=== PATIENT | female | born 1950 | race Caucasian/White ===

== ENCOUNTER 2018-12-12 05:05 | Observation (INO) ==
--- NOTE | 2018-11-07 11:43 | Anesthesiology Consultation ---
Date of Service November 07, 2018 Assessment & Plan (1) Encounter for pre-operative examination: Note sent to PCP re: EKG, and PCP asked for patient to have a cardio clearance. Patient was seen by cardio on 12/04/18, who stated "Pending the results of the stress echo, she is at an acceptable risk to proceed with surgery from a cardiovascular standpoint." [place] [facility] [place]. At this point, will lory patient as acceptable risk for surgery and proceed. Chart Review Chart Review: Patient seen in Pre Admission Testing Teaching & Discussion Pre-Anesthesia Teaching/Discussion Notes: Instructed NPO after midnight before surgery. Medication instructions provided according to the PAT guidelines. History Surgery Operation Date: 12/12/18 07:00 Proposed Procedures p Laparoscopic, Possible Open, Resection Right Lower Quadrant Mass - Grant Arceo MD Height/Weight Height: 5 ft 4 in Weight: 66.8 kg Allergies Allergy/AdvReac Type Severity Reaction Status Date / Time Iodinated Contrast- Oral and Allergy PT STATES Verified 12/12/18 05:24 IV Dye SHE HAD A CARDIAC ARREST FOLLOWING IV FORM codeine AdvReac Unknown Headache Verified 12/12/18 05:24 morphine AdvReac Unknown PT SAID IT Verified 12/12/18 05:24 SHUTS HER SYSTEM DOWN naproxen AdvReac Diarrhea Verified 12/12/18 05:24 Medications Home Medications Medication Instructions Recorded Confirmed Last Taken No Known Home Medications 11/04/18 12/12/18 Unknown Active Medications Generic Name Dose Route Start Last Admin Trade Name Freq PRN Reason Stop Dose Admin Lactated Ringer's 1,000 mls @ 15 mls/hr 12/12/18 06:00 12/12/18 05:38 Lr IV 12/12/18 18:00 15 mls/hr .Q24H ALVARO Administration Past Medical History Medical History Intermittent claudication RLE (SURGEON AWARE) Benign carcinoid tumors of other sites Past Family History Family History Other Family history non-contributory Past Surgical History Surgical History History of bowel resection 2/2 "ABNORMAL CELLS" History of hand surgery RIGHT 2nd FINGER RE-ATTACHEMENT 2/2 TRAUMA History of cholecystectomy History of hysterectomy DUSTIN Past Anesthesia History No Hx of Anesthesia Complications and No Family Hx of Anesthesia Complications History of PONV No Motion Sickness Screening History of Motion Sickness: Yes (IF RIDING IN BACK SEAT) Social History Smoking Status: Current every day smoker tobacco type: cigarettes Smoking cigarettes per day: HX OF 1- 1.5 PPD X 40 YEARS Do You Dip or Chew Tobacco: No Hx Alcohol Use: Yes Alcohol type: hard liquor alcohol intake frequency: holidays/special occasions only Alcohol Intake Frequency Comment: VERY RARE Hx Substance Use: No substance use type: does not use Exercise / Class Metabolic Activity II 4-5 Yardwork/Stairs/Walk up hill (Bowls weekly in [employer], active at home, cares for her 2 year old great granddaughter. Able to climb FOS. Denies CP. Does get some SOB when she is smoking more. ) Review of Systems Patient denies chest pain, reflux, wheezing, palpitations. +SOB/VARGAS (Does get some SOB/VARGAS when she is smoking more) +Joint pain (right elbow when bowling, right knee) +cough (when smoking more and when she has increased congestion) Physical Exam Vital Signs Last Vital Signs Temp 36.6 C 12/12/18 05:25 Pulse 81 12/12/18 05:25 Resp 18 12/12/18 05:25 BP 130/75 12/12/18 05:25 Pulse Ox 95 12/12/18 05:25 BP: 130/70 P: 82 R: 14 T: 98.1 SPO2: 96% on RA ENMT Mouth: + dentures (Full upper set) and + edentulous Thyromental Distance: > or= 3.5 Finger Breadths (3.5) Mallampati Class: II Neck normal visual inspection and trachea midline; neck extension not limited Respiratory normal respiratory effort Auscultation: lungs clear to auscultation bilaterally Cardiovascular Rate/Rhythm: regular rate and regular rhythm Heart Sounds: no murmur Vessels: no carotid bruit Neurologic moves all extremities Psychiatric Orientation: alert and oriented x 3 Testing Electrocardiogram Date: 06/15/18 Findings: + SB @ (54) Low voltage QRS, cannot rule out anterior infarct, age undetermined. Chest X-Ray Date: 11/07/18 Findings: + NAD FINDINGS: Cardiac mediastinal and hilar silhouettes are within normal limits. No pneumothorax, pleural effusion, focal airspace consolidation or overt pulmonary edema. Cholecystectomy. Degenerative changes are seen about the shoulders and spine. IMPRESSION: No acute process. Stress Test Date: 12/06/18 Type: DSE Findings: + WNL Resting EF: 50% Resting LV Function: normal Resting RWMA: + none Valvular Disease: no significant valvular disease Negative dobutamine stress echocardiogram for myocardial ischemia at 93% MPHR. Negative dobutamine stress ECG for myocardial ischemia at 93% MPHR. No dobutamine induced chest pain. Baseline echocardiogram notes low-normal systolic function. There is mild concentric left ventricular hypertrophy. Laboratory Results 11/07/18 11:56 11/07/18 11:56 Blood Type O Negative 11/07/18 11:56 Antibody Screen NEGATIVE 11/07/18 11:56
--- NOTE | 2018-11-07 12:29 | XRay Report ---
XR chest Pre-admission PA/Lat HISTORY: 68 years-old Female pat preoperative exam. No acute chest complaints. COMPARISON: CT abdomen and pelvis 06/15/2018 TECHNIQUE: PA and lateral views of the chest FINDINGS: Cardiac mediastinal and hilar silhouettes are within normal limits. No pneumothorax, pleural effusion , focal airspace consolidation or overt pulmonary edema. Cholecystectomy. Degenerative changes are se en about the shoulders and spine. IMPRESSION: No acute process. The above report was generated using voice recognition software. It may contain grammatical, syntax o r spelling errors. Electronically signed by: Dakotah Romero M.D. 11/07/2018 12:28 PM
[2018-11-07 13:07] LABS: Basophils # (auto) 0.03 K/uL (0-0.2); Basophils % (auto) 0.4 %; Eosinophils # (auto) 0.03 K/uL (0-0.5); Eosinophils % (auto) 0.4 %; Hematocrit (blood only) 43.8 % (37-47); Hemoglobin 14.7 g/dL (12.0-16.0); Immature Granulocytes # (auto) 0.01 K/uL (0.00-0.02); Immature Granulocytes % (auto) 0.1 %; Lymphocytes # (auto) 2.92 K/uL (1.2-3.4); Lymphocytes % (auto) 40.9 %; Mean Corpuscular Hgb Conc 33.6 g/dL (32-36); Mean Corpuscular Volume 95.4 fL (80-100); Mean Platelet Volume 10.6 fL (7.4-10.4); Monocytes # (auto) 0.56 K/uL (0.11-0.59); Monocytes % (auto) 7.8 %; Neutrophils # (auto) 3.59 K/uL (1.4-6.5); Neutrophils % (auto) 50.4 %; Platelet Count 259 K/uL (130-400); RDW Coefficient of Variation 13.7 % (11.5-14.5); RDW Standard Deviation 47.6 fL (36.4-46.3); Red Blood Count 4.59 M/uL (4.2-5.4); White Blood Count 7.14 K/uL (4.8-10.8)
[2018-11-07 13:29] LABS: BUN Creatinine Ratio 13.2 (10-20); Calcium 9.8 mg/dl (8.5-10.1); Creatinine Clr Calc Pharmacy 54.4 ml/min; Est GFR (African American) 73.2; Est GFR (Non-African American) 63.1; Potassium 4.9 mmol/L (3.5-5.1)
[2018-12-12] MEDS ORDERED: LR 15ML/HR IV SCH (06:00)
--- NOTE | 2018-12-12 06:28 | History & Physical Report ---
Date of Service December 12, 2018 Assessment & Plan (1) Encounter for pre-operative examination: plan laparoscopy possible open r and c explained to pt and Present on Admission?: Yes History of Present Illness Chief Complaint: 68 female with lymph node near previous site of ileocecectomy for carcinoid suspicious of rec disease see complete h and p dictated a on 11/05 surgery held up do to anesthesia request cardiac clearance that she had 2 days ago no chnages since last seen here with at bedside Primary Care Provider: NO PCP Allergies Allergy/AdvReac Type Severity Reaction Status Date / Time Iodinated Contrast- Oral and Allergy PT STATES Verified 12/12/18 05:24 IV Dye SHE HAD A CARDIAC ARREST FOLLOWING IV FORM codeine AdvReac Unknown Headache Verified 12/12/18 05:24 morphine AdvReac Unknown PT SAID IT Verified 12/12/18 05:24 SHUTS HER SYSTEM DOWN naproxen AdvReac Diarrhea Verified 12/12/18 05:24 Home Medications Home Medications Medication Instructions Recorded Confirmed Type No Known Home Medications 11/04/18 12/12/18 History Past Med/Surg History Medical History Intermittent claudication RLE (SURGEON AWARE) Benign carcinoid tumors of other sites Family History Other Family history non-contributory Social History Preferred Language: Welsh Communication Ability: Effective Visual Impairment: No Limitations Hearing Ability: Normal Behavior Clinician Required: No Beliefs That Will Affect Care: None Current Living Situation: Spouse Other Information That Helps Us Care for You: No Feels Safe at Home: Yes Safety Concerns: Feels Safe At This Time Smoking Status: Current every day smoker Tobacco Type: cigarettes Cigarettes Per Day: HX OF 1- 1.5 PPD X 40 YEARS Do You Dip or Chew Tobacco: No Second Hand Exposure: No Tobacco Cessation Education Requested by Patient: No Hx Alcohol Use: Yes Alcohol type: hard liquor Hx Substance Use: No Review of Systems Review of Systems: All systems reviewed & are unremarkable except as noted in HPI & below Physical Exam Physical Exam: alert coherent in no distress lungs clear heart nss abd neg for masses multiple incisions from previous surgery Results & Data Vital Signs (Past 12 Hours) Vital Signs Temp Pulse Resp BP Pulse Ox 12/12/18 05:25 36.6 C 81 18 130/75 95
[2018-12-12] MEDS ORDERED: fentaNYL citrate 100 MCG/2 ML VIAL ONE ×4 (06:35→09:33)
[2018-12-12] MEDS ORDERED: MIDAZOLAM HCL 1 MG/ML 2ML VIAL ONE (06:35)
[2018-12-12] MEDS ORDERED: ROCURONIUM BROMIDE 10 MG/ML 5 ML VIAL ONE (06:37)
[2018-12-12] MEDS ORDERED: PROPOFOL IV EMULSION 10 MG/ML 20 ML VIAL IV ONE (06:37)
[2018-12-12] MEDS ORDERED: BUPIVACAINE 0.5 % 5 MG/1 ML MPF 30ML VIAL ONE (06:39)
[2018-12-12] MEDS ORDERED: HYDROmorphone INJ 2 MG/ML SYR/VIAL IV PRN (06:54)
[2018-12-12] MEDS ORDERED: ATROPINE SULFATE 0.1 MG/ML 10ML SYR IV PRN (06:54)
[2018-12-12] MEDS ORDERED: ePHEDrine sulfate 50 MG/ML AMP IV PRN (06:54)
[2018-12-12] MEDS ORDERED: DEXAMETHASONE SOD INJ 4 MG/ML VIAL IV PRN (06:54)
[2018-12-12] MEDS ORDERED: ONDANSETRON INJ 2 MG/ML 2 ML VIAL IV PRN ×2 (06:54→11:24)
[2018-12-12] MEDS ORDERED: fentaNYL citrate 100 MCG/2 ML VIAL IV PRN (06:54)
--- NOTE | 2018-12-12 09:59 | Post Operative Brief Note ---
Immediate Post Op Note v1 Date of Surgery December 12, 2018 Pre & Post Diagnosis Operation Date: 12/12/18 07:00 Pre-Op Diagnosis: Right Lower Quadrant Abdominal Mass Post-Op Diagnosis: Metastatic Carcinoid Abdominal wall Procedure Operation Date: 12/12/18 07:00 Actual Procedures p Laparoscopy; Lysis Dense Abdominal Adhesions; Biopsy Abdominal Wall Mass for Frozen Section(Right) - Grant Arceo MD Surgeon Grant Arceo MD Cyber Reverse Engineer b carolyn jc Estimated Blood Loss 50 Findings Consistent with Post-Op Diagnosis
[2018-12-12] MEDS ORDERED: NEOSTIGMINE METHYLSULFATE 5 MG/5 ML SYR ONE (10:02)
[2018-12-12] MEDS ORDERED: GLYCOPYRROLATE 0.2 MG/ML VIAL ONE (10:02)
--- NOTE | 2018-12-12 10:24 | Operative Report ---
Post Operative Report Pre & Post Diagnosis Operation Date: 12/12/18 07:00 Pre-Op Diagnosis: Right Lower Quadrant Abdominal Mass Post-Op Diagnosis: Metastatic Carcinoid Abdominal wall Procedure Operation Date: 12/12/18 07:00 Actual Procedures p Laparoscopy; Lysis Dense Abdominal Adhesions; Biopsy Abdominal Wall Mass for Frozen Section(Right) - Grant Arceo MD Patient was brought into the operating theater supine position stomach antibiotics given general endotracheal anesthesia a timeout was had and a small incision supraumbilically above the lower midline incision dissected down the abdominal wall fascia elevated the fascia with Rasta clamps were able to enter with a hemostat were met with adhesions and not a free area to insert a port eventually dissected out more away with the pain a 5 mm port without the soft edge without the sharp edge CO2 insufflated followed by the camera however significant around a massive amount of adhesions some of there was try to break through the area but I was unsuccessful patient has significant risk past medical history she had included ileus septectomy which at that time also underwent an open procedure she presented to us with a right lower quadrant mesenteric mass most likely consistent with metastatic carcinoid that was 3 cm 4 cm in size therefore with that in mind that I cannot be able to get into the abd omen without guarding.I made a small incision in the quadrant dissected through the peritoneum and was able to enter the peritoneal cavity with a hemostat which was free flowing and 5 mm trocar without the sharp edge at this point we were able to insufflate and what we identified as the patient has significant adhesions to the anterior abdominal wall along her low midline incision all the way up towards the falciform ligament I elected to take these down to visualize if there is have any evidence of metastatic disease before we approach or even try to get downs of her right lower quadrant mesenteric nod which pretty much was frozen and then by adhesions therefore we placed a 5mm left upper quadrant history of a 5 mm right upper quadrant port on the right visualization of created a window that we were able to place the 5 mm first a 3 mm right upper left upper quadrant port and utilized the abdominal adhesions most of omental adhesions anterior abdominal wall few bowel loops we were able to free up by sharp dissection making sure we did not enter any of it. We also once we freed up and took the adhesions which sharp dissection it took approximately 3 hours just to get through these areas then our attention was turned to the right lower quadrant for which she dilated small bowel proximal to the cecal area which I suspected gone into the right gutter was the anastomosis. Prior to that once we had freed up the intra-abdominal adhesion we had set speck of the lower midline incision a very hard area to be felt more so than just granulation tissue was sent for frozen section and the report was most likely due to metastatic carcinoid. With that in mind I try to dissect down further into the natural area that we were interest to get out but it was significantly withdrawn into the mesentery that it was quite dangerous he was dissected out more and my suspicions were vented if we devascularized that area we will trend up to one 8- hour resection of previous area of the ileum and the left right colon with that in mind I elected not to pursue any forward in fact we did gets a little bit of bleeding just try to dissect this area laparoscopically I did not put some Surgicel in the area about a time we are done I will appear to be slowing down. Individual trochars were checked prior to remove it but we did closed the lower abdominal right trocar with 0 Vicryl with bacitracin suture passer intra- abdominally and fascial stitch was placed then we closed the umbilical area or supraumbilical incisional site with 0 Vicryl x2 [id number] Steri-Strips applied after Monocryl was used for the other size procedure was tolerated well estimated blood loss approximately 50 cc addendumB Carolyn CHISHOLM was present pretty much throughout the whole case help to the camera work exposure and wound closure Surgeon Grant Arceo MD Dispatcher Radioactive Waste Disposal b carolyn chisholm Estimated Blood Loss 50 Findings Consistent with Post-Op Diagnosis Specimens abd wall implant f s met carcinoid Description of Procedure merda I attest to the content of the Intraoperative Record and any orders documented therein. Any exceptions are noted below.
--- NOTE | 2018-12-12 11:19 | Anesthesiology Progress Note ---
Date of Service December 12, 2018 Anesthesia Post Procedure Vital Signs Vital Signs: Temp Pulse Pulse Resp BP BP Pulse Ox 12/12/18 11:05 67 20 138/73 92 12/12/18 10:55 36.3 C L 65 22 140/74 93 12/12/18 10:50 64 17 125/70 95 12/12/18 10:40 70 20 127/69 94 12/12/18 10:30 69 20 157/80 H 93 12/12/18 10:20 74 18 157/87 H 94 12/12/18 10:12 36.0 C L 80 18 140/89 92 12/12/18 05:25 36.6 C 81 18 130/75 95 Notes Mental Status: alert / awake / arousable and participated in evaluation Patient Amnestic to Procedure: Yes Nausea / Vomiting: adequately controlled Pain: adequately controlled Airway Patency, RR, SpO2: stable & adequate BP & HR: stable & adequate Hydration State: stable & adequate Anesthetic Complications: no major complications apparent
[2018-12-12] MEDS ORDERED: OXYCODONE/ACETAMINOPHEN 5mg/325mg TAB PO PRN (11:24)
[2018-12-12] MEDS ORDERED: ACETAMINOPHEN 325 MG TAB PO PRN (11:24)
[2018-12-12] MEDS: LACTATED RINGER'S 1,000 ML IV SCH ×2 (14:01→23:26)
--- NOTE | 2018-12-13 05:29 | Surgery Progress Note ---
Date of Service December 13, 2018 Assessment & Plan (1) Encounter for pre-operative examination: first pod intraop findings discussed with pt and told of spread of disease to abd incision will need chemo (she adamantly refuses) bit concerned her abd more distended than I would expect although we took nearly 3 hours to lyse adhesions vitals noted will check lab and reevaluate later today plan laparoscopy possible open r and c explained to pt and Subjective complaining of abd pain when getting up otherwise no pain Physical Exam Physical Exam: alert in no distress coughing non productive abd distended tender rlq trocar site Results & Data Vital Signs (Past 12 Hours) Vital Signs Temp Pulse Resp BP Pulse Ox 12/13/18 04:00 37 C 83 22 124/70 94 12/12/18 23:21 94 12/12/18 23:20 37.4 C 84 20 114/82 83 L 12/12/18 19:55 37.1 C 71 18 102/59 L 92
[2018-12-13 06:11] LABS: Basophils # (auto) 0.01 K/uL (0-0.2); Basophils % (auto) 0.1 %; Eosinophils # (auto) 0.01 K/uL (0-0.5); Eosinophils % (auto) 0.1 %; Hematocrit (blood only) 35.3 % (37-47); Hemoglobin 11.8 g/dL (12.0-16.0); Immature Granulocytes # (auto) 0.03 K/uL (0.00-0.02); Immature Granulocytes % (auto) 0.3 %; Lymphocytes # (auto) 3.15 K/uL (1.2-3.4); Lymphocytes % (auto) 28.4 %; Mean Corpuscular Hgb Conc 33.4 g/dL (32-36); Mean Corpuscular Volume 93.4 fL (80-100); Mean Platelet Volume 10.1 fL (7.4-10.4); Monocytes # (auto) 0.94 K/uL (0.11-0.59); Monocytes % (auto) 8.5 %; Neutrophils # (auto) 6.94 K/uL (1.4-6.5); Neutrophils % (auto) 62.6 %; Platelet Count 223 K/uL (130-400); RDW Standard Deviation 48.2 fL (36.4-46.3); Red Blood Count 3.78 M/uL (4.2-5.4); White Blood Count 11.08 K/uL (4.8-10.8)
[2018-12-13 06:43] LABS: BUN Creatinine Ratio 12.2 (10-20); Calcium 8.5 mg/dl (8.5-10.1); Creatinine Clr Calc Pharmacy 61.7 ml/min; Est GFR (Non-African American) 72.5; Potassium 3.9 mmol/L (3.5-5.1)
--- NOTE | 2018-12-13 08:32 | Anesthesiology Progress Note ---
Date of Service December 13, 2018 Anesthesia Post Procedure Vital Signs Vital Signs: Temp Pulse Pulse Resp BP Pulse Ox 12/13/18 08:13 37.0 C 68 20 122/60 94 12/13/18 04:00 37 C 83 22 124/70 94 12/12/18 23:21 94 12/12/18 23:20 37.4 C 84 20 114/82 83 L 12/12/18 19:55 37.1 C 71 18 102/59 L 92 12/12/18 15:10 36.7 C 93 H 18 138/77 92 12/12/18 14:02 72 16 121/64 92 12/12/18 13:12 36.9 C 72 16 117/64 96 12/12/18 12:23 74 18 117/63 96 12/12/18 11:41 69 16 126/66 92 12/12/18 11:15 36.5 C 64 16 132/78 95 12/12/18 11:05 67 20 138/73 92 12/12/18 10:55 36.3 C L 65 22 140/74 93 12/12/18 10:50 64 17 125/70 95 12/12/18 10:40 70 20 127/69 94 12/12/18 10:30 69 20 157/80 H 93 12/12/18 10:20 74 18 157/87 H 94 12/12/18 10:12 36.0 C L 80 18 140/89 92 Pain Intensity Abdomen: Pain Intensity: 7 Notes Mental Status: alert / awake / arousable and participated in evaluation Patient Amnestic to Procedure: Yes Nausea / Vomiting: adequately controlled Pain: adequately controlled Airway Patency, RR, SpO2: stable & adequate BP & HR: stable & adequate Hydration State: stable & adequate Anesthetic Complications: no major complications apparent and Pt Satisfied with anesthetic care
[2018-12-13] MEDS: LACTATED RINGER'S 1,000 ML IV SCH (11:18)
--- NOTE | 2018-12-13 13:08 | Surgery Progress Note ---
Date of Service December 13, 2018 Assessment & Plan (1) Encounter for pre-operative examination: first pod second visit daughter at bedside discussed op findings and f/u with pt she wants to go home and feels better tolerated breakfast and wants lunch abd softer lab noted ok to d/c discussed with case management first pod intraop findings discussed with pt and told of spread of disease to abd incision will need chemo (she adamantly refuses) bit concerned her abd more distended than I would expect although we took nearly 3 hours to lyse adhesions vitals noted will check lab and reevaluate later today plan laparoscopy possible open r and c explained to pt and Subjective complaining of abd pain when getting up otherwise no pain Results & Data Vital Signs (Past 12 Hours) Vital Signs Temp Pulse Pulse Resp BP Pulse Ox 12/13/18 11:15 88 L 12/13/18 08:37 92 12/13/18 08:35 86 L 12/13/18 08:13 37.0 C 68 20 122/60 94 12/13/18 04:00 37 C 83 22 124/70 94
--- NOTE | 2018-12-16 17:56 | Discharge Summary ---
PRIMARY DISCHARGE DIAGNOSES: 1. Right lower quadrant abdominal mass. 2. Metastatic carcinoid of abdominal wall. PROCEDURE PERFORMED: Laparoscopy with lysis of dense abdominal adhesions and abdominal wall biopsy with frozen section. HOSPITAL COURSE: The patient is a 60-year-old female with a history of carcinoid now with mass in the right lower quadrant, taken to the operating room for further evaluation and biopsy. She had an abdominal wall implant that was biopsied and frozen returned as metastatic carcinoid. We were not easily able to biopsy the mass in the right lower quadrant. The procedure was well tolerated. She was transferred to the surgical floor for overnight observation. On postop day 1 she was able to tolerate advancing diet and oral analgesics. Her incisions were clean and dry. Her abdomen was somewhat distended in the morning but by the afternoon was improved. She was stable for discharge. DISCHARGE INSTRUCTIONS: Discharge home. Follow up with Dr. Arceo in 1 week. DISCHARGE MEDICATIONS: Percocet 1-2 tablets every 4 hours as needed. MTDD
--- OUTSIDE RECORDS SUMMARY | 2018-12-16 20:54 | External Medical Summary | Continuity of Care Document ---
:1950 Author Name Kenia Wild, Provider Address Unavailable Unavailable , Care Team Providers Name Role Phone Grant Arceo [email or web address] PCP, UNKNOWN Unavailable Unavailable Unavailable Unavailable Unavailable Problems Abdominal mass, RLQ (right lower quadrant) (789.33) (R19.03) Abnormal ECG (794.31) (R94.31) Exertional shortness of breath (786.05) (R06.02) Claudication (443.9) (I73.9) Tobacco abuse (305.1) (Z72.0) Allergies and Adverse Reactions Codeine Derivatives (Allergy) Reaction: Headache Iodine SOLN (Allergy) Reaction: Other Naproxen TABS (Allergy) Reaction: Diarrh ea Medications No Reported Medications Refills: 0 Procedures History of hand surgery Status: Complete d History of Hysterectomy Status: Complete d History of Cholecystectomy Status: Compl eted History of Colon Surgery Status: Complet ed History of Laparoscopy (Diagnostic) Stat us: Completed 12-Dec-2018 0:00 Immunizations Immunizations not documented Family History Mother Family history of diabetes mellitus (V18.0) (Z83.3) Status: Active Family history of malignant neoplasm of breast (V16.3) (Z80. 3) Status: Active natural daughter Family history of diabetes mellitus (V18.0) (Z83.3) Status: Active Family history of malignant neoplasm of breast (V16.3) (Z80. 3) Status: Active aunt Family history of malignant neoplasm of breast (V16.3) (Z80. 3) Status: Active Social History - Smoking Status Smoker. current status unknown Plan of Treatment Planned Encounters Appointment; Grant Arceo M.D. Start: 20-Dec-2018 9 :40 Request Planned Observations Planned Goals not documented Results BLOOD BANK HOLD TUBE Laboratory: [facility] [address] [facility] [address] tel: 12-Dec-2018 5:33 BLOOD BANK HOLD TUBE Run: 12/12/18 0716 [facility] Lien Pathology Report Name : MAXIMO BENOIT Daisy Age/Sex: 68/F Location: A SUAcct: [id number] Unit: [id number] Status: [facility] Room /Bed:Re12/12/18 Disch: Att Dr: Grant Arceo Spec: [id number] Collected: 12/12/18Received: [facility] Dr: Grant Arceo, [facility] To: PCP ,NOOrd Prods: (NO ORDERED PRODUCTS)Ord Tests: (NO REPORTAB LE TESTS) Test Result Flag Reference Site <No re portable results> Te sts: Date Time Order Change Action User12/11/18 1425 Blood Bank Hold 1 NEW 0311 4 END OF REPORT Vital Signs 04-Dec-2018 10:51 Systolic 128 mm[Hg] Comments: Location: RUE; Position: Sitting Diastolic 76 mm[Hg] Comments: Location: RUE; Position: Sitting Weight 148.125 lb BMI Calculated 26.24 kg/m2 BSA Calculated 1.7 m2 Heart Rate 100 /min Comments: Location: R Radial; Encounters Appointment; Grant Arceo M.D. 12-Dec-2018 7:00 Encounter Diagnosis: Problem not documented Appointment; Aster Price PA-C 06-Dec-2018 11:30 Encounter Diagnosis: Problem not documented Appointment; Stress, Echocardiogram 1 06-Dec-2018 10:30 Encounter Diagnosis: Problem not documented Appointment; Aster Price PA-C 04-Dec-2018 11:00 Encounter Diagnosis: Problem not documented Appointment; Grant Arceo M.D. 30-Oct-2018 13:30 Encounter Diagnosis: Problem not documented Appointment; Grant Arceo M.D. 20-Dec-2018 9:40 Encounter Diagnosis: Problem not documented
== END 2018-12-13 14:02 | disposition home or self-care (01) ==
LOC: ASU 05:05 → 3N 05:05

== ENCOUNTER 2020-05-25 11:41 | Observation (INO) ==
--- NOTE | 2020-05-25 12:49 | History & Physical Report ---
Date of Service May 25, 2020 Assessment & Plan (1) Fatigue: Suspect it is due to progressive neuroendocrine tumor with mets. However, will rule out other metabolic causes. Check CBC, CMP, TSH, B12/folate, EKG. No evidence of any infectious process at this time. Check serotonin and chromogranin A levels. (2) Neuroendocrine cancer: Patient with long history of neuroendocrine tumor dating back to 2005. 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 Rising serotonin levels in 2016 led to initiation of octreotide. Remained on such until early 2018. Has not had conventional therapy for her cancer since. Had 2nd opinion at [facility] in February [address] Forrester to formally consult this admission. He has requested jaffe-CT to assess disease burden. Unfortunately she had anaphylaxis to IV contrast in the past thus will defer on contrast. Suspect much of her chronic fatigue is due to advancing neuroendocrine tumor w/ mets. Await CTs. Check serotonin & chromogranin A levels. (3) Tobacco dependence: Template Fitter to quit. Nicoderm patch. (4) PAD (peripheral artery disease): Patient with claudication of legs with walking. It would be prudent to consider daily aspirin and statin. Tobacco contributing heavily to this issue. (5) Chronic rhinitis: Add nasal steroid. Add saline drops. osbaldo-D prn. (6) Breast mass, right: Per Dr Forrestre patient had mammogram in late April showing this. Past imaging, however, has also shown a right breast mass - possibly due to her neuroendocrine tumor. Defer work-up/Rx to Dr Forrester. (7) Wheezing: Suspect patient has underlying COPD. Has long-standing tobacco use, clubbing of fingernails, etc. Consider maintenance inhalers, 2-step O2 test, etc. (8) DVT prophylaxis: lovenox 30mg daily place on observation status total time about 70 minutes including reviewing copious amount of records, speaking with Dr Forrester heme/onc, etc. Admission and Anticipated Discharge Date Admission Date: May 25, 2020 History of Present Illness Chief Complaint: extreme fatigue Primary Care Provider: NO PCP 70yo female with history of neuroendocrine tumor s/p resection of a portion of the small bowel for same in 2005 - presents with extreme fatigue starting in early April 2020. The fatigue/weakness come on gradually. It was associated with feeling cold all the time, poor appetite, and some weight loss. Denies fevers/chills/sweats. Has had sinus congestion but minimal cough. No loss of taste. Some change in smell but attributed to sinus congestion. No nausea or emesis. Passing lots of flatus. Traveled to [place] about 10 days ago by car but no obvious sick contacts going to or from there. Patient had not seen Dr Forrester at the [facility] in over 12 months before today. She had gotten a referral to oncology at [facility] in [place] in February 2019. Records from that visit were available for my review today. Lutathera was recommended to the patient but she ultimately declined such. Instead of pursuing conventional treatment the patient elected to travel to [place] for homeopathic treatment. She was seen and treated at "[facility]" in [place], [place]. She reports that she had "stem cell treatment" at this center from May to July 2019. Had 9 total injections. 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 * serotonin/chromogranin A levels radha in 2016 prompting initiation of octreotide in 11/2016 * remained on octreotide until 05/2019; despite octreotide she had radiographic progression of cancer with MRI in 07/2018 showing RLQ mass * 11/2018 - biopsy of RLQ mass by Dr Arceo c/w metastatic well- differentiated neuroendocrine tumor * prior PET/CT dated 02/2019 showed multiple foci in right pleura, liver, left ischium, peritoneum; this also showed right breast nodule suggestive of additional focus of neuroendocrine tumor * Dr Forrester states that a mammogram done in 04/2020 showed a right breast mass Allergies Allergy/AdvReac Type Severity Reaction Status Date / Time Iodinated Contrast Media Allergy PT STATES Verified 12/12/18 05:24 [Iodinated Contrast- Oral SHE HAD A and IV Dye] CARDIAC ARREST FOLLOWING IV FORM codeine AdvReac Unknown Headache Verified 12/12/18 05:24 morphine AdvReac Unknown PT SAID IT Verified 12/12/18 05:24 SHUTS HER SYSTEM DOWN naproxen AdvReac Diarrhea Verified 12/12/18 05:24 Home Medications Home Medications Medication Instructions Recorded Confirmed Type No Known Home Medications 11/04/18 12/12/18 History oxycodone-acetaminophen [Percocet] 1 - 2 tab PO Q4H PRN #15 tab 12/13/18 Rx Past Med/Surg History Medical History (Updated 05/25/20 @ 21:17 by Hardik Atwood) Neuroendocrine cancer original diagnosis 2005 (small bowel grade 1 carcinoid tumor) PAD (peripheral artery disease) Tobacco dependence Surgical History (Updated 05/25/20 @ 21:08 by Hardik Atwood) History of bowel resection 2005 - carcinoid tumor - small bowel History of cholecystectomy History of hand surgery RIGHT 2nd FINGER RE-ATTACHEMENT 2/2 TRAUMA History of hysterectomy DUSTIN/BSO Family History (Updated 05/25/20 @ 12:44 by Hardik Atwood) Mother , age 84 Heart disease Diabetes Father , age 84 Dementia Other Family history non-contributory Social History (Updated 05/25/20 @ 12:47 by Hardik Atwood) Smoking Status: Current every day smoker Years Smoked: 50; Cigarettes Per Day: 1 - 1.5 PPD; Second Hand Exposure: No; Do You Dip or Chew Tobacco: No; Tobacco Cessation Education Requested by Patient: No Hx Alcohol Use: Yes Alcohol type: hard liquor Alcohol Intake Frequency: Monthly or Less Hx Substance Use: No Preferred Language: Yi Communication Ability: Effective Visual Impairment: No Limitations Hearing Ability: Normal Fire Control Technician B Required: No Beliefs That Will Affect Care: None marital status: Current Living Situation: Spouse Current Living Situation Comment: lives with in [place] 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 status: retired 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 How many Children do You have: 3 How many Children do You have Comment: daughters Other Information That Helps Us Care for You: No Feels Safe at Home: Yes Safety Concerns: Feels Safe At This Time Assistive Devices: None Review of Systems Constitutional: + fatigue, + weakness, + anorexia and + weight loss; no fever, no chills and no body aches Eyes: no worsening vision Ear, Nose, Mouth, Throat: + nasal congestion and + sinus pain/pressure; no sore throat and no dysphagia Respiratory: + cough, + dyspnea on exertion and + sputum production Cardiovascular: no chest pain, no palpitations and no edema Gastrointestinal: + excessive flatulence and + diarrhea/loose stools; no nausea and no vomiting Genitourinary: no dysuria Musculoskeletal: no joint pain Integumentary: no rash Neurologic: no loss of sensation feet occasionally "burn" Psychiatric: + anxiety; no depression Endocrine: + cold intolerance no diabetes Hematologic / Lymphatic: no easy bleeding and no easy bruising Allergy / Immunological: + seasonal rhinorrhea Physical Exam Constitutional: no acute distress and no altered mental status Eyes: PERRL ENMT: external ear and nose normal, oropharynx normal Neck: trachea midline, no thyromegaly Respiratory: no respiratory distress Auscultation: + wheezes (scattered end-exp ); no crackles Cardiovascular: Rate/Rhythm: regular rate and regular rhythm Heart Sounds: normal S1 and normal S2; no murmur Vessels: posterior tibial pulses present (but 1+ at best) and dorsalis pedis pulses present (but 1+ at best); no JVD Extremities: no edema Gastrointestinal (Abdomen): Inspection/Auscultation: normal bowel sounds; abdomen not distended Percussion/Palpation: abdomen soft and + hepatomegaly (2 fingerbreaths below costal margin ); abdomen nontender and no splenomegaly Musculoskeletal: Extremities: + clubbing Skin: no rashes, warm and dry Neurologic: deep tendon reflexes 2+ bilaterally and moves all extremities; no focal motor deficits Psychiatric: A+Ox3, euthymic affect Lymphatic: + axillary lymphadenopathy (?<1cm node right axillary ); no cervical lymphadenopathy Results & Data Results & Data ([facility]) Vital Signs (Past 12 Hours) Laboratory Results - last 24 hr 05/25/20 05/25/20 05/25/20 13:49 13:49 13:49 WBC 7.10 RBC 4.67 Hgb 13.7 Hct 41.4 MCV 88.7 MCH 29.3 MCHC 33.1 RDW Std Deviation 48.0 H RDW Coeff of Noris 14.8 H Plt Count 319 MPV 9.9 Immature Gran % (Auto) 0.1 Neut % (Auto) 55.7 Lymph % (Auto) 35.1 [place] % (Auto) 8.2 Eos % (Auto) 0.6 Baso % (Auto) 0.3 Neut # (Auto) 3.96 Lymph # (Auto) 2.49 [place] # (Auto) 0.58 Eos # (Auto) 0.04 Baso # (Auto) 0.02 Immature Gran # (Auto) 0.01 Sodium 140 Potassium 3.9 Chloride 108 H Carbon Dioxide 26 Anion Gap 6.0 BUN 7 Creatinine 0.79 Est Cr Clr Drug Dosing 57.2 Est GFR ( Amer) 87.9 Est GFR (Non-Af Amer) 75.8 BUN/Creatinine Ratio 8.9 L Glucose 88 Calcium 9.4 Magnesium 2.2 Total Bilirubin 0.6 AST 15 ALT 19 Alkaline Phosphatase 96 Total Protein 8.4 H Albumin 3.4 Globulin 5.0 H Albumin/Globulin Ratio 0.7 L Serotonin Vitamin B12 511 Folate 10.06 TSH 0.878 Chromogranin A 05/25/20 13:49 WBC RBC Hgb Hct MCV MCH MCHC RDW Std Deviation RDW Coeff of Noris Plt Count MPV Immature Gran % (Auto) Neut % (Auto) Lymph % (Auto) [place] % (Auto) Eos % (Auto) Baso % (Auto) Neut # (Auto) Lymph # (Auto) [place] # (Auto) Eos # (Auto) Baso # (Auto) Immature Gran # (Auto) Sodium Potassium Chloride Carbon Dioxide Anion Gap BUN Creatinine Est Cr Clr Drug Dosing Est GFR ( Amer) Est GFR (Non-Af Amer) BUN/Creatinine Ratio Glucose Calcium Magnesium Total Bilirubin AST ALT Alkaline Phosphatase Total Protein Albumin Globulin Albumin/Globulin Ratio Serotonin Pending Vitamin B12 Folate TSH Chromogranin A Pending Laboratory Results CT abd/pelvis/chest pending Code Status & VTE Plan Code Status DNR/DNI VTE Prophylaxis Plan VTE Prophylaxis will be ordered: Yes PG Care Time/CCT Total # of Minutes Spent Total Time Spent with Patient: Total time spent is greater than 50% in coordination of care (as documented) at patient's floor/unit and/or counseling patient: Coding Level of Care Code 45751 OBS Care - Level 3 Diagnoses Fatigue R53.83 Fatigue type: unspecified Neuroendocrine cancer C7A.8 Tobacco dependence F17.200 PAD (peripheral artery disease) I73.9 Chronic rhinitis J31.0 Breast mass, right N63.10 Wheezing R06.2 DVT prophylaxis Z29.9 (1) Fatigue Fatigue type: unspecified Qualified Code(s): R53.83 - Other fatigue
[2020-05-25] MEDS ORDERED: ONDANSETRON INJ 2 MG/ML 2 ML VIAL IV PRN (13:07)
[2020-05-25] MEDS ORDERED: FEXOFENADINE 60MG/PSEUDOEPHEDRINE 120MG TAB PO PRN (13:12)
[2020-05-25] MEDS ORDERED: SODIUM CHLORIDE 0.65% NA SOLN 45 ML (OCEAN) PRN (13:12)
[2020-05-25] MEDS: SODIUM CHLORIDE 0.9% 1000ML 1,000 ML IV SCH (13:50)
[2020-05-25 14:22] LABS: Basophils # (auto) 0.02 K/uL (0-0.2); Basophils % (auto) 0.3 %; Eosinophils # (auto) 0.04 K/uL (0-0.5); Eosinophils % (auto) 0.6 %; Hematocrit (blood only) 41.4 % (37-47); Hemoglobin 13.7 g/dL (12.0-16.0); Immature Granulocytes # (auto) 0.01 K/uL (0.00-0.02); Immature Granulocytes % (auto) 0.1 %; Lymphocytes # (auto) 2.49 K/uL (1.2-3.4); Lymphocytes % (auto) 35.1 %; Mean Corpuscular Hemoglobin 29.3 pg (25-34); Mean Corpuscular Hgb Conc 33.1 g/dL (32-36); Mean Corpuscular Volume 88.7 fL (80-100); Mean Platelet Volume 9.9 fL (7.4-10.4); Monocytes # (auto) 0.58 K/uL (0.11-0.59); Monocytes % (auto) 8.2 %; Neutrophils # (auto) 3.96 K/uL (1.4-6.5); Neutrophils % (auto) 55.7 %; Platelet Count 319 K/uL (130-400); RDW Coefficient of Variation 14.8 % (11.5-14.5); Red Blood Count 4.67 M/uL (4.2-5.4)
[2020-05-25] MEDS: FLUTICASONE PROPIONATE NA SPR 16 GM BTL NAE SCH (14:23)
[2020-05-25] MEDS: NICOTINE 21 MG/24 HR TDSY TD SCH (14:24)
[2020-05-25] MEDS: CEROVITE ADV FORMULA TAB PO SCH (14:24)
--- NOTE | 2020-05-25 14:32 | CT Scan Report ---
CT SCAN OF THE ABDOMEN AND PELVIS WITHOUT CONTRAST CLINICAL HISTORY: neuroendocrine tumor; assess for disease burden COMPARISON STUDY: MRI dated 12/26/2019, CT scan dated 06/15/2018 TECHNIQUE: CT scan of the abdomen and pelvis was performed from the lung bases to the proximal femurs . Images are reviewed in the axial, sagittal, and coronal planes. IV contrast was not administered fo r this examination. A dose lowering technique was utilized adhering to the principles of ALARA. CT DOSE: 537.94 mGy.cm FINDINGS: Lower chest: There is respiratory motion artifact. There is emphysema. There is mild mosaic groundgla ss attenuation suggesting air trapping. Liver: There is focal fat adjacent to the falciform ligament. There is slight enlargement in an 8 mm peritoneal nodule abutting the right lobe the liver inferiorly Gallbladder: Surgically absent Spleen: Normal in size and attenuation. Pancreas: Unremarkable. Adrenal glands: Unremarkable. Kidneys: No renal, ureteral, or bladder calculi are visualized. Bowel: There are postsurgical changes of a right hemicolectomy with ileocolonic anastomosis. There ar e no transition zones indicate bowel obstruction. There is colonic diverticulosis. There is no eviden ce of acute diverticulitis. Peritoneum: There is a partially calcified irregularly marginated right mid abdominal mesenteric mass measuring 34 mm in craniocaudad dimension. This is minimally larger than on the preceding June 08 CT scan, when this lesion measured 29 mm.. There are postsurgical changes of a ventral hernia repa ir. There are multiple lower left anterior peritoneal nodules measuring up to 9 mm. These remain valentin lar. Vasculature: There is a 36 mm infrarenal abdominal aortic aneurysm. Adenopathy: A left pelvic sidewall soft tissue nodule remains similar to the prior study. This likely represents the patient's left ovary. Pelvic viscera: The uterus is surgically absent. Skeletal structures: No destructive osseous lesions are seen. IMPRESSION: 1. Minor interval increase in the size of a partially calcified irregularly marginated right mid abdo rody mesenteric mass measuring 34 mm 2. Multiple peritoneal nodules. An 8 mm nodule abutting the right lower lobe inferiorly appears large r than on the prior 2017 study 3. 36 mm infrarenal abdominal aortic aneurysm 4. Focal hepatic fat surrounding the falciform ligament ACT 112: Negative or not required by law. Electronically signed by: Cole Redd M.D. 05/25/2020 2:30 PM
--- NOTE | 2020-05-25 14:35 | CT Scan Report ---
CT SCAN OF THE CHEST WITHOUT IV CONTRAST CLINICAL HISTORY: Neuroendocrine tumor. COMPARISON STUDY: PET/CT dated 12/03/2019. TECHNIQUE: CT scan of the thorax was performed from the thoracic inlet to the upper abdomen. Images are reviewed in the axial, sagittal, and coronal planes. IV contrast was not administered for this ex amination as per the referring clinician. A dose lowering technique was utilized adhering to the bree Avalos. FINDINGS: Thyroid: Imaged portions of the thyroid gland are normal in size and attenuation. Thoracic aorta: There is mild atherosclerotic calcification of the thoracic aorta, which is normal in caliber and demonstrates standard 3-vessel arch anatomy. Heart: The heart is normal in size and without pericardial effusion. There are scattered coronary art carmen calcifications. Lungs and pleural spaces: Emphysematous change is noted and there is biapical pleural parenchymal sca rring. There is no airspace consolidation typical for pneumonia or pleural effusion. Foci of parenchy mal scarring are noted at the lung bases. The trachea and central airways are clear. Pleural thickeni ng in the right upper lobe lung minor fissure is unchanged. This measures up to 8 mm as seen on image #191. No new pulmonary nodule is identified. There is a 2.1 x 0.9 cm focus of pleural-based versus e xtrapleural nodularity in the right lower lobe on image #190 measuring 2.1 x 0.9 cm. Mediastinum: Mildly enlarged mediastinal lymph nodes are identified. A precarinal node on image #134 measures 1.7 x 1.2 cm. Prevascular nodes measure up to 0.6 cm in short axis.An 8 mm nodule seen anter ior to the heart on image #250. Kathy: Not well assessed without IV contrast. Axillae: There is no axillary lymphadenopathy. Upper abdomen: Geographic steatosis is suggested adjacent to falciform ligament. Soft tissue implants in the upper abdomen are seen anterior to the liver on images #295 and #301. These measure up to 11 mm. Additional implants are seen between the diaphragm and the liver on image #255 and measure up to 1.3 cm. Skeletal structures: The skeletal structures are osteopenic. No lytic or blastic bony lesions are see n. Soft tissues: There is a 9 mm a cutaneous soft tissue nodule in the right anterior chest wall seen on image #160. IMPRESSION: 1. Emphysema. 2. There is a soft tissue implant in the right anterior chest wall, as well as small implants in the upper abdomen along the anterior and superior margins of the liver. These are similar to the 0 PET examination and were FDG avid on the prior study. Metastatic disease is the diagnosis of exclus ion. 3. An additional focus of pleural-based or extrapleural nodularity in the right lower lobe is similar to previous. This was also FDG avid and likely represents metastatic disease. 4. There is a new implant seen anterior to the inferior border of the heart deep to the xiphoid. This is also concerning for a metastatic deposit. 5. Mildly enlarged mediastinal lymph nodes are nonspecific and similar to previous. These were mildly FDG avid on 12/03/2019 examination. 6. There is no airspace consolidation typical for pneumonia or pleural effusion. 7. Additional findings as above. ACT 112: Negative or not required by law. Electronically signed by: Pedro White M.D. 05/25/2020 2:33 PM
[2020-05-25 14:47] LABS: Albumin Level 3.4 gm/dl (3.4-5.0); BUN Creatinine Ratio 8.9 (10-20); Calcium 9.4 mg/dl (8.5-10.1); Creatinine Clr Calc Pharmacy 57.2 ml/min; Est GFR (African American) 87.9; Est GFR (Non-African American) 75.8; Magnesium 2.2 mg/dl (1.8-2.4); Potassium 3.9 mmol/L (3.5-5.1)
[2020-05-25 14:56] LABS: Folate (Folic Acid) 10.06 ng/ml (>5.38)
[2020-05-25 14:57] LABS: Albumin Globulin Ratio 0.7 (0.9-2); Bilirubin,Total 0.6 mg/dl (0.2-1); Thyroid Stimulating Hormone 0.878 uIu/ml (0.300-4.500); Total Protein 8.4 gm/dl (6.4-8.2)
--- NOTE | 2020-05-25 17:35 | Electrocardiogram Report ---
Test Reason : Blood Pressure : / mmHG Vent. Rate : 075 BPM Atrial Rate : 075 BPM P-R Int : 200 ms QRS Dur : 076 ms QT Int : 406 ms P-R-T Axes : 080 000 067 degrees QTc Int : 453 ms Normal sinus rhythm Normal ECG When compared with ECG of 15-JUN-2018 21:07, Nonspecific T wave abnormality no longer evident in Anterior leads Confirmed by Kane Wilson ([id number]) on 05/25/2020 5:34:53 PM Referred By: Hardik Atwood Confirmed By:Liborio Wilson
[2020-05-25] MEDS ORDERED: ENOXAPARIN INJ 30 MG/0.3 ML SYR SQ SCH (21:00)
[2020-05-26] MEDS: SODIUM CHLORIDE 0.9% 1000ML 1,000 ML IV SCH (00:02)
[2020-05-26] MEDS: NICOTINE 21 MG/24 HR TDSY TD SCH (08:22)
[2020-05-26] MEDS: CEROVITE ADV FORMULA TAB PO SCH (08:22)
[2020-05-26] MEDS: FLUTICASONE PROPIONATE NA SPR 16 GM BTL NAE SCH (08:23)
--- NOTE | 2020-05-26 09:11 | Consultation Report ---
DATE OF CONSULTATION: 05/26/2020 REASON FOR CONSULTATION: A 70-year-old female patient well known to [facility] with metastatic low-grade neuroendocrine tumor, admitted to [facility] with fatigue and general decline. HISTORY OF PRESENT ILLNESS: The patient is a pleasant 70-year-old female patient well known to [facility], currently under my care for metastatic low-grade neuroendocrine tumor. The patient was originally diagnosed with a low-grade neuroendocrine tumor of the distal ileum in 2005. She developed metastatic disease in 2019 and had been on octreotide up until a couple of years ago. At that time, the patient was having difficulties with octreotide and decided to seek a second opinion and went to [facility] who had recommended a lutathera, which is a radiopharmaceutical and she decided to decline. Instead of pursuing conventional treatment, she elected to travel to [place] and sought homeopathic treatment which she subscribed and received for about 8-9 months. Again, she has not had octreotide now for several months. When she presented yesterday to the office, she was feeling poorly with a declining appetite. She is a long-term smoker, continues to smoke at the present time and thus was concerned that she may be developing a new process. She had had no surveillance scans and thus recommended CT scan of the chest, abdomen and pelvis. The patient has had a fluctuant serotonin and chromogranin A levels as well as urinary 5-HIAA suggestive of disease progression. Patient herself has been reluctant to return for regular treatment. I last had a telephone conversation with her on 04/07/2020 at which time she was feeling well. Her had a false positive COVID test and thus we canceled patient's followup appointment and contacted her by phone. This morning after receiving IV hydration, she feels much better. Dr. Atwood also started her on Flonase, which has cleared her nasal congestion. She suffers from allergic rhinitis chronically. PAST MEDICAL HISTORY: Significant for metastatic neuroendocrine tumor, peripheral vascular disease, tobacco dependence. PAST SURGICAL HISTORY: Includes bowel resection for carcinoid tumor in 2006, cholecystectomy, second finger right reattachment attributable to trauma, hysterectomy, bilateral salpingo-oophorectomy. MEDICATIONS: She utilizes Percocet 1-2 tablets p.o. q. 4 hours p.r.n. No other prescription medications. ALLERGIES: SHE IS ALLERGIC TO NAPROXEN, MORPHINE, CODEINE AND IV DYE. SOCIAL HISTORY: She resides with her . She has a 50+ pack year smoking history. She also drinks alcohol on social occasions. 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 FAMILY HISTORY: Mother at age 84 from heart disease and diabetes. Father at age 84 from dementia. No first-degree family members with cancer or hematologic malignancies. REVIEW OF SYSTEMS: CONSTITUTIONAL: As per HPI, most notably for general decline, anorexia, fatigue and asthenia. No fevers, chills or sweats. SKIN: No rashes or lesions. No history of dermatoses. HEENT: Negative for headaches, lightheadedness or dizziness. She denies any acute visual deficits. She suffers from chronic allergic rhinitis and is congested. No sore throat or dysphagia. LYMPH: No history of lymphoproliferative disease. CARDIAC: No history of coronary artery disease, no angina or palpitations. PULMONARY: No history of COPD. She is not acutely short of breath, dyspneic or orthopneic. No cough or hemoptysis. GASTROINTESTINAL: Negative for abdominal pain. No nausea, vomiting, diarrhea or constipation. MUSCULOSKELETAL: No focal muscle weakness. No arthralgias or myalgias. GENITOURINARY: No hematuria, dysuria, urinary incontinence. PSYCHIATRIC: Negative for anxiety, depression or psychoses. ENDOCRINE: Negative for diabetes or thyroid disease. NEUROLOGIC: Negative for seizure, stroke, or migraine headache. HEMATOLOGIC: Negative for anemia, thrombophilia or bleeding diathesis. PHYSICAL EXAMINATION: GENERAL: Very pleasant 70-year-old female, awake, alert and appropriate, in no acute distress. VITAL SIGNS: Temperature 36.8, pulse 74, respiratory rate 18, blood pressure 136/78. SKIN: Warm, dry, noncyanotic without petechia, rash or ecchymosis. HEENT: Head is atraumatic, normocephalic. Eyes: PERRLA, EOMI. Sclerae nonicteric. No conjunctival injection. Nares are patent without rhinorrhea or discharge. Throat is clear. Tongue is midline. Mucous membranes are moist. NECK: Supple without JVD or thyromegaly. LYMPHATICS: No cervical, supraclavicular, axillary or inguinal palpable nodes. HEART: Regular rate and rhythm. No clicks, rubs, murmurs or gallops. LUNGS: Clear to auscultation bilaterally. ABDOMEN: Soft, nontender, nondistended, without palpable hepatosplenomegaly. EXTREMITIES: No calf tenderness or swelling. No clubbing, cyanosis or edema. NEUROLOGICAL: She is awake, alert and oriented x3. Cranial nerves are grossly intact. RADIOGRAPHIC DATA: CT scan of the chest reveals emphysema, soft tissue implant in the right anterior chest wall as well as small implants in the upper abdomen along the anterior and superior margins of the liver, similar to PET findings from 11/2019. Additional focus pleural based x pleural based nodularity of right lower lobe is similar to previous, this is also FDG avid on previous PET. There is a new implant seen anterior and inferior border to the hard deep to the xiphoid concerning for metastatic deposit, mildly enlarged mediastinal lymph nodes are nonspecific and similar to previous upon PET from 11/2019. CT scan of the abdomen and pelvis again minor interval increase in size, partially calcified irregular marginated right mid abdominal mesenteric mass measuring 34 mm. Multiple peritoneal nodules and 8 mm nodule abutting the right lower lobe inferior appears larger than on prior 2018 study. She also has a 36 mm infrarenal abdominal aortic aneurysm. IMPRESSION: 1. Asthenia/general decline. 2. Metastatic neuroendocrine tumor with a documented radiographic progression. 3. Allergic rhinitis. PLAN: I visited with patient at bedside and had a joy and direct discussion with her. Patient has been resistant on resuming octreotide and despite sending her for second opinion at [facility] does not want to pursue what they have offered. Advised her that radiographically, it would appear her disease is indeed progressing and may be the reason why she feels the way she feels. She feels much better after receiving IV hydration. She states she tolerated her diet yesterday. The long and short of it is patient is willing to resume octreotide and have asked Dr. Hawkins to order a 30 mg intramuscular dose today and will resume monthly administration moving forward. I await serotonin and chromogranin A levels, which I am sure are elevated. I see no reason to keep her in the hospital further after she receives octreotide. I will plan to see her next month before her next dose administration. I have nothing further to add and have agreed with current medical management. Thank you very much for assisting me in the care of this very pleasant patient.
[2020-05-26] MEDS ORDERED: OCTREOTIDE ACETATE 100 MCG/ML VIAL SQ STA (09:28)
--- NOTE | 2020-05-26 13:21 | Discharge Summary ---
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 The fatigue/weakness come on gradually. It was associated with feeling cold all the time, poor appetite, and some weight loss. Denies fevers/chills/sweats. Has had sinus congestion but minimal cough. No loss of taste. Some change in smell but attributed to sinus congestion. No nausea or emesis. Passing lots of flatus. Traveled to [place] about 10 days ago by car but no obvious sick contacts going to or from there. Patient had not seen Dr Forrester at the [facility] in over 12 months before today. She had gotten a referral to oncology at [facility] in [place] in February 2019. Records from that visit were available for my review today. Lutathera was recommended to the patient but she ultimately declined such. Instead of pursuing conventional treatment the patient elected to travel to [place] for homeopathic treatment. She was seen and treated at "[facility]" in [place], [place]. She reports that she had "stem cell treatment" at this center from May to July 2019. Had 9 total injections. 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 * serotonin/chromogranin A levels radha in 2016 prompting initiation of octreotide in 11/2016 * remained on octreotide until 05/2019; despite octreotide she had radiographic progression of cancer with MRI in 07/2018 showing RLQ mass * 11/2018 - biopsy of RLQ mass by Dr Arceo c/w metastatic well- differentiated neuroendocrine tumor * prior PET/CT dated 02/2019 showed multiple foci in right pleura, liver, left ischium, peritoneum; this also showed right breast nodule suggestive of additional focus of neuroendocrine tumor * Dr Forrester states that a mammogram done in 04/2020 showed a right breast mass Principal Diagnosis Dehydration, fatigue, progression of Neuroendocrine tumor Discharge Exam Constitutional WD/WN, vitals as above Eyes PERRL, conjunctivae normal, anicteric sclerae ENMT external ear and nose normal, oropharynx normal Neck trachea midline, no thyromegaly Respiratory normal respiratory effort, lungs clear to auscultation Cardiovascular RRR, no murmur, no edema Chest (Breasts) Chest: normal inspection of chest Gastrointestinal (Abdomen) normal bowel sounds, soft, nontender, no hepatosplenomegaly Musculoskeletal Extremities: extremities normal to inspection; no cyanosis and no clubbing Skin no rashes, warm and dry Neurologic moves all extremities and awake; no focal motor deficits Psychiatric A+Ox3, euthymic affect Lymphatic no lymphedema Discharge Data Allergies Allergy/AdvReac Type Severity Reaction Status Date / Time Iodinated Contrast Media Allergy PT STATES Verified 12/12/18 05:24 [Iodinated Contrast- Oral SHE HAD A and IV Dye] CARDIAC ARREST FOLLOWING IV FORM codeine AdvReac Unknown Headache Verified 12/12/18 05:24 morphine AdvReac Unknown PT SAID IT Verified 12/12/18 05:24 SHUTS HER SYSTEM DOWN naproxen AdvReac Diarrhea Verified 12/12/18 05:24 Consultations 05/25/20 13:07 Consult Hematology Routine Ordered Studies 05/25/20 13:07 CT abd pelvis wo con Routine CT chest wo con Routine Hospital Course (1) Fatigue: Suspect it is due to progressive neuroendocrine tumor with mets. Much improved after IVF hydration. Is ambulating halls and much improved plans on staying hydrated at home and restarting octreotide as below Labs to include CBC, CMP, TSH, B12/folate all normal and EKG nl No evidence of any infectious process at this time. Check serotonin and chromogranin A levels-pending CT C/A/P all with progression of disease (2) Neuroendocrine cancer: Patient with long history of neuroendocrine tumor dating back to 2005. 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 Rising serotonin levels in 2016 led to initiation of octreotide. Remained on such until early 2019. Has not had conventional therapy for her cancer since. Had 2nd opinion at [facility] in February [address] Forrester to formally consult this admission. Unfortunately, disease burden increased on imaging. Suspect much of her chronic fatigue is due to advancing neuroendocrine tumor w/ mets. 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 has allergic reaction to patch and gum makes her feel weird Declines Chantix and Wellbutrin due to possible ASE Considering quitting cold turkey again (4) PAD (peripheral artery disease): Patient with claudication of legs with walking. It would be prudent to consider daily aspirin and statin. Tobacco contributing heavily to this issue. f/u with PCP Actually states this feels better after receiving IVF hydration (5) Chronic rhinitis: Added nasal steroid and reports significant improvement in being able to breathe through nose-continue after discharge. Add saline drops. (6) Breast mass, right: Per Dr Forrester patient had mammogram in late April showing this. Past imaging, however, has also shown a right breast mass - possibly due to her neuroendocrine tumor. Defer work-up/Rx to Dr Forrester. She has diagnostic breast imaging planned for tomorrow (7) Wheezing: Suspect patient has underlying COPD. Has long-standing tobacco use, clubbing of fingernails, etc. Consider maintenance inhalers, PFTs etc. as outpt (8) DVT prophylaxis: lovenox 30mg daily Stable for dc Total Time Total Time Spent Total Time Spent (In Minutes): 35 min Total Time Includes: Examination of the Patient, Discharge Planning, Medication Reconciliation and Communication With Other Providers (Oncology) Discharge Plan Discharge Items Patient Disposition: Home - Self-Care Reason For Visit: NEUROENDOCRINE TUMOR Discharge Diagnosis: Dehydration, progression of neuroendocrine cancer Condition on Discharge: Good Activity: Resume your previous activity Non-emergency contact: Primary Care Provider and Oncologist Call non-emergency contact if: you have any medication questions, your symptoms worsen and you have a fever Follow-up/Referrals: Alexi Forrester DO [Physician] - (Please follow up as soon as possible to restart your cancer treatment) PCP,NO [Primary Care Provider] - Diet: Regular Addtl Attending Provider Instructions: Please follow up with Dr. Forrester as soon as possible to restart your octreotide treatment. Continue to work on staying hydrated at home. You can continue the Flonase for your nasal congestion. Pending Studies at Discharge: Yes (Chromogranin A, serotonin) Stand-Alone Forms: [employer], Smoking Cessation Medications and DC Order Prescriptions: New fluticasone propionate 50 mcg/actuation Busby,Suspension 2 spray DAVID DAILY Qty: 15.8 RF: 0 sodium chloride [Saline Mist] 0.65 % Aerosol,Busby 2 spray NA Q1H PRN (Reason: nasal congestion) Qty: 30 RF: 0 Certavite-Antioxidant 18-400 mg-mcg Tablet 1 tab PO QAM Qty: 30 RF: 0 Continued oxycodone-acetaminophen [Percocet] 5-325 mg tablet 1 - 2 tab PO Q4H PRN (Reason: pain) Qty: 15 RF: 0 Discharge Orders: Discharge Order (Routine); Ordered 05/26/20 Ordered By: Malissa Hawkins Admission Data Admit Date/Time: 05/25/20 11:47 Attending Provider: Malissa Hawkins Admit Provider: Hardik Atwood Primary Care Provider: PCP,NO Other Providers: Alexi Forrester V. Coding Level of Care Code 40746 OBS Care - Discharge Diagnoses Fatigue R53.83 Fatigue type: unspecified Neuroendocrine cancer C7A.8 Tobacco dependence F17.200 PAD (peripheral artery disease) I73.9 Chronic rhinitis J31.0 Breast mass, right N63.10 Wheezing R06.2 DVT prophylaxis Z29.9
[2020-05-31 16:56] LABS: Chromogranin A 245 ng/mL (25-140); Serotonin 1382 ng/mL (56-244)
== END 2020-05-26 14:35 | disposition home or self-care (01) ==
LOC: 2W → SUATTDRO 11:47

== ENCOUNTER 2024-06-07 14:10 | Inpatient (IN) ==
--- NOTE | 2024-06-07 14:51 | XRay Report ---
XR chest 1V portable CLINICAL HISTORY: abd pain TECHNIQUE: Single frontal radiograph of the chest was obtained. Comparison: Comparison is made to chest radiograph 05/05/2023 FINDINGS: No lines and tubes are seen. The cardiomediastinal silhouette is normal. The lungs are clear. No evid ence of pleural effusion or pneumothorax. IMPRESSION: No acute chest disease. ACT 112: Negative or not required by law. Electronically signed by: Uriel Escudero M.D. 06/07/2024 2:49 PM
[2024-06-07 14:59] LABS: Basophils # (auto) 0.02 K/uL (0.00-0.20); Basophils % (auto) 0.3 %; Eosinophils # (auto) 0.01 K/uL (0.00-0.50); Eosinophils % (auto) 0.1 %; Hematocrit (blood only) 40.9 % (37.0-47.0); Hemoglobin 13.7 g/dl (12.0-16.0); Immature Granulocytes # (auto) 0.01 K/uL (0.01-0.20); Immature Granulocytes % (auto) 0.1 %; Lymphocytes # (auto) 1.56 K/uL (1.20-3.40); Lymphocytes % (auto) 22.1 %; Mean Corpuscular Hgb Conc 33.5 g/dL (32.0-36.0); Mean Corpuscular Volume 89.5 fL (80.0-100.0); Mean Platelet Volume 10.5 fL (9.4-12.4); Monocytes # (auto) 0.56 K/uL (0.11-0.59); Monocytes % (auto) 7.9 %; Neutrophils # (auto) 4.91 K/uL (1.40-6.50); Neutrophils % (auto) 69.5 %; Platelet Count 226 K/uL (130-400); RDW Coefficient of Variation 14.6 % (11.5-14.5); RDW Standard Deviation 47.5 fL (36.4-46.3); Red Blood Count 4.57 M/uL (4.20-5.40); White Blood Count 7.07 K/ul (4.8-10.8)
[2024-06-07 15:12] LABS: Alanine Aminotransferase 17 U/L (7-52); Albumin Level 4.1 gm/dl (3.4-5.0); Alkaline Phosphatase 70 U/L (34-104); Anion Gap 11 (3-11); Aspartate Aminotransferase 22 U/L (13-39); BUN Creatinine Ratio 13.3 (10-20); Bilirubin,Total 0.9 mg/dl (0.2-1.0); Blood Urea Nitrogen 24 mg/dl (6-23); Calcium 9.1 mg/dl (8.6-10.3); Carbon Dioxide 24 mmol/L (21-32); Chloride 102 mmol/L (98-107); Glucose 121 mg/dl (70-99(Fasting)); Lipase 33 U/L (11-82); Sodium 137 mmol/L (136-145); Total Protein 8.2 gm/dl (6.0-8.3)
[2024-06-07 15:19] LABS: Troponin I High Sensitivity 6.5 pg/ml (0-14)
--- NOTE | 2024-06-07 15:23 | CT Scan Report ---
CT abd pelvis wo con CLINICAL HISTORY: adb pain diarrhea TECHNIQUE: Helical axial images of the abdomen and pelvis were obtained. Automated dose lowering tech niques and/or adjustment according to patient size were utilized for this exam. This exam was perfor med without intravenous contrast. CT DOSE: 786.84 mGy.cm COMPARISON: Comparison is made to CT abdomen pelvis 08/23/2020 FINDINGS: Lower chest: No acute abnormality. Liver: Unremarkable. No focal lesions are seen. Gallbladder and biliary tree: Patient is status post cholecystectomy. No intra- or extrahepatic bilia ry ductal dilation. Pancreas: Unremarkable, no focal lesions. Spleen: Unremarkable. Adrenals: Unremarkable. Kidneys and ureters: Right hydronephrosis is new from prior exam. Bladder: Unremarkable. Reproductive organs: Patient is status post hysterectomy. Bowel: Multiple loops of small bowel measure up to 39 mm in diameter. Lymph nodes Retroperitoneal: Right-sided soft tissue mass measures 28 mm, increased from prior exam where it nando ured 18 mm. Pelvic: Unremarkable. Mesenteric: A mesenteric soft tissue mass measures 18 mm, previously 13 mm. Multiple bowel loops appe ar to be tethered to this mass. Peritoneum: Normal. Vessels: Atherosclerotic calcifications are seen. Aortic aneurysm is again seen measuring up to 38 mm . Abdominal wall: Unremarkable. Bones: Unremarkable. IMPRESSION: Interval enlargement of retroperitoneal and mesenteric masses although evaluation is limited by nonco ntrast technique. There is resulting right hydronephrosis. There are also dilated loops of small fay l which may represent partial small bowel obstruction due to tethering from these masses. ACT 112: Negative or not required by law. Electronically signed by: Uriel Escudero M.D. 06/07/2024 3:21 PM
[2024-06-07 15:24] LABS: INR 0.9 (0.9-1.1); Partial Thromboplastin Ratio 0.9; Partial Thromboplastin Time 25 Seconds (21-31)
[2024-06-07 15:38] LABS: Adenovirus PCR Not Detected (NotDetected); Bordetella parapertussis PCR Not Detected (NotDetected); Bordetella pertussis PCR Not Detected (NotDetected); Chlamydia pneumoniae PCR Not Detected (NotDetected); Coronavirus 229E PCR Not Detected (NotDetected); Coronavirus CoV-2 (COVID19)PCR Not Detected (NotDetected); Coronavirus HKU1 PCR Not Detected (NotDetected); Coronavirus NL63 PCR Not Detected (NotDetected); Coronavirus OC43PCR Not Detected (NotDetected); Human Metapneumovirus PCR Not Detected (NotDetected); Influenza A PCR Not Detected (NotDetected); Influenza B PCR Not Detected (NotDetected); Mycoplasma pneumoniae PCR Not Detected (NotDetected); Parainfluenza Virus 1 PCR Not Detected (NotDetected); Parainfluenza Virus 2 PCR Not Detected (NotDetected); Parainfluenza Virus 3 PCR Not Detected (NotDetected); Parainfluenza Virus 4 PCR Not Detected (NotDetected); Respiratory Syncytial VirusPCR Not Detected (NotDetected); Rhinovirus/Enterovirus PCR Not Detected (NotDetected)
[2024-06-07] MEDS: SODIUM CHLORIDE 0.9% 1,000 ML IV ONE (16:05)
[2024-06-07] MEDS ORDERED: ALUMINUM/MAGNESIUM SUSP 30 ML UDC PO PRN (16:20)
[2024-06-07] MEDS ORDERED: ONDANSETRON INJ 2 MG/ML 2 ML VIAL IV PRN (16:20)
[2024-06-07] MEDS ORDERED: ACETAMINOPHEN 325 MG TAB PO PRN (16:20)
[2024-06-07 16:32] LABS: Adenovirus F 40/41 PCR Not Detected (NotDetected); Astrovirus PCR Not Detected (NotDetected); Campylobacter PCR Not Detected (NotDetected); Cryptosporidium PCR Not Detected (NotDetected); Cyclospora cayetanensis PCR Not Detected (NotDetected); Entamoeba histolytica PCR Not Detected (NotDetected); Enteroaggregative E.coli(EAEC) Not Detected (NotDetected); Enteropathogenic E.coli (EPEC) Not Detected (NotDetected); Enterotoxigenic E.coli (ETEC) Not Detected (NotDetected); Giardia lamblia PCR Not Detected (NotDetected); Norovirus GI/GII PCR Not Detected (NotDetected); Plesiomonas shigelloides PCR Not Detected (NotDetected); Rotavirus A PCR Not Detected (NotDetected); Salmonella PCR Not Detected (NotDetected); Sapovirus PCR Not Detected (NotDetected); Shiga-like Toxin E.coli (STEC) Not Detected (NotDetected); Shigella/Enteroinvasive E.coli Not Detected (NotDetected); Vibrio cholerae PCR Not Detected (NotDetected); Vibrio species PCR Not Detected (NotDetected); Yersinia enterocolitica PCR Not Detected (NotDetected)
--- NOTE | 2024-06-07 16:36 | History & Physical Report ---
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 Admitting CTAP:Interval enlargement of retroperitoneal and mesenteric masses although evaluation is limited by noncontrast technique. There is resulting right hydronephrosis. There are also dilated loops of small bowel which may represent partial small bowel obstruction due to tethering from these masses. Admitting labs fairly WNL, except creatinine elevated at 1.81, baseline creatinine around 1 Admitting respiratory pathogen panel and C. difficile negative, stool PCR neg Status post IV fluids in the ED, continue with maintenance IV fluid at 80 mL an hour. N.p.o., general surgery consult. Monitor replete electrolytes. Acute kidney injury: Admitting creatinine of 1.81, baseline around 1.0, CTAP with right hydronephrosis in the setting of metastatic disease, patient with recent diarrheal episodes and poor p.o. intake. Likely prerenal versus postrenal. Continue with IV fluids at 80 mL an hour, BMP in a.m., avoid nephrotoxic's. Other chronic medical conditions: Noted chronic medical considerations are HLD, COPD, rectocele, urge incontinence, stress incontinence, chronic low back pain. Patient reports she does not use any home medications. Per outpatient chart review, patient does have history of medical noncompliance. 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 Patient reports eating Dolphin fish on Sunday night and reports diarrhea and abdominal cramps since Sunday morning. Patient was recently in [place] and reports no other members in the trip got the disease. Patient denies fever, reports nausea and dry heaves, denies vomiting, reports poor appetite, denies sore throat, reports cough at baseline, denies chest pain/pain and burning with passing urine. Patient reports smoking 1 packs a day for more than 50 years, drinks seldom [1 time in every 6 months], denies recreational drug use. Patient states that she does not take any medications at home. Plan of care discussed with the patient and her at bedside, they voiced understanding. Full code as per my discussion with the patient. Allergies Allergy/AdvReac Type Severity Reaction Status Date / Time Iodinated Contrast Media Allergy PT STATES Verified 06/07/24 16:17 [Iodinated Contrast- Oral SHE HAD A and IV Dye] CARDIAC ARREST FOLLOWING IV FORM sulfamethoxazole Allergy Neuro Verified 06/07/24 16:17 [From Bactrim] complications trimethoprim [From Bactrim] Allergy Neuro Verified 06/07/24 16:17 complications codeine AdvReac Unknown Headache Verified 06/07/24 16:17 morphine AdvReac Unknown PT SAID IT Verified 06/07/24 16:17 SHUTS HER SYSTEM DOWN naproxen AdvReac Diarrhea Verified 06/07/24 16:17 Home Medications Medication Instructions Recorded Confirmed Type albuterol sulfate 90 mcg/actuation 2 puff inhalation Q6H PRN SOB 11/15/23 06/07/24 History aerosol inhaler (ProAir HFA) escitalopram oxalate 10 mg tablet 10 mg PO DAILY 11/15/23 06/07/24 History loperamide 1 mg/5 mL oral liquid 2 mg PO Q4H PRN Diarrhea 06/07/24 06/07/24 History magnesium 100 mg capsule 100 mg PO HS PRN MUSCLE SPASMS 06/07/24 06/07/24 History vitamin B12 500 mcg-folic acid 400 1 tab PO DAILY 06/07/24 06/07/24 History mcg tablet Past Med/Surg History Problem List (Updated 06/07/24 @ 16:36 by Manuela Agrawal MD) Watery diarrhea Dyspnea Breast mass, right Chronic rhinitis 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) Tobacco dependence PAD (peripheral artery disease) Medical History PAD (peripheral artery disease) Tobacco dependence Neuroendocrine cancer Surgical History Status post tubal ligation (~1973) H/O colonoscopy (~2017) History of hand surgery History of bowel resection (~2005) History of hysterectomy History of cholecystectomy (~1979) Family History Mother Heart disease Diabetes Father Dementia Aunt Breast cancer Daughter Diabetes Grandmother Heart disease Other Family history non-contributory Social History Smoking Status: Current every day smoker Tobacco Type: Cigarettes Cigarettes Per Day: 1 - 1.5 PPD; Second Hand Exposure: Yes; Do You Dip or Chew Tobacco: No; Hx Alcohol Use: Yes Alcohol type: hard liquor Alcohol Intake Frequency: Monthly or Less Hx Substance Use: No Preferred Language: Belgian Communication Ability: Effective Visual Impairment: No Limitations Hearing Ability: Normal Establishment Guide Required: No Beliefs That Will Affect Care: None marital status: Current Living Situation: Spouse Current Living Situation Comment: lives with in [place] 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 status: retired 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 Physical Exam 2 Physical Exam: GENERAL: Alert and oriented x3. NAD, on RA. HEENT: No pallor, no icterus. Pupils equal, round and reactive to light. Oral mucosa dry. NECK: No JVD, no neck masses. HEART: S1 and S2 heard. Regular rate and rhythm. No murmur, no gallop. RESPIRATORY SYSTEM: Normal AP diameter. No accessory muscle use. No wheezing, no crackles. ABDOMEN: Soft, bowel sounds present, mild central abd tenderness, no distention. CENTRAL NERVOUS SYSTEM: No facial droop. Speech is clear. Obeys simple commands. Moves extremities. EXTREMITIES: No edema, no erythema seen. Results & Data Results & Data Vital Signs (Past 12 Hours) Vital Signs Temp Pulse Pulse Resp BP BP Pulse Ox 06/07/24 16:00 67 26 H 144/77 H 92 06/07/24 15:07 77 26 H 93 06/07/24 15:07 36.5 C 78 15 139/84 95 06/07/24 14:13 36.5 C 108 H 20 130/78 92 O2 Del Method 06/07/24 16:00 Room Air 06/07/24 15:07 Room Air 06/07/24 15:07 Room Air 06/07/24 14:13 Room Air Code Status & VTE Plan VTE Prophylaxis Plan VTE Prophylaxis will be ordered: Yes
[2024-06-07] MEDS ORDERED: Patient's HEIGHT &/or WEIGHT Needed SCH (16:45)
[2024-06-07] MEDS: SODIUM CHLORIDE 0.9% 1,000 ML IV SCH (17:29)
--- NOTE | 2024-06-07 17:48 | Emergency Department Note ---
History of Present Illness General Chief complaint: Abdominal Pain Stated complaint: ABD PAIN Time Seen by Provider: 06/07/24 14:19 History of Present Illness Provider Complaint: + nausea, + vomiting, + diarrhea and + abdominal pain Onset (ago): day(s) 4 Description of Vomiting: no bilious, no blood-streaked, no bloody or no coffee grounds Description of Diarrhea: + watery; no tarry, no blood-streaked or no bloody (bright red) Associated Abdominal Pain: Yes Location of pain: + diffuse Severity: severe Maximum Pain Intensity: 10 Current Pain Intensity: 9 Quality: + cramping Pain Consistency: + constant Relieved By: + none Exacerbated By: + bowel movement Context: + possible food poisoning (Patient's symptoms started after she ate fish tacos in [place]), + alcohol abuse and + smoking; no foreign travel (No foreign travel but did recently travel back from [place]), no recent antibiotic use, no recent surgery/procedure, no trauma or no marijuana use Associated symptoms: + bloating; no myalgias, no chest pain, no cough, no diaphoresis, no headaches or no rash Home Medications Medication Instructions Recorded Confirmed Type albuterol sulfate 90 mcg/actuation 2 puff inhalation Q6H PRN SOB 11/15/23 06/07/24 History aerosol inhaler (ProAir HFA) escitalopram oxalate 10 mg tablet 10 mg PO DAILY 11/15/23 06/07/24 History loperamide 1 mg/5 mL oral liquid 2 mg PO Q4H PRN Diarrhea 06/07/24 06/07/24 History magnesium 100 mg capsule 100 mg PO HS PRN MUSCLE SPASMS 06/07/24 06/07/24 History vitamin B12 500 mcg-folic acid 400 1 tab PO DAILY 06/07/24 06/07/24 History mcg tablet Allergies Allergy/AdvReac Type Severity Reaction Status Date / Time Iodinated Contrast Media Allergy PT STATES Verified 06/07/24 16:17 [Iodinated Contrast- Oral SHE HAD A and IV Dye] CARDIAC ARREST FOLLOWING IV FORM sulfamethoxazole Allergy Neuro Verified 06/07/24 16:17 [From Bactrim] complications trimethoprim [From Bactrim] Allergy Neuro Verified 06/07/24 16:17 complications codeine AdvReac Unknown Headache Verified 06/07/24 16:17 morphine AdvReac Unknown PT SAID IT Verified 06/07/24 16:17 SHUTS HER SYSTEM DOWN naproxen AdvReac Diarrhea Verified 06/07/24 16:17 Past Med/Surg History Problem List (Updated 06/07/24 @ 18:01 by Adriel Farrar MD) HERLINDA (acute kidney injury) (Acute) Watery diarrhea Dyspnea Breast mass, right Chronic rhinitis 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) Tobacco dependence PAD (peripheral artery disease) Medical History PAD (peripheral artery disease) Tobacco dependence Neuroendocrine cancer Surgical History Status post tubal ligation (~1973) H/O colonoscopy (~2017) History of hand surgery History of bowel resection (~2005) History of hysterectomy History of cholecystectomy (~1979) Family History Mother Heart disease Diabetes Father Dementia Aunt Breast cancer Daughter Diabetes Grandmother Heart disease Other Family history non-contributory Social History Smoking Status: Current every day smoker Tobacco Type: Cigarettes Cigarettes Per Day: 1 - 1.5 PPD; Second Hand Exposure: Yes; Do You Dip or Chew Tobacco: No; Hx Alcohol Use: Yes Alcohol type: hard liquor Alcohol Intake Frequency: Monthly or Less Hx Substance Use: No Preferred Language: Swedish Communication Ability: Effective Visual Impairment: No Limitations Hearing Ability: Normal [place] Required: No Beliefs That Will Affect Care: None marital status: Current Living Situation: Spouse Current Living Situation Comment: lives with in [place] 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 status: retired 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 How many Children do You have: 3 How many Children do You have Comment: daughters Feels Safe at Home: Yes Diet: regular during the past year weight has: remained stable Assistive Devices: Glasses Physical Exam 2 Vital Signs: Vital Signs - 24 hr 06/07/24 14:13 06/07/24 15:07 06/07/24 15:07 Temperature 36.5 C 36.5 C Temperature Source Temporal Artery Sc an Oral Pulse Rate 108 H 77 Pulse Rate [Apical ] 78 Respiratory Rate 20 15 26 H Respiratory Effort / Characteristics Non-Labored Sponta neous Non-Labored Sponta neous Respiratory Depth Normal Normal Respiratory Patter n Regular Regular Blood Pressure 130/78 Blood Pressure [Le ft Arm] 139/84 Blood Pressure Mercedes n 95 Blood Pressure Mercedes n [Left Arm] 102 Blood Pressure Pos ition [Left Arm] Pulse Oximetry 92 95 93 Oxygen Delivery Me thod Room Air Room Air Room Air Sepsis Recent Feve r Within 48 Hours No Sepsis New/Unexpla ined Change in Men ricki Status N/A Sepsis Action Take n by Nursing No Action Required 06/07/24 16:00 06/07/24 17:30 Temperature Temperature Source Pulse Rate Pulse Rate [Apical ] 67 75 Respiratory Rate 26 H 25 H Respiratory Effort / Characteristics Spontaneous Respiratory Depth Shallow Respiratory Patter n Tachypnea Blood Pressure Blood Pressure [Le ft Arm] 144/77 H 136/85 Blood Pressure Mercedes n Blood Pressure Mercedes n [Left Arm] 99 102 Blood Pressure Pos ition [Left Arm] Semi-fowlers Pulse Oximetry 92 90 Oxygen Delivery Me thod Room Air Room Air Sepsis Recent Feve r Within 48 Hours Sepsis New/Unexpla ined Change in Men ricki Status Sepsis Action Take n by Nursing Physical Exam: Physical Exam GENERAL: oriented to person, place, and time. appears well-developed and well- nourished. She does not appear distressed. HENT: Exam performed. -Head: Normocephalic and atraumatic. -Right Ear: External ear normal. No mastoid erythema -Left Ear: External ear normal. No mastoid erythema -Mouth/Throat: The oropharynx is clear and moist. No trismus in the jaw. No dental abscesses or uvula swelling. No oropharyngeal exudate or tonsillar abscesses. EYES: Conjunctivae and EOM are normal.Right eye exhibits no discharge. Left eye exhibits no discharge. No scleral icterus. NECK: Normal range of motion. Neck supple. No JVD present. No tracheal deviation and normal range of motion present. CV: Normal rate, regular rhythm, normal heart sounds and intact distal pulses. There is no peripheral edema. Palpable radial pulses bue. PULM/CHEST: Effort normal and breath sounds normal. No respiratory distress. No stridor. no wheezes.no rales. -Chest Wall: no tenderness to palpation ABD: The abdomen is soft. Bowel sounds are normal. no distension. No mass is present. There is diffuse tenderness to palpation. There is no rebound. MUSC/SKEL: Normal range of motion. There is no peripheral edema, tenderness or deformity. NEURO: Motor and sensation grossly intact. SKIN: Skin is warm and dry. not diaphoretic. PSYCH: normal mood and affect. Behavior is normal. Judgment and thought content normal. Course Course 1419: The patient was evaluated in room B11. A complete history and physical exam was performed Cardiac monitoring: An order was placed for continuous cardiac monitoring. The monitor shows a rate of 70 with sinus rhythm interpreted by nh 1545: Vital signs stable. Labs show an elevated creatinine level. Patient started on IV fluids for HERLINDA. Patient CT of the abdomen pelvis redemonstrates her mesenteric soft tissue mass and retroperitoneal mass. According to the radiology read there is a resulting hydronephrosis and dialysis loops of small bowel which may represent a partial small bowel obstruction due to the tethering from these masses. Clinically the patient does not have any evidence of bowel obstruction if she keeps having copious amounts of diarrhea. Discussed the case with Dr. Coley on-call general surgery and he agrees to be on consult. Patient be admitted to the medicine service for HERLINDA and to receive IV fluids. Administered Medications Sodium Chloride (Nss) 1,000 mls @ 80 mls/hr IV .[id number] ALVARO Stop: 06/08/24 16:07 Last Admin: 06/07/24 17:29 Dose: 80 mls/hr Documented By: JOHNNA Discontinued Medications Sodium Chloride (Nss) 1,000 mls @ 999 mls/hr IV .[id number] ONE Stop: 06/07/24 16:28 Last Infusion: 06/07/24 17:29 Dose: Infused Documented By: Admin: 06/07/24 16:05 Dose: 999 mls/hr Documented By: JOHNNA Medical Decision Making Laboratory Data Attestation: I reviewed the patient's lab results. 06/07/24 14:40 06/07/24 14:40 Lab Results 06/07/24 06/07/24 06/07/24 Range/Units 14:33 14:40 14:43 WBC 7.07 (4.8-10.8) K/ul RBC 4.57 (4.20-5.40) M/uL Hgb 13.7 (12.0-16.0) g/dl Hct 40.9 (37.0-47.0) % MCV 89.5 (80.0-100.0) fL MCH 30.0 (25.0-34.0) pg MCHC 33.5 (32.0-36.0) g/dL RDW Std Deviation 47.5 H (36.4-46.3) fL RDW Coeff of Noris 14.6 H (11.5-14.5) % Plt Count 226 (130-400) K/uL MPV 10.5 (9.4-12.4) fL Immature Gran % (Auto) 0.1 % Neut % (Auto) 69.5 % Lymph % (Auto) 22.1 % Beckham % (Auto) 7.9 % Eos % (Auto) 0.1 % Baso % (Auto) 0.3 % Neut # (Auto) 4.91 (1.40-6.50) K/uL Lymph # (Auto) 1.56 (1.20-3.40) K/uL Beckham # (Auto) 0.56 (0.11-0.59) K/uL Eos # (Auto) 0.01 (0.00-0.50) K/uL Baso # (Auto) 0.02 (0.00-0.20) K/uL Immature Gran # (Auto) 0.01 (0.01-0.20) K/uL PT 10.0 (9.0-12.0) Seconds INR 0.9 (0.9-1.1) APTT 25 (21-31) Seconds PTT Ratio 0.9 Sodium 137 (136-145) mmol/L Potassium 4.0 (3.5-5.1) mmol/L Chloride 102 (98-107) mmol/L Carbon Dioxide 24 (21-32) mmol/L Anion Gap 11 (3-11) BUN 24 H (6-23) mg/dl Creatinine 1.81 H (0.6-1.2) mg/dl Est Cr Clr Drug Dosing Not Reportable eGFR 29.01 BUN/Creatinine Ratio 13.3 (10-20) Glucose 121 H (70-99(Fasting)) mg/dl Calcium 9.1 (8.6-10.3) mg/dl Total Bilirubin 0.9 (0.2-1.0) mg/dl Direct Bilirubin TNP AST 22 (13-39) U/L ALT 17 (7-52) U/L Alkaline Phosphatase 70 (34-104) U/L Troponin I High Sens 6.5 (0-14) pg/ml Total Protein 8.2 (6.0-8.3) gm/dl Albumin 4.1 (3.4-5.0) gm/dl Lipase 33 (11-82) U/L Stl C. cayetanensis PCR Not Detected (NotDetected) Stool Rotavirus A PCR Not Detected (NotDetected) Stl Adenov F 40/41 PCR Not Detected (NotDetected) Stool Astrovirus (PCR) Not Detected (NotDetected) Stool Campylobacter PCR Not Detected (NotDetected) Stl C. diff Tox B Gene Negative Cdiff Gene (Neg) Stool Cryptosporidium PCR Not Detected (NotDetected) Stl E.coli Shiga Tox PCR Not Detected (NotDetected) Stl Enterotoxigenic E PCR Not Detected (NotDetected) Stool EPEC (PCR) Not Detected (NotDetected) Stool EAEC (PCR) Not Detected (NotDetected) Stl E. histolytica PCR Not Detected (NotDetected) Stool Giardia Lamblia PCR Not Detected (NotDetected) Stool Salmonella PCR Not Detected (NotDetected) Stool Sapovirus (PCR) Not Detected (NotDetected) Stl P. shigelloides PCR Not Detected (NotDetected) Stl Shigella/EIEC PCR Not Detected (NotDetected) St Y.enterocolitica PCR Not Detected (NotDetected) Stool Vibrio (PCR) Not Detected (NotDetected) Stl Vibrio cholerae PCR Not Detected (NotDetected) Stl Norovirus GI/GII PCR Not Detected (NotDetected) Adenovirus (PCR) Not Detected (NotDetected) B. pertussis DNA (PCR) Not Detected (NotDetected) B.parapertussis DNA PCR Not Detected (NotDetected) C. pneumoniae DNA (PCR) Not Detected (NotDetected) Coronavirus OC43 (PCR) Not Detected (NotDetected) Coronavirus HKU1 (PCR) Not Detected (NotDetected) Coronavirus 229E (PCR) Not Detected (NotDetected) SARS-CoV-2 (PCR) Not Detected (NotDetected) Coronavirus NL63 (PCR) Not Detected (NotDetected) Human Metapneumovir PCR Not Detected (NotDetected) Influenza Type A (PCR) Not Detected (NotDetected) Influenza Type B (PCR) Not Detected (NotDetected) M. pneumoniae (PCR) Not Detected (NotDetected) Parainfluenza 1 (PCR) Not Detected (NotDetected) Parainfluenza 2 (PCR) Not Detected (NotDetected) Parainfluenza 3 (PCR) Not Detected (NotDetected) Parainfluenza 4 (PCR) Not Detected (NotDetected) RSV (PCR) Not Detected (NotDetected) Entero/Rhino (PCR) Not Detected (NotDetected) Imaging Data Radiologist's Impression: Abdomen/Pelvis CT 06/07/24 14:37 CT abd pelvis wo con CLINICAL HISTORY: adb pain diarrhea TECHNIQUE: Helical axial images of the abdomen and pelvis were obtained. Automated dose lowering techniques and/or adjustment according to patient size were utilized for this exam. This exam was performed without intravenous contrast. CT DOSE: 786.84 mGy.cm COMPARISON: Comparison is made to CT abdomen pelvis 08/23/2020 FINDINGS: Lower chest: No acute abnormality. Liver: Unremarkable. No focal lesions are seen. Gallbladder and biliary tree: Patient is status post cholecystectomy. No intra- or extrahepatic biliary ductal dilation. Pancreas: Unremarkable, no focal lesions. Spleen: Unremarkable. Adrenals: Unremarkable. Kidneys and ureters: Right hydronephrosis is new from prior exam. Bladder: Unremarkable. Reproductive organs: Patient is status post hysterectomy. Bowel: Multiple loops of small bowel measure up to 39 mm in diameter. Lymph nodes Retroperitoneal: Right-sided soft tissue mass measures 28 mm, increased from prior exam where it measured 18 mm. Pelvic: Unremarkable. Mesenteric: A mesenteric soft tissue mass measures 18 mm, previously 13 mm. Multiple bowel loops appear to be tethered to this mass. Peritoneum: Normal. Vessels: Atherosclerotic calcifications are seen. Aortic aneurysm is again seen measuring up to 38 mm. Abdominal wall: Unremarkable. Bones: Unremarkable. IMPRESSION: Interval enlargement of retroperitoneal and mesenteric masses although evaluation is limited by noncontrast technique. There is resulting right hydronephrosis. There are also dilated loops of small bowel which may represent partial small bowel obstruction due to tethering from these masses. ACT 112: Negative or not required by law. Electronically signed by: Uriel Escudero M.D. 06/07/2024 3:21 PM Chest X-Ray 06/07/24 14:37 XR chest 1V portable CLINICAL HISTORY: abd pain TECHNIQUE: Single frontal radiograph of the chest was obtained. Comparison: Comparison is made to chest radiograph 05/05/2023 FINDINGS: No lines and tubes are seen. The cardiomediastinal silhouette is normal. The lungs are clear. No evidence of pleural effusion or pneumothorax. IMPRESSION: No acute chest disease. ACT 112: Negative or not required by law. Electronically signed by: Uriel Escudero M.D. 06/07/2024 2:49 PM [facility] Narrative 1419: The patient was evaluated in room B11. A complete history and physical exam was performed Cardiac monitoring: An order was placed for continuous cardiac monitoring. The monitor shows a rate of 70 with sinus rhythm interpreted by nh 1545: Vital signs stable. Labs show an elevated creatinine level. Patient started on IV fluids for HERLINDA. Patient CT of the abdomen pelvis redemonstrates her mesenteric soft tissue mass and retroperitoneal mass. According to the radiology read there is a resulting hydronephrosis and dialysis loops of small bowel which may represent a partial small bowel obstruction due to the tethering from these masses. Clinically the patient does not have any evidence of bowel obstruction if she keeps having copious amounts of diarrhea. Discussed the case with Dr. Coley on-call general surgery and he agrees to be on consult. Patient be admitted to the medicine service for HERLINDA and to receive IV fluids. Impression & Plan HERLINDA (acute kidney injury) Discharge Plan Visit Data Chief Complaint: Abdominal Pain Stated Complaint: ABD PAIN ED Provider: Adriel Farrar Discharge Problem: HERLINDA (acute kidney injury) Patient Disposition: Admitted As Inpatient Forms [facility] Pres[facility] Prescriptions: No Action escitalopram oxalate 10 mg tablet 10 mg PO DAILY albuterol sulfate [ProAir HFA] 90 mcg/actuation HFA aerosol inhaler 2 puff inhalation Q6H PRN (Reason: SOB) Pepto Diarrhea Control 1 mg/5 mL Liquid 2 mg PO Q4H PRN (Reason: Diarrhea) Rx Instructions: administer after each loose stool until symptoms controlled; do not exceed 8 mg per 24 hrs magnesium 100 mg Capsule 100 mg PO HS PRN (Reason: MUSCLE SPASMS) vitamin [id number] acid 500-400 mcg Tablet 1 tab PO DAILY Rx Instructions: administer with a meal Referrals Referrals: Arias Neumann PA-C [Primary Care Provider] -
--- NOTE | 2024-06-07 21:37 | Surgery Consultation ---
Date of Consultation June 07, 2024 Assessment & Plan (1) Partial small bowel obstruction: -Patient presented to the ED this afternoon for ongoing abdominal pain/cramps and watery diarrhea since Sunday. Patient recently had traveled to [place] on a family vacation where she admits to eating fish on Sunday and ultimately her symptoms started Sunday morning. Patient states the symptoms have persisted and she has also had poor PO intake since the onset. -Patient was worked up and was found to have pSBO on CT imaging. She continues with intermittent nausea however has not had any episodes of emesis. Her last BM was this evening in the hospital. Patient on exam does appear to be distended and is tender mostly in her lower abdominal region. However, she has no signs of acute abdomen that would warrant emergent surgical intervention at this time. -Will plan to treat conservatively for now, we can hold off on placing an NGT given no current nausea or emesis, however I did discuss that overnight if she becomes symptomatic one will be placed for decompression. -Continue NPO status (ok for ice chips/sips), continue IV hydration with fluids, and pain control. -Continue medical management per primary team, surgery will continue to follow Supervising Physician Co-Signing Physician Notes I personally saw and evaluated the patient with Adrien Wagoner PA-C and agree with the assessment and plan. 74-year-old female with history of abdominal wall carcinoid who is here with likely partial small bowel obstruction as well as increase in size of her retroperitoneal masses She is being admitted to the medical team No plans for any surgical intervention as she is having bowel movements Would have GI see the patient to weigh in on her abdominal masses/carcinoid Can try clear liquids History of Present Illness Reason for Consultation: Partial SBO History of Present Illness Patient is a 74-year-old female who presented to the ED this afternoon after experiencing abdominal pain and watery diarrhea for the last few days. Patient states since Sunday she has been having these symptoms that have not subsided. To note, the patient reverently has traveled to [place] for a family vacation, she states on Sunday she had dolphin fish and on Sunday morning is when her symptoms originally started. She has had associated nausea and dry heaves however denies any episodes of emesis. Patient has had poor oral intake due to her symptoms. She also tells me her abdomen feels more distended than usual. She is experiencing abdominal cramping mostly located in her lower abdominal region. She denies any associated fevers, chills, CP or SOB with the onset of her symptoms. 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 She also has had a cholecystectomy and total hysterectomy in the past. The patient was worked up in the ED this afternoon and CT imaging revealed a partial SBO. Patient was seen and evaluated this evening, she is resting in bed, stable vitals, and NAD. Patient tells me that she continues with abdominal cramping and that her last BM was here in the hospital this evening and continues with watery diarrhea at this time. At times she does have intermittent nausea however denies any episodes of vomiting. Currently not requiring an NGT. Allergies Allergy/AdvReac Type Severity Reaction Status Date / Time Iodinated Contrast Media Allergy PT STATES Verified 06/07/24 16:17 [Iodinated Contrast- Oral SHE HAD A and IV Dye] CARDIAC ARREST FOLLOWING IV FORM sulfamethoxazole Allergy Neuro Verified 06/07/24 16:17 [From Bactrim] complications trimethoprim [From Bactrim] Allergy Neuro Verified 06/07/24 16:17 complications codeine AdvReac Unknown Headache Verified 06/07/24 16:17 morphine AdvReac Unknown PT SAID IT Verified 06/07/24 16:17 SHUTS HER SYSTEM DOWN naproxen AdvReac Diarrhea Verified 06/07/24 16:17 Home Medications Medication Instructions Recorded Confirmed Type albuterol sulfate 90 mcg/actuation 2 puff inhalation Q6H PRN SOB 11/15/23 06/07/24 History aerosol inhaler (ProAir HFA) escitalopram oxalate 10 mg tablet 10 mg PO DAILY 11/15/23 06/07/24 History loperamide 1 mg/5 mL oral liquid 2 mg PO Q4H PRN Diarrhea 06/07/24 06/07/24 History magnesium 100 mg capsule 100 mg PO HS PRN MUSCLE SPASMS 06/07/24 06/07/24 History vitamin B12 500 mcg-folic acid 400 1 tab PO DAILY 06/07/24 06/07/24 History mcg tablet Patient History Medical History PAD (peripheral artery disease) Tobacco dependence Neuroendocrine cancer Surgical History Status post tubal ligation (~1973) H/O colonoscopy (~2017) History of hand surgery History of bowel resection (~2005) History of hysterectomy History of cholecystectomy (~1979) Family History Mother Heart disease Diabetes Father Dementia Aunt Breast cancer Daughter Diabetes Grandmother Heart disease Other Family history non-contributory Social History Smoking Status: Current every day smoker Tobacco Type: Cigarettes Cigarettes Per Day: 1 PPD; Second Hand Exposure: No; Do You Dip or Chew Tobacco: No; Tobacco Cessation Education Requested by Patient: No Hx Alcohol Use: Yes Alcohol type: hard liquor Alcohol Intake Frequency: Monthly or Less Hx Substance Use: No Preferred Language: Malay Communication Ability: Effective Visual Impairment: No Limitations Hearing Ability: Normal Fence Post Cutter Required: No Beliefs That Will Affect Care: None marital status: Current Living Situation: Spouse Current Living Situation Comment: lives with in [place] 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 status: retired 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 How many Children do You have: 3 How many Children do You have Comment: daughters Other Information That Helps Us Care for You: No Feels Safe at Home: Yes Safety Concerns: Feels Safe At This Time Diet: regular during the past year weight has: remained stable Assistive Devices: Denture - Upper and Glasses Review of Systems Review of Systems: All systems reviewed & are unremarkable except as noted in HPI & below Physical Exam Constitutional: WD/WN, vitals as above Respiratory: normal respiratory effort, lungs clear to auscultation Cardiovascular: RRR, no murmur, no edema Gastrointestinal (Abdomen): Inspection/Auscultation: abdomen normal to inspection, + abdomen distended and + abdominal surgical scar (previous midline incision noted ) Percussion/Palpation: + abdomen tender and + abdomen firm; no guarding and no hernia Psychiatric: A+Ox3, euthymic affect Results & Data Vital Signs (Past 12 Hours) Vital Signs Temp Pulse Pulse Pulse Resp BP BP 06/07/24 20:12 37.4 C 69 20 132/75 06/07/24 19:54 36.7 C 69 18 136/75 06/07/24 18:15 67 16 146/78 H 06/07/24 17:30 75 25 H 136/85 06/07/24 16:00 67 26 H 144/77 H 06/07/24 15:07 77 26 H 06/07/24 15:07 36.5 C 78 15 139/84 06/07/24 14:13 36.5 C 108 H 20 130/78 Pulse Ox O2 Del Method O2 Flow Rate 06/07/24 20:12 92 Room Air 06/07/24 19:54 91 Room Air 06/07/24 18:15 96 Nasal Cannula 1 06/07/24 17:30 90 Room Air 06/07/24 16:00 92 Room Air 06/07/24 15:07 93 Room Air 06/07/24 15:07 95 Room Air 06/07/24 14:13 92 Room Air Diagnostic Findings CT DOSE: 786.84 mGy.cm COMPARISON: Comparison is made to CT abdomen pelvis 08/23/2020 FINDINGS: Lower chest: No acute abnormality. Liver: Unremarkable. No focal lesions are seen. Gallbladder and biliary tree: Patient is status post cholecystectomy. No intra- or extrahepatic biliary ductal dilation. Pancreas: Unremarkable, no focal lesions. Spleen: Unremarkable. Adrenals: Unremarkable. Kidneys and ureters: Right hydronephrosis is new from prior exam. Bladder: Unremarkable. Reproductive organs: Patient is status post hysterectomy. Bowel: Multiple loops of small bowel measure up to 39 mm in diameter. Lymph nodes Retroperitoneal: Right-sided soft tissue mass measures 28 mm, increased from prior exam where it measured 18 mm. Pelvic: Unremarkable. Mesenteric: A mesenteric soft tissue mass measures 18 mm, previously 13 mm. Multiple bowel loops appear to be tethered to this mass. Peritoneum: Normal. Vessels: Atherosclerotic calcifications are seen. Aortic aneurysm is again seen measuring up to 38 mm. Abdominal wall: Unremarkable. Bones: Unremarkable. IMPRESSION: Interval enlargement of retroperitoneal and mesenteric masses although evaluation is limited by noncontrast technique. There is resulting right hydronephrosis. There are also dilated loops of small bowel which may represent partial small bowel obstruction due to tethering from these masses. PG Care Time/CCT Total # of Minutes Spent Total Time Spent with Patient: Total time spent is greater than 50% in coordination of care (as documented) at patient's floor/unit and/or counseling patient: Coding Level of Care Code 19336 INT INP/OBS CARE MIN Diagnoses Partial small bowel obstruction K56.600
[2024-06-07] MEDS: HEPARIN SOD 5,000 UNIT/0.5 ML VIAL SQ SCH (22:00)
[2024-06-08 05:26] LABS: Hematocrit (blood only) 36.9 % (37.0-47.0); Hemoglobin 11.9 g/dl (12.0-16.0); Mean Corpuscular Hemoglobin 29.5 pg (25.0-34.0); Mean Corpuscular Hgb Conc 32.2 g/dL (32.0-36.0); Mean Corpuscular Volume 91.6 fL (80.0-100.0); Mean Platelet Volume 10.7 fL (9.4-12.4); Platelet Count 191 K/uL (130-400); RDW Coefficient of Variation 14.6 % (11.5-14.5); RDW Standard Deviation 49.1 fL (36.4-46.3); Red Blood Count 4.03 M/uL (4.20-5.40); White Blood Count 5.97 K/ul (4.8-10.8)
[2024-06-08 05:38] LABS: BUN Creatinine Ratio 12.8 (10-20); Calcium 8.2 mg/dl (8.6-10.3); Creatinine Clr Calc Pharmacy 23.3 ml/min; Magnesium 2.3 mg/dl (1.7-2.4); Phosphorus 3.8 mg/dl (2.5-4.9); Potassium 3.8 mmol/L (3.5-5.1)
[2024-06-08] MEDS: ACETAMINOPHEN 1,000 MG/100 ML VIAL IV PRN (06:08)
[2024-06-08] MEDS: DICYCLOMINE HCL 10 MG CAP PO PRN (07:42)
--- NOTE | 2024-06-08 10:13 | XRay Report ---
XR KUB/Abdomen 1 view CLINICAL HISTORY: Partial SBO TECHNIQUE: 1 view of the abdomen was obtained. Comparison: Comparison is made to CT abdomen pelvis 06/07/2024 FINDINGS: Lung bases are unremarkable. Degenerative changes are seen in the visualized skeleton. Multiple loops of gas dilated loops of small bowel are noted. A moderate amount of stool is noted within the large bowel. IMPRESSION: Multiple gas dilated loops of small bowel are seen compatible with small bowel obstruction. ACT 112: Negative or not required by law. Electronically signed by: Uriel Escudero M.D. 06/08/2024 10:11 AM
--- NOTE | 2024-06-08 10:24 | Hospitalist Progress Note ---
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 Admitting CTAP:Interval enlargement of retroperitoneal and mesenteric masses although evaluation is limited by noncontrast technique. There is resulting right hydronephrosis. There are also dilated loops of small bowel which may rep resent partial small bowel obstruction due to tethering from these masses. Repeat KUB this a.m. shows SBO Admitting respiratory pathogen panel and C. difficile negative, stool PCR neg pt reports she was following with Dr. Santana until he moved to [place] and then he no longer took her insurance. She does not want to see [facility] due to them wanting her to do radiation. It was strongly encouraged for her to get an opinion from our inpt heme/onc team but she declined at this time. She is interested in seeing Dr. Santana when he comes back to the area at [facility] Her only tx for the metastatic carcinoid is Stem Cell at [facility] Continue maintenance fluid while NPO Daily KUB General Surgery consult Continue NPO Acute kidney injury: Admitting creatinine of 1.81, Cr 1.72 today baseline around 1.0 --CTAP with right hydronephrosis in the setting of metastatic disease, patient with recent diarrheal episodes and poor p.o. intake. Likely prerenal versus postrenal. 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 Patient reports she does not use any home medications. Per outpatient chart review, patient does have history of medical noncompliance. DVT prophylaxis: Heparin subcu Full code Dispo: admitted to medical, not yet medically stable to be discharged, encourage self ambulation about unit I spent a total of 46 minutes reviewing notes, outpatient records, labs, medication, coordinating, documenting and providing care for this patient excluding time spent in the performance of separately billed services. Pt was seen and examined in collaboration with Dr. Modi, please see addendum Admission and Anticipated Discharge Date Admission Date: June 07, 2024 Supervising Physician Co-Signing Physician Notes I have seen and examined the patient at bedside. Discussed the case with the collaborating advanced practitioner. I agree with the documentation as above. I have reviewed and confirmed the patients medical history, the findings on physical examination, and the patients diagnosis and treatment plan with Kathryn Avila PA-C and agree with the information documented. Patient reports nausea but no vomiting today. Abdominal pain better. Abdomen tender predominantly RUQ, epigastric, decreased bowel sounds, mildly distended. Small bowel obstruction Acute kidney injury Obstructive uropathy Reviewed imaging studies Continue bowel rest, IV fluids, pain control Appreciate surgery, urology input Monitor renal function, avoid nephrotoxic agents as able Needs follow-up with oncology to address metastatic carcinoid tumor Subjective Pt reports persistent abd pain and distension. She reports liquid stool. Last was early this morning. She feels pain and nausea has improved since admission and pain currently a 4/10. She denies f/c/s, chest pain, sob, vomiting, hematuria or melena. Review of Systems Review of Systems: All systems reviewed & are unremarkable except as noted in HPI & below Physical Exam Physical Exam: Gen: WD/WN, F, appears age, NAD, A&O x3 HEENT: Normocephalic, atraumatic, conjunctivae moist, sclerae anicteric, mucous membranes dry. Lung: Clear to Auscultation bilaterally, no wheezes/rales/rhonchi Heart: Regular rate, regular rhythm, no murmurs, rubs, or gallops Abdomen: distended abd, firm, NT to palpation, diminished/hypoactive bowel sounds Extremities: No edema Skin: Warm, no rash, negative turgor. Results & Data Results & Data Vital Signs (Past 12 Hours) Vital Signs Temp Pulse Pulse Resp BP Pulse Ox O2 Del Method 06/08/24 09:32 Room Air 06/08/24 07:57 36.4 C L 49 L 18 118/65 92 Room Air 06/08/24 07:26 63 06/08/24 03:54 36.8 C 65 18 137/76 91 Room Air 06/08/24 01:43 Room Air 06/08/24 00:26 71 06/07/24 23:26 36.6 C 60 20 114/66 91 Room Air Diagnostic Findings KUB X-Ray 06/08/24 09:06 XR KUB/Abdomen 1 view CLINICAL HISTORY: Partial SBO TECHNIQUE: 1 view of the abdomen was obtained. Comparison: Comparison is made to CT abdomen pelvis 06/07/2024 FINDINGS: Lung bases are unremarkable. Degenerative changes are seen in the visualized skeleton. Multiple loops of gas dilated loops of small bowel are noted. A moderate amount of stool is noted within the large bowel. IMPRESSION: Multiple gas dilated loops of small bowel are seen compatible with small bowel obstruction. ACT 112: Negative or not required by law. Electronically signed by: Uriel Escudero M.D. 06/08/2024 10:11 AM Medications Administered Current Inpatient Medications Al Hydrox/Mg Hydrox/Simethicone (Aluminum/Magnesium Susp 30 Ml Udc) 15 ml PO Q4H PRN PRN Reason: Dyspepsia Stop: 07/07/24 16:19 Dicyclomine HCl (Dicyclomine Hcl 10 Mg Cap) 10 mg PO TID PRN PRN Reason: abd cramps Stop: 07/07/24 20:59 Last Admin: 06/08/24 07:42 Dose: 10 mg Heparin Sodium (Porcine) (Heparin Sod 5,000 Unit/0.5 Ml Vial) 5,000 units SQ Q12 ALVARO Stop: 07/07/24 20:59 Last Admin: 06/08/24 07:48 Dose: Not Given Sodium Chloride (Nss) 1,000 mls @ 80 mls/hr IV .[id number] ALVARO Stop: 06/08/24 16:07 Last Admin: 06/08/24 06:05 Dose: 80 mls/hr Acetaminophen (Ofirmev) 1,000 mg in 100 mls @ 400 mls/hr IV Q8H PRN PRN Reason: Pain or Fever Stop: 06/10/24 16:32 Last Infusion: 06/08/24 06:24 Dose: Infused Ondansetron HCl (Ondansetron Inj 2 Mg/Ml 2 Ml Vial) 4 mg IV Q6H PRN PRN Reason: Nausea Stop: 07/07/24 16:19
--- NOTE | 2024-06-08 10:46 | Surgery Progress Note ---
Date of Service June 08, 2024 Assessment & Plan (1) Partial small bowel obstruction: Plan: Her CT images and results were personally viewed and interpreted by myself Is difficult to tell if her retroperitoneal masses are truly causing a partial obstruction I think the plan would be to give her today to see if she improves She can have clear liquids, would not advance further than that today If she worsens, I think repeat CT of the abdomen pelvis with p.o. contrast would be indicated to see if there is a discrete transition point and also in the hopes it could possibly be therapeutic Will follow (2) Neuroendocrine cancer: Admission and Anticipated Discharge Date Admission Date: June 07, 2024 Subjective Patient seen and examined. Still with some abdominal pain and distention. Afebrile, vital signs stable. Review of Systems Constitutional: no fever and no chills Respiratory: no cough and no dyspnea Cardiovascular: no chest pain and no dyspnea on exertion Gastrointestinal: + abdominal pain and + nausea; no vomiti ng Genitourinary: no dysuria and no nocturia Musculoskeletal: no back pain and no neck pain Integumentary: no acne and no skin ulcer Neurologic: no gait abnormality and no unsteadiness Hematologic / Lymphatic: no easy bleeding and no easy bruising Physical Exam Constitutional: WD/WN, vitals as above Eyes: PERRL, conjunctivae normal, anicteric sclerae Respiratory: normal respiratory effort, lungs clear to auscultation Cardiovascular: RRR, no murmur, no edema Gastrointestinal (Abdomen): Soft, mild distention, mild generalized tenderness to palpation, no rebound or guarding, no pain to percussion Skin: no rashes, warm and dry Neurologic: PERRL, EOMI, accommodation nl, no face palsy, no dysarthria Psychiatric: A+Ox3, euthymic affect Results & Data Vital Signs (Past 12 Hours) Vital Signs Temp Pulse Pulse Resp BP Pulse Ox O2 Del Method 06/08/24 09:32 Room Air 06/08/24 07:57 36.4 C L 49 L 18 118/65 92 Room Air 06/08/24 07:26 63 06/08/24 03:54 36.8 C 65 18 137/76 91 Room Air 06/08/24 01:43 Room Air 06/08/24 00:26 71 06/07/24 23:26 36.6 C 60 20 114/66 91 Room Air PG Care Time/CCT Total # of Minutes Spent Total Time Spent with Patient: Total time spent is greater than 50% in coordination of care (as documented) at patient's floor/unit and/or counseling patient: Coding Level of Care Code 83273 SUB INP/OBS CARE /25MIN Diagnoses Partial small bowel obstruction K56.600 Neuroendocrine cancer C7A.8
--- NOTE | 2024-06-08 12:56 | Urology Consultation ---
Date of Consultation June 08, 2024 Assessment & Plan (1) HERLINDA (acute kidney injury): (2) Hydronephrosis, right: (3) Neuroendocrine cancer: Plan 74-year-old female with HERLINDA in the setting of recent watery diarrhea as well as right hydronephrosis from retroperitoneal mass. Difficult to tell how much of her HERLINDA is related to the hydronephrosis versus prerenal/dehydration. Left kidney appears to be draining well. We discussed the possible role for cystoscopy and right ureteral stent placement as well as risks and benefits of the surgery. For now, since creatinine has been improving slightly, would continue to rehydrate and monitor lab work. We will hold off surgery for today, however would recommend keeping her n.p.o. at midnight in case creatinine does not continue to improve. It sounds as though she has not seen anyone from oncology regarding her neuroendocrine cancer. I recommended that she reestablish care. If there is a treatment that could address her retroperitoneal masses, she may not require long-term stent placement, although if there is ongoing obstruction, this could lead to chronic deterioration of renal function. Urology will follow along History of Present Illness Reason for Consultation: Right hydronephrosis, HERLINDA Attending Physician: Celestino Modi MD History of Present Illness This is a 70-year-old female who presented to the emergency department on 06/07/2024 with abdominal pain and watery diarrhea which she developed after recent travel. She was also having some nausea and dry heaves with associated poor p.o. intake. Past medical history is notable for neuroendocrine cancer. She has undergone bowel resection and she tells me she had a stem cell transplant for this. Radiation was recommended in the past, but she has declined this so far. She tells me she has not been following with anyone from oncology recently. Workup in the ED was suggestive of small bowel obstruction. Lab work was notable for normal WBC (7.07). Creatinine was somewhat elevated at 1.81 and has started to decrease, most recently was 1.72. A CT scan of the abdomen and pelvis was performed on 06/07/2024. I independently reviewed these images. Both kidneys are in normal position. There is hydronephrosis of the right side which seems to extend down to a retr operitoneal mass which may be causing some extrinsic compression of her right ureter. There is mild dilation of the left renal pelvis. She has prominent air-fluid levels within her bowels. Her bladder is decompressed but otherwise appears grossly normal. Urology was consulted regarding her HERLINDA and right hydronephrosis. She denies any acute right-sided flank pain. She has never seen a urologist in the past. She has not been having any fevers or chills. No dysuria. Allergies Allergy/AdvReac Type Severity Reaction Status Date / Time Iodinated Contrast Media Allergy PT STATES Verified 06/07/24 16:17 [Iodinated Contrast- Oral SHE HAD A and IV Dye] CARDIAC ARREST FOLLOWING IV FORM sulfamethoxazole Allergy Neuro Verified 06/07/24 16:17 [From Bactrim] complications trimethoprim [From Bactrim] Allergy Neuro Verified 06/07/24 16:17 complications codeine AdvReac Unknown Headache Verified 06/07/24 16:17 morphine AdvReac Unknown PT SAID IT Verified 06/07/24 16:17 SHUTS HER SYSTEM DOWN naproxen AdvReac Diarrhea Verified 06/07/24 16:17 Home Medications Medication Instructions Recorded Confirmed Type albuterol sulfate 90 mcg/actuation 2 puff inhalation Q6H PRN SOB 11/15/23 06/07/24 History aerosol inhaler (ProAir HFA) escitalopram oxalate 10 mg tablet 10 mg PO DAILY 11/15/23 06/07/24 History loperamide 1 mg/5 mL oral liquid 2 mg PO Q4H PRN Diarrhea 06/07/24 06/07/24 History magnesium 100 mg capsule 100 mg PO HS PRN MUSCLE SPASMS 06/07/24 06/07/24 History vitamin B12 500 mcg-folic acid 400 1 tab PO DAILY 06/07/24 06/07/24 History mcg tablet Patient History Medical History PAD (peripheral artery disease) Tobacco dependence Neuroendocrine cancer Surgical History Status post tubal ligation (~1973) H/O colonoscopy (~2017) History of hand surgery History of bowel resection (~2005) History of hysterectomy History of cholecystectomy (~1979) Family History Mother Heart disease Diabetes Father Dementia Aunt Breast cancer Daughter Diabetes Grandmother Heart disease Other Family history non-contributory Social History Smoking Status: Current every day smoker Tobacco Type: Cigarettes Cigarettes Per Day: 1 PPD; Second Hand Exposure: No; Do You Dip or Chew Tobacco: No; Tobacco Cessation Education Requested by Patient: No Hx Alcohol Use: Yes Alcohol type: hard liquor Alcohol Intake Frequency: Monthly or Less Hx Substance Use: No Preferred Language: Occitan Communication Ability: Effective Visual Impairment: No Limitations Hearing Ability: Normal Teaching Aide Required: No Beliefs That Will Affect Care: None marital status: Current Living Situation: Spouse Current Living Situation Comment: lives with in [place] 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 status: retired 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 Physical Exam Constitutional: well developed and well nourished; no acute distress Eyes: + anicteric sclerae; pupils not irregula r Respiratory: normal respiratory effort; no respiratory distress, does not use accessory muscles and no cough Cardiovascular: well perfused Gastrointestinal (Abdomen): Inspection/Auscultation: abdomen normal to inspection Musculoskeletal: Extremities: extremities normal to inspection Skin: normal turgor; no rashes and no lesions Neurologic: moves all extremities and awake Psychiatric: Orientation: alert and oriented x 3 Results & Data Vital Signs (Past 12 Hours) Vital Signs Temp Pulse Pulse Resp BP Pulse Ox O2 Del Method 06/08/24 11:16 36.6 C 52 L 18 108/59 L 93 Room Air 06/08/24 09:32 Room Air 06/08/24 07:57 36.4 C L 49 L 18 118/65 92 Room Air 06/08/24 07:26 63 06/08/24 03:54 36.8 C 65 18 137/76 91 Room Air 06/08/24 01:43 Room Air PG Care Time/CCT Total # of Minutes Spent Total Time Spent with Patient: Total time spent is greater than 50% in coordination of care (as documented) at patient's floor/unit and/or counseling patient: Coding Level of Care Code 63648 INT INP/OBS CARE MIN Diagnoses HERLINDA (acute kidney injury) N17.9 Hydronephrosis, right N13.30 Neuroendocrine cancer C7A.8
[2024-06-09] MEDS: NICOTINE 21 MG/24 HR TDSY TD SCH (06:29)
[2024-06-09 07:51] LABS: Hematocrit (blood only) 36.9 % (37.0-47.0); Hemoglobin 11.7 g/dl (12.0-16.0); Mean Corpuscular Hemoglobin 29.3 pg (25.0-34.0); Mean Corpuscular Hgb Conc 31.7 g/dL (32.0-36.0); Mean Corpuscular Volume 92.3 fL (80.0-100.0); Mean Platelet Volume 10.7 fL (9.4-12.4); Platelet Count 182 K/uL (130-400); RDW Coefficient of Variation 14.6 % (11.5-14.5); RDW Standard Deviation 49.5 fL (36.4-46.3); White Blood Count 7.26 K/ul (4.8-10.8)
[2024-06-09 08:02] LABS: BUN Creatinine Ratio 14.8 (10-20); Calcium 8.1 mg/dl (8.6-10.3); Creatinine Clr Calc Pharmacy 24.1 ml/min; Potassium 3.8 mmol/L (3.5-5.1)
--- NOTE | 2024-06-09 08:03 | XRay Report ---
KUB CLINICAL HISTORY: Small bowel obstruction. COMPARISON STUDY: CT of the abdomen and pelvis June 07, 2024. KUB June 08, 2024. FINDINGS: Multiple loops of mildly dilated small bowel measure up to 4.3 cm in caliber. Small bowel d ilatation has minimally improved since prior exam. Abdominal and pelvic surgical clips are incidental ly noted. Sensitivity for detection of free air is diminished on the none is identified. IMPRESSION: Findings consistent with a persistent small bowel obstruction. Slight improvement in sma ll bowel dilatation. ACT 112: Negative or not required by law. Electronically signed by: Robert Boateng M.D. 06/09/2024 8:00 AM
[2024-06-09] MEDS: D5W AND 1/2NSS 1,000 ML IV SCH (09:49)
--- NOTE | 2024-06-09 09:59 | Urology Progress Note ---
Date of Service June 09, 2024 Assessment & Plan (1) Hydronephrosis, right: (2) HERLINDA (acute kidney injury): (3) Neuroendocrine cancer: Plan: 74-year-old female with HERLINDA in the setting of recent watery diarrhea as well as right hydronephrosis from retroperitoneal mass. Patient afebrile, hemodynamically stable Labs reviewedcreatinine improved slightly to 1.69, no leukocytosis, hemoglobin 11.7 For now, since creatinine continues to improve, would continue conservative management and monitor lab work No acute intervention today Can consider cystoscopy and right ureteral stent placement if her creatinine worsens or does not continue to improve toward baseline Recommend reestablishing care with oncology regarding her neuroendocrine cancer If there is a treatment that could address her retroperitoneal masses, she may not require long-term stent placement However, if there is ongoing obstruction, this could lead to chronic deterioration of renal function Urology will continue to follow Admission and Anticipated Discharge Date Admission Date: June 07, 2024 Subjective Patient seen and examined at bedside this morning. She is resting in bed, arouses easily to her name. Denies flank pain. Reports some intermittent abdominal pain and ongoing watery stools. Voiding without difficulty, no dysuria or hematuria. No fever or chills. Review of Systems Constitutional: as per Subjective / HPI Gastrointestinal: as per Subjective / HPI Genitourinary: as per Subjective / HPI Physical Exam Constitutional: no acute distress Respiratory: normal respiratory effort; no respiratory distress and no labored breathing Gastrointestinal (Abdomen): Inspection/Auscultation: abdomen normal to inspection Musculoskeletal: Head/Neck/Chest: normocephalic Neurologic: moves all extremities and awake Psychiatric: Orientation: alert and oriented x 3 Results & Data Vital Signs (Past 12 Hours) Vital Signs Temp Pulse Pulse Resp BP BP Pulse Ox 06/09/24 07:53 36.3 C L 45 L 20 112/55 L 92 06/09/24 07:28 49 L 06/09/24 02:42 36.5 C 54 L 18 138/76 94 06/08/24 23:27 47 L 06/08/24 22:53 36.8 C 47 L 16 127/66 92 06/08/24 22:44 O2 Del Method 06/09/24 07:53 Room Air 06/09/24 07:28 06/09/24 02:42 Room Air 06/08/24 23:27 06/08/24 22:53 Room Air 06/08/24 22:44 Room Air PG Care Time/CCT Total # of Minutes Spent Total Time Spent with Patient: Total time spent is greater than 50% in coordination of care (as documented) at patient's floor/unit and/or counseling patient: Coding Level of Care Code 74073 SUB INP/OBS CARE 09/13MIN Diagnoses Hydronephrosis, right N13.30 HERLINDA (acute kidney injury) N17.9 Neuroendocrine cancer C7A.8
--- NOTE | 2024-06-09 10:14 | Surgery Progress Note ---
Date of Service June 09, 2024 Assessment & Plan (1) Neuroendocrine cancer: (2) Tobacco dependence: (3) PAD (peripheral artery disease): (4) Partial small bowel obstruction: Plan: still dilated bowel on kub however clinically improving. +multiple bm's. will let her try clears today Admission and Anticipated Discharge Date Admission Date: June 07, 2024 Subjective pt seen. feeling better. "starving".... +multiple loose bms. no nausea. Physical Exam Constitutional: WD/WN, vitals as above no acute distress and not ill appearing Eyes: PERRL, conjunctivae normal, anicteric sclerae EOM intact bilaterally ENMT: external ear and nose normal, oropharynx normal Ears: no hearing impairment Neck: trachea midline, no thyromegaly Respiratory: normal respiratory effort; no respiratory distress and does not use accessory muscles Cardiovascular: Rate/Rhythm: regular rate and regular rhythm Gastrointestinal (Abdomen): soft. generlized firmness likely secondary to her known carcinoid masses. minimal distension Skin: no rashes, warm and dry Psychiatric: Orientation: alert, oriented x 3 and cooperative Results & Data Vital Signs (Past 12 Hours) Vital Signs Temp Pulse Pulse Resp BP BP Pulse Ox 06/09/24 07:53 36.3 C L 45 L 20 112/55 L 92 06/09/24 07:28 49 L 06/09/24 02:42 36.5 C 54 L 18 138/76 94 06/08/24 23:27 47 L 06/08/24 22:53 36.8 C 47 L 16 127/66 92 06/08/24 22:44 O2 Del Method 06/09/24 07:53 Room Air 06/09/24 07:28 06/09/24 02:42 Room Air 06/08/24 23:27 06/08/24 22:53 Room Air 06/08/24 22:44 Room Air PG Care Time/CCT Total # of Minutes Spent Total Time Spent with Patient: Total time spent is greater than 50% in coordination of care (as documented) at patient's floor/unit and/or counseling patient: Coding Level of Care Code 38049 SUB INP/OBS CARE 2/35MIN Diagnoses Neuroendocrine cancer C7A.8 Tobacco dependence F17.200 PAD (peripheral artery disease) I73.9 Partial small bowel obstruction K56.600
--- NOTE | 2024-06-09 16:10 | Hospitalist Progress Note ---
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 Patient presenting with watery stool since last Sunday associated with abdominal cramps/poor appetite. Admitting CTAP --> "Interval enlargement of retroperitoneal and mesenteric masses although evaluation is limited by noncontrast technique. There is resulting right hydronephrosis. There are also dilated loops of small bowel which may represent partial small bowel obstruction due to tethering from these masses." Admitting respiratory pathogen panel and C. difficile testing negative, stool PCR negative. Repeat KUB on 06/08 --> "Multiple gas dilated loops of small bowel are seen compatible with small bowel obstruction." Repeat KUB on 06/09 --> "Findings consistent with a persistent small bowel obstruction. Slight improvement in small bowel dilatation." Patient reports she was following with Dr. Forrester until he moved to [facility] and then he no longer took her insurance. She does not want to see [facility] due to them wanting her to do radiation. It was strongly encouraged for her to get an opinion from our inpatient hematology/oncology team, however she continues to deny this option. She is interested in seeing Dr. Forrester when he comes back to the area at [facility]. Her only previous treatment for the metastatic carcinoid was stem cell therapy at [facility]. Patient does not want to pursue any further treatment at this time. General surgery already onboard --> Patient transitioned to a clear liquid diet today. Continue daily KUB. Acute Kidney Injury, Right Hydronephrosis: Admitting creatinine of 1.81. Cr 1.72 yesterday --> somewhat improving to 1.69 today. Baseline Cr ~1.0 per chart review. Admitting CTAP as per above --> "Interval enlargement of retroperitoneal and mesenteric masses although evaluation is limited by noncontrast technique. There is resulting right hydronephrosis." Likely prerenal vs postrenal. Patient with recent diarrheal episodes and poor oral intake. Urology onboard --> "For now, since creatinine continues to improve, would continue conservative management and monitor lab work. No acute intervention today." Can consider cystoscopy and right ureteral stent placement if her creatinine worsens or does not continue to improve toward baseline. However, if there is ongoing obstruction, this could lead to chronic deterioration of renal function. Patient voiding without difficulty this morning. Continue IVF (changed to D5w and 1/2 NSS given elevated chloride/hypoglycemia). Avoid nephrotoxic medications when able. Monitor renal function closely with daily AM labs and renally dose medications when able. 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 Patient reports she does not use any home medications. Per outpatient chart review, patient does have history of medical noncompliance. DVT Prophylaxis: SQ Heparin Code Status: FULL CODE PCP: Gin Guerra, Disposition: Admitted in Med/Surg + Telemetry - Encouraged ambulation around the unit once again. Patient seen in collaboration with Dr. Modi. Please see addendum. I spent a total of 55 minutes coordinating, documenting, and providing care for this patient excluding time spent in the performance of separately billed services. This included personally reviewing all current laboratories and imaging studies, medical reconciliation, outpatient chart review and discussion with specialists. This chart was completed in part utilizing Speech Voice Recognition Software. Grammatical errors, random word insertions, pronoun errors, and incomplete sentences are an occasional consequence of this system due to software limitations, ambient noise, and hardware issues. Any formal questions or concerns about the content, text, or information contained within the body of this dictation should be directly addressed to the provider for clarification. Admission and Anticipated Discharge Date Admission Date: June 07, 2024 Supervising Physician Co-Signing Physician Notes I have seen and examined the patient at bedside. Discussed the case with the collaborating advanced practitioner. I agree with the documentation as above. I have reviewed and confirmed the patients medical history, the findings on physical examination, and the patients diagnosis and treatment plan with Marry Benitez PA-C and agree with the information documented. Patient reports having multiple loose bowel movements today. Denies any nausea, vomiting. Abdominal pain better today Small bowel obstruction Acute kidney injury Obstructive uropathy Reviewed imaging studies Started on clear liquid diet today Continue IV fluids, pain control Appreciate surgery, urology input Monitor renal function, avoid nephrotoxic agents as able Needs follow-up with oncology Dr. Santana to address metastatic carcinoid tumor. Currently not interested to discuss with oncologist states that she already had stem cell therapy and does not believe any other treatment would help. Creatinine slightly better Subjective Patient reports multiple watery, loose BMs overnight. Denies any blood in her stool. She slept okay last night. No N/V but does endorse some epigastric abdominal pain. Reports she is craving Cream of Wheat. Review of Systems Review of Systems: At least ten systems reviewed and negative, except as noted in the subjective section. Physical Exam Physical Exam: General: WD/WN, vitals as above, NAD, laying down in bed, pleasant, conversing appropriately. A+Ox3, euthymic affect. HEENT: Normocephalic, atraumatic. PERRL, conjunctivae normal, anicteric sclerae. External ear and nose normal, oropharynx dry. Respiratory: Normal respiratory effort, lungs clear to auscultation, no wheeze, rales, rhonchi. No accessory muscle use. Cardiovascular: Regular rate, rhythm, no murmur, normal peripheral pulses, no BLE edema. Vessels: No JVD. Abdomen/GI: Hypoactive/somewhat diminished bowel sounds, minimal distention, TTP in epigastric region, no hepatosplenomegaly. Extremities/Musculoskeletal: No cyanosis or clubbing, extremities motor strength intact, moves all extremities. Neurologic: EOMI, no focal deficits, CN's II-XI not formally tested but appear grossly intact bilaterally. Skin: No rashes, normal color, warm/dry. Results & Data Results & Data Vital Signs (Past 12 Hours) Vital Signs Temp Pulse Pulse Resp BP Pulse Ox O2 Del Method 06/09/24 15:54 36.6 C 75 20 107/58 L 91 Room Air 06/09/24 15:28 42 L 06/09/24 11:30 37.0 C 76 20 130/67 93 Room Air 10/21/24 10:15 Room Air 06/09/24 07:53 36.3 C L 45 L 20 112/55 L 92 Room Air 06/09/24 07:28 49 L Laboratory Results Short CBC 06/09/24 Range/Units 07:10 WBC 7.26 (4.8-10.8) K/ul Hgb 11.7 L (12.0-16.0) g/dl Hct 36.9 L (37.0-47.0) % Plt Count 182 (130-400) K/uL BMP 06/09/24 07:10 Sodium 144 Potassium 3.8 Chloride 116 H Carbon Dioxide 20 L BUN 25 H Creatinine 1.69 H Glucose 69 L Calcium 8.1 L Diagnostic Findings KUB X-Ray 06/09/24 08:00 KUB CLINICAL HISTORY: Small bowel obstruction. COMPARISON STUDY: CT of the abdomen and pelvis June 07, 2024. KUB June 08, 2024. FINDINGS: Multiple loops of mildly dilated small bowel measure up to 4.3 cm in caliber. Small bowel dilatation has minimally improved since prior exam. Abdominal and pelvic surgical clips are incidentally noted. Sensitivity for detection of free air is diminished on the none is identified. IMPRESSION: Findings consistent with a persistent small bowel obstruction. Slight improvement in small bowel dilatation. ACT 112: Negative or not required by law. Electronically signed by: Robert Boateng M.D. 06/09/2024 8:00 AM
[2024-06-10] MEDS: MELATONIN 3 MG TAB PO PRN (03:05)
[2024-06-10 06:40] LABS: Calcium 7.8 mg/dl (8.6-10.3); Creatinine Clr Calc Pharmacy 27.2 ml/min; Magnesium 1.8 mg/dl (1.7-2.4); Phosphorus 2.9 mg/dl (2.5-4.9); Potassium 3.6 mmol/L (3.5-5.1)
--- NOTE | 2024-06-10 10:58 | Hospitalist Progress Note ---
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 Patient presenting with watery stool since last Sunday associated with abdominal cramps/poor appetite. Admitting CTAP --> "Interval enlargement of retroperitoneal and mesenteric masses although evaluation is limited by noncontrast technique. There is resulting right hydronephrosis. There are also dilated loops of small bowel which may represent partial small bowel obstruction due to tethering from these masses." Admitting respiratory pathogen panel and C. difficile testing negative, stool PCR negative. Repeat KUB on 06/08 --> "Multiple gas dilated loops of small bowel are seen compatible with small bowel obstruction." Repeat KUB on 06/09 --> "Findings consistent with a persistent small bowel obstruction. Slight improvement in small bowel dilatation." Repeat KUB on 06/10 --> "Persistent small bowel obstruction. This is overall similar in appearance to yesterday." Patient reports she was following with Dr. Forrester until he moved to [facility] and then he no longer took her insurance. She does not want to see [facility] due to them wanting her to do radiation. It was strongly encouraged for her to get an opinion from our inpatient hematology/oncology team, however she continues to deny this option. She is interested in seeing Dr. Forrester when he comes back to the area at [facility]. Her only previous treatment for the metastatic carcinoid was stem cell therapy at [facility]. Patient does not want to pursue any further treatment at this time. General surgery onboard --> Patient transitioned to a clear liquid diet yesterday and has been tolerating it very well. Will keep on liquid diet for now and slowly advance per general surgery's recommendation/discretion. Acute Kidney Injury, Right Hydronephrosis: Baseline Cr ~1.0 per chart review. Admitting creatinine of 1.81. Cr 1.72 on 06/08 --> 1.69 on 06/09 --> 1.50 today. Continues to slowly improve. Admitting CTAP as per above --> "Interval enlargement of retroperitoneal and mesenteric masses although evaluation is limited by noncontrast technique. There is resulting right hydronephrosis." Likely prerenal vs postrenal. Patient with recent diarrheal episodes and poor oral intake. Urology onboard --> Continue with conservative management for now as her creatinine continues to improve, no intervention warranted at this time. Can consider cystoscopy and right ureteral stent placement if her creatinine worsens or does not continue to improve toward baseline. However, if there is ongoing obstruction, this could lead to chronic deterioration of renal function. Patient continues to void without difficulty. Continue IVF (changed to D5w and 1/2 NSS yesterday given elevated chloride/hypoglycemia). Avoid nephrotoxic medications when able. Monitor renal function closely with daily AM labs and renally dose medications when able. Bradycardia: Patient with bradycardia this morning, HR in the 40s-50s. Sinus bradycardia on telemetry, BP stable. EKG showed a junctional rhythm but otherwise was unremarkable. Continue to monitor on telemetry. 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 Patient reports she does not use any home medications. Per outpatient chart review, patient does have history of medical noncompliance. DVT Prophylaxis: SQ Heparin Code Status: FULL CODE PCP: Gin Guerra DO Disposition: Admitted in Med/Surg + Telemetry - Encouraged ambulation around the unit. Patient seen in collaboration with Dr. Modi. Please see addendum. I spent a total of 40 minutes coordinating, documenting, and providing care for this patient excluding time spent in the performance of separately billed services. This included personally reviewing all current laboratories and imaging studies, medical reconciliation, outpatient chart review and discussion with specialists. This chart was completed in part utilizing Speech Voice Recognition Software. Grammatical errors, random word insertions, pronoun errors, and incomplete sentences are an occasional consequence of this system due to software limitations, ambient noise, and hardware issues. Any formal questions or concerns about the content, text, or information contained within the body of this dictation should be directly addressed to the provider for clarification. Admission and Anticipated Discharge Date Admission Date: June 07, 2024 Supervising Physician Co-Signing Physician Notes I have seen and examined the patient at bedside. Discussed the case with the collaborating advanced practitioner. I agree with the documentation as above. I have reviewed and confirmed the patients medical history, the findings on physical examination, and the patients diagnosis and treatment plan with Marry Benitez PA-C and agree with the information documented. Patient reports having BMs today. Denies any nausea, vomiting. Abdominal pain continues to improve. KUB still showing signs of SBO Small bowel obstruction Acute kidney injury--renal function slowly improving Obstructive uropathy Tolerating liquid diet Continue IV fluids, pain control Appreciate surgery, urology input Monitor renal function, avoid nephrotoxic agents as able Needs follow-up with oncology Dr. Santana to address metastatic carcinoid tumor. Currently not interested to discuss with oncologist states that she already had stem cell therapy and does not believe any other treatment would help. Needs follow-up with urology on discharge. Currently no plan for intervention per urology Noted bradycardia. Asymptomatic currently. Avoid AV ham blocking agents Consider cardiology evaluation if continues to be bradycardic Subjective Patient reports only one episode of watery stools since Sunday evening/early Sunday morning. Denies any blood in her stool. She slept good last night. No N/V overnight and her epigastric pain is improving . She has been tolerating a clear liquid diet without issue. Review of Systems Review of Systems: At least ten systems reviewed and negative, except as noted in the subjective section. Physical Exam Physical Exam: General: WD/WN, vitals as above, NAD, laying down in bed, very pleasant, conversing appropriately. A+Ox3, euthymic affect. HEENT: Normocephalic, atraumatic. PERRL, conjunctivae normal, anicteric sclerae. External ear and nose normal, oropharynx dry. Respiratory: Normal respiratory effort, lungs clear to auscultation, no wheeze, rales, rhonchi. No accessory muscle use. Cardiovascular: Regular rate, rhythm, no murmur, normal peripheral pulses, no BLE edema. Vessels: No JVD. Abdomen/GI: Hypoactive bowel sounds but improving, minimal distention, tenderness in epigastric region improved, no hepatosplenomegaly. Extremities/Musculoskeletal: No cyanosis or clubbing, extremities motor strength intact, moves all extremities. Neurologic: EOMI, no focal deficits, CN's II-XI not formally tested but appear grossly intact bilaterally. Skin: No rashes, normal color, warm/dry. Results & Data Results & Data Vital Signs (Past 12 Hours) Vital Signs Temp Pulse Pulse Resp BP Pulse Ox O2 Del Method 06/10/24 08:13 36.6 C 50 L 20 129/69 95 Room Air 06/10/24 08:08 48 L 06/10/24 07:14 Room Air 06/10/24 04:19 36.6 C 43 L 20 107/61 95 Room Air 06/10/24 00:50 55 L 06/10/24 00:08 37.1 C 49 L 20 139/76 93 Room Air Laboratory Results [facility] 06/10/24 06:06 Sodium 138 Potassium 3.6 Chloride 113 H Carbon Dioxide 18 L BUN 18 Creatinine 1.50 H Glucose 128 H Calcium 7.8 L
--- NOTE | 2024-06-10 11:07 | Urology Progress Note ---
Date of Service June 10, 2024 Assessment & Plan (1) HERLINDA (acute kidney injury): (2) Hydronephrosis, right: (3) Neuroendocrine cancer: Plan: 74-year-old female with HERLINDA in the setting of recent watery diarrhea as well as right hydronephrosis from retroperitoneal mass. Patient afebrile, hemodynamically stable Creatinine continues to downtrend, now 1.5 For now, since creatinine continues to improve, continue with conservative management and monitor lab work No acute intervention today Can consider cystoscopy and right ureteral stent placement if her creatinine worsens or does not continue to improve toward baseline Recommend reestablishing care with oncology regarding her neuroendocrine cancer If there is a treatment that could address her retroperitoneal masses, she may not require long-term stent placement However, if there is ongoing obstruction from tumor, this could lead to chronic deterioration of renal function Will arrange outpatient follow-up with our service Urology will follow peripherally, please contact our service with any questions or changes in patient's status Admission and Anticipated Discharge Date Admission Date: June 07, 2024 Subjective Patient seen and examined at bedside this morning. She reports some right flank discomfort yesterday evening, relieved with Tylenol. She has some abdominal discomfort and bloating. Continues to have loose stools. No nausea or vomiting. No fever or chills. Voiding spontaneously. Review of Systems Constitutional: as per Subjective / HPI Genitourinary: as per Subjective / HPI Physical Exam Constitutional: no acute distress Respiratory: normal respiratory effort; no respiratory distress and no labored breathing Gastrointestinal (Abdomen): Inspection/Auscultation: abdomen normal to inspection Musculoskeletal: Head/Neck/Chest: normocephalic Neurologic: moves all extremities and awake Psychiatric: Orientation: alert and oriented x 3 Results & Data Vital Signs (Past 12 Hours) Vital Signs Temp Pulse Pulse Resp BP Pulse Ox O2 Del Method 06/10/24 08:13 36.6 C 50 L 20 129/69 95 Room Air 06/10/24 08:08 48 L 06/10/24 07:14 Room Air 06/10/24 04:19 36.6 C 43 L 20 107/61 95 Room Air 06/10/24 00:50 55 L 06/10/24 00:08 37.1 C 49 L 20 139/76 93 Room Air PG Care Time/CCT Total # of Minutes Spent Total Time Spent with Patient: Total time spent is greater than 50% in coordination of care (as documented) at patient's floor/unit and/or counseling patient: Coding Level of Care Code 73524 SUB INP/OBS CARE Diagnoses HERLINDA (acute kidney injury) N17.9 Hydronephrosis, right N13.30 Neuroendocrine cancer C7A.8
--- NOTE | 2024-06-10 11:17 | Surgery Progress Note ---
Date of Service June 10, 2024 Assessment & Plan (1) Small bowel obstruction: Plan: KUB taken this AM , not read yet Abd pain less than yesterday abd distended, TTP RLQ , LLQ started on clears yesterday, no n/v , +bloating, no BM today still passing flatus vss as above. kub still cw sbo however clinically doing great. no pain. no nausea. celio liquids. +multiple bm's suspect chronically partially obstructed secondary to carcinoid tumors will increase to full liquids and see how she does. Admission and Anticipated Discharge Date Admission Date: June 07, 2024 Subjective feeling better than yesterday less abd pain +bloating, +flatus Denies n/v Review of Systems 2 Gastrointestinal: + abdominal pain and + bloating; no naus ea and no vomiting Physical Exam Constitutional: cooperative and comfortable; no acute distress Respiratory: normal respiratory effort and able to speak in complete sentences; no respiratory distress Gastrointestinal (Abdomen): Inspection/Auscultation: + abdomen distended Percussion/Palpation: + abdomen tender and abdomen soft Results & Data Vital Signs (Past 12 Hours) Vital Signs Temp Pulse Pulse Resp BP Pulse Ox O2 Del Method 06/10/24 08:13 97.9 F 50 L 20 129/69 95 Room Air 06/10/24 08:08 48 L 06/10/24 07:14 Room Air 06/10/24 04:19 97.9 F 43 L 20 107/61 95 Room Air 06/10/24 00:50 55 L 06/10/24 00:08 98.8 F 49 L 20 139/76 93 Room Air PG Care Time/CCT Total # of Minutes Spent Total Time Spent with Patient: Total time spent is greater than 50% in coordination of care (as documented) at patient's floor/unit and/or counseling patient: Coding Level of Care Code 76714 SUB INP/OBS CARE 09/13MIN Diagnoses Small bowel obstruction K56.609
--- NOTE | 2024-06-10 12:43 | XRay Report ---
KUB CLINICAL HISTORY: Small bowel obstruction. FINDINGS: An AP, portable, supine abdominal radiograph is compared to study dated 06/09/2024 and elizabeth elated with abdominal CT dated 06/07/2024. Cholecystectomy clips are noted in the right upper quadran t. Additional surgical clips are seen in the pelvis. There is gaseous distention of the small bowel l oops indicating persistent obstruction. These measure up to 5 cm in diameter. No evidence of intraper itoneal free air is seen on this supine image. There are no abnormal abdominal calcifications. The sk eletal structures are osteopenic and appear intact. Lumbosacral spondylosis is observed. IMPRESSION: Persistent small bowel obstruction. This is overall similar in appearance to yesterday. Electronically signed by: Pedro White M.D. 06/10/2024 12:42 PM
[2024-06-10] MEDS: CALCIUM 600MG + VIT D 400 IU TAB PO SCH (19:56)
[2024-06-11 07:34] LABS: Hematocrit (blood only) 35.3 % (37.0-47.0); Hemoglobin 11.5 g/dl (12.0-16.0); Mean Corpuscular Hemoglobin 29.4 pg (25.0-34.0); Mean Corpuscular Hgb Conc 32.6 g/dL (32.0-36.0); Mean Corpuscular Volume 90.3 fL (80.0-100.0); Mean Platelet Volume 10.7 fL (9.4-12.4); Platelet Count 167 K/uL (130-400); RDW Coefficient of Variation 14.4 % (11.5-14.5); RDW Standard Deviation 47.8 fL (36.4-46.3); Red Blood Count 3.91 M/uL (4.20-5.40); White Blood Count 7.86 K/ul (4.8-10.8)
[2024-06-11 08:07] LABS: BUN Creatinine Ratio 9.2 (10-20); Calcium 8.3 mg/dl (8.6-10.3); Creatinine Clr Calc Pharmacy 29.1 ml/min; Magnesium 1.5 mg/dl (1.7-2.4); Phosphorus 3.2 mg/dl (2.5-4.9); Potassium 3.8 mmol/L (3.5-5.1)
--- NOTE | 2024-06-11 08:56 | Surgery Progress Note ---
Date of Service June 11, 2024 Assessment & Plan (1) Small bowel obstruction: Plan: Patient here w/ concern for SBO Some nausea yesterday, but feels fine currently Denies pain, but does have some ongoing distention and discomfort on exam She does report + flatus and BM's to me Has a clears tray for bfast, although is ordered for fulls Will continue fulls for now, repeat KUB for further evaluation Encourage ambulation pt seen. continues to have loose bm's for some reason she still has not been given full liquids. spoke with nursing. will try full liquids for lunch. no pain. no n/v Admission and Anticipated Discharge Date Admission Date: June 07, 2024 Subjective Patient resting. Reports feeling fairly well, but does endorse to me some nausea yesterday. Says her abdomen is always bloated. No discomfort unless palpated on. Diet was advanced to fulls but she tells me she hasnt had anything but clears yet. She tells me she is passing gas/BMs Physical Exam Physical Exam: was resting, but easily arousable and communicative Gastrointestinal (Abdomen): Inspection/Auscultation: + abdomen distended Percussion/Palpation: + abdomen tender (lower abdominal discomfort bilaterally to palpation, worse on the R ) and abdomen soft Results & Data Vital Signs (Past 12 Hours) Vital Signs Temp Pulse Pulse Resp BP Pulse Ox O2 Del Method 06/11/24 08:10 70 06/11/24 07:30 98.4 F 56 L 16 125/69 94 Room Air 06/11/24 07:12 Room Air 06/11/24 04:11 98.6 F 66 20 119/61 92 Room Air 06/11/24 00:45 99.1 F 67 20 130/74 92 Room Air 06/10/24 22:14 56 L PG Care Time/CCT Total # of Minutes Spent Total Time Spent with Patient: Total time spent is greater than 50% in coordination of care (as documented) at patient's floor/unit and/or counseling patient: Coding Level of Care Code 45839 SUB INP/OBS CARE 09/13MIN Diagnoses Small bowel obstruction K56.609
--- NOTE | 2024-06-11 10:05 | XRay Report ---
KUB CLINICAL HISTORY: Small bowel obstruction. FINDINGS: 2 AP, portable, supine abdominal radiographs are compared to study dated 06/10/2024 and cor related with abdominal CT dated 06/07/2024. Cholecystectomy clips are noted in the right upper quadra nt. Additional surgical clips are seen in the pelvis. There is gaseous distention of the small bowel loops indicating persistent obstruction. These measure up to 5 cm in diameter. No evidence of intrape ritoneal free air is seen on this supine image. There are no abnormal abdominal calcifications. The s keletal structures are osteopenic and appear intact. Lumbosacral spondylosis is observed. IMPRESSION: Persistent small bowel obstruction. This is overall similar in appearance to yesterday. Electronically signed by: Pedro White M.D. 06/11/2024 10:04 AM
--- NOTE | 2024-06-11 11:33 | Palliative Care Consultation ---
Date of Consultation June 11, 2024 Assessment & Plan (1) Abdominal pain, generalized: Secondary to small bowel obstruction and responding to conservative management with bowel rest, IV fluids Patient is having some occasional diarrhea but no formed stool She denies any increase in abdominal pain and feels overall the pain is improved since admission (2) Weakness generalized: (3) Advanced care planning/counseling discussion: I had a 30-minute [id number] advance care planning discussion with patient at the bedside. There is no family present. She tells me that she has not had any cancer directed follow-up in the last 6 years. Initially she was seeing a provider locally and was sent for a breast MRI out of concern that there may be metastatic lesions in the breast however she was not able to tolerate positioning during the breast MRI and aborted the imaging study. She never rescheduled her return for oncology visits after that. She has not seen anyone locally other than her PCP and reports that overall she does not feel that there were any major cancer related issues that required more follow-up. She then states however that she is probably "overdue for a PET/CT at this point" We discussed the option of meeting with an oncologist to discuss the progress of her cancer and determine what additional testing/imaging may be most appropriate at this junction. I provided some education that PET/CT studies are done on an outpatient basis and would not be done routinely during an inpatient admission, and she was accepting of that fact. She feels at this point she has a really good quality of life prior to the small bowel obstruction and is open to continuing therapeutic interventions to try and return to the baseline quality of life. She is less sure about surgery but states that if it became necessary, she would not rule it out. We also discussed CODE STATUS. She tells me that for now she wishes to remain a full code and have some oncology follow-up. We discussed some potential outcomes of CPR in the context of advanced age and complex/advanced illness. She accepted those risks at this time and feels that there is still reasonable hope for recovery to an acceptable baseline with quality of life. (4) Palliative care by specialist: Introduced Palliative Medicine and explained our role in patient's care. Patient and/or family were receptive to palliative services for goals of care discussions. Reviewed we are different from hospice, a home health nurse visiting service. (5) Neuroendocrine cancer: (6) PAD (peripheral artery disease): Plan As above Oncology consult recommended Continue conservative management SBO, denies any acute pain needs at this time Will continue to follow peripherally, please page me if any urgent needs arise in the interim. Primary team updated Thank you for allowing us to participate in the ongoing care of this patient. Please page with any additional concerns. Trev Hugo DNP Director, Palliative Medicine History of Present Illness Reason for Consultation: On 06/11/24 @ 11:31 Guerline Campos Wrote To Lindsay Hugo recurrent sbo, carcinoid process Attending Physician: Ayush Wright MD History of Present Illness Bonnie is a 74yo female admitted 06/07 for watery stool since Sunday, associated with abdominal cramps/ poor appetite. The CTAP revealed: +interval enlargement of retroperitoneal and mesenteric masses although evaluation is limited by noncontrast technique. There is resulting right hydronephrosis. There are also dilated loops of small bowel which may represent partial small bowel obstruction due to tethering from these masses. Labs revealed creatinine 1.81 (baseline ~) and respiratory pathogen panel and C. difficile negative, stool PCR neg She is s/p IVF in the ED, continue with maintenance IV fluid at 80 mL an hour. 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 She also has had a cholecystectomy and total hysterectomy in the past. Bonnie states she is feeling better since admission and is tolerating a full liquid diet. She remains on IV fluids. She states that she has had no cancer follow-up in the last 6 years or so. She does not have an oncologist locally and has not returned to 1 in the area either. She states that overall she does not understand the status of her cancer but in general feels that since not much has changed that likely there are no new updates. She denies any nausea. Tells me her abdominal pain is milder. She has no breathlessness or chest pain. Allergies Allergy/AdvReac Type Severity Reaction Status Date / Time Iodinated Contrast Media Allergy PT STATES Verified 06/07/24 16:17 [Iodinated Contrast- Oral SHE HAD A and IV Dye] CARDIAC ARREST FOLLOWING IV FORM sulfamethoxazole Allergy Neuro Verified 06/07/24 16:17 [From Bactrim] complications trimethoprim [From Bactrim] Allergy Neuro Verified 06/07/24 16:17 complications codeine AdvReac Unknown Headache Verified 06/07/24 16:17 morphine AdvReac Unknown PT SAID IT Verified 06/07/24 16:17 SHUTS HER SYSTEM DOWN naproxen AdvReac Diarrhea Verified 06/07/24 16:17 Home Medications Medication Instructions Recorded Confirmed Type albuterol sulfate 90 mcg/actuation 2 puff inhalation Q6H PRN SOB 11/15/23 06/07/24 History aerosol inhaler (ProAir HFA) escitalopram oxalate 10 mg tablet 10 mg PO DAILY 11/15/23 06/07/24 History loperamide 1 mg/5 mL oral liquid 2 mg PO Q4H PRN Diarrhea 06/07/24 06/07/24 History magnesium 100 mg capsule 100 mg PO HS PRN MUSCLE SPASMS 06/07/24 06/07/24 History vitamin B12 500 mcg-folic acid 400 1 tab PO DAILY 06/07/24 06/07/24 History mcg tablet Patient History Medical History PAD (peripheral artery disease) Tobacco dependence Neuroendocrine cancer Surgical History Status post tubal ligation (~1973) H/O colonoscopy (~2017) History of hand surgery History of bowel resection (~2005) History of hysterectomy History of cholecystectomy (~1979) Family History Mother Heart disease Diabetes Father Dementia Aunt Breast cancer Daughter Diabetes Grandmother Heart disease Other Family history non-contributory Social History Smoking Status: Current every day smoker Tobacco Type: Cigarettes Cigarettes Per Day: 1 PPD; Second Hand Exposure: No; Do You Dip or Chew Tobacco: No; Tobacco Cessation Education Requested by Patient: No Hx Alcohol Use: Yes Alcohol type: hard liquor Alcohol Intake Frequency: Monthly or Less Hx Substance Use: No Preferred Language: Setswana Communication Ability: Effective Visual Impairment: No Limitations Hearing Ability: Normal Nurse Orthopedic Required: No Beliefs That Will Affect Care: None marital status: Current Living Situation: Spouse Current Living Situation Comment: lives with in [place] 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 status: 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 How many Children do You have: 3 How many Children do You have Comment: daughters Other Information That Helps Us Care for You: No Feels Safe at Home: Yes Safety Concerns: Feels Safe At This Time Diet: regular during the past year weight has: remained stable Assistive Devices: Denture - Upper, Glasses and Scooter/Electric Scooter Review of Systems Review of Systems: All systems reviewed & are unremarkable except as noted in Subjective Physical Exam Physical Exam: Resting in bed, semireclined Mild bitemporal wasting PERRLA/EOMI's Neck is supple, no JVD, no stridor Chest is clear bilaterally, mildly diminished overall S1-S2, no gross JVD Abdomen distended, mildly tender to palpation, bowel sounds diminished, no fluid wave appreciated Moving all extremities, mild generalized weakness Skin pale but warm, no clubbing or cyanosis noted Awake alert oriented x 3 Pleasant and cooperative through this exam, mood is stable. Results & Data Vital Signs (Past 12 Hours) Vital Signs Temp Pulse Pulse Resp BP Pulse Ox O2 Del Method 06/11/24 08:10 70 06/11/24 07:30 36.9 C 56 L 16 125/69 94 Room Air 06/11/24 07:12 Room Air 06/11/24 04:11 37.0 C 66 20 119/61 92 Room Air 06/11/24 00:45 37.3 C 67 20 130/74 92 Room Air Laboratory Results 06/11/24 06/10/24 06/09/24 Range/Units 07:13 06:06 07:10 WBC 7.86 7.26 (4.8-10.8) K/ul RBC 3.91 L 4.00 L (4.20-5.40) M/uL Hgb 11.5 L 11.7 L (12.0-16.0) g/dl Hct 35.3 L 36.9 L (37.0-47.0) % MCV 90.3 92.3 (80.0-100.0) fL MCH 29.4 29.3 (25.0-34.0) pg MCHC 32.6 31.7 L (32.0-36.0) g/dL RDW Std Deviation 47.8 H 49.5 H (36.4-46.3) fL RDW Coeff of Noris 14.4 14.6 H (11.5-14.5) % Plt Count 167 182 (130-400) K/uL MPV 10.7 10.7 (9.4-12.4) fL Immature Gran % (Auto) % Neut % (Auto) % Lymph % (Auto) % [place] % (Auto) % Eos % (Auto) % Baso % (Auto) % Neut # (Auto) (1.40-6.50) K/uL Lymph # (Auto) (1.20-3.40) K/uL [place] # (Auto) (0.11-0.59) K/uL Eos # (Auto) (0.00-0.50) K/uL Baso # (Auto) (0.00-0.20) K/uL Immature Gran # (Auto) (0.01-0.20) K/uL PT (9.0-12.0) Seconds INR (0.9-1.1) APTT (21-31) Seconds PTT Ratio Sodium 139 138 144 (136-145) mmol/L Potassium 3.8 3.6 3.8 (3.5-5.1) mmol/L Chloride 112 H 113 H 116 H (98-107) mmol/L Carbon Dioxide 21 18 L 20 L (21-32) mmol/L Anion Gap 6 7 8 (3-11) BUN 13 18 25 H (6-23) mg/dl Creatinine 1.42 H 1.50 H 1.69 H (0.6-1.2) mg/dl Est Cr Clr Drug Dosing 29.1 27.2 24.1 eGFR 38.81 36.34 31.50 BUN/Creatinine Ratio 9.2 L 12.0 14.8 (10-20) Glucose 106 H 128 H 69 L (70-99(Fasting)) mg/dl Calcium 8.3 L 7.8 L 8.1 L (8.6-10.3) mg/dl Phosphorus 3.2 2.9 (2.5-4.9) mg/dl Magnesium 1.5 L 1.8 (1.7-2.4) mg/dl Total Bilirubin (0.2-1.0) mg/dl Direct Bilirubin AST (13-39) U/L ALT (7-52) U/L Alkaline Phosphatase (34-104) U/L Troponin I High Sens (0-14) pg/ml Total Protein (6.0-8.3) gm/dl Albumin (3.4-5.0) gm/dl Lipase (11-82) U/L Stl C. cayetanensis PCR (NotDetected) Stool Rotavirus A PCR (NotDetected) Stl Adenov F 40/41 PCR (NotDetected) Stool Astrovirus (PCR) (NotDetected) Stool Campylobacter PCR (NotDetected) Stl C. diff Tox B Gene (Neg) Stool Cryptosporidium PCR (NotDetected) Stl E.coli Shiga Tox PCR (NotDetected) Stl Enterotoxigenic E PCR (NotDetected) Stool EPEC (PCR) (NotDetected) Stool EAEC (PCR) (NotDetected) Stl E. histolytica PCR (NotDetected) Stool Giardia Lamblia PCR (NotDetected) Stool Salmonella PCR (NotDetected) Stool Sapovirus (PCR) (NotDetected) Stl P. shigelloides PCR (NotDetected) Stl Shigella/EIEC PCR (NotDetected) St Y.enterocolitica PCR (NotDetected) Stool Vibrio (PCR) (NotDetected) Stl Vibrio cholerae PCR (NotDetected) Stl Norovirus GI/GII PCR (NotDetected) Adenovirus (PCR) (NotDetected) B. pertussis DNA (PCR) (NotDetected) B.parapertussis DNA PCR (NotDetected) C. pneumoniae DNA (PCR) (NotDetected) Coronavirus OC43 (PCR) (NotDetected) Coronavirus HKU1 (PCR) (NotDetected) Coronavirus 229E (PCR) (NotDetected) SARS-CoV-2 (PCR) (NotDetected) Coronavirus NL63 (PCR) (NotDetected) Human Metapneumovir PCR (NotDetected) Influenza Type A (PCR) (NotDetected) Influenza Type B (PCR) (NotDetected) M. pneumoniae (PCR) (NotDetected) Parainfluenza 1 (PCR) (NotDetected) Parainfluenza 2 (PCR) (NotDetected) Parainfluenza 3 (PCR) (NotDetected) Parainfluenza 4 (PCR) (NotDetected) RSV (PCR) (NotDetected) Entero/Rhino (PCR) (NotDetected) 06/08/24 06/07/24 06/07/24 Range/Units 04:36 14:43 14:40 WBC 5.97 7.07 (4.8-10.8) K/ul RBC 4.03 L 4.57 (4.20-5.40) M/uL Hgb 11.9 L 13.7 (12.0-16.0) g/dl Hct 36.9 L 40.9 (37.0-47.0) % MCV 91.6 89.5 (80.0-100.0) fL MCH 29.5 30.0 (25.0-34.0) pg MCHC 32.2 33.5 (32.0-36.0) g/dL RDW Std Deviation 49.1 H 47.5 H (36.4-46.3) fL RDW Coeff of Noris 14.6 H 14.6 H (11.5-14.5) % Plt Count 191 226 (130-400) K/uL MPV 10.7 10.5 (9.4-12.4) fL Immature Gran % (Auto) 0.1 % Neut % (Auto) 69.5 % Lymph % (Auto) 22.1 % [place] % (Auto) 7.9 % Eos % (Auto) 0.1 % Baso % (Auto) 0.3 % Neut # (Auto) 4.91 (1.40-6.50) K/uL Lymph # (Auto) 1.56 (1.20-3.40) K/uL [place] # (Auto) 0.56 (0.11-0.59) K/uL Eos # (Auto) 0.01 (0.00-0.50) K/uL Baso # (Auto) 0.02 (0.00-0.20) K/uL Immature Gran # (Auto) 0.01 (0.01-0.20) K/uL PT 10.0 (9.0-12.0) Seconds INR 0.9 (0.9-1.1) APTT 25 (21-31) Seconds PTT Ratio 0.9 Sodium 141 137 (136-145) mmol/L Potassium 3.8 4.0 (3.5-5.1) mmol/L Chloride 111 H 102 (98-107) mmol/L Carbon Dioxide 22 24 (21-32) mmol/L Anion Gap 8 11 (3-11) BUN 22 24 H (6-23) mg/dl Creatinine 1.72 H 1.81 H (0.6-1.2) mg/dl Est Cr Clr Drug Dosing 23.3 Not Reportable eGFR 30.84 29.01 BUN/Creatinine Ratio 12.8 13.3 (10-20) Glucose 77 121 H (70-99(Fasting)) mg/dl Calcium 8.2 L 9.1 (8.6-10.3) mg/dl Phosphorus 3.8 (2.5-4.9) mg/dl Magnesium 2.3 (1.7-2.4) mg/dl Total Bilirubin 0.9 (0.2-1.0) mg/dl Direct Bilirubin TNP AST 22 (13-39) U/L ALT 17 (7-52) U/L Alkaline Phosphatase 70 (34-104) U/L Troponin I High Sens 6.5 (0-14) pg/ml Total Protein 8.2 (6.0-8.3) gm/dl Albumin 4.1 (3.4-5.0) gm/dl Lipase 33 (11-82) U/L Stl C. cayetanensis PCR (NotDetected) Stool Rotavirus A PCR (NotDetected) Stl Adenov F 40/41 PCR (NotDetected) Stool Astrovirus (PCR) (NotDetected) Stool Campylobacter PCR (NotDetected) Stl C. diff Tox B Gene (Neg) Stool Cryptosporidium PCR (NotDetected) Stl E.coli Shiga Tox PCR (NotDetected) Stl Enterotoxigenic E PCR (NotDetected) Stool EPEC (PCR) (NotDetected) Stool EAEC (PCR) (NotDetected) Stl E. histolytica PCR (NotDetected) Stool Giardia Lamblia PCR (NotDetected) Stool Salmonella PCR (NotDetected) Stool Sapovirus (PCR) (NotDetected) Stl P. shigelloides PCR (NotDetected) Stl Shigella/EIEC PCR (NotDetected) St Y.enterocolitica PCR (NotDetected) Stool Vibrio (PCR) (NotDetected) Stl Vibrio cholerae PCR (NotDetected) Stl Norovirus GI/GII PCR (NotDetected) Adenovirus (PCR) Not Detected (NotDetected) B. pertussis DNA (PCR) Not Detected (NotDetected) B.parapertussis DNA PCR Not Detected (NotDetected) C. pneumoniae DNA (PCR) Not Detected (NotDetected) Coronavirus OC43 (PCR) Not Detected (NotDetected) Coronavirus HKU1 (PCR) Not Detected (NotDetected) Coronavirus 229E (PCR) Not Detected (NotDetected) SARS-CoV-2 (PCR) Not Detected (NotDetected) Coronavirus NL63 (PCR) Not Detected (NotDetected) Human Metapneumovir PCR Not Detected (NotDetected) Influenza Type A (PCR) Not Detected (NotDetected) Influenza Type B (PCR) Not Detected (NotDetected) M. pneumoniae (PCR) Not Detected (NotDetected) Parainfluenza 1 (PCR) Not Detected (NotDetected) Parainfluenza 2 (PCR) Not Detected (NotDetected) Parainfluenza 3 (PCR) Not Detected (NotDetected) Parainfluenza 4 (PCR) Not Detected (NotDetected) RSV (PCR) Not Detected (NotDetected) Entero/Rhino (PCR) Not Detected (NotDetected) 06/07/24 Range/Units 14:33 WBC (4.8-10.8) K/ul RBC (4.20-5.40) M/uL Hgb (12.0-16.0) g/dl Hct (37.0-47.0) % MCV (80.0-100.0) fL MCH (25.0-34.0) pg MCHC (32.0-36.0) g/dL RDW Std Deviation (36.4-46.3) fL RDW Coeff of Noris (11.5-14.5) % Plt Count (130-400) K/uL MPV (9.4-12.4) fL Immature Gran % (Auto) % Neut % (Auto) % Lymph % (Auto) % [place] % (Auto) % Eos % (Auto) % Baso % (Auto) % Neut # (Auto) (1.40-6.50) K/uL Lymph # (Auto) (1.20-3.40) K/uL [place] # (Auto) (0.11-0.59) K/uL Eos # (Auto) (0.00-0.50) K/uL Baso # (Auto) (0.00-0.20) K/uL Immature Gran # (Auto) (0.01-0.20) K/uL PT (9.0-12.0) Seconds INR (0.9-1.1) APTT (21-31) Seconds PTT Ratio Sodium (136-145) mmol/L Potassium (3.5-5.1) mmol/L Chloride (98-107) mmol/L Carbon Dioxide (21-32) mmol/L Anion Gap (3-11) BUN (6-23) mg/dl Creatinine (0.6-1.2) mg/dl Est Cr Clr Drug Dosing eGFR BUN/Creatinine Ratio (10-20) Glucose (70-99(Fasting)) mg/dl Calcium (8.6-10.3) mg/dl Phosphorus (2.5-4.9) mg/dl Magnesium (1.7-2.4) mg/dl Total Bilirubin (0.2-1.0) mg/dl Direct Bilirubin AST (13-39) U/L ALT (7-52) U/L Alkaline Phosphatase (34-104) U/L Troponin I High Sens (0-14) pg/ml Total Protein (6.0-8.3) gm/dl Albumin (3.4-5.0) gm/dl Lipase (11-82) U/L Stl C. cayetanensis PCR Not Detected (NotDetected) Stool Rotavirus A PCR Not Detected (NotDetected) Stl Adenov F 40/41 PCR Not Detected (NotDetected) Stool Astrovirus (PCR) Not Detected (NotDetected) Stool Campylobacter PCR Not Detected (NotDetected) Stl C. diff Tox B Gene Negative Cdiff Gene (Neg) Stool Cryptosporidium PCR Not Detected (NotDetected) Stl E.coli Shiga Tox PCR Not Detected (NotDetected) Stl Enterotoxigenic E PCR Not Detected (NotDetected) Stool EPEC (PCR) Not Detected (NotDetected) Stool EAEC (PCR) Not Detected (NotDetected) Stl E. histolytica PCR Not Detected (NotDetected) Stool Giardia Lamblia PCR Not Detected (NotDetected) Stool Salmonella PCR Not Detected (NotDetected) Stool Sapovirus (PCR) Not Detected (NotDetected) Stl P. shigelloides PCR Not Detected (NotDetected) Stl Shigella/EIEC PCR Not Detected (NotDetected) St Y.enterocolitica PCR Not Detected (NotDetected) Stool Vibrio (PCR) Not Detected (NotDetected) Stl Vibrio cholerae PCR Not Detected (NotDetected) Stl Norovirus GI/GII PCR Not Detected (NotDetected) Adenovirus (PCR) (NotDetected) B. pertussis DNA (PCR) (NotDetected) B.parapertussis DNA PCR (NotDetected) C. pneumoniae DNA (PCR) (NotDetected) Coronavirus OC43 (PCR) (NotDetected) Coronavirus HKU1 (PCR) (NotDetected) Coronavirus 229E (PCR) (NotDetected) SARS-CoV-2 (PCR) (NotDetected) Coronavirus NL63 (PCR) (NotDetected) Human Metapneumovir PCR (NotDetected) Influenza Type A (PCR) (NotDetected) Influenza Type B (PCR) (NotDetected) M. pneumoniae (PCR) (NotDetected) Parainfluenza 1 (PCR) (NotDetected) Parainfluenza 2 (PCR) (NotDetected) Parainfluenza 3 (PCR) (NotDetected) Parainfluenza 4 (PCR) (NotDetected) RSV (PCR) (NotDetected) Entero/Rhino (PCR) (NotDetected) Diagnostic Findings Abdomen/Pelvis CT 06/07/24 14:37 CT abd pelvis wo con CLINICAL HISTORY: adb pain diarrhea TECHNIQUE: Helical axial images of the abdomen and pelvis were obtained. Automated dose lowering techniques and/or adjustment according to patient size were utilized for this exam. This exam was performed without intravenous contrast. CT DOSE: 786.84 mGy.cm COMPARISON: Comparison is made to CT abdomen pelvis 08/23/2020 FINDINGS: Lower chest: No acute abnormality. Liver: Unremarkable. No focal lesions are seen. Gallbladder and biliary tree: Patient is status post cholecystectomy. No intra- or extrahepatic biliary ductal dilation. Pancreas: Unremarkable, no focal lesions. Spleen: Unremarkable. Adrenals: Unremarkable. Kidneys and ureters: Right hydronephrosis is new from prior exam. Bladder: Unremarkable. Reproductive organs: Patient is status post hysterectomy. Bowel: Multiple loops of small bowel measure up to 39 mm in diameter. Lymph nodes Retroperitoneal: Right-sided soft tissue mass measures 28 mm, increased from prior exam where it measured 18 mm. Pelvic: Unremarkable. Mesenteric: A mesenteric soft tissue mass measures 18 mm, previously 13 mm. Multiple bowel loops appear to be tethered to this mass. Peritoneum: Normal. Vessels: Atherosclerotic calcifications are seen. Aortic aneurysm is again seen measuring up to 38 mm. Abdominal wall: Unremarkable. Bones: Unremarkable. IMPRESSION: Interval enlargement of retroperitoneal and mesenteric masses although evaluation is limited by noncontrast technique. There is resulting right hydronephrosis. There are also dilated loops of small bowel which may represent partial small bowel obstruction due to tethering from these masses. ACT 112: Negative or not required by law. Electronically signed by: Uriel Escudero M.D. 06/07/2024 3:21 PM Chest X-Ray 06/07/24 14:37 XR chest 1V portable CLINICAL HISTORY: abd pain TECHNIQUE: Single frontal radiograph of the chest was obtained. Comparison: Comparison is made to chest radiograph 05/05/2023 FINDINGS: No lines and tubes are seen. The cardiomediastinal silhouette is normal. The lungs are clear. No evidence of pleural effusion or pneumothorax. IMPRESSION: No acute chest disease. ACT 112: Negative or not required by law. Electronically signed by: Uriel Escudero M.D. 06/07/2024 2:49 PM KUB X-Ray 06/08/24 09:06 XR KUB/Abdomen 1 view CLINICAL HISTORY: Partial SBO TECHNIQUE: 1 view of the abdomen was obtained. Comparison: Comparison is made to CT abdomen pelvis 06/07/2024 FINDINGS: Lung bases are unremarkable. Degenerative changes are seen in the visualized skeleton. Multiple loops of gas dilated loops of small bowel are noted. A moderate amount of stool is noted within the large bowel. IMPRESSION: Multiple gas dilated loops of small bowel are seen compatible with small bowel obstruction. ACT 112: Negative or not required by law. Electronically signed by: Uriel Escudero M.D. 06/08/2024 10:11 AM KUB X-Ray 06/09/24 08:00 KUB CLINICAL HISTORY: Small bowel obstruction. COMPARISON STUDY: CT of the abdomen and pelvis June 07, 2024. KUB June 08, 2024. FINDINGS: Multiple loops of mildly dilated small bowel measure up to 4.3 cm in caliber. Small bowel dilatation has minimally improved since prior exam. Abdominal and pelvic surgical clips are incidentally noted. Sensitivity for detection of free air is diminished on the none is identified. IMPRESSION: Findings consistent with a persistent small bowel obstruction. Slight improvement in small bowel dilatation. ACT 112: Negative or not required by law. Electronically signed by: Robert Boateng M.D. 06/09/2024 8:00 AM KUB X-Ray 06/10/24 07:20 KUB CLINICAL HISTORY: Small bowel obstruction. FINDINGS: An AP, portable, supine abdominal radiograph is compared to study dated 06/09/2024 and correlated with abdominal CT dated 06/07/2024. Cholecystectomy clips are noted in the right upper quadrant. Additional surgical clips are seen in the pelvis. There is gaseous distention of the small bowel loops indicating persistent obstruction. These measure up to 5 cm in diameter. No evidence of intraperitoneal free air is seen on this supine image. There are no abnormal abdominal calcifications. The skeletal structures are osteopenic and appear intact. Lumbosacral spondylosis is observed. IMPRESSION: Persistent small bowel obstruction. This is overall similar in appearance to yesterday. Electronically signed by: Pedro White M.D. 06/10/2024 12:42 PM KUB X-Ray 06/11/24 08:52 KUB CLINICAL HISTORY: Small bowel obstruction. FINDINGS: 2 AP, portable, supine abdominal radiographs are compared to study dated 06/10/2024 and correlated with abdominal CT dated 06/07/2024. Cholecystectomy clips are noted in the right upper quadrant. Additional surgical clips are seen in the pelvis. There is gaseous distention of the small bowel loops indicating persistent obstruction. These measure up to 5 cm in diameter. No evidence of intraperitoneal free air is seen on this supine image. There are no abnormal abdominal calcifications. The skeletal structures are osteopenic and appear intact. Lumbosacral spondylosis is observed. IMPRESSION: Persistent small bowel obstruction. This is overall similar in appearance to yesterday. Electronically signed by: Pedro White M.D. 06/11/2024 10:04 AM PG Care Time/CCT Total # of Minutes Spent Total Time Spent with Patient: Total time spent is greater than 50% in coordination of care (as documented) at patient's floor/unit and/or counseling patient: I spent 90 minutes overall addressing this case: 15 min in medical data review/discussion with referring provider(s) and/or preparation for the visit 15 min in direct interaction with the patient/exam 30 min in Advance Care Planning/Goals of Care discussions as detailed above in note (must be >16min) 15 min in subsequent review and synthesis of assessment and plan 15 min communicating with other providers regarding the patient's case: Primary team Advanced Care Planning 17631 Advanced Care Planning 30 [place] [address] IN/OBS CONSULT LVL 4,60M (25 - SIGNIFICANT, SEPARATELY IDENTIFIABLE ) Patient Type New Medical Decision Making High Complexity Diagnoses Abdominal pain, generalized R10.84 Weakness generalized R53.1 Advanced care planning/counseling discussion Z71.89 Palliative care by specialist Z51.5 Neuroendocrine cancer C7A.8 PAD (peripheral artery disease) I73.9 Additional Codes Advanced Care Planning - 28280 Advanced Care Planning 30 Min: 74967 Advanced Care Planning 30 Min ([id number])
--- NOTE | 2024-06-11 13:23 | Hospitalist Progress Note ---
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 Patient presenting with watery stool since last Sunday associated with abdominal cramps/poor appetite. Admitting CTAP --> "Interval enlargement of retroperitoneal and mesenteric masses although evaluation is limited by noncontrast technique. There is resulting right hydronephrosis. There are also dilated loops of small bowel which may represent partial small bowel obstruction due to tethering from these masses." Admitting respiratory pathogen panel and C. difficile testing negative, stool PCR negative. Daily KUBs, today's with "Persistent small bowel obstruction. This is overall similar in appearance to yesterday." Gen surg advanced diet to full liquids at lunch Repeat KUB in AM Neuroendocrine cancer: Follows with Dr. Forrester in the past but no longer accepts her insurance now that he is with [facility] No direct cancer care follow up in many years - not interested in further treatment at this time however requesting oncology consult while admitted to discuss progressive nature/staging of cancer Pertinent as retroperitoneal and mesenteric masses may be contributing to obstruction / may cause recurrent sbo Oncology consulted - appreciate input Acute Kidney Injury, Right Hydronephrosis: -> improving Baseline Cr ~1.0 per chart review. Admitting creatinine of 1.81->1.72 -> 1.69-> 1.5 -> 1.42 Admitting CTAP as per above --> "Interval enlargement of retroperitoneal and mesenteric masses although evaluation is limited by noncontrast technique. There is resulting right hydronephrosis." Urology onboard --> Continue with conservative management for now as her creatinine continues to improve, no intervention warranted at this time. Can consider cystoscopy and right ureteral stent placement if her creatinine worsens or does not continue to improve toward baseline. However, if there is ongoing obstruction, this could lead to chronic deterioration of renal function. Patient continues to void without difficulty. Continue IVF (changed to D5w and 1/2 NSS yesterday given elevated chloride/hypoglycemia). Avoid nephrotoxic medications when able. Monitor renal function closely with daily AM labs and renally dose medications when able. Bradycardia: Patient with bradycardia this morning, HR in the 40s-50s. Sinus bradycardia on telemetry, BP stable. EKG showed a junctional rhythm but otherwise was unremarkable. Continue to monitor on telemetry. 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 Patient reports she does not use any home medications. Per outpatient chart review, patient does have history of medical noncompliance. DVT Prophylaxis: SQ Heparin Code Status: FULL CODE PCP: Gin Guerra DO Disposition: Admitted to [facility], anticipate dc in 1-2 days Extensive discussion on goals of care given current resistance to oncologic treatment, abdominal masses. Will pursue onc consul for further clarification on cancer prognosis. Patient seen in collaboration with Dr. Wright. Please see addendum. I spent a total of 50 minutes coordinating, documenting, and providing care for this patient excluding time spent in the performance of separately billed services. This included personally reviewing all current laboratories and imaging studies, medical reconciliation, outpatient chart review and discussion with specialists. Admission and Anticipated Discharge Date Admission Date: June 07, 2024 Supervising Physician Co-Signing Physician Notes Patient seen and examined at bedside. Discussed with above provider. Discussed with patient regarding hospital course. I discussed that she has high risks of repeated to small bowel obstruction and progressive renal failure due to the abdominal masses. She verbalized understanding; is not sure if she would like to pursue further workup. I also discussed option of hospice at the time of the discharge which seem consistent with the patient wishes to be comfortable at home. Palliative care was consulted to further discuss goals of care. Patient reported wanting to discuss with oncology for further steps to evaluate her diagnosis/treatment. Oncology consulted. Advance diet as tolerated I have reviewed the advanced practitioner's documentation, and I agree with, and take responsibility for the plan of care I spent a total of 30 minutes coordinating, documenting, and providing care for this patient excluding time spent in the performance of separately billed services. All of the aforementioned completed while collaborating with the assigned advanced practitioner for a full treatment plan Subjective Seen and examined. Feeling okay today, denies any changes overnight. Tolerating clears without issue, feeling wiped out. No nausea since yesterday. No abdominal pain. Passing flatus. Extensive conversation regarding goals of care and interested in palliative care consultation. Review of Systems Review of Systems: At least ten systems reviewed and negative, except as noted in the subjective section. Physical Exam Physical Exam: Gen: WD/WN, NAD, resting comfortably in bed, A&Ox3 HEENT: Normocephalic, atraumatic, conjunctivae moist, sclerae anicteric, mucous membranes moist Lung: Clear to Auscultation bilaterally, no wheezes/rales/rhonchi Heart: Regular rate, regular rhythm, no murmurs, rubs, or gallops Abdomen: Soft, NT, ND +hypoactive bowel sounds Extremities: no edema Skin: Warm, no rash Results & Data Results & Data Vital Signs (Past 12 Hours) Vital Signs Temp Pulse Pulse Resp BP Pulse Ox O2 Del Method 06/11/24 11:34 36.6 C 62 18 135/80 91 Room Air 06/11/24 08:10 70 06/11/24 07:30 36.9 C 56 L 16 125/69 94 Room Air 06/11/24 07:12 Room Air 06/11/24 04:11 37.0 C 66 20 119/61 92 Room Air Laboratory Results Short CBC 06/11/24 Range/Units 07:13 WBC 7.86 (4.8-10.8) K/ul Hgb 11.5 L (12.0-16.0) g/dl Hct 35.3 L (37.0-47.0) % Plt Count 167 (130-400) K/uL BMP 06/11/24 07:13 Sodium 139 Potassium 3.8 Chloride 112 H Carbon Dioxide 21 BUN 13 Creatinine 1.42 H Glucose 106 H Calcium 8.3 L Diagnostic Findings Abdomen/Pelvis CT 06/07/24 14:37 CT abd pelvis wo con CLINICAL HISTORY: adb pain diarrhea TECHNIQUE: Helical axial images of the abdomen and pelvis were obtained. Automated dose lowering techniques and/or adjustment according to patient size were utilized for this exam. This exam was performed without intravenous contrast. CT DOSE: 786.84 mGy.cm COMPARISON: Comparison is made to CT abdomen pelvis 08/23/2020 FINDINGS: Lower chest: No acute abnormality. Liver: Unremarkable. No focal lesions are seen. Gallbladder and biliary tree: Patient is status post cholecystectomy. No intra- or extrahepatic biliary ductal dilation. Pancreas: Unremarkable, no focal lesions. Spleen: Unremarkable. Adrenals: Unremarkable. Kidneys and ureters: Right hydronephrosis is new from prior exam. Bladder: Unremarkable. Reproductive organs: Patient is status post hysterectomy. Bowel: Multiple loops of small bowel measure up to 39 mm in diameter. Lymph nodes Retroperitoneal: Right-sided soft tissue mass measures 28 mm, increased from prior exam where it measured 18 mm. Pelvic: Unremarkable. Mesenteric: A mesenteric soft tissue mass measures 18 mm, previously 13 mm. Multiple bowel loops appear to be tethered to this mass. Peritoneum: Normal. Vessels: Atherosclerotic calcifications are seen. Aortic aneurysm is again seen measuring up to 38 mm. Abdominal wall: Unremarkable. Bones: Unremarkable. IMPRESSION: Interval enlargement of retroperitoneal and mesenteric masses although evaluation is limited by noncontrast technique. There is resulting right hydronephrosis. There are also dilated loops of small bowel which may represent partial small bowel obstruction due to tethering from these masses. ACT 112: Negative or not required by law. Electronically signed by: Uriel Escudero M.D. 06/07/2024 3:21 PM Chest X-Ray 06/07/24 14:37 XR chest 1V portable CLINICAL HISTORY: abd pain TECHNIQUE: Single frontal radiograph of the chest was obtained. Comparison: Comparison is made to chest radiograph 05/05/2023 FINDINGS: No lines and tubes are seen. The cardiomediastinal silhouette is normal. The lungs are clear. No evidence of pleural effusion or pneumothorax. IMPRESSION: No acute chest disease. ACT 112: Negative or not required by law. Electronically signed by: Uriel Escudero M.D. 06/07/2024 2:49 PM KUB X-Ray 06/08/24 09:06 XR KUB/Abdomen 1 view CLINICAL HISTORY: Partial SBO TECHNIQUE: 1 view of the abdomen was obtained. Comparison: Comparison is made to CT abdomen pelvis 06/07/2024 FINDINGS: Lung bases are unremarkable. Degenerative changes are seen in the visualized skeleton. Multiple loops of gas dilated loops of small bowel are noted. A moderate amount of stool is noted within the large bowel. IMPRESSION: Multiple gas dilated loops of small bowel are seen compatible with small bowel obstruction. ACT 112: Negative or not required by law. Electronically signed by: Uriel Escudero M.D. 06/08/2024 10:11 AM KUB X-Ray 06/09/24 08:00 KUB CLINICAL HISTORY: Small bowel obstruction. COMPARISON STUDY: CT of the abdomen and pelvis June 07, 2024. KUB June 08, 2024. FINDINGS: Multiple loops of mildly dilated small bowel measure up to 4.3 cm in caliber. Small bowel dilatation has minimally improved since prior exam. Abdominal and pelvic surgical clips are incidentally noted. Sensitivity for detection of free air is diminished on the none is identified. IMPRESSION: Findings consistent with a persistent small bowel obstruction. Slight improvement in small bowel dilatation. ACT 112: Negative or not required by law. Electronically signed by: Robert Boateng M.D. 06/09/2024 8:00 AM KUB X-Ray 06/10/24 07:20 KUB CLINICAL HISTORY: Small bowel obstruction. FINDINGS: An AP, portable, supine abdominal radiograph is compared to study dated 06/09/2024 and correlated with abdominal CT dated 06/07/2024. Cholecystectomy clips are noted in the right upper quadrant. Additional surgical clips are seen in the pelvis. There is gaseous distention of the small bowel loops indicating persistent obstruction. These measure up to 5 cm in diameter. No evidence of intraperitoneal free air is seen on this supine image. There are no abnormal abdominal calcifications. The skeletal structures are osteopenic and appear intact. Lumbosacral spondylosis is observed. IMPRESSION: Persistent small bowel obstruction. This is overall similar in appearance to yesterday. Electronically signed by: Pedro White M.D. 06/10/2024 12:42 PM KUB X-Ray 06/11/24 08:52 KUB CLINICAL HISTORY: Small bowel obstruction. FINDINGS: 2 AP, portable, supine abdominal radiographs are compared to study dated 06/10/2024 and correlated with abdominal CT dated 06/07/2024. Cholecystectomy clips are noted in the right upper quadrant. Additional surgical clips are seen in the pelvis. There is gaseous distention of the small bowel loops indicating persistent obstruction. These measure up to 5 cm in diameter. No evidence of intraperitoneal free air is seen on this supine image. There are no abnormal abdominal calcifications. The skeletal structures are osteopenic and appear intact. Lumbosacral spondylosis is observed. IMPRESSION: Persistent small bowel obstruction. This is overall similar in appearance to yesterday. Electronically signed by: Pedro White M.D. 06/11/2024 10:04 AM
--- NOTE | 2024-06-11 16:50 | Oncology Consultation ---
Date of Consultation June 11, 2024 Assessment & Plan (1) Neuroendocrine cancer: (2) HERLINDA (acute kidney injury): Plan Patient with longstanding history of metastatic low-grade neuroendocrine tumor who had previously responded to single agent octreotide but subsequently decided to discontinue treatment in 2019 and since then has had evidence of disease progression on imaging as well as worsening carcinoid symptoms.She was followed at [facility] up until August, when she decided to pursue holistic/homeopathic treatments. -Had an excessive discussion with patient today regarding treatment options including restarting monthly octreotide treatment which had been effective in the past. She stated that she would not want to restart octreotide treatment at this time as she experienced several side effects when she was on it. She indicated that she was more interested in holistic/homeopathic treatments. She however would be willing to continue follow-up with oncology upon discharge from hospital and would like to follow-up with Dr. Forrester. I will reach out to him to get her set up for outpatient follow-up within the next couple of weeks. Thank you for this consult. Oncology will sign off at this time. Please feel free to call if you have any further questions. 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 She was on octreotide from April, till around June, when she decided to discontinue treatment. She was followed by Dr. Forrester locally for several years up until he left [facility] in 2021. I subsequently evaluated patient on 03/09/2022 and at that time was concern for disease progression for which I recommended obtaining dotatate PET/CT which she was completed on 06/21/2022 and confirmed disease progression. At that time, I recommended she restart octreotide or consider Lutathera which patient declined opting for holistic/homeopathic therapy. She subsequently stopped following up with oncology thereafter. Patient presented to [facility] with complaints of abdominal pain. CT abdomen and pelvis revealed interval enlargement of retroperitoneal, mesenteric masses resulting in right hydronephrosis as well as dilated loops of small bowel which may represent partial small bowel obstruction. Allergies Allergy/AdvReac Type Severity Reaction Status Date / Time Iodinated Contrast Media Allergy PT STATES Verified 06/07/24 16:17 [Iodinated Contrast- Oral SHE HAD A and IV Dye] CARDIAC ARREST FOLLOWING IV FORM sulfamethoxazole Allergy Neuro Verified 06/07/24 16:17 [From Bactrim] complications trimethoprim [From Bactrim] Allergy Neuro Verified 06/07/24 16:17 complications codeine AdvReac Unknown Headache Verified 06/07/24 16:17 morphine AdvReac Unknown PT SAID IT Verified 06/07/24 16:17 SHUTS HER SYSTEM DOWN naproxen AdvReac Diarrhea Verified 06/07/24 16:17 Home Medications Medication Instructions Recorded Confirmed Type albuterol sulfate 90 mcg/actuation 2 puff inhalation Q6H PRN SOB 11/15/23 06/07/24 History aerosol inhaler (ProAir HFA) escitalopram oxalate 10 mg tablet 10 mg PO DAILY 11/15/23 06/07/24 History loperamide 1 mg/5 mL oral liquid 2 mg PO Q4H PRN Diarrhea 06/07/24 06/07/24 History magnesium 100 mg capsule 100 mg PO HS PRN MUSCLE SPASMS 06/07/24 06/07/24 History vitamin B12 500 mcg-folic acid 400 1 tab PO DAILY 06/07/24 06/07/24 History mcg tablet Patient History Medical History PAD (peripheral artery disease) Tobacco dependence Neuroendocrine cancer Surgical History Status post tubal ligation (~1973) H/O colonoscopy (~2017) History of hand surgery History of bowel resection (~2005) History of hysterectomy History of cholecystectomy (~1979) Family History Mother Heart disease Diabetes Father Dementia Aunt Breast cancer Daughter Diabetes Grandmother Heart disease Other Family history non-contributory Social History Smoking Status: Current every day smoker Tobacco Type: Cigarettes Cigarettes Per Day: 1 PPD; Second Hand Exposure: No; Do You Dip or Chew Tobacco: No; Tobacco Cessation Education Requested by Patient: No Hx Alcohol Use: Yes Alcohol type: hard liquor Alcohol Intake Frequency: Monthly or Less Hx Substance Use: No Preferred Language: [place] Communication Ability: Effective Visual Impairment: No Limitations Hearing Ability: Normal Payroll Professional Required: No Beliefs That Will Affect Care: None marital status: Current Living Situation: Spouse Current Living Situation Comment: lives with in [place] 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 status: retired 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 How many Children do You have: 3 How many Children do You have Comment: daughters Other Information That Helps Us Care for You: No Feels Safe at Home: Yes Safety Concerns: Feels Safe At This Time Diet: regular during the past year weight has: remained stable Assistive Devices: Denture - Upper, Glasses and Scooter/Electric Scooter Results & Data Vital Signs (Past 12 Hours) Vital Signs Temp Pulse Pulse Resp BP Pulse Ox O2 Del Method 06/11/24 16:01 37.4 C 65 18 136/80 90 Room Air 06/11/24 11:34 36.6 C 62 18 135/80 91 Room Air 06/11/24 08:10 70 06/11/24 07:30 36.9 C 56 L 16 125/69 94 Room Air 06/11/24 07:12 Room Air
[2024-06-11 20:12] VITALS: RESP 20
--- NOTE | 2024-06-12 07:41 | Surgery Progress Note ---
Date of Service June 12, 2024 Assessment & Plan (1) Small bowel obstruction: Plan: +flatus and BMs tolerating full liquids no n.v advance to low fiber see how she fairs , instructed to go slow abd distended but soft continue OOB ambulation and chair vss Admission and Anticipated Discharge Date Admission Date: June 07, 2024 Subjective pt denies abd pain +flatus and BMs Review of Systems Gastrointestinal: + diarrhea/loose stools; no abdominal pa in, no nausea and no vomiting Physical Exam Constitutional: cooperative; no acute distress Respiratory: normal respiratory effort and able to speak in complete sentences; no respiratory distress Cardiovascular: Rate/Rhythm: regular rate Gastrointestinal (Abdomen): Inspection/Auscultation: + abdomen distended Percussion/Palpation: abdomen soft Results & Data Vital Signs (Past 12 Hours) Vital Signs Temp Pulse Pulse Resp BP BP Pulse Ox 06/12/24 07:23 74 06/12/24 04:39 97.9 F 66 20 137/76 93 06/11/24 23:38 99.3 F 66 20 147/70 H 93 06/11/24 21:52 70 06/11/24 21:45 06/11/24 20:11 98.8 F 61 20 119/63 92 O2 Del Method 06/12/24 07:23 06/12/24 04:39 Room Air 06/11/24 23:38 Room Air 06/11/24 21:52 06/11/24 21:45 Room Air 06/11/24 20:11 Room Air PG Care Time/CCT Total # of Minutes Spent Total Time Spent with Patient: Total time spent is greater than 50% in coordination of care (as documented) at patient's floor/unit and/or counseling patient: Coding Level of Care Code 68117 SUB INP/OBS CARE 09/13MIN Diagnoses Small bowel obstruction K56.609
[2024-06-12 11:27] VITALS: TEMP 98.4; O2SAT 91
--- NOTE | 2024-06-12 11:39 | Discharge Summary ---
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 Admitting CTAP showed interval enlargement of retroperitoneal and mesenteric masses although evaluation is limited by noncontrast technique. There is resulting right hydronephrosis. There are also dilated loops of small bowel which may represent partial small bowel obstruction due to tethering from these masses. Admitting respiratory pathogen panel and C. difficile testing negative, stool PCR negative. SBO has resolved with conservative measures and patient is tolerating a low fiber diet. There is concern retroperitoneal and mesenteric masses may be contributing to obstruction and may cause recurrent SBO. Patient has follows with Dr. Forrester but has not had directed cancer care in many years. Was evaluated by Dr. Camarillo today with discussion of resuming octreotide but patient not interested. Will be set up to re-establish with Dr. Forrester at time of discharge. Extensive discussion on goals of care in regards to resuming cancer treatment vs palliative approach. Noted to have HERLINDA during admission that resolved with fluids. CT abd/pelvis with interval enlargement of retroperitoneal and mesenteric masses although evaluation is limited by noncontrast technique. There is resulting right hydronephrosis. Per urology, intervention not warranted at this time but consider follow up for cystoscopy and R ureteral stent placement if her creatinine worsens or does not continue to improve toward baseline. Patient comfortable and hemodynamically stable at time of discharge home. 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 Patient reports eating [employer] fish on Sunday night and reports diarrhea and abdominal cramps since Sunday morning. Patient was recently in [place] and reports no other members in the trip got the disease. Patient denies fever, reports nausea and dry heaves, denies vomiting, reports poor appetite, denies sore throat, reports cough at baseline, denies chest pain/pain and burning with passing urine. Patient reports smoking 1 packs a day for more than 50 years, drinks seldom [1 time in every 6 months], denies recreational drug use. Patient states that she does not take any medications at home. Plan of care discussed with the patient and her at bedside, they voiced understanding. Full code as per my discussion with the patient. Admission Exam Per Admitting Provider Gen: WD/WN, NAD, resting comfortably in bed, A&Ox3 HEENT: Normocephalic, atraumatic, conjunctivae moist, sclerae anicteric, mucous membranes moist Lung: Clear to Auscultation bilaterally, no wheezes/rales/rhonchi Heart: Regular rate, regular rhythm, no murmurs, rubs, or gallops Abdomen: Soft, NT, ND +hypoactive bowel sounds Extremities: no edema Skin: Warm, no rash Discharge Exam Gen: WD/WN, NAD, resting comfortably in bed, A&Ox3 HEENT: Normocephalic, atraumatic, conjunctivae moist, sclerae anicteric, mucous membranes moist Lung: Clear to Auscultation bilaterally, no wheezes/rales/rhonchi Heart: Regular rate, regular rhythm, no murmurs, rubs, or gallops Abdomen: Soft, NT, ND +hypoactive bowel sounds Extremities: no edema Skin: Warm, no rash Updated Medication List Medication Instructions Recorded Confirmed Type albuterol sulfate 90 mcg/actuation 2 puff inhalation Q6H PRN SOB 11/15/23 06/07/24 History aerosol inhaler (ProAir HFA) escitalopram oxalate 10 mg tablet 10 mg PO DAILY 11/15/23 06/07/24 History loperamide 1 mg/5 mL oral liquid 2 mg PO Q4H PRN Diarrhea 06/07/24 06/07/24 History magnesium 100 mg capsule 100 mg PO HS PRN MUSCLE SPASMS 06/07/24 06/07/24 History vitamin B12 500 mcg-folic acid 400 1 tab PO DAILY 06/07/24 06/07/24 History mcg tablet Hospital Stay Data Consultations 06/07/24 15:44 Consult General Surgery Routine ED Decision to Admit Stat 06/08/24 10:13 Consult Urology Routine 06/11/24 11:10 Consult Palliative Care Routine 06/11/24 13:20 Consult Oncology Routine Diagnostic Imagining Performed 06/07/24 14:37 CT abd pelvis wo con Stat Pending Results Patient Have Any Pending Studies at Discharge: No Discharge Instructions Given to Patient (Per Discharging Provider) MEDICATION CHANGES: N/A SUMMARY OF TEST RESULTS: You were admitted for small bowel obstruction in the setting of 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 CT abd/pelvis on admission showed small bowel obstruction within the transition point within the left lower quadrant. Distention of the small bowel up to 4.5cm. No pneumatosis, portal venous gas, or free air. Resolution with conservative management. Concern that retroperitoneal and mesenteric masses may be contributing to obstruction / may cause recurrent sbo - please follow up with oncology. CT abd/pelvis also showing right hydronephrosis as a result of retroperitoneal and mesenteric masses - evaluated; does not believe there is need for intervention now. PENDING TEST RESULTS: None RECOMMENDATIONS FOR FOLLOW-UP: Follow up with PCP as scheduled. Someone will be reaching out to you for follow-up with Dr. Forrester (oncology). After discussion with oncology, please Continue medication regimen as scheduled aside from changes noted above. Follow up with PCP for continued monitoring of renal function - follow up with urology recommended if worsening function for cystoscopy vs R ureteral sten placement 2/2 mass effect OTHER INSTRUCTIONS: Seek medical attention if you have: * temperature above 101 * chest pain or trouble breathing * abdominal pain, nausea, vomiting * diarrhea, dark stools or bloody stools * any unanswered questions or concerns Call 911 if symptoms are severe. Please take good care of yourself. Call if you have any questions or problems. You can reach a [facility] hospitalist on duty at [facility] 24 hours a day by calling [phone]. Total Time Total Time Spent Total Time Spent (In Minutes): 50 Supervising Physician Co-Signing Physician Notes Patient seen and examined at bedside. She reports she is tolerating advancement of diet; having regular bowel movements. Denies abdominal pain or discomfort Plan to discharge home; recommended low fiber diet and discussed how to add her to eat. Patient to follow-up with outpatient oncology. I have reviewed the advanced practitioner's documentation, and I agree with, and take responsibility for the plan of care I spent a total of 20 minutes coordinating, documenting, and providing care for this patient excluding time spent in the performance of separately billed services. All of the aforementioned completed while collaborating with the assigned advanced practitioner for a full treatment plan
[2024-06-12 13:55] VITALS: BP 137/76
[2024-06-12 15:06] VITALS: PULSE 78
--- NOTE | 2024-06-13 22:48 | Electrocardiogram Report ---
Test Reason : Blood Pressure : */* mmHG Vent. Rate : 55 BPM Atrial Rate : 54 BPM P-R Int : * ms QRS Dur : 82 ms QT Int : 446 ms P-R-T Axes : * 35 47 degrees QTcB Int : 426 ms Sinus bradycardia Low voltage QRS Cannot rule out Anterior infarct (cited on or before 05-May-2023) Abnormal ECG When compared with ECG of 25-Dec-2023 15:15, Vent. rate has decreased by 46 bpm QRS axis Shifted right Questionable change in initial forces of Anterior leads Confirmed by Kilo Bui ([id number]) on 06/13/2024 10:48:26 PM Referred By: REFERRED SELF Confirmed By: Kilo Bui
== END 2024-06-12 16:53 | disposition home or self-care (01) | DRG 389 ==
LOC: ED 14:10 → 2W 16:20 → SUATTDRO 16:20 → 2W 18:50

== ENCOUNTER 2024-08-20 21:38 | Inpatient (IN) ==
[2024-08-20] MEDS: SODIUM CHLORIDE 0.9% 2,000 ML IV ONE (21:50)
[2024-08-20 22:16] LABS: Alanine Aminotransferase 25 U/L (7-52); Albumin Globulin Ratio 0.9 (0.9-2); Albumin Level 3.8 gm/dl (3.4-5.0); Alkaline Phosphatase 78 U/L (34-104); Anion Gap 12 (3-11); Aspartate Aminotransferase 21 U/L (13-39); BUN Creatinine Ratio 15.6 (10-20); Bilirubin,Total 1.5 mg/dl (0.2-1.0); Blood Urea Nitrogen 27 mg/dl (6-23); Calcium 9.5 mg/dl (8.6-10.3); Carbon Dioxide 20 mmol/L (21-32); Chloride 102 mmol/L (98-107); Globulin 4.1 gm/dl (2.5-4.0); Glucose 158 mg/dl (70-99(Fasting)); Magnesium 1.7 mg/dl (1.7-2.4); Potassium 3.7 mmol/L (3.5-5.1); Sodium 134 mmol/L (136-145); Total Protein 7.9 gm/dl (6.0-8.3)
[2024-08-20 22:23] LABS: ANC (manual) 20.49 K/uL (1.4-6.5); Hematocrit (blood only) 37.9 % (37.0-47.0); Hemoglobin 13.3 g/dl (12.0-16.0); Lymphocytes % (manual) 3 %; Mean Corpuscular Hemoglobin 30.2 pg (25.0-34.0); Mean Corpuscular Hgb Conc 35.1 g/dL (32.0-36.0); Mean Corpuscular Volume 85.9 fL (80.0-100.0); Mean Platelet Volume 10.4 fL (9.4-12.4); Monocytes % (manual) 9 %; Neutrophils # (manual) 20.49 K/uL (1.40-6.50); Neutrophils % (manual) 88 %; Platelet Count 202 K/uL (130-400); Polychromasia 1+; RDW Coefficient of Variation 15.3 % (11.5-14.5); RDW Standard Deviation 48.4 fL (36.4-46.3); Red Blood Count 4.41 M/uL (4.20-5.40); Toxic Vacuolation 1+; Troponin I High Sensitivity 16.9 pg/ml (0-14); White Blood Count 23.28 K/ul (4.8-10.8)
[2024-08-20 22:26] LABS: INR 1.1 (0.9-1.1); Partial Thromboplastin Ratio 1.1; Partial Thromboplastin Time 29 Seconds (21-31); Prothrombin Time 11.6 Seconds (9.0-12.0)
[2024-08-20] MEDS ORDERED: VANCOMYCIN CONSULT ACTIVE PRN (22:40)
[2024-08-20] MEDS: CEFEPIME 2000MG 2,000 MG/20 ML SYR IV STA (22:42)
--- NOTE | 2024-08-20 22:43 | Emergency Department Note ---
Impression & Plan Sepsis, Generalized weakness, Partial small bowel obstruction, Hydroureteronephrosis, Acute hypoxemic respiratory failure, HERLINDA (acute kidney injury), Leukocytosis, Non-ST elevation NC (NSTEMI), Elevated brain natriuretic peptide (BNP) level, Elevated procalcitonin, Acute UTI (urinary tract infection) ED Provider Note HISTORY OF PRESENT ILLNESS: Patient is a 74-year-old female presenting with generalized weakness and lethargy. Patient reports "this is been ongoing for months but worse in the last 3 days." She has a history of carcinoid tumor but is not currently undergoing any treatments for this. She denies any fevers at home. Reports she is been having nausea, vomiting and diarrhea. Denies any abdominal pain. Denies any dysuria or hematuria. She has had a nonproductive cough. Denies any recent sick contact exposures. Denies any dysuria or hematuria. Denies any chest pain or significant shortness of breath. She reports she just feels unwell. ROS: as above PHYSICAL EXAM: Constitutional: Patient appears in no acute distress. Ill-appearing and cachectic. HENT: Head: Normocephalic and atraumatic. Eyes: EOMI, PERRL Mouth/Throat: Mucous membranes moist. Neck: Trachea midline. Neck supple. Cardiovascular: Tachycardic with regular rhythm. No murmurs, rubs or gallops. Intact distal pulses. Pulmonary/Chest: No respiratory distress. Breath sounds clear and equal bilaterally. No wheezes or rales. Abdominal: Abdomen soft, no tenderness, rebound or guarding. Musculoskeletal: No edema, tenderness or deformity noted. Skin: Warm and dry. No rash, erythema, pallor or cyanosis Psychiatric: Appropriate mood and affect for situation. Neurological: Alert and keenly responsive. CN II-XII grossly intact, moving all extremities equally and fully. MDM: - Vitals signs showed hypotension and tachycardia. - History obtained via patient. History as above. 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 At this time, monitor showed rate of 102 bpm with normal sinus rhythm, per my interpretation. - External medical records reviewed. Discharge summary dated 06/12/2024 was reviewed. 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 Per small bowel obstruction resolved with conservative measures and patient was tolerating a low fiber diet. - EKG interpreted by myself showed normal sinus rhythm. Rate tachycardic 143 bpm. QT 420. No acute ischemic changes. Noted to have an occasional PVC. - Laboratory workup interpreted by myself showed leukocytosis (WBC 23.28) with neutrophil predominance; normal PT/INR; normal lactate; slight hyponatremia (Na 134); HERLINDA (Cr 1.73); elevated anion gap (12); elevated total bilirubin (1.5); elevated troponin (16.9); normal BNP (180); elevated procalcitonin (8.20) - VBG shows acidosis (pH 7.33) - Viral respiratory panel negative - CXR negative negative for pneumonia, per my interpretation. - Blood cultures obtained - Patient given 2L NS. Patient sepsis volume fluid calculation based on ideal body weight is 1568.10 mL. - IV vancomycin and cefepime ordered for antibiotic coverage. - Patient did desaturate to 86% on room air and was placed on 3 L nasal cannula. - CT abdomen/pelvis wo contrast showed increased interval in size of the right periaortic retroperitoneal soft tissue mass causing increased right hydronephrosis and proximal hydroureter. Also noted to have a partial small bowel obstruction. Also noted to have interval increase in her right lower lobe probable pleural-based nodule. - UA showed evidence of infection. - Discussion was had with director of casework services about patient's case and need for admission - Hospitalist, Dr. Ortiz, consulted for admission - Patient admitted to [facility] for further evaluation and management. ASSESSMENT AND PLAN: Diagnosis: sepsis; generalized weakness; hydroureteronephrosis; partial small bowel obstruction; acute hypoxic respiratory failure; leukocytosis; HERLINDA; NSTEMI; elevated BNP; elevated procalcitonin; acute UTI Plan: admit Past Med/Surg History Problem List (Updated 08/21/24 @ 00:55 by Ruba Sibley MD) Acute UTI (urinary tract infection) (Acute) Elevated procalcitonin (Acute) Elevated brain natriuretic peptide (BNP) level (Acute) Non-ST elevation NC (NSTEMI) (Acute) Leukocytosis (Acute) HERLINDA (acute kidney injury) (Acute) Acute hypoxemic respiratory failure (Acute) Hydroureteronephrosis (Acute) Partial small bowel obstruction (Acute) Generalized weakness (Acute) Sepsis (Acute) Palliative care by specialist Advanced care planning/counseling discussion Weakness generalized Abdominal pain, generalized Bradycardia Small bowel obstruction Hydronephrosis, right Partial small bowel obstruction HERLINDA (acute kidney injury) (Acute) Watery diarrhea Dyspnea Breast mass, right Chronic rhinitis 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) Tobacco dependence PAD (peripheral artery disease) Medical History PAD (peripheral artery disease) Tobacco dependence Neuroendocrine cancer Surgical History Status post tubal ligation (~1973) H/O colonoscopy (~2017) History of hand surgery History of bowel resection (~2005) History of hysterectomy History of cholecystectomy (~1979) Family History Mother Heart disease Diabetes Father Dementia Aunt Breast cancer Daughter Diabetes Grandmother Heart disease Other Family history non-contributory Social History Smoking Status: Current every day smoker Tobacco Type: Cigarettes Cigarettes Per Day: 1 PPD; Second Hand Exposure: No; Do You Dip or Chew Tobacco: No; Hx Alcohol Use: Yes Alcohol type: hard liquor Alcohol Intake Frequency: Monthly or Less Hx Substance Use: No Preferred Language: Montenegrin Communication Ability: Effective Visual Impairment: No Limitations Hearing Ability: Normal Stove Carriage Operator Required: No Beliefs That Will Affect Care: None marital status: Current Living Situation: Spouse Current Living Situation Comment: lives with in [place] 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 status: retired 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 How many Children do You have: 3 How many Children do You have Comment: daughters Feels Safe at Home: Yes Diet: regular during the past year weight has: remained stable Assistive Devices: Denture - Upper, Glasses and Scooter/Electric Scooter Allergies Allergies Allergy/AdvReac Type Severity Reaction Status Date / Time Iodinated Contrast Media Allergy PT STATES Verified 06/07/24 16:17 [Iodinated Contrast- Oral SHE HAD A and IV Dye] CARDIAC ARREST FOLLOWING IV FORM sulfamethoxazole Allergy Neuro Verified 06/07/24 16:17 [From Bactrim] complications trimethoprim [From Bactrim] Allergy Neuro Verified 06/07/24 16:17 complications codeine AdvReac Unknown Headache Verified 06/07/24 16:17 morphine AdvReac Unknown PT SAID IT Verified 06/07/24 16:17 SHUTS HER SYSTEM DOWN naproxen AdvReac Diarrhea Verified 06/07/24 16:17 Home Meds Home Medications Medication Instructions Recorded Confirmed fluticasone propionate 230 2 puff inhalation BID 08/21/24 08/21/24 mcg-salmeterol 21 mcg/actuation HFA inhaler (Advair HFA) Results & Data (ED) Vital Signs Vital Signs - 24 hr 08/20/24 21:42 08/20/24 22:05 08/20/24 22:10 Temperature 37.2 C Temperature Source Temporal Artery Scan Pulse Rate 103 H 122 H Pulse Rate [Apical] Pulse Rate from SpO2 Sensor Respiratory Rate 18 Respiratory Effort / Characteristics Respiratory Depth Blood Pressure 84/48 L Blood Pressure [Right Arm] Blood Pressure Mean 60 Blood Pressure Mean [Right Arm] Blood Pressure Position [Right Arm] Pulse Oximetry 90 95 Oxygen Delivery Method Room Air Sepsis Recent Fever Within 48 Hours No Sepsis New/Unexplained Change in Mental Status No Sepsis Action Taken by Nursing Physician Notified Oxygen Flow Rate - Titration Pulse Oximetry Post Tiitration 08/20/24 22:12 08/20/24 22:15 08/20/24 22:24 Temperature Temperature Source Pulse Rate 109 H 112 H Pulse Rate [Apical] 113 H Pulse Rate from SpO2 Sensor 108 H 110 H Respiratory Rate 44 H 33 H Respiratory Effort / Characteristics Respiratory Depth Blood Pressure Blood Pressure [Right Arm] 99/59 L Blood Pressure Mean Blood Pressure Mean [Right Arm] 72 Blood Pressure Position [Right Arm] Semi-fowlers Pulse Oximetry 94 93 93 Oxygen Delivery Method Room Air Sepsis Recent Fever Within 48 Hours Sepsis New/Unexplained Change in Mental Status Sepsis Action Taken by Nursing Oxygen Flow Rate - Titration Pulse Oximetry Post Tiitration 08/20/24 22:24 08/20/24 22:24 08/20/24 22:30 Temperature Temperature Source Pulse Rate 111 H Pulse Rate [Apical] Pulse Rate from SpO2 Sensor 108 H Respiratory Rate 34 H Respiratory Effort / Characteristics Respiratory Depth Blood Pressure 99/59 L 106/63 Blood Pressure [Right Arm] Blood Pressure Mean 67 87 Blood Pressure Mean [Right Arm] Blood Pressure Position [Right Arm] Pulse Oximetry 92 Oxygen Delivery Method Sepsis Recent Fever Within 48 Hours Sepsis New/Unexplained Change in Mental Status Sepsis Action Taken by Nursing Oxygen Flow Rate - Titration Pulse Oximetry Post Tiitration 08/20/24 22:30 08/20/24 22:33 08/20/24 22:42 Temperature Temperature Source Pulse Rate 107 H Pulse Rate [Apical] Pulse Rate from SpO2 Sensor 105 H Respiratory Rate 45 H Respiratory Effort / Characteristics Respiratory Depth Blood Pressure 106/63 Blood Pressure [Right Arm] Blood Pressure Mean 87 Blood Pressure Mean [Right Arm] Blood Pressure Position [Right Arm] Pulse Oximetry 90 86 L Oxygen Delivery Method Room Air Sepsis Recent Fever Within 48 Hours Sepsis New/Unexplained Change in Mental Status Sepsis Action Taken by Nursing Oxygen Flow Rate - Titration 3 Pulse Oximetry Post Tiitration 94 08/20/24 22:45 08/20/24 22:48 08/20/24 23:00 Temperature Temperature Source Pulse Rate 100 H 104 H Pulse Rate [Apical] Pulse Rate from SpO2 Sensor 98 H 101 H Respiratory Rate 36 H 41 H Respiratory Effort / Characteristics Respiratory Depth Blood Pressure 112/67 Blood Pressure [Right Arm] Blood Pressure Mean 77 Blood Pressure Mean [Right Arm] Blood Pressure Position [Right Arm] Pulse Oximetry 94 92 Oxygen Delivery Method Sepsis Recent Fever Within 48 Hours Sepsis New/Unexplained Change in Mental Status Sepsis Action Taken by Nursing Oxygen Flow Rate - Titration Pulse Oximetry Post Tiitration 08/20/24 23:00 08/20/24 23:00 08/20/24 23:06 Temperature Temperature Source Pulse Rate 104 H Pulse Rate [Apical] Pulse Rate from SpO2 Sensor 103 H Respiratory Rate 41 H Respiratory Effort / Characteristics Respiratory Depth Blood Pressure 112/67 112/67 Blood Pressure [Right Arm] Blood Pressure Mean 77 77 Blood Pressure Mean [Right Arm] Blood Pressure Position [Right Arm] Pulse Oximetry 96 Oxygen Delivery Method Sepsis Recent Fever Within 48 Hours Sepsis New/Unexplained Change in Mental Status Sepsis Action Taken by Nursing Oxygen Flow Rate - Titration Pulse Oximetry Post Tiitration 08/20/24 23:09 08/20/24 23:26 08/20/24 23:26 Temperature Temperature Source Pulse Rate 100 H Pulse Rate [Apical] Pulse Rate from SpO2 Sensor 100 H Respiratory Rate 26 H Respiratory Effort / Characteristics Respiratory Depth Blood Pressure 116/87 116/87 Blood Pressure [Right Arm] Blood Pressure Mean 87 87 Blood Pressure Mean [Right Arm] Blood Pressure Position [Right Arm] Pulse Oximetry 96 Oxygen Delivery Method Sepsis Recent Fever Within 48 Hours Sepsis New/Unexplained Change in Mental Status Sepsis Action Taken by Nursing Oxygen Flow Rate - Titration Pulse Oximetry Post Tiitration 08/20/24 23:27 08/20/24 23:27 08/20/24 23:30 Temperature Temperature Source Pulse Rate 101 H Pulse Rate [Apical] 101 H Pulse Rate from SpO2 Sensor 101 H Respiratory Rate 16 43 H Respiratory Effort / Characteristics Non-Labored Spontaneous Respiratory Depth Normal Blood Pressure 113/65 Blood Pressure [Right Arm] 116/87 Blood Pressure Mean 80 Blood Pressure Mean [Right Arm] 96 Blood Pressure Position [Right Arm] Pulse Oximetry 90 91 Oxygen Delivery Method Sepsis Recent Fever Within 48 Hours Sepsis New/Unexplained Change in Mental Status Sepsis Action Taken by Nursing Oxygen Flow Rate - Titration Pulse Oximetry Post Tiitration 08/20/24 23:30 08/21/24 00:17 Temperature 37.0 C Temperature Source Oral Pulse Rate Pulse Rate [Apical] Pulse Rate from SpO2 Sensor Respiratory Rate Respiratory Effort / Characteristics Respiratory Depth Blood Pressure 113/65 Blood Pressure [Right Arm] Blood Pressure Mean 80 Blood Pressure Mean [Right Arm] Blood Pressure Position [Right Arm] Pulse Oximetry Oxygen Delivery Method Sepsis Recent Fever Within 48 Hours Sepsis New/Unexplained Change in Mental Status Sepsis Action Taken by Nursing Oxygen Flow Rate - Titration Pulse Oximetry Post Tiitration Laboratory Data 08/20/24 21:47 08/20/24 21:47 Lab Results 08/20/24 08/20/24 08/20/24 Range/Units 21:47 21:50 23:16 WBC 23.28 H (4.8-10.8) K/ul RBC 4.41 (4.20-5.40) M/uL Hgb 13.3 (12.0-16.0) g/dl Hct 37.9 (37.0-47.0) % MCV 85.9 (80.0-100.0) fL MCH 30.2 (25.0-34.0) pg MCHC 35.1 (32.0-36.0) g/dL RDW Std Deviation 48.4 H (36.4-46.3) fL RDW Coeff of Noris 15.3 H (11.5-14.5) % Plt Count 202 (130-400) K/uL MPV 10.4 (9.4-12.4) fL Neutrophils % (Manual) 88 % Lymphocytes % (Manual) 3 % Monocytes % (Manual) 9 % Neutrophils # (Manual) 20.49 H (1.40-6.50) K/uL Total Absolute Neuts 20.49 H (1.4-6.5) K/uL Lymphocytes # (Manual) 0.70 L (1.2-3.4) K/uL Total Abs Lymphocytes 0.70 L (1.2-3.4) K/uL Monocytes # (Manual) 2.10 H (0.11-0.59) K/uL Toxic Vacuolation 1+ Polychromasia 1+ PT 11.6 (9.0-12.0) Seconds INR 1.1 (0.9-1.1) APTT 29 (21-31) Seconds PTT Ratio 1.1 VBG pH 7.33 L (7.36-7.41) VBG pCO2 35 L (38-50) mmHg VBG pO2 29 mmHg VBG HCO3 19 mmol/L VBG O2 Saturation < 60.0 % VBG Base Excess -6.6 mEq/L Sodium 134 L (136-145) mmol/L Potassium 3.7 (3.5-5.1) mmol/L Chloride 102 (98-107) mmol/L Carbon Dioxide 20 L (21-32) mmol/L Anion Gap 12 H (3-11) BUN 27 H (6-23) mg/dl Creatinine 1.73 H (0.6-1.2) mg/dl Est Cr Clr Drug Dosing Not Reportable eGFR 30.62 BUN/Creatinine Ratio 15.6 (10-20) Glucose 158 H (70-99(Fasting)) mg/dl Lactate 1.3 (0.4-2.0) mmol/L Calcium 9.5 (8.6-10.3) mg/dl Magnesium 1.7 (1.7-2.4) mg/dl Total Bilirubin 1.5 H (0.2-1.0) mg/dl AST 21 (13-39) U/L ALT 25 (7-52) U/L Alkaline Phosphatase 78 (34-104) U/L Troponin I High Sens 16.9 H (0-14) pg/ml B-Natriuretic Peptide 180 H (0-100) pg/ml Total Protein 7.9 (6.0-8.3) gm/dl Albumin 3.8 (3.4-5.0) gm/dl Globulin 4.1 H (2.5-4.0) gm/dl Albumin/Globulin Ratio 0.9 (0.9-2) Procalcitonin 8.20 H (0-0.5) ng/ml Urine Color Urine Appearance (Clear) Urine pH (4.5-7.5) Ur Specific [place] (1.000-1.030) Urine Protein (Negative) Urine Glucose (UA) (Negative) Urine Ketones (Negative) Urine Blood (Negative) Urine Nitrite (Negative) Urine Bilirubin (Negative) Urine Urobilinogen (Negative) Ur Leukocyte Esterase (Negative) Urine WBC (Auto) (0-5) /hpf Urine RBC (Auto) (0-2) /hpf U Hyaline Cast (Auto) (0-2) /lpf U Epithel Cells (Auto) (0-2) /hpf Urine Bacteria (Auto) (None Seen) Granular Casts (None Prsent) /lpf Adenovirus (PCR) (NotDetected) B. pertussis DNA (PCR) (NotDetected) B.parapertussis DNA PCR (NotDetected) C. pneumoniae DNA (PCR) (NotDetected) Coronavirus OC43 (PCR) (NotDetected) Coronavirus HKU1 (PCR) (NotDetected) Coronavirus 229E (PCR) (NotDetected) SARS-CoV-2 (PCR) (NotDetected) Coronavirus NL63 (PCR) (NotDetected) Human Metapneumovir PCR (NotDetected) Influenza Type A (PCR) (NotDetected) Influenza Type B (PCR) (NotDetected) M. pneumoniae (PCR) (NotDetected) Parainfluenza 1 (PCR) (NotDetected) Parainfluenza 2 (PCR) (NotDetected) Parainfluenza 3 (PCR) (NotDetected) Parainfluenza 4 (PCR) (NotDetected) RSV (PCR) (NotDetected) Entero/Rhino (PCR) (NotDetected) 08/20/24 08/21/24 Range/Units Unknown 00:10 WBC (4.8-10.8) K/ul RBC (4.20-5.40) M/uL Hgb (12.0-16.0) g/dl Hct (37.0-47.0) % MCV (80.0-100.0) fL MCH (25.0-34.0) pg MCHC (32.0-36.0) g/dL RDW Std Deviation (36.4-46.3) fL RDW Coeff of Noris (11.5-14.5) % Plt Count (130-400) K/uL MPV (9.4-12.4) fL Neutrophils % (Manual) % Lymphocytes % (Manual) % Monocytes % (Manual) % Neutrophils # (Manual) (1.40-6.50) K/uL Total Absolute Neuts (1.4-6.5) K/uL Lymphocytes # (Manual) (1.2-3.4) K/uL Total Abs Lymphocytes (1.2-3.4) K/uL Monocytes # (Manual) (0.11-0.59) K/uL Toxic Vacuolation Polychromasia PT (9.0-12.0) Seconds INR (0.9-1.1) APTT (21-31) Seconds PTT Ratio VBG pH (7.36-7.41) VBG pCO2 (38-50) mmHg VBG pO2 mmHg VBG HCO3 mmol/L VBG O2 Saturation % VBG Base Excess mEq/L Sodium (136-145) mmol/L Potassium (3.5-5.1) mmol/L Chloride (98-107) mmol/L Carbon Dioxide (21-32) mmol/L Anion Gap (3-11) BUN (6-23) mg/dl Creatinine (0.6-1.2) mg/dl Est Cr Clr Drug Dosing eGFR BUN/Creatinine Ratio (10-20) Glucose (70-99(Fasting)) mg/dl Lactate (0.4-2.0) mmol/L Calcium (8.6-10.3) mg/dl Magnesium (1.7-2.4) mg/dl Total Bilirubin (0.2-1.0) mg/dl AST (13-39) U/L ALT (7-52) U/L Alkaline Phosphatase (34-104) U/L Troponin I High Sens (0-14) pg/ml B-Natriuretic Peptide (0-100) pg/ml Total Protein (6.0-8.3) gm/dl Albumin (3.4-5.0) gm/dl Globulin (2.5-4.0) gm/dl Albumin/Globulin Ratio (0.9-2) Procalcitonin (0-0.5) ng/ml Urine Color Dark Yellow Urine Appearance Turbid A (Clear) Urine pH 5.5 (4.5-7.5) Ur Specific [place] 1.018 (1.000-1.030) Urine Protein 3+ H (Negative) Urine Glucose (UA) Negative (Negative) Urine Ketones Trace H (Negative) Urine Blood 3+ H (Negative) Urine Nitrite Positive A (Negative) Urine Bilirubin Negative (Negative) Urine Urobilinogen Negative (Negative) Ur Leukocyte Esterase 3+ H (Negative) Urine WBC (Auto) >50 H (0-5) /hpf Urine RBC (Auto) 3-5 H (0-2) /hpf U Hyaline Cast (Auto) >20 H (0-2) /lpf U Epithel Cells (Auto) 0-2 (0-2) /hpf Urine Bacteria (Auto) 4+ H (None Seen) Granular Casts Present A (None Prsent) /lpf Adenovirus (PCR) Not Detected (NotDetected) B. pertussis DNA (PCR) Not Detected (NotDetected) B.parapertussis DNA PCR Not Detected (NotDetected) C. pneumoniae DNA (PCR) Not Detected (NotDetected) Coronavirus OC43 (PCR) Not Detected (NotDetected) Coronavirus HKU1 (PCR) Not Detected (NotDetected) Coronavirus 229E (PCR) Not Detected (NotDetected) SARS-CoV-2 (PCR) Not Detected (NotDetected) Coronavirus NL63 (PCR) Not Detected (NotDetected) Human Metapneumovir PCR Not Detected (NotDetected) Influenza Type A (PCR) Not Detected (NotDetected) Influenza Type B (PCR) Not Detected (NotDetected) M. pneumoniae (PCR) Not Detected (NotDetected) Parainfluenza 1 (PCR) Not Detected (NotDetected) Parainfluenza 2 (PCR) Not Detected (NotDetected) Parainfluenza 3 (PCR) Not Detected (NotDetected) Parainfluenza 4 (PCR) Not Detected (NotDetected) RSV (PCR) Not Detected (NotDetected) Entero/Rhino (PCR) Not Detected (NotDetected) Administered Medications Vancomycin HCl 1,250 mg/ (Sodium Chloride) 525 mls @ 200 mls/hr IV NOW ONE Stop: 08/21/24 01:17 Last Admin: 08/20/24 23:07 Dose: 200 mls/hr Documented By: ES Discontinued Medications Sodium Chloride (Nss) 2,000 mls @ 999 mls/hr IV .Q2H1M ONE Stop: 08/20/24 23:48 Last Infusion: 08/20/24 23:38 Dose: Infused Documented By: Admin: 08/20/24 21:50 Dose: 999 mls/hr Documented By: [facility] Cefepime HCl (Maxipime 2000mg) 2,000 mg in 20 mls @ 5 mls/min IV NOW STA; Protocol Stop: 08/20/24 22:36 Last Admin: 08/20/24 22:42 Dose: 5 mls/min Documented By: GEE Imaging Data Radiologist's Impression: Chest X-Ray 08/20/24 21:48 Exam(s): XR CXR 1 VIEW EXAM: XR Chest, 1 View CLINICAL HISTORY: Sepsis. TECHNIQUE: Frontal view of the chest. COMPARISON: 06/07/2024. FINDINGS: Lungs: No infiltrate. No atelectasis. No CHF. Pleural space: No pleural effusion. No pneumothorax. Heart: Unremarkable. No cardiomegaly. Mediastinum: Unremarkable. Normal mediastinal contour. Bones/joints: Unremarkable. No acute fracture. IMPRESSION: No acute abnormality. Electronically signed by: Curtis Evans M.D. 08/21/24 00:27 AM Abdomen/Pelvis CT 08/20/24 23:04 Exam(s): CT ABDOMEN + PELVIS Without Contrast EXAM: CT Abdomen and Pelvis Without Intravenous Contrast CLINICAL HISTORY: N/V/D; sepsis. TECHNIQUE: Axial computed tomography images of the abdomen and pelvis without intravenous contrast. CTDI is 13.82 mGy and DLP is 632.96 mGy-cm. Automated exposure control was utilized for the study. A dose lowering technique was utilized adhering to the principles of ALARA. COMPARISON: 06/07/2024. FINDINGS: Limited by lack of oral and IV contrast material. Lung bases: Interval increase in size of a 1.3 cm soft tissue nodule in the right lung base overlying the inferior medial aspect of the right hemidiaphragm. Interval development of a pleural-based 1.4 x 2.9 cm partially visualized noncalcified mass at the inferior medial right lung base. Small amount of right pleural fluid. Mild bibasilar atelectasis. ABDOMEN: Liver: 16.8 cm length. No focal intrahepatic lesion identified. Gallbladder and bile ducts: Post cholecystectomy. No ductal dilation. Pancreas: Unremarkable. No ductal dilation. Spleen: Unremarkable. No splenomegaly. Adrenals: Unremarkable. No mass. Kidneys and ureters: Kidneys are poorly characterized without IV contrast material. Interval increase in right hydronephrosis and hydroureter to level of the retroperitoneal mass the right lateral aspect of the aorta likely effacing obstructing the proximal right ureter. Stomach and bowel: Mildly dilated distal small bowel with air-fluid levels with runny infiltration centered in the right lower quadrant and upper pelvis aside of possible mesenteric nodularity. Fluid-filled colon. The right colon is not well visualized with right lower quadrant surgical clips. No evidence for diverticulitis. PELVIS: Appendix: No findings to suggest acute appendicitis. Bladder: Partially contracted. No stones. Reproductive: Unremarkable as visualized. ABDOMEN and PELVIS: Intraperitoneal space: No free air. No free fluid. Bones/joints: No acute fracture. Soft tissues: Interval increase in size of a right periaortic retroperitoneal soft tissue mass at the level of right kidney 2.5 cm in diameter. Poorly characterized mesenteric masses including a right lower quadrant mass medial to the level of the cecum with calcification measuring up to 2 cm. Vasculature: Diffuse atherosclerotic vascular calcifications. Unchanged infrarenal aortic fusiform aneurysm of 2 3.2 cm diameter. Abdominal aortic aneurysm. Lymph nodes: Unremarkable. No enlarged lymph nodes. IMPRESSION: Interval increase in size of a right periaortic retroperitoneal soft tissue mass, likely because of the increased right hydronephrosis and proximal hydroureter. Mild dilatation of distal small bowel with air-fluid levels the level of. Postoperative changes in the right lower quadrant with mesenteric nodularity, suggesting partial small bowel obstruction due to scarring versus mesenteric masses/neoplasm. Interval increase in size of a right lower lobe noncalcified probable pleural-based nodule. Interval development of a new left basilar pleural- based nodule with small amount of pleural fluid and associated atelectasis. Recommend correlation to patient's prior clinical history. Otherwise no change. Electronically signed by: Curtis Evans M.D. 08/21/24 00:00 AM Discharge Plan Visit Data Chief Complaint: Illness Stated Complaint: weekness, no eating, dhiarrea, cancer ED Provider: Ruba Sibley Discharge Problem: Sepsis, Generalized weakness, Partial small bowel obstruction, Hydroureteronephrosis, Acute hypoxemic respiratory failure, HERLINDA (acute kidney injury), Leukocytosis, Non-ST elevation NC (NSTEMI), Elevated brain natriuretic peptide (BNP) level, Elevated procalcitonin, Acute UTI (urinary tract infection) Forms Stand Alone Forms: My [facility] [place] Prescriptions Prescriptions: No Action fluticasone propion-salmeterol [Advair HFA] 230-21 mcg/actuation Hfa Aerosol Inhaler 2 puff INHALATION BID Referrals Referrals: PCP,NO [Primary Care Provider] -
[2024-08-20] MEDS: VANCOMYCIN HCL 1,250 MG in SODIUM CHLORIDE 0.9% 500 ML IV ONE (23:07)
[2024-08-20 23:15] LABS: Adenovirus PCR Not Detected (NotDetected); Bordetella parapertussis PCR Not Detected (NotDetected); Bordetella pertussis PCR Not Detected (NotDetected); Chlamydia pneumoniae PCR Not Detected (NotDetected); Coronavirus 229E PCR Not Detected (NotDetected); Coronavirus CoV-2 (COVID19)PCR Not Detected (NotDetected); Coronavirus HKU1 PCR Not Detected (NotDetected); Coronavirus NL63 PCR Not Detected (NotDetected); Coronavirus OC43PCR Not Detected (NotDetected); Human Metapneumovirus PCR Not Detected (NotDetected); Influenza A PCR Not Detected (NotDetected); Influenza B PCR Not Detected (NotDetected); Mycoplasma pneumoniae PCR Not Detected (NotDetected); Parainfluenza Virus 1 PCR Not Detected (NotDetected); Parainfluenza Virus 2 PCR Not Detected (NotDetected); Parainfluenza Virus 3 PCR Not Detected (NotDetected); Parainfluenza Virus 4 PCR Not Detected (NotDetected); Respiratory Syncytial VirusPCR Not Detected (NotDetected); Rhinovirus/Enterovirus PCR Not Detected (NotDetected)
[2024-08-20 23:28] LABS: Base Excess VBG -6.6 mEq/L; HCO3 VBG 19 mmol/L; Oxygen Saturation VBG < 60.0 %; PCO2 VBG 35 mmHg (38-50); PO2 VBG 29 mmHg; pH VBG 7.33 (7.36-7.41)
--- NOTE | 2024-08-21 00:01 | CT Scan Report ---
Exam(s): CT ABDOMEN + PELVIS Without Contrast EXAM: CT Abdomen and Pelvis Without Intravenous Contrast CLINICAL HISTORY: N/V/D; sepsis. TECHNIQUE: Axial computed tomography images of the abdomen and pelvis without intravenous contrast. CTDI is 13.82 mGy and DLP is 632.96 mGy-cm. Automated exposure control was utilized for the study. A dose lowering technique was utilized adhering to the principles of ALARA. COMPARISON: 06/07/2024. FINDINGS: Limited by lack of oral and IV contrast material. Lung bases: Interval increase in size of a 1.3 cm soft tissue nodule in the right lung base overlying the inferior medial aspect of the right hemidiaphragm. Interval development of a pleural-based 1.4 x 2.9 cm partially visualized noncalcified mass at the inferior medial right lung base. Small amount of right pleural fluid. Mild bibasilar atelectasis. ABDOMEN: Liver: 16.8 cm length. No focal intrahepatic lesion identified. Gallbladder and bile ducts: Post cholecystectomy. No ductal dilation. Pancreas: Unremarkable. No ductal dilation. Spleen: Unremarkable. No splenomegaly. Adrenals: Unremarkable. No mass. Kidneys and ureters: Kidneys are poorly characterized without IV contrast material. Interval increase in right hydronephrosis and hydroureter to level of the retroperitoneal mass the right lateral aspect of the aorta likely effacing obstructing the proximal right ureter. Stomach and bowel: Mildly dilated distal small bowel with air-fluid levels with runny infiltration centered in the right lower quadrant and upper pelvis aside of possible mesenteric nodularity. Fluid-filled colon. The right colon is not well visualized with right lower quadrant surgical clips. No evidence for diverticulitis. PELVIS: Appendix: No findings to suggest acute appendicitis. Bladder: Partially contracted. No stones. Reproductive: Unremarkable as visualized. ABDOMEN and PELVIS: Intraperitoneal space: No free air. No free fluid. Bones/joints: No acute fracture. Soft tissues: Interval increase in size of a right periaortic retroperitoneal soft tissue mass at the level of right kidney 2.5 cm in diameter. Poorly characterized mesenteric masses including a right lower quadrant mass medial to the level of the cecum with calcification measuring up to 2 cm. Vasculature: Diffuse atherosclerotic vascular calcifications. Unchanged infrarenal aortic fusiform aneurysm of 2 3.2 cm diameter. Abdominal aortic aneurysm. Lymph nodes: Unremarkable. No enlarged lymph nodes. IMPRESSION: Interval increase in size of a right periaortic retroperitoneal soft tissue mass, likely because of the increased right hydronephrosis and proximal hydroureter. Mild dilatation of distal small bowel with air-fluid levels the level of. Postoperative changes in the right lower quadrant with mesenteric nodularity, suggesting partial small bowel obstruction due to scarring versus mesenteric masses/neoplasm. Interval increase in size of a right lower lobe noncalcified probable pleural-based nodule. Interval development of a new left basilar pleural- based nodule with small amount of pleural fluid and associated atelectasis. Recommend correlation to patient's prior clinical history. Otherwise no change. Electronically signed by: Curtis Evans M.D. 08/21/24 00:00 AM
--- NOTE | 2024-08-21 00:28 | XRay Report ---
Exam(s): XR CXR 1 VIEW EXAM: XR Chest, 1 View CLINICAL HISTORY: Sepsis. TECHNIQUE: Frontal view of the chest. COMPARISON: 06/07/2024. FINDINGS: Lungs: No infiltrate. No atelectasis. No CHF. Pleural space: No pleural effusion. No pneumothorax. Heart: Unremarkable. No cardiomegaly. Mediastinum: Unremarkable. Normal mediastinal contour. Bones/joints: Unremarkable. No acute fracture. IMPRESSION: No acute abnormality. Electronically signed by: Curtis Evans M.D. 08/21/24 00:27 AM
[2024-08-21 00:52] LABS: Appearance Urine Turbid (Clear); Bacteria Urine Automated 4+ (None Seen); Bilirubin Urine Negative (Negative); Blood Urine 3+ (Negative); Cast Urine Automated >20 /lpf (0-2); Color Urine Dark Yellow; Epithelial Cell Urine Auto 0-2 /hpf (0-2); Glucose Urine UA Negative (Negative); Granular Casts Urine Present /lpf (None Prsent); Ketones Urine Trace (Negative); Leukocyte Esterase Urine 3+ (Negative); Nitrite Urine Positive (Negative); Protein Urine 3+ (Negative); Specific Gravity Urine 1.018 (1.000-1.030); Urobilinogen Urine Negative (Negative); WBC Urine Automated >50 /hpf (0-5); pH Urine 5.5 (4.5-7.5)
[2024-08-21] MEDS: PLASMA-LYTE A 1,000 ML IV ONE (01:18)
[2024-08-21] MEDS: MAGNESIUM SULFATE / D5W 1 GM/100 ML BAG IV SCH (01:19)
[2024-08-21] MEDS: metroNIDAZOLE 500 MG/100 ML BAG IV STA (01:20)
[2024-08-21] MEDS: NSS + 20MEQ KCL 20 MEQ/1,000 ML BAG IV ONE (01:20)
--- NOTE | 2024-08-21 01:23 | History & Physical Report ---
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 Chirinos.) Will keep n.p.o. in anticipation of procedure Steroid course, [facility] RTC for COPD exacerbation Check hemoglobin A1c DVT prophylaxis with heparin subcu DNR Total critical care time was 45 minutes. Text document was generated using [employer] voice recognition software. It may contain grammatical or spelling errors. Kindly contact undersigned for clarification of any documentation item in question. History of Present Illness Chief Complaint: Weakness, diarrhea, shortness of breath, dry cough, sick Primary Care Provider: Arias Neumann PA-C History obtained from patient, family, and records. 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 Recent confinement May 2024 for SBO, ARF in the setting of metastatic carcinoid tumor. CT abd/pelvis with interval enlargement of retroperitoneal and mesenteric masses and resulting right hydronephrosis. intervention not warranted as per urology during confinement. Patient started feeling sick the last few days. Denies abdominal pain or flank pain. Watery diarrhea. Dry cough symptoms a little bit SOB than usual. Denies chest pain. Not sure about sick contacts. Lowest O2 sats of 80s documented at the ER. 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 Allergies Allergy/AdvReac Type Severity Reaction Status Date / Time Iodinated Contrast Media Allergy PT STATES Verified 06/07/24 16:17 [Iodinated Contrast- Oral SHE HAD A and IV Dye] CARDIAC ARREST FOLLOWING IV FORM sulfamethoxazole Allergy Neuro Verified 06/07/24 16:17 [From Bactrim] complications trimethoprim [From Bactrim] Allergy Neuro Verified 06/07/24 16:17 complications codeine AdvReac Unknown Headache Verified 06/07/24 16:17 morphine AdvReac Unknown PT SAID IT Verified 06/07/24 16:17 SHUTS HER SYSTEM DOWN naproxen AdvReac Diarrhea Verified 06/07/24 16:17 Home Medications Medication Instructions Recorded Confirmed Type albuterol sulfate 90 mcg/actuation 2 puff inhalation Q4 PRN asthma 08/21/24 08/21/24 History aerosol inhaler (Ventolin HFA) fluticasone propionate 230 2 puff inhalation BID 08/21/24 08/21/24 History mcg-salmeterol 21 mcg/actuation HFA inhaler (Advair HFA) Past Med/Surg History Problem List Severe sepsis Acute UTI (urinary tract infection) (Acute) Elevated procalcitonin (Acute) Elevated brain natriuretic peptide (BNP) level (Acute) Non-ST elevation ID (NSTEMI) (Acute) Leukocytosis (Acute) HERLINDA (acute kidney injury) (Acute) Acute hypoxemic respiratory failure (Acute) Hydroureteronephrosis (Acute) Partial small bowel obstruction (Acute) Generalized weakness (Acute) Sepsis (Acute) Palliative care by specialist Advanced care planning/counseling discussion Weakness generalized Abdominal pain, generalized Bradycardia Small bowel obstruction Hydronephrosis, right Partial small bowel obstruction HERLINDA (acute kidney injury) (Acute) Watery diarrhea Dyspnea Breast mass, right Chronic rhinitis 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) Tobacco dependence PAD (peripheral artery disease) Surgical History Status post tubal ligation (~1973) H/O colonoscopy (~2017) History of hand surgery RIGHT 2nd FINGER RE-ATTACHEMENT 2/2 TRAUMA 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 History of hysterectomy DUSTIN/BSO History of cholecystectomy (~1979) Family History Mother , age 84 Heart disease Diabetes Father , age 84 Dementia Aunt Breast cancer Daughter Diabetes Grandmother Heart disease Other Family history non-contributory Social History Smoking Status: Current every day smoker Tobacco Type: Cigarettes Cigarettes Per Day: 1 PPD; Second Hand Exposure: No; Do You Dip or Chew Tobacco: No; Tobacco Cessation Education Requested by Patient: No Hx Alcohol Use: Yes Alcohol type: hard liquor Alcohol Intake Frequency: Monthly or Less Hx Substance Use: No Preferred Language: Slovak Communication Ability: Effective Visual Impairment: No Limitations Hearing Ability: Normal Telephone Lineworker Required: No Beliefs That Will Affect Care: None marital status: Current Living Situation: Spouse Current Living Situation Comment: lives with in [place] 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 status: retired 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 How many Children do You have: 3 How many Children do You have Comment: daughters Other Information That Helps Us Care for You: No Feels Safe at Home: Yes Safety Concerns: Feels Safe At This Time Diet: regular during the past year weight has: remained stable Assistive Devices: Denture - Upper and Glasses Review of Systems Review of Systems: As per HPI, all other systems reviewed and negative Physical Exam Physical Exam: GENERAL: uncomfortable, ill-appearing, chronically ill, respiratory distress SKIN: Normal color, warm HEENT: [place] palpebral conjunctivae, no ptosis, dry buccal mucosa, nasal cannula in place NECK : Supple, no tenderness CHEST : Decreased breath sounds, diffuse expiratory wheezes HEART : Tachycardic, no obvious murmurs ABDOMEN: Some distention, nontender EXTREMITIES : No LE swelling/tenderness, no other conspicuous deformities noted NEUROLOGIC : Coherent, no facial asymmetry, gait and stance not assessed Results & Data Results & Data Vital Signs (Past 12 Hours) Vital Signs Temp Pulse Pulse Resp BP BP Pulse Ox 08/21/24 00:17 37.0 C 08/20/24 23:30 113/65 08/20/24 23:30 113/65 08/20/24 23:27 101 H 43 H 91 08/20/24 23:27 101 H 16 116/87 90 08/20/24 23:26 116/87 08/20/24 23:26 116/87 08/20/24 23:09 100 H 26 H 96 08/20/24 23:06 104 H 41 H 96 08/20/24 23:00 112/67 08/20/24 23:00 112/67 08/20/24 23:00 112/67 08/20/24 22:48 104 H 41 H 92 08/20/24 22:45 100 H 36 H 94 08/20/24 22:42 86 L 08/20/24 22:33 107 H 45 H 90 08/20/24 22:30 106/63 08/20/24 22:30 106/63 08/20/24 22:24 111 H 34 H 92 08/20/24 22:24 99/59 L 08/20/24 22:24 113 H 99/59 L 93 08/20/24 22:15 112 H 33 H 93 08/20/24 22:12 109 H 44 H 94 08/20/24 22:10 95 08/20/24 22:05 122 H 08/20/24 21:42 37.2 C 103 H 18 84/48 L 90 O2 Del Method 08/21/24 00:17 08/20/24 23:30 08/20/24 23:30 08/20/24 23:27 08/20/24 23:27 08/20/24 23:26 08/20/24 23:26 08/20/24 23:09 08/20/24 23:06 08/20/24 23:00 08/20/24 23:00 08/20/24 23:00 08/20/24 22:48 08/20/24 22:45 08/20/24 22:42 Room Air 08/20/24 22:33 08/20/24 22:30 08/20/24 22:30 08/20/24 22:24 08/20/24 22:24 08/20/24 22:24 Room Air 08/20/24 22:15 08/20/24 22:12 08/20/24 22:10 Room Air 08/20/24 22:05 08/20/24 21:42 Laboratory Results Laboratory Results WBC 23.28 K/ul (4.8-10.8) H 08/20/24 21:47 RBC 4.41 M/uL (4.20-5.40) 08/20/24 21:47 Hgb 13.3 g/dl (12.0-16.0) 08/20/24 21:47 Hct 37.9 % (37.0-47.0) 08/20/24 21:47 MCV 85.9 fL (80.0-100.0) 08/20/24 21:47 MCH 30.2 pg (25.0-34.0) 08/20/24 21:47 MCHC 35.1 g/dL (32.0-36.0) 08/20/24 21:47 RDW Std Deviation 48.4 fL (36.4-46.3) H 08/20/24 21:47 RDW Coeff of Noris 15.3 % (11.5-14.5) H 08/20/24 21:47 Plt Count 202 K/uL (130-400) 08/20/24 21:47 MPV 10.4 fL (9.4-12.4) 08/20/24 21:47 Neutrophils % (Manual) 88 % 08/20/24 21:47 Lymphocytes % (Manual) 3 % 08/20/24 21:47 Monocytes % (Manual) 9 % 08/20/24 21:47 Neutrophils # (Manual) 20.49 K/uL (1.40-6.50) H 08/20/24 21:47 Total Absolute Neuts 20.49 K/uL (1.4-6.5) H 08/20/24 21:47 Lymphocytes # (Manual) 0.70 K/uL (1.2-3.4) L 08/20/24 21:47 Total Abs Lymphocytes 0.70 K/uL (1.2-3.4) L 08/20/24 21:47 Monocytes # (Manual) 2.10 K/uL (0.11-0.59) H 08/20/24 21:47 Toxic Vacuolation 1+ 08/20/24 21:47 Polychromasia 1+ 08/20/24 21:47 PT 11.6 Seconds (9.0-12.0) 08/20/24 21:47 INR 1.1 (0.9-1.1) 08/20/24 21:47 APTT 29 Seconds (21-31) 08/20/24 21:47 PTT Ratio 1.1 08/20/24 21:47 VBG pH 7.33 (7.36-7.41) L 08/20/24 23:16 VBG pCO2 35 mmHg (38-50) L 08/20/24 23:16 VBG pO2 29 mmHg 08/20/24 23:16 VBG HCO3 19 mmol/L 08/20/24 23:16 VBG O2 Saturation < 60.0 % 08/20/24 23:16 VBG Base Excess -6.6 mEq/L 08/20/24 23:16 Sodium 134 mmol/L (136-145) L 08/20/24 21:47 Potassium 3.7 mmol/L (3.5-5.1) 08/20/24 21:47 Chloride 102 mmol/L (98-107) 08/20/24 21:47 Carbon Dioxide 20 mmol/L (21-32) L 08/20/24 21:47 Anion Gap 12 (3-11) H 08/20/24 21:47 BUN 27 mg/dl (6-23) H 08/20/24 21:47 Creatinine 1.73 mg/dl (0.6-1.2) H 08/20/24 21:47 Est Cr Clr Drug Dosing Not Reportable 08/20/24 21:47 eGFR 30.62 08/20/24 21:47 BUN/Creatinine Ratio 15.6 (10-20) 08/20/24 21:47 Glucose 158 mg/dl (70-99(Fasting)) H 08/20/24 21:47 Lactate 1.3 mmol/L (0.4-2.0) 08/20/24 21:50 Calcium 9.5 mg/dl (8.6-10.3) 08/20/24 21:47 Magnesium 1.7 mg/dl (1.7-2.4) 08/20/24 21:47 Total Bilirubin 1.5 mg/dl (0.2-1.0) H 08/20/24 21:47 AST 21 U/L (13-39) 08/20/24 21:47 ALT 25 U/L (7-52) 08/20/24 21:47 Alkaline Phosphatase 78 U/L (34-104) 08/20/24 21:47 Troponin I High Sens 16.9 pg/ml (0-14) H 08/20/24 21:47 B-Natriuretic Peptide 180 pg/ml (0-100) H 08/20/24 21:47 Total Protein 7.9 gm/dl (6.0-8.3) 08/20/24 21:47 Albumin 3.8 gm/dl (3.4-5.0) 08/20/24 21:47 Globulin 4.1 gm/dl (2.5-4.0) H 08/20/24 21:47 Albumin/Globulin Ratio 0.9 (0.9-2) 08/20/24 21:47 Procalcitonin 8.20 ng/ml (0-0.5) H 08/20/24 21:47 Urine Color Dark Yellow 08/21/24 00:10 Urine Appearance Turbid (Clear) A 08/21/24 00:10 Urine pH 5.5 (4.5-7.5) 08/21/24 00:10 Ur Specific [place] 1.018 (1.000-1.030) 08/21/24 00:10 Urine Protein 3+ (Negative) H 08/21/24 00:10 Urine Glucose (UA) Negative (Negative) 08/21/24 00:10 Urine Ketones Trace (Negative) H 08/21/24 00:10 Urine Blood 3+ (Negative) H 08/21/24 00:10 Urine Nitrite Positive (Negative) A 08/21/24 00:10 Urine Bilirubin Negative (Negative) 08/21/24 00:10 Urine Urobilinogen Negative (Negative) 08/21/24 00:10 Ur Leukocyte Esterase 3+ (Negative) H 08/21/24 00:10 Urine WBC (Auto) >50 /hpf (0-5) H 08/21/24 00:10 Urine RBC (Auto) 3-5 /hpf (0-2) H 08/21/24 00:10 U Hyaline Cast (Auto) >20 /lpf (0-2) H 08/21/24 00:10 U Epithel Cells (Auto) 0-2 /hpf (0-2) 08/21/24 00:10 Urine Bacteria (Auto) 4+ (None Seen) H 08/21/24 00:10 Granular Casts Present /lpf (None Prsent) A 08/21/24 00:10 Stl C. diff Tox B Gene Negative Cdiff Gene (Neg) 08/21/24 00:10 Adenovirus (PCR) Not Detected (NotDetected) 08/20/24 Unknown B. pertussis DNA (PCR) Not Detected (NotDetected) 08/20/24 Unknown B.parapertussis DNA PCR Not Detected (NotDetected) 08/20/24 Unknown C. pneumoniae DNA (PCR) Not Detected (NotDetected) 08/20/24 Unknown Coronavirus OC43 (PCR) Not Detected (NotDetected) 08/20/24 Unknown Coronavirus HKU1 (PCR) Not Detected (NotDetected) 08/20/24 Unknown Coronavirus 229E (PCR) Not Detected (NotDetected) 08/20/24 Unknown SARS-CoV-2 (PCR) Not Detected (NotDetected) 08/20/24 Unknown Coronavirus NL63 (PCR) Not Detected (NotDetected) 08/20/24 Unknown Human Metapneumovir PCR Not Detected (NotDetected) 08/20/24 Unknown Influenza Type A (PCR) Not Detected (NotDetected) 08/20/24 Unknown Influenza Type B (PCR) Not Detected (NotDetected) 08/20/24 Unknown M. pneumoniae (PCR) Not Detected (NotDetected) 08/20/24 Unknown Parainfluenza 1 (PCR) Not Detected (NotDetected) 08/20/24 Unknown Parainfluenza 2 (PCR) Not Detected (NotDetected) 08/20/24 Unknown Parainfluenza 3 (PCR) Not Detected (NotDetected) 08/20/24 Unknown Parainfluenza 4 (PCR) Not Detected (NotDetected) 08/20/24 Unknown RSV (PCR) Not Detected (NotDetected) 08/20/24 Unknown Entero/Rhino (PCR) Not Detected (NotDetected) 08/20/24 Unknown Impressions Chest X-Ray 08/20/24 21:48 Exam(s): XR CXR 1 VIEW EXAM: XR Chest, 1 View CLINICAL HISTORY: Sepsis. TECHNIQUE: Frontal view of the chest. COMPARISON: 06/07/2024. FINDINGS: Lungs: No infiltrate. No atelectasis. No CHF. Pleural space: No pleural effusion. No pneumothorax. Heart: Unremarkable. No cardiomegaly. Mediastinum: Unremarkable. Normal mediastinal contour. Bones/joints: Unremarkable. No acute fracture. IMPRESSION: No acute abnormality. Electronically signed by: Curtis Evans M.D. 08/21/24 00:27 AM Abdomen/Pelvis CT 08/20/24 23:04 Exam(s): CT ABDOMEN + PELVIS Without Contrast EXAM: CT Abdomen and Pelvis Without Intravenous Contrast CLINICAL HISTORY: N/V/D; sepsis. TECHNIQUE: Axial computed tomography images of the abdomen and pelvis without intravenous contrast. CTDI is 13.82 mGy and DLP is 632.96 mGy-cm. Automated exposure control was utilized for the study. A dose lowering technique was utilized adhering to the principles of ALARA. COMPARISON: 06/07/2024. FINDINGS: Limited by lack of oral and IV contrast material. Lung bases: Interval increase in size of a 1.3 cm soft tissue nodule in the right lung base overlying the inferior medial aspect of the right hemidiaphragm. Interval development of a pleural-based 1.4 x 2.9 cm partially visualized noncalcified mass at the inferior medial right lung base. Small amount of right pleural fluid. Mild bibasilar atelectasis. ABDOMEN: Liver: 16.8 cm length. No focal intrahepatic lesion identified. Gallbladder and bile ducts: Post cholecystectomy. No ductal dilation. Pancreas: Unremarkable. No ductal dilation. Spleen: Unremarkable. No splenomegaly. Adrenals: Unremarkable. No mass. Kidneys and ureters: Kidneys are poorly characterized without IV contrast material. Interval increase in right hydronephrosis and hydroureter to level of the retroperitoneal mass the right lateral aspect of the aorta likely effacing obstructing the proximal right ureter. Stomach and bowel: Mildly dilated distal small bowel with air-fluid levels with runny infiltration centered in the right lower quadrant and upper pelvis aside of possible mesenteric nodularity. Fluid-filled colon. The right colon is not well visualized with right lower quadrant surgical clips. No evidence for diverticulitis. PELVIS: Appendix: No findings to suggest acute appendicitis. Bladder: Partially contracted. No stones. Reproductive: Unremarkable as visualized. ABDOMEN and PELVIS: Intraperitoneal space: No free air. No free fluid. Bones/joints: No acute fracture. Soft tissues: Interval increase in size of a right periaortic retroperitoneal soft tissue mass at the level of right kidney 2.5 cm in diameter. Poorly characterized mesenteric masses including a right lower quadrant mass medial to the level of the cecum with calcification measuring up to 2 cm. Vasculature: Diffuse atherosclerotic vascular calcifications. Unchanged infrarenal aortic fusiform aneurysm of 2 3.2 cm diameter. Abdominal aortic aneurysm. Lymph nodes: Unremarkable. No enlarged lymph nodes. IMPRESSION: Interval increase in size of a right periaortic retroperitoneal soft tissue mass, likely because of the increased right hydronephrosis and proximal hydroureter. Mild dilatation of distal small bowel with air-fluid levels the level of. Postoperative changes in the right lower quadrant with mesenteric nodularity, suggesting partial small bowel obstruction due to scarring versus mesenteric masses/neoplasm. Interval increase in size of a right lower lobe noncalcified probable pleural-based nodule. Interval development of a new left basilar pleural- based nodule with small amount of pleural fluid and associated atelectasis. Recommend correlation to patient's prior clinical history. Otherwise no change. Electronically signed by: Curtis Evans M.D. 08/21/24 00:00 AM Diagnostic Findings EKG as per my interpretation :Rate 140, sinus tachycardia, LAD, LAFB, T wave flattening lateral leads, PVCs
[2024-08-21 01:38] LABS: Thyroid Stimulating Hormone 1.772 uIu/ml (0.300-4.500)
[2024-08-21] MEDS ORDERED: methylPREDNISolone 20 MG in SYRINGE 0 ML IV ONE (01:41)
[2024-08-21] MEDS ORDERED: PROMETHAZINE 6.25 MG/50.25 ML BAG IV PRN (01:47)
[2024-08-21 01:52] LABS: Adenovirus F 40/41 PCR Not Detected (NotDetected); Astrovirus PCR Not Detected (NotDetected); Campylobacter PCR Not Detected (NotDetected); Cryptosporidium PCR Not Detected (NotDetected); Cyclospora cayetanensis PCR Not Detected (NotDetected); Entamoeba histolytica PCR Not Detected (NotDetected); Enteroaggregative E.coli(EAEC) Not Detected (NotDetected); Enteropathogenic E.coli (EPEC) Not Detected (NotDetected); Enterotoxigenic E.coli (ETEC) Not Detected (NotDetected); Giardia lamblia PCR Not Detected (NotDetected); Norovirus GI/GII PCR Not Detected (NotDetected); Plesiomonas shigelloides PCR Not Detected (NotDetected); Rotavirus A PCR Not Detected (NotDetected); Salmonella PCR Not Detected (NotDetected); Sapovirus PCR Not Detected (NotDetected); Shiga-like Toxin E.coli (STEC) Not Detected (NotDetected); Shigella/Enteroinvasive E.coli Not Detected (NotDetected); Vibrio cholerae PCR Not Detected (NotDetected); Vibrio species PCR Not Detected (NotDetected); Yersinia enterocolitica PCR Not Detected (NotDetected)
[2024-08-21] MEDS: IPRATROPIUM BROMIDE NEB SOLN 0.02% 0.5MG/2.5ML VIAL NEB STA (02:12)
[2024-08-21] MEDS: LEVALBUTEROL 1.25 MG/3 ML NEB NEB STA (02:12)
[2024-08-21] MEDS: methylPREDNISolone 125 MG/2 ML VIAL IV STA (02:12)
[2024-08-21 02:16] LABS: Base Excess VBG -5.8 mEq/L; HCO3 VBG 19 mmol/L; Oxygen Saturation VBG < 60.0 %; PCO2 VBG 32 mmHg (38-50); PO2 VBG 31 mmHg; pH VBG 7.37 (7.36-7.41)
[2024-08-21] MEDS: NICOTINE 21 MG/24 HR TDSY TD SCH (02:30)
[2024-08-21 03:17] LABS: Adenovirus PCR Not Detected (NotDetected); Bordetella parapertussis PCR Not Detected (NotDetected); Bordetella pertussis PCR Not Detected (NotDetected); Chlamydia pneumoniae PCR Not Detected (NotDetected); Coronavirus 229E PCR Not Detected (NotDetected); Coronavirus CoV-2 (COVID19)PCR Not Detected (NotDetected); Coronavirus HKU1 PCR Not Detected (NotDetected); Coronavirus NL63 PCR Not Detected (NotDetected); Coronavirus OC43PCR Not Detected (NotDetected); Human Metapneumovirus PCR Not Detected (NotDetected); Influenza A PCR Not Detected (NotDetected); Influenza B PCR Not Detected (NotDetected); Mycoplasma pneumoniae PCR Not Detected (NotDetected); Parainfluenza Virus 1 PCR Not Detected (NotDetected); Parainfluenza Virus 2 PCR Not Detected (NotDetected); Parainfluenza Virus 3 PCR Not Detected (NotDetected); Parainfluenza Virus 4 PCR Not Detected (NotDetected); Respiratory Syncytial VirusPCR Not Detected (NotDetected); Rhinovirus/Enterovirus PCR Not Detected (NotDetected)
[2024-08-21] MEDS: HEPARIN SOD 5,000 UNIT/0.5 ML VIAL SQ SCH (05:20)
[2024-08-21] MEDS: LEVALBUTEROL 1.25 MG/3 ML NEB NEB SCH (07:09)
[2024-08-21] MEDS: IPRATROPIUM BROMIDE NEB SOLN 0.02% 0.5MG/2.5ML VIAL INH SCH (07:09)
[2024-08-21] MEDS: ALBUMIN 25% 25 GM/100 ML VIAL IV ONE (08:09)
[2024-08-21] MEDS: SODIUM CHLORIDE 0.9% 1,000 ML IV ONE (08:12)
[2024-08-21 10:01] LABS: A calco-baum cmplx NotReported Not Detected (NotDetected); Bact fragilis Not Reported Not Detected (NotDetected); Blood Culture Id Panel See PCR Comment (NotDetected); C auris Not Reported Not Detected (NotDetected); CTX-M Resistant Gene Not Detected (NotDetected); Calbicans Not Reported Not Detected (NotDetected); Candida glabrata Not Reported Not Detected (NotDetected); Candida krusei Not Reported Not Detected (NotDetected); Cneoformans/gatti Not Reported Not Detected (NotDetected); Cparapsilosis Not Reported Not Detected (NotDetected); E cloacae compx Not Reported Not Detected (NotDetected); Efaecalis Not Reported Not Detected (NotDetected); Efaecium Not Reported Not Detected (NotDetected); Enterobacterales DETECTED (NotDetected); Enterobacterales Not Reported DETECTED (NotDetected); Escherichia coli Not Reported Not Detected (NotDetected); H influenzae Not Reported Not Detected (NotDetected); IMP Resistant Gene Not Detected (NotDetected); K aerogenes Not Reported Not Detected (NotDetected); KPC Resistant Gene Not Detected (NotDetected); Koxytoca Not Reported Not Detected (NotDetected); Kpneumoniae grp Not Reported DETECTED (NotDetected); Lmonocyt Not Reported Not Detected (NotDetected); N meningitidis Not Reported Not Detected (NotDetected); NDM Resistant Gene Not Detected (NotDetected); OXA 48 Like Resistant Gene Not Detected (NotDetected); P aeruginosa Not Reported Not Detected (NotDetected); Proteus spp Not Reported Not Detected (NotDetected); Salmonella spp Not Reported Not Detected (NotDetected); Staph lugdunensis Not Reported Not Detected (NotDetected); Staph spp. Not Reported Not Detected (NotDetected); Staphaureus Not Reported Not Detected (NotDetected); Staphepi Not Reported Not Detected (NotDetected); Stenmaltophilia Not Reported Not Detected (NotDetected); Strep agal(GrpB) Not Reported Not Detected (NotDetected); Strep pneum Not Reported Not Detected (NotDetected); Strep pyog (GrpA) Not Reported Not Detected (NotDetected); Strep spp Not Reported Not Detected (NotDetected); VIM Resistant Gene Not Detected (NotDetected); mcr-1 Colistin Resistant Gene Not Detected (NotDetected)
[2024-08-21 10:02] LABS: BUN Creatinine Ratio 17.6 (10-20); Calcium 7.6 mg/dl (8.6-10.3); Creatinine Clr Calc Pharmacy 26.7 ml/min; Magnesium 2.2 mg/dl (1.7-2.4); Potassium 3.2 mmol/L (3.5-5.1)
[2024-08-21] MEDS: CEFEPIME 1000MG 1,000 MG/10 ML SYR IV SCH (10:03)
[2024-08-21 10:05] LABS: Hematocrit (blood only) 30.7 % (37.0-47.0); Hemoglobin 10.4 g/dl (12.0-16.0); Mean Corpuscular Hemoglobin 30.2 pg (25.0-34.0); Mean Corpuscular Hgb Conc 33.9 g/dL (32.0-36.0); Mean Corpuscular Volume 89.2 fL (80.0-100.0); Mean Platelet Volume 10.8 fL (9.4-12.4); Platelet Count 155 K/uL (130-400); RDW Coefficient of Variation 15.9 % (11.5-14.5); RDW Standard Deviation 52.2 fL (36.4-46.3); Red Blood Count 3.44 M/uL (4.20-5.40); White Blood Count 18.67 K/ul (4.8-10.8)
[2024-08-21 10:06] LABS: Basophils # (auto) 0.01 K/uL (0.00-0.20); Basophils % (auto) 0.1 %; Echinocytes 1+; Immature Granulocytes % (auto) 1.6 %; Lymphocytes # (auto) 0.43 K/uL (1.20-3.40); Lymphocytes % (auto) 2.3 %; Monocytes % (auto) 1.6 %; Neutrophils # (auto) 17.63 K/uL (1.40-6.50); Neutrophils % (auto) 94.4 %
[2024-08-21] MEDS: POTASSIUM CHLORIDE CRTAB 20 MEQ TABCR PO STA (10:24)
[2024-08-21 11:05] LABS: Estimated Average Glucose 134 mg/dl; Hemoglobin A1C 6.3 % (4.5-5.6)
--- NOTE | 2024-08-21 11:11 | Urology Consultation ---
Date of Consultation August 21, 2024 Assessment & Plan (1) Severe sepsis: (2) Acute UTI (urinary tract infection): (3) HERLINDA (acute kidney injury): (4) Hydronephrosis, right: 74-year-old female with history of neuroendocrine tumor and right hydronephrosis from retroperitoneal mass admitted for severe sepsis, acute UTI, HERLINDA, and small bowel obstruction. Currently afebrile, SBPs 90s Labs reviewedcreatinine (1.53) and WBC (18.67) downtrending today CT reviewed and discussedright hydronephrosis from retroperitoneal mass Urinalysis suspicious for infection Urine and blood cultures are pending Continue broad-spectrum antibiotics and narrow per sensitivity data when available She is currently on IV cefepime Discussed consideration of right ureteral stent placement in the setting of hydronephrosis, possible UTI/sepsis CT also showed concern for partial SBO Case discussed with Dr. Santos Given her other acute issues, will continue to monitor conservatively for now Continue with broad-spectrum antibiotics and supportive care If she develops fever, worsening renal function or acute changes to clinical status, then emergent right ureteral stent may be warranted will follow, please contact our service with any acute changes History of Present Illness Reason for Consultation: UTI; sepsis; hydroureteronephrosis Requesting Physician: Dr. Sibley Attending Physician: Ben De La Paz MD History of Present Illness This is a 70-year-old female with past medical history of neuroendocrine tumor who presented to the emergency department on 08/20/2024 for evaluation of generalized weakness, lethargy and diarrhea. On arrival to ED, she was afebrile, tachycardic and hypotensive. Lab work showed a white count of 23.28, hemoglobin 13.3, sodium 134, creatinine 1.73. Lactate within normal limits. Urinalysis showed 3+ blood, positive nitrates, 3+ leukocyte esterase, >50 WBC, 3-5 RBC, and 4+ bacteria. Respiratory PCR panel negative. Workup included CT abdomen pelvis without contrast showed interval increase in right hydronephrosis and hydroureter ureter; interval increase in size of the right periaortic retroperitoneal soft tissue mass. ED course: IV fluids, cefepime and vancomycin. She was admitted to the hospital medicine service for severe sepsis, complicated UTI and HERLINDA. Urology is consulted for UTI, sepsis; hydroureteronephrosis. Patient was hospitalized 06/07 - 06/12 for small bowel obstruction, HERLINDA and right hydronephrosis. Urology was consulted during previous hospitalization regarding to right hydronephrosis from retroperitoneal mass. Discussed surgical intervention with right ureteral stent placement. Her creatinine continued to downtrend, so conservative management was continued. She is scheduled for outpatient follow-up on 08/22 with our service. Patient seen and examined at bedside this morning. She is resting in bed, mario uses to her name. She is somnolent but answers some yes or no questions. Denies flank pain at present. She reports abdominal distention, gas and diarrhea prior to arrival. No abdominal discomfort at present. Hahn intact. She denies dysuria or hematuria. No fever or chills. Allergies Allergy/AdvReac Type Severity Reaction Status Date / Time Iodinated Contrast Media Allergy PT STATES Verified 06/07/24 16:17 [Iodinated Contrast- Oral SHE HAD A and IV Dye] CARDIAC ARREST FOLLOWING IV FORM sulfamethoxazole Allergy Neuro Verified 06/07/24 16:17 [From Bactrim] complications trimethoprim [From Bactrim] Allergy Neuro Verified 06/07/24 16:17 complications codeine AdvReac Unknown Headache Verified 06/07/24 16:17 morphine AdvReac Unknown PT SAID IT Verified 06/07/24 16:17 SHUTS HER SYSTEM DOWN naproxen AdvReac Diarrhea Verified 06/07/24 16:17 Home Medications Medication Instructions Recorded Confirmed Type albuterol sulfate 90 mcg/actuation 2 puff inhalation Q4 PRN asthma 08/21/24 08/21/24 History aerosol inhaler (Ventolin HFA) fluticasone propionate 230 2 puff inhalation BID 08/21/24 08/21/24 History mcg-salmeterol 21 mcg/actuation HFA inhaler (Advair HFA) Patient History Surgical History Status post tubal ligation (~1973) H/O colonoscopy (~2017) History of hand surgery RIGHT 2nd FINGER RE-ATTACHEMENT 2/2 TRAUMA 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 History of hysterectomy DUSTIN/BSO History of cholecystectomy (~1979) Family History Mother , age 84 Heart disease Diabetes Father , age 84 Dementia Aunt Breast cancer Daughter Diabetes Grandmother Heart disease Other Family history non-contributory Social History Smoking Status: Current every day smoker Tobacco Type: Cigarettes Cigarettes Per Day: 1 PPD; Second Hand Exposure: No; Do You Dip or Chew Tobacco: No; Tobacco Cessation Education Requested by Patient: No Hx Alcohol Use: Yes Alcohol type: hard liquor Alcohol Intake Frequency: Monthly or Less Hx Substance Use: No Preferred Language: Nepali Communication Ability: Effective Visual Impairment: No Limitations Hearing Ability: Normal Desktop Specialist Required: No Beliefs That Will Affect Care: None marital status: Current Living Situation: Spouse Current Living Situation Comment: lives with in [place] 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 status: retired 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 How many Children do You have: 3 How many Children do You have Comment: daughters Other Information That Helps Us Care for You: No Feels Safe at Home: Yes Safety Concerns: Feels Safe At This Time Diet: regular during the past year weight has: remained stable Assistive Devices: Denture - Upper and Glasses Review of Systems Review of Systems: All systems reviewed & are unremarkable except as noted in HPI & below Physical Exam Constitutional: + thin; no acute distress Respiratory: normal respiratory effort; no respiratory distress and no labored breathing Gastrointestinal (Abdomen): Inspection/Auscultation: abdomen normal to inspection Musculoskeletal: Head/Neck/Chest: normocephalic Neurologic: moves all extremities and awake Psychiatric: Orientation: alert and oriented x 3 Genitourinary: Hahn patent and draining clear yellow urine Results & Data Vital Signs (Past 12 Hours) Vital Signs Temp Pulse Pulse Pulse Resp BP BP 08/21/24 11:07 36.4 C L 73 18 91/57 L 08/21/24 09:01 08/21/24 08:00 94/57 L 08/21/24 07:27 36.7 C 93 H 18 84/52 L 08/21/24 07:21 87 20 08/21/24 07:00 96 H 08/21/24 04:43 08/21/24 04:22 37.2 C 105 H 28 H 97/61 L 08/21/24 04:01 102 H 08/21/24 02:46 08/21/24 02:15 113 H 08/21/24 02:13 113 H 28 H 138/59 L 08/21/24 00:17 37.0 C 08/20/24 23:30 113/65 08/20/24 23:30 113/65 08/20/24 23:27 101 H 43 H 08/20/24 23:27 101 H 16 116/87 08/20/24 23:26 116/87 08/20/24 23:26 116/87 Pulse Ox O2 Del Method O2 Flow Rate FiO2 08/21/24 11:07 95 Nasal Cannula 2 08/21/24 09:01 Nasal Cannula 4 08/21/24 08:00 08/21/24 07:27 94 Room Air 08/21/24 07:21 90 Nasal Cannula 3 08/21/24 07:00 08/21/24 04:43 Nasal Cannula 4 08/21/24 04:22 92 Nasal Cannula 4 08/21/24 04:01 08/21/24 02:46 Nasal Cannula 4 08/21/24 02:15 08/21/24 02:13 92 Nasal Cannula 4 08/21/24 00:17 08/20/24 23:30 08/20/24 23:30 08/20/24 23:27 91 08/20/24 23:27 90 08/20/24 23:26 08/20/24 23:26 PG Care Time/CCT Total # of Minutes Spent Total Time Spent with Patient: Total time spent is greater than 50% in coordination of care (as documented) at patient's floor/unit and/or counseling patient: Coding Level of Care Code 25912 INT INP/OBS CARE 2/55MIN Diagnoses Severe sepsis A41.9; R65.20 Acute UTI (urinary tract infection) N39.0 HERLINDA (acute kidney injury) N17.9 Hydronephrosis, right N13.30
[2024-08-21 11:38] LABS: Klebsiella pneumoniae group DETECTED (NotDetected)
--- NOTE | 2024-08-21 12:50 | Electrocardiogram Report ---
Test Reason : Blood Pressure : */* mmHG Vent. Rate : 143 BPM Atrial Rate : 143 BPM P-R Int : 142 ms QRS Dur : 76 ms QT Int : 320 ms P-R-T Axes : 72 -40 81 degrees QTcB Int : 493 ms Sinus tachycardia with occasional Premature ventricular complexes Left axis deviation Anterior infarct (cited on or before 05-May-2023) Abnormal ECG When compared with ECG of 10-Jun-2024 10:31, Vent. rate has increased by 88 bpm QRS axis Shifted left Nonspecific T wave abnormality now evident in Lateral leads Confirmed by Terrance Aguilera ([id number]) on 08/21/2024 12:50:27 PM Referred By: Confirmed By: Terrance Aguilera
--- NOTE | 2024-08-21 13:33 | Palliative Care Consultation ---
Date of Consultation August 21, 2024 Assessment & Plan (1) Counseling regarding goals of care: (2) Counseling regarding advanced directives and goals of care: Plan Met with pt at bedside, no visitors present. Pt exhibits current decisional capacity based on the ability to convey unde rstanding of personal PMHx, current medical condition, treatment options and the risks / benefits of those options, and lack of ability to make decisions based on such knowledge. Pt shared that she has been for 34yrs. She has 3 adult daughters from previous relationship and 13 grand children. Patient does not have written documentation of patient wishes concerning her chosen proxy for medical decisions. Per PA [id number], in absence of written documentation of patient wishes, pt's proxy for medical decisions would be her spouse and three adult daughters with equal decisional power. Pt shared that she would not want her spouse involved in any medical decisions and requests paperwork for AD. She expressed concern that her spouse would not follow her wishes because she watched him go against his mother's wish for DNR at the end of her life. She asked that, in event she lacks decisional capacity, her chosen proxy for medical decisions would be: 1. Malou Gongora (dtr) [phone] 2. Francis Velázquez ([facility]) [phone] Discussed pt's PMHx, current admission, daily life at home, values and goals of care. Pt shared that she has been "not doing well" at home. She shared that she lives with her , Francis (who she reports she raised and considers her son) and Francis's 8yo son. She shared that Francis does all the cooking and otherwise she had been independent with her ADLs until recently. She shared that for past several weeks she has been bedbound with minimal appetite 2/2 abd pain. She shared that her and Francis do not help her much at all with any household duties and she needs help with cleaning house. She c/o her being "mean and []". Pt stated that she does feel safe at home, but does not feel supported. She shared that she does feel the need for more help at home. Discussed her quality of life in context of her health. Pt shared that she has been mostly bedbound due to pain and that she sleeps all the time. She shared that she wonders if "it may be time to throw in the towel". She shared that she does not want any further aggressive or invasive treatments, but she is not ready to consider comfort directed care. Pt clarified wishes for DNR/DNI. Reinforced importance of AD/LW and provided document for pt to review. Will revisit [facility] discussion and complete AD tomorrow. History of Present Illness Reason for Consultation: goals of care Requesting Physician: Ben De La Paz MD Attending Physician: Ben De La Paz MD History of Present Illness Bonnie Villafana is a 70-year-old female with past medical history of neuroendocrine tumor who presented to the emergency department on 08/20/2024 for evaluation of generalized weakness, lethargy and diarrhea. CT abdomen pelvis without contrast showed interval increase in right hydronephrosis and hydroureter; interval increase in size of the right periaortic retroperitoneal soft tissue mass. ED course: IV fluids, cefepime and vancomycin. She was admitted to the hospital medicine service for severe sepsis, complicated UTI and HERLINDA. Patient was hospitalized 06/07 - 06/12 for small bowel obstruction, HERLINDA and right hydronephrosis. Urology was consulted during previous hospitalization regarding hydronephrosis from retroperitoneal mass. Discussed surgical intervention with right ureteral stent placement. Her creatinine continued to downtrend, so conservative management was continued and she was discharged to home. Allergies Allergy/AdvReac Type Severity Reaction Status Date / Time Iodinated Contrast Media Allergy PT STATES Verified 06/07/24 16:17 [Iodinated Contrast- Oral SHE HAD A and IV Dye] CARDIAC ARREST FOLLOWING IV FORM sulfamethoxazole Allergy Neuro Verified 06/07/24 16:17 [From Bactrim] complications trimethoprim [From Bactrim] Allergy Neuro Verified 06/07/24 16:17 complications codeine AdvReac Unknown Headache Verified 06/07/24 16:17 morphine AdvReac Unknown PT SAID IT Verified 06/07/24 16:17 SHUTS HER SYSTEM DOWN naproxen AdvReac Diarrhea Verified 06/07/24 16:17 Home Medications Medication Instructions Recorded Confirmed Type albuterol sulfate 90 mcg/actuation 2 puff inhalation Q4 PRN asthma 08/21/24 08/21/24 History aerosol inhaler (Ventolin HFA) fluticasone propionate 230 2 puff inhalation BID 08/21/24 08/21/24 History mcg-salmeterol 21 mcg/actuation HFA inhaler (Advair HFA) Patient History Surgical History Status post tubal ligation (~1973) H/O colonoscopy (~2017) History of hand surgery RIGHT 2nd FINGER RE-ATTACHEMENT 2/2 TRAUMA 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 History of hysterectomy DUSTIN/BSO History of cholecystectomy (~1979) Family History Mother , age 84 Heart disease Diabetes Father , age 84 Dementia Aunt Breast cancer Daughter Diabetes Grandmother Heart disease Other Family history non-contributory Social History Smoking Status: Current every day smoker Tobacco Type: Cigarettes Cigarettes Per Day: 1 PPD; Second Hand Exposure: No; Do You Dip or Chew Tobacco: No; Tobacco Cessation Education Requested by Patient: No Hx Alcohol Use: Yes Alcohol type: hard liquor Alcohol Intake Frequency: Monthly or Less Hx Substance Use: No Preferred Language: Kiswahili Communication Ability: Effective Visual Impairment: No Limitations Hearing Ability: Normal Assistant Floor Covering Printer Required: No Beliefs That Will Affect Care: None marital status: Current Living Situation: Spouse Current Living Situation Comment: lives with in [place] 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 status: 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 How many Children do You have: 3 How many Children do You have Comment: daughters Other Information That Helps Us Care for You: No Feels Safe at Home: Yes Safety Concerns: Feels Safe At This Time Diet: regular during the past year weight has: remained stable Assistive Devices: Denture - Upper and Glasses Review of Systems Constitutional: + fatigue, + weakness and + weight loss Gastrointestinal: + belching, + bloating, + early satiety, + nausea, + ex cessive flatulence and + diarrhea/loose stools Genitourinary: + urinary frequency Musculoskeletal: + muscle weakness and + body aches Neurologic: + generalized weakness Physical Exam Constitutional: + ill appearing, + thin and cooperative Neck: trachea midline, no thyromegaly Respiratory: + labored breathing, + uses accessory mu scles, + tachypneic and symmetric chest movement Auscultation: + diminished lung sounds and + rales Cardiovascular: RRR, no murmur, no edema Gastrointestinal (Abdomen): Inspection/Auscultation: + abdomen distended and normal bowel sounds Percussion/Palpation: + abdomen tender and abdomen soft Skin: + turgor decreased and + pallor Neurologic: moves all extremities and awake Results & Data Vital Signs (Past 12 Hours) Vital Signs Temp Pulse Pulse Pulse Resp BP Pulse Ox 08/21/24 12:06 71 18 96 08/21/24 11:07 36.4 C L 73 18 91/57 L 95 08/21/24 09:01 08/21/24 08:00 94/57 L 08/21/24 07:27 36.7 C 93 H 18 84/52 L 94 08/21/24 07:21 87 20 90 08/21/24 07:00 96 H 08/21/24 04:43 08/21/24 04:22 37.2 C 105 H 28 H 97/61 L 92 08/21/24 04:01 102 H 08/21/24 02:46 08/21/24 02:15 113 H 08/21/24 02:13 113 H 28 H 138/59 L 92 O2 Del Method O2 Flow Rate FiO2 08/21/24 12:06 Nasal Cannula 3 08/21/24 11:07 Nasal Cannula 2 08/21/24 09:01 Nasal Cannula 4 08/21/24 08:00 08/21/24 07:27 Room Air 08/21/24 07:21 Nasal Cannula 3 08/21/24 07:00 08/21/24 04:43 Nasal Cannula 4 08/21/24 04:22 Nasal Cannula 4 08/21/24 04:01 08/21/24 02:46 Nasal Cannula 4 08/21/24 02:15 08/21/24 02:13 Nasal Cannula 4 Laboratory Results Abnormal lab results 08/20/24 08/20/24 08/20/24 Range/Units 21:47 21:50 23:16 WBC 23.28 H (4.8-10.8) K/ul RBC (4.20-5.40) M/uL Hgb (12.0-16.0) g/dl Hct (37.0-47.0) % RDW Std Deviation 48.4 H (36.4-46.3) fL RDW Coeff of Noris 15.3 H (11.5-14.5) % Neut # (Auto) (1.40-6.50) K/uL Lymph # (Auto) (1.20-3.40) K/uL Immature Gran # (Auto) (0.01-0.20) K/uL Neutrophils # (Manual) 20.49 H (1.40-6.50) K/uL Total Absolute Neuts 20.49 H (1.4-6.5) K/uL Lymphocytes # (Manual) 0.70 L (1.2-3.4) K/uL Total Abs Lymphocytes 0.70 L (1.2-3.4) K/uL Monocytes # (Manual) 2.10 H (0.11-0.59) K/uL VBG pH 7.33 L (7.36-7.41) VBG pCO2 35 L (38-50) mmHg Sodium 134 L (136-145) mmol/L Potassium (3.5-5.1) mmol/L Chloride (98-107) mmol/L Carbon Dioxide 20 L (21-32) mmol/L Anion Gap 12 H (3-11) BUN 27 H (6-23) mg/dl Creatinine 1.73 H (0.6-1.2) mg/dl Glucose 158 H (70-99(Fasting)) mg/dl Hemoglobin A1c (4.5-5.6) % Calcium (8.6-10.3) mg/dl Total Bilirubin 1.5 H (0.2-1.0) mg/dl Troponin I High Sens 16.9 H (0-14) pg/ml B-Natriuretic Peptide 180 H (0-100) pg/ml Globulin 4.1 H (2.5-4.0) gm/dl Procalcitonin 8.20 H (0-0.5) ng/ml Urine Appearance (Clear) Urine Protein (Negative) Urine Ketones (Negative) Urine Blood (Negative) Urine Nitrite (Negative) Ur Leukocyte Esterase (Negative) Urine WBC (Auto) (0-5) /hpf Urine RBC (Auto) (0-2) /hpf U Hyaline Cast (Auto) (0-2) /lpf Urine Bacteria (Auto) (None Seen) Granular Casts (None Prsent) /lpf Enterobacterales (PCR) DETECTED A (NotDetected) K. pneumoniae group (PCR) DETECTED A (NotDetected) 08/21/24 08/21/24 08/21/24 Range/Units 00:10 02:07 08:56 WBC 18.67 H (4.8-10.8) K/ul RBC 3.44 L (4.20-5.40) M/uL Hgb 10.4 L D (12.0-16.0) g/dl Hct 30.7 L (37.0-47.0) % RDW Std Deviation 52.2 H (36.4-46.3) fL RDW Coeff of Noris 15.9 H (11.5-14.5) % Neut # (Auto) 17.63 H (1.40-6.50) K/uL Lymph # (Auto) 0.43 L (1.20-3.40) K/uL Immature Gran # (Auto) 0.30 H (0.01-0.20) K/uL Neutrophils # (Manual) (1.40-6.50) K/uL Total Absolute Neuts (1.4-6.5) K/uL Lymphocytes # (Manual) (1.2-3.4) K/uL Total Abs Lymphocytes (1.2-3.4) K/uL Monocytes # (Manual) (0.11-0.59) K/uL VBG pH (7.36-7.41) VBG pCO2 32 L (38-50) mmHg Sodium (136-145) mmol/L Potassium 3.2 L (3.5-5.1) mmol/L Chloride 111 H (98-107) mmol/L Carbon Dioxide 17 L (21-32) mmol/L Anion Gap (3-11) BUN 27 H (6-23) mg/dl Creatinine 1.53 H (0.6-1.2) mg/dl Glucose 203 H (70-99(Fasting)) mg/dl Hemoglobin A1c 6.3 H (4.5-5.6) % Calcium 7.6 L (8.6-10.3) mg/dl Total Bilirubin (0.2-1.0) mg/dl Troponin I High Sens 21.3 H (0-14) pg/ml B-Natriuretic Peptide (0-100) pg/ml Globulin (2.5-4.0) gm/dl Procalcitonin (0-0.5) ng/ml Urine Appearance Turbid A (Clear) Urine Protein 3+ H (Negative) Urine Ketones Trace H (Negative) Urine Blood 3+ H (Negative) Urine Nitrite Positive A (Negative) Ur Leukocyte Esterase 3+ H (Negative) Urine WBC (Auto) >50 H (0-5) /hpf Urine RBC (Auto) 3-5 H (0-2) /hpf U Hyaline Cast (Auto) >20 H (0-2) /lpf Urine Bacteria (Auto) 4+ H (None Seen) Granular Casts Present A (None Prsent) /lpf Enterobacterales (PCR) (NotDetected) K. pneumoniae group (PCR) (NotDetected) Diagnostic Findings Chest X-Ray 08/20/24 21:48 Exam(s): XR CXR 1 VIEW EXAM: XR Chest, 1 View CLINICAL HISTORY: Sepsis. TECHNIQUE: Frontal view of the chest. COMPARISON: 06/07/2024. FINDINGS: Lungs: No infiltrate. No atelectasis. No CHF. Pleural space: No pleural effusion. No pneumothorax. Heart: Unremarkable. No cardiomegaly. Mediastinum: Unremarkable. Normal mediastinal contour. Bones/joints: Unremarkable. No acute fracture. IMPRESSION: No acute abnormality. Electronically signed by: Curtis Evans M.D. 08/21/24 00:27 AM Abdomen/Pelvis CT 08/20/24 23:04 Exam(s): CT ABDOMEN + PELVIS Without Contrast EXAM: CT Abdomen and Pelvis Without Intravenous Contrast CLINICAL HISTORY: N/V/D; sepsis. TECHNIQUE: Axial computed tomography images of the abdomen and pelvis without intravenous contrast. CTDI is 13.82 mGy and DLP is 632.96 mGy-cm. Automated exposure control was utilized for the study. A dose lowering technique was utilized adhering to the principles of ALARA. COMPARISON: 06/07/2024. FINDINGS: Limited by lack of oral and IV contrast material. Lung bases: Interval increase in size of a 1.3 cm soft tissue nodule in the right lung base overlying the inferior medial aspect of the right hemidiaphragm. Interval development of a pleural-based 1.4 x 2.9 cm partially visualized noncalcified mass at the inferior medial right lung base. Small amount of right pleural fluid. Mild bibasilar atelectasis. ABDOMEN: Liver: 16.8 cm length. No focal intrahepatic lesion identified. Gallbladder and bile ducts: Post cholecystectomy. No ductal dilation. Pancreas: Unremarkable. No ductal dilation. Spleen: Unremarkable. No splenomegaly. Adrenals: Unremarkable. No mass. Kidneys and ureters: Kidneys are poorly characterized without IV contrast material. Interval increase in right hydronephrosis and hydroureter to level of the retroperitoneal mass the right lateral aspect of the aorta likely effacing obstructing the proximal right ureter. Stomach and bowel: Mildly dilated distal small bowel with air-fluid levels with runny infiltration centered in the right lower quadrant and upper pelvis aside of possible mesenteric nodularity. Fluid-filled colon. The right colon is not well visualized with right lower quadrant surgical clips. No evidence for diverticulitis. PELVIS: Appendix: No findings to suggest acute appendicitis. Bladder: Partially contracted. No stones. Reproductive: Unremarkable as visualized. ABDOMEN and PELVIS: Intraperitoneal space: No free air. No free fluid. Bones/joints: No acute fracture. Soft tissues: Interval increase in size of a right periaortic retroperitoneal soft tissue mass at the level of right kidney 2.5 cm in diameter. Poorly characterized mesenteric masses including a right lower quadrant mass medial to the level of the cecum with calcification measuring up to 2 cm. Vasculature: Diffuse atherosclerotic vascular calcifications. Unchanged infrarenal aortic fusiform aneurysm of 2 3.2 cm diameter. Abdominal aortic aneurysm. Lymph nodes: Unremarkable. No enlarged lymph nodes. IMPRESSION: Interval increase in size of a right periaortic retroperitoneal soft tissue mass, likely because of the increased right hydronephrosis and proximal hydroureter. Mild dilatation of distal small bowel with air-fluid levels the level of. Postoperative changes in the right lower quadrant with mesenteric nodularity, suggesting partial small bowel obstruction due to scarring versus mesenteric masses/neoplasm. Interval increase in size of a right lower lobe noncalcified probable pleural-based nodule. Interval development of a new left basilar pleural- based nodule with small amount of pleural fluid and associated atelectasis. Recommend correlation to patient's prior clinical history. Otherwise no change. Electronically signed by: Curtis Evans M.D. 08/21/24 00:00 AM Medications Administered Current Inpatient Medications Acetaminophen (Acetaminophen 325 Mg Tab) 650 mg PO QID PRN PRN Reason: pain/fever Stop: 09/20/24 01:46 Heparin Sodium (Porcine) (Heparin Sod 5,000 Unit/0.5 Ml Vial) 5,000 units SQ Q8 ALVARO Stop: 09/20/24 05:59 Last Admin: 08/21/24 13:09 Dose: 5,000 units Potassium Chloride/Sodium Chloride (Normal Saline W/20 Meq Kcl) 20 meq in 1,000 mls @ 75 mls/hr IV .[id number] ONE Stop: 08/21/24 14:17 Last Infusion: 08/21/24 10:20 Dose: Infused Promethazine HCl (Phenergan) 6.25 mg in 50.25 mls @ 201 mls/hr IV Q6H PRN PRN Reason: Nausea And Vomiting Stop: 09/20/24 01:46 Cefepime HCl (Maxipime 2000mg) 1,000 mg in 10 mls @ 5 mls/min IV Q12H [facility]; Protocol Stop: 08/31/24 09:59 Last Admin: 08/21/24 10:03 Dose: 5 mls/min Ipratropium [place] (Ipratropium [place] Neb Soln 0.02% 0.5mg/2.5ml Vial) 0.5 mg INH QIDR [facility] Stop: 09/20/24 06:59 Last Admin: 08/21/24 12:05 Dose: 0.5 mg Levalbuterol HCl (Levalbuterol 1.25 Mg/3 Ml Neb) 1.25 mg NEB QIDR [facility] Stop: 09/20/24 06:59 Last Admin: 08/21/24 12:05 Dose: 1.25 mg Miscellaneous (Remove Nicoderm Patch) 1 each N/A DAILY@0859 [facility] Stop: 09/21/24 08:58 Nicotine (Nicotine 21 Mg/24 Hr Tdsy) 1 patch TD QAM [facility] Stop: 09/20/24 01:49 Last Admin: 08/21/24 02:30 Dose: 1 patch Tramadol HCl (Tramadol Hcl 50 Mg Tablet) 25 - 50 mg PO Q4H PRN PRN Reason: Pain Stop: 09/20/24 01:46 PG Care Time/CCT Total # of Minutes Spent Total Time Spent with Patient: Total time spent is greater than 50% in coordination of care (as documented) at patient's floor/unit and/or counseling patient: Advanced Care Planning 76546 Advanced Care Planning 30 [place] [address] IN/OBS CONSULT LVL 3,45M Patient Type New History Expanded Problem Focused Exam Expanded Problem Focused Medical Decision Making Moderate Complexity Diagnoses Counseling regarding goals of care Z71.89 Counseling regarding advanced directives and goals of care Z71.89 Additional Codes Advanced Care Planning - 73375 Advanced Care Planning 30 Min: 62075 Advanced Care Planning 30 Min ([id number])
[2024-08-21] MEDS: ACETAMINOPHEN 1,000 MG/100 ML VIAL IV STA (16:20)
[2024-08-21] MEDS: ACETAMINOPHEN 325 MG TAB PO PRN (23:53)
[2024-08-22 07:02] LABS: Hematocrit (blood only) 30.1 % (37.0-47.0); Hemoglobin 9.9 g/dl (12.0-16.0); Mean Corpuscular Hemoglobin 29.5 pg (25.0-34.0); Mean Corpuscular Hgb Conc 32.9 g/dL (32.0-36.0); Mean Corpuscular Volume 89.6 fL (80.0-100.0); Mean Platelet Volume 11.2 fL (9.4-12.4); Platelet Count 162 K/uL (130-400); RDW Coefficient of Variation 14.9 % (11.5-14.5); RDW Standard Deviation 49.1 fL (36.4-46.3); Red Blood Count 3.36 M/uL (4.20-5.40); White Blood Count 20.22 K/ul (4.8-10.8)
[2024-08-22 07:18] LABS: BUN Creatinine Ratio 20.1 (10-20); Calcium 7.8 mg/dl (8.6-10.3); Creatinine Clr Calc Pharmacy 27.4 ml/min; Magnesium 2.3 mg/dl (1.7-2.4); Potassium 3.6 mmol/L (3.5-5.1)
--- NOTE | 2024-08-22 07:53 | Hospitalist Progress Note ---
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 for Klebsiella urine cultx pending repeat blood cultx ordered Continue Cefepime Hahn catheter Urology consult re: obstructive uropathy/hydronephrosis resulting in sepsis/kidney dysfunction (ED provider already in touch with Dr. Chirinos.) Per urology - likely ureteral stent placement today Hypoxemic respiratory failure secondary to COPD exacerbation Steroid course, nebs RTC for COPD exacerbation Troponin elevation secondary to illness, demand ischemia hx PAD Hyperglycemia, current hemoglobin A1c 6.3% ongoing tobacco abuse, nicotine patch applied DVT prophylaxis with heparin subcu DNR Admission and Anticipated Discharge Date Admission Date: August 21, 2024 Subjective Pt seen in follow up of sepsis, bacteremia, UTI urology consulted Palliative also consulted Yesterday and overnight BP low, pt appeared very tired yesterday as well Today, laying in bed in NAD, more awake. Pt aware of bacteremia Discussed w/ her family and tells ,e she would like to proceed with the ureteral stent -pt'S RN and urology IMAGING CLERK notified repeat blood cultx ordered Review of Systems Review of Systems: All systems reviewed & are unremarkable except as noted in Subjective Physical Exam Physical Exam: GENERAL: slim elderly F in NAD, chronically ill appearing SKIN: Normal color, warm HEENT: NC/AT. [place] palpebral conjunctivae, nasal cannula in place NECK : Supple, no tenderness CHEST : Decreased breath sounds, no wheezes HEART : rrr, no obvious murmurs ABDOMEN: Some distention, nontender EXTREMITIES : No LE swelling, moves extremities NEUROLOGIC : Coherent, no facial asymmetry, gait and stance not assessed SKIN: Normal color, warm Results & Data Results & Data Vital Signs (Past 12 Hours) Vital Signs Temp Pulse Pulse Resp BP Pulse Ox O2 Del Method 08/22/24 03:36 37.1 C 78 18 94/60 L 96 Nasal Cannula 08/21/24 23:41 90 08/21/24 23:04 36.6 C 74 18 95/57 L 95 Nasal Cannula 08/21/24 23:00 Nasal Cannula 08/21/24 20:17 36.5 C 78 20 105/55 L 94 Nasal Cannula O2 Flow Rate 08/22/24 03:36 2 08/21/24 23:41 08/21/24 23:04 2 08/21/24 23:00 4 08/21/24 20:17 2 Laboratory Results 08/22/24 08/21/24 08/21/24 Range/Units 06:34 08:56 02:07 WBC 20.22 H 18.67 H (4.8-10.8) K/ul RBC 3.36 L 3.44 L (4.20-5.40) M/uL Hgb 9.9 L 10.4 L D (12.0-16.0) g/dl Hct 30.1 L 30.7 L (37.0-47.0) % MCV 89.6 89.2 (80.0-100.0) fL MCH 29.5 30.2 (25.0-34.0) pg MCHC 32.9 33.9 (32.0-36.0) g/dL RDW Std Deviation 49.1 H 52.2 H (36.4-46.3) fL RDW Coeff of Noris 14.9 H 15.9 H (11.5-14.5) % Plt Count 162 155 (130-400) K/uL MPV 11.2 10.8 (9.4-12.4) fL Immature Gran % (Auto) 1.6 % Neut % (Auto) 94.4 % Lymph % (Auto) 2.3 % [place] % (Auto) 1.6 % Eos % (Auto) 0.0 % Baso % (Auto) 0.1 % Neut # (Auto) 17.63 H (1.40-6.50) K/uL Lymph # (Auto) 0.43 L (1.20-3.40) K/uL [place] # (Auto) 0.30 (0.11-0.59) K/uL Eos # (Auto) 0.00 (0.00-0.50) K/uL Baso # (Auto) 0.01 (0.00-0.20) K/uL Immature Gran # (Auto) 0.30 H (0.01-0.20) K/uL Echinocytes 1+ Sodium 137 137 (136-145) mmol/L Potassium 3.6 3.2 L (3.5-5.1) mmol/L Chloride 114 H 111 H (98-107) mmol/L Carbon Dioxide 16 L 17 L (21-32) mmol/L Anion Gap 7 9 (3-11) BUN 30 H 27 H (6-23) mg/dl Creatinine 1.49 H 1.53 H (0.6-1.2) mg/dl Est Cr Clr Drug Dosing 27.4 26.7 ml/min eGFR 36.63 35.49 BUN/Creatinine Ratio 20.1 H 17.6 (10-20) Glucose 121 H 203 H (70-99(Fasting)) mg/dl Estimat Average Glucose 134 mg/dl Hemoglobin A1c 6.3 H (4.5-5.6) % Calcium 7.8 L 7.6 L (8.6-10.3) mg/dl Phosphorus 3.0 (2.5-4.9) mg/dl Magnesium 2.3 2.2 (1.7-2.4) mg/dl Enterobacterales (PCR) (NotDetected) K. pneumoniae group (PCR) (NotDetected) mcr-1 Colistin Res Gene PCR (NotDetected) blaIMP Car res Gene PCR (NotDetected) KPC-Carbap Res Gene PCR (NotDetected) blaNDM Car Res Gene PCR (NotDetected) OXA-48 Carbapenem Resis Gene (PCR) (NotDetected) blaVIM Car Res Gene PCR (NotDetected) CTX-M Gene Resistance (PCR) (NotDetected) Bld Cult ID Panel PCR (NotDetected) 08/20/24 Range/Units 21:50 WBC (4.8-10.8) K/ul RBC (4.20-5.40) M/uL Hgb (12.0-16.0) g/dl Hct (37.0-47.0) % MCV (80.0-100.0) fL MCH (25.0-34.0) pg MCHC (32.0-36.0) g/dL RDW Std Deviation (36.4-46.3) fL RDW Coeff of Noris (11.5-14.5) % Plt Count (130-400) K/uL MPV (9.4-12.4) fL Immature Gran % (Auto) % Neut % (Auto) % Lymph % (Auto) % [place] % (Auto) % Eos % (Auto) % Baso % (Auto) % Neut # (Auto) (1.40-6.50) K/uL Lymph # (Auto) (1.20-3.40) K/uL [place] # (Auto) (0.11-0.59) K/uL Eos # (Auto) (0.00-0.50) K/uL Baso # (Auto) (0.00-0.20) K/uL Immature Gran # (Auto) (0.01-0.20) K/uL Echinocytes Sodium (136-145) mmol/L Potassium (3.5-5.1) mmol/L Chloride (98-107) mmol/L Carbon Dioxide (21-32) mmol/L Anion Gap (3-11) BUN (6-23) mg/dl Creatinine (0.6-1.2) mg/dl Est Cr Clr Drug Dosing ml/min eGFR BUN/Creatinine Ratio (10-20) Glucose (70-99(Fasting)) mg/dl Estimat Average Glucose mg/dl Hemoglobin A1c (4.5-5.6) % Calcium (8.6-10.3) mg/dl Phosphorus (2.5-4.9) mg/dl Magnesium (1.7-2.4) mg/dl Enterobacterales (PCR) DETECTED A (NotDetected) K. pneumoniae group (PCR) DETECTED A (NotDetected) mcr-1 Colistin Res Gene PCR Not Detected (NotDetected) blaIMP Car res Gene PCR Not Detected (NotDetected) KPC-Carbap Res Gene PCR Not Detected (NotDetected) blaNDM Car Res Gene PCR Not Detected (NotDetected) OXA-48 Carbapenem Resis Gene (PCR) Not Detected (NotDetected) blaVIM Car Res Gene PCR Not Detected (NotDetected) CTX-M Gene Resistance (PCR) Not Detected (NotDetected) Bld Cult ID Panel PCR See PCR Comment (NotDetected) Medications Administered Current Inpatient Medications Acetaminophen (Acetaminophen 325 Mg Tab) 650 mg PO QID PRN PRN Reason: pain/fever Stop: 09/20/24 01:46 Last Admin: 08/21/24 23:53 Dose: 650 mg Heparin Sodium (Porcine) (Heparin Sod 5,000 Unit/0.5 Ml Vial) 5,000 units SQ Q8 [facility] Stop: 09/20/24 05:59 Last Admin: 08/22/24 05:12 Dose: Not Given Promethazine HCl (Phenergan) 6.25 mg in 50.25 mls @ 201 mls/hr IV Q6H PRN PRN Reason: Nausea And Vomiting Stop: 09/20/24 01:46 Cefepime HCl (Maxipime 2000mg) 1,000 mg in 10 mls @ 5 mls/min IV Q12H [facility]; Protocol Stop: 08/31/24 09:59 Last Admin: 08/21/24 20:29 Dose: 5 mls/min Sodium Chloride (Nss) 500 mls @ 150 mls/hr IV .Q3H20M ONE Stop: 08/22/24 11:07 Ipratropium [place] (Ipratropium [place] Neb Soln 0.02% 0.5mg/2.5ml Vial) 0.5 mg INH QIDR [facility] Stop: 09/20/24 06:59 Last Admin: 08/22/24 07:20 Dose: 0.5 mg Levalbuterol HCl (Levalbuterol 1.25 Mg/3 Ml Neb) 1.25 mg NEB QIDR [facility] Stop: 09/20/24 06:59 Last Admin: 08/22/24 07:21 Dose: 1.25 mg Miscellaneous (Remove Nicoderm Patch) 1 each N/A DAILY@0859 [facility] Stop: 09/21/24 08:58 Nicotine (Nicotine 21 Mg/24 Hr Tdsy) 1 patch TD QAM [facility] Stop: 09/20/24 01:49 Last Admin: 08/21/24 02:30 Dose: 1 patch Tramadol HCl (Tramadol Hcl 50 Mg Tablet) 25 - 50 mg PO Q4H PRN PRN Reason: Pain Stop: 09/20/24 01:46
[2024-08-22] MEDS: POTASSIUM CHLORIDE CRTAB 20 MEQ TABCR PO STA (08:13)
[2024-08-22] MEDS: SODIUM CHLORIDE 0.9% 500 ML IV ONE (08:22)
[2024-08-22] MEDS: traMADol HCL 50 MG TABLET PO PRN (08:26)
--- NOTE | 2024-08-22 10:02 | Urology Progress Note ---
Date of Service August 22, 2024 Assessment & Plan (1) Severe sepsis: (2) Hydroureteronephrosis: Plan: 74-year-old female with history of neuroendocrine tumor and right hydronephrosis from retroperitoneal mass admitted for severe sepsis, acute UTI, HERLINDA, and small bowel obstruction. Patient remains afebrile, low BPs overnight, BP this morning 127/66 Labs reviewedcreatinine 1.49, WBC 20.[address], [address] reviewed and discussedright hydronephrosis from retroperitoneal mass Urine culture prelim with pinpoint growth Blood cultures growing Klebsiella Continue broad-spectrum antibiotics and narrow per sensitivity data when available Discussed consideration of right ureteral stent placement in the setting of hydronephrosis, possible UTI/sepsis, bacteremia Patient reviewed surgical intervention with her family and she wishes to proceed with stent placement today Discussed intervention with attending hospitalist Proceed to the OR for cystoscopy and right ureteral stent placement Risks and benefits of procedure to be reviewed with patient by Dr. Green Keep NPO for procedure Continue supportive care medical management per hospital medicine service Admission and Anticipated Discharge Date Admission Date: August 21, 2024 Subjective Patient seen and examined at bedside this morning. She is awake and resting in bed. Reports she feels tired. Reports back pain, which she reports is chronic. Denies flank pain. Reports abdominal pressure and watery bowel movement overnight. Notes feeling hot and cold intermittently. No nausea or vomiting. Hahn intact. Review of Systems Constitutional: as per Subjective / HPI Genitourinary: as per Subjective / HPI Physical Exam Constitutional: + thin; no acute distress Respiratory: normal respiratory effort; no respiratory distress and no labored breathing Musculoskeletal: Head/Neck/Chest: normocephalic Neurologic: moves all extremities and awake Psychiatric: Orientation: alert and oriented x 3 Genitourinary: Hahn patent and draining clear yellow urine Results & Data Vital Signs (Past 12 Hours) Vital Signs Temp Pulse Pulse Resp BP Pulse Ox O2 Del Method 08/22/24 08:01 36.5 C 65 16 127/66 98 Nasal Cannula 08/22/24 08:00 Nasal Cannula 08/22/24 07:59 64 18 95 Nasal Cannula 08/22/24 03:36 37.1 C 78 18 94/60 L 96 Nasal Cannula 08/21/24 23:41 90 08/21/24 23:04 36.6 C 74 18 95/57 L 95 Nasal Cannula 08/21/24 23:00 Nasal Cannula O2 Flow Rate 08/22/24 08:01 2 08/22/24 08:00 08/22/24 07:59 2 08/22/24 03:36 2 08/21/24 23:41 08/21/24 23:04 2 08/21/24 23:00 4 PG Care Time/CCT Total # of Minutes Spent Total Time Spent with Patient: Total time spent is greater than 50% in coordination of care (as documented) at patient's floor/unit and/or counseling patient: Coding Level of Care Code 58981 SUB INP/OBS CARE 2/35MIN Diagnoses Severe sepsis A41.9; R65.20 Hydroureteronephrosis N13.30
[2024-08-22] MEDS ORDERED: ONDANSETRON INJ 2 MG/ML 2 ML VIAL ONE (12:39)
[2024-08-22] MEDS ORDERED: PROPOFOL IV EMULSION 10 MG/ML 20 ML VIAL IV ONE (12:39)
[2024-08-22] MEDS ORDERED: ATROPINE SULFATE 0.1 MG/ML 10ML SYR IV PRN (12:39)
[2024-08-22] MEDS ORDERED: ePHEDrine sulfate 50 MG/ML AMP IV PRN (12:39)
[2024-08-22] MEDS ORDERED: fentaNYL citrate PF 100 MCG/2 ML VIAL IV PRN (12:39)
[2024-08-22] MEDS ORDERED: HYDROmorphone INJ 1 MG/ML SYRINGE IV PRN (12:39)
[2024-08-22] MEDS ORDERED: ONDANSETRON INJ 2 MG/ML 2 ML VIAL IV PRN (12:39)
[2024-08-22] MEDS ORDERED: LIDOCAINE 2% 2 ML VIAL/AMP(20MG/ML) INFIL ONE (12:39)
[2024-08-22] MEDS ORDERED: fentaNYL citrate PF 100 MCG/2 ML VIAL ONE (12:40)
[2024-08-22] MEDS ORDERED: MIDAZOLAM HCL 1 MG/ML 2ML VIAL ONE (12:40)
--- NOTE | 2024-08-22 12:43 | Anesthesiology Consultation ---
Date of Service August 22, 2024 Assessment & Plan Chart Review Chart Review: Acceptable Risk for Surgery Consults Requested none ASA [id number] Proposed Anesthesia Anesthesia Type: MAC History Surgery Operation Date: 08/22/24 12:50 Proposed Procedures p Cystoscopy Right Stent Placement - Kane Green MD Height/Weight Height: 5 ft 3 in Weight: 60.2 kg Allergies Allergy/AdvReac Type Severity Reaction Status Date / Time Iodinated Contrast Media Allergy PT STATES Verified 06/07/24 16:17 [Iodinated Contrast- Oral SHE HAD A and IV Dye] CARDIAC ARREST FOLLOWING IV FORM sulfamethoxazole Allergy Neuro Verified 06/07/24 16:17 [From Bactrim] complications trimethoprim [From Bactrim] Allergy Neuro Verified 06/07/24 16:17 complications codeine AdvReac Unknown Headache Verified 06/07/24 16:17 morphine AdvReac Unknown PT SAID IT Verified 06/07/24 16:17 SHUTS HER SYSTEM DOWN naproxen AdvReac Diarrhea Verified 06/07/24 16:17 Medications Home Medications Medication Instructions Recorded Confirmed Last Taken albuterol sulfate 90 mcg/actuation 2 puff inhalation Q4 PRN asthma 08/21/24 08/21/24 Unknown aerosol inhaler (Ventolin HFA) fluticasone propionate 230 2 puff inhalation BID 08/21/24 08/21/24 Unknown mcg-salmeterol 21 mcg/actuation HFA inhaler (Advair HFA) Active Medications Generic Name Dose Route Start Last Admin Trade Name Freq PRN Reason Stop Dose Admin Acetaminophen 650 mg 08/21/24 01:47 08/21/24 23:53 Acetaminophen 325 Mg Tab PO 09/20/24 01:46 650 mg QID PRN Administration pain/fever Heparin Sodium (Porcine) 5,000 units 08/21/24 06:00 08/22/24 05:12 Heparin Sod 5,000 Unit/0.5 Ml Vial SQ 09/20/24 05:59 Not Given Q8 ALVARO Cefepime HCl 1,000 mg in 10 mls @ 5 mls/min 08/21/24 10:00 08/22/24 10:30 Maxipime 2000mg IV 08/31/24 09:59 5 mls/min Q12H [facility]VARO Administration Protocol Sodium Chloride 500 mls @ 75 mls/hr 08/22/24 07:48 08/22/24 08:22 Nss IV 08/22/24 14:27 75 mls/hr .Q6H40M ONE Administration Ipratropium [place] 0.5 mg 08/21/24 07:00 08/22/24 10:25 Ipratropium [place] Neb Soln 0.02% 0.5mg/2.5ml Vial INH 09/20/24 06:59 0.5 mg QIDR ALVARO Administration Levalbuterol HCl 1.25 mg 08/21/24 07:00 08/22/24 10:25 Levalbuterol 1.25 Mg/3 Ml Neb NEB 09/20/24 06:59 1.25 mg QIDR ALVARO Administration Miscellaneous 1 each 08/22/24 08:59 08/22/24 08:20 Remove Nicoderm Patch N/A 09/21/24 08:58 1 each DAILY@0859 [facility] Administration Nicotine 1 patch 08/21/24 01:50 08/22/24 08:13 Nicotine 21 Mg/24 Hr Tdsy TD 09/20/24 01:49 1 patch QAM [facility] Administration Tramadol HCl 25 - 50 mg 08/21/24 01:47 08/22/24 08:26 Tramadol Hcl 50 Mg Tablet PO 09/20/24 01:46 50 mg Q4H PRN Administration Pain NPO Date Last Intake of Fluids: 08/21/24 Time Last Intake of Fluids: 21:00 Date Last Intake of Solids: 08/20/24 Time Last Intake of Solids: 18:00 Exercise / Class Metabolic Activity III < 4 Walking/Shop/Light housework Past Family History Family History Mother , age 84 Heart disease Diabetes Father , age 84 Dementia Aunt Breast cancer Daughter Diabetes Grandmother Heart disease Other Family history non-contributory Past Surgical History Surgical History Status post tubal ligation (~1973) H/O colonoscopy (~2018) History of hand surgery RIGHT 2nd FINGER RE-ATTACHEMENT 2/2 TRAUMA 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 History of hysterectomy DUSTIN/BSO History of cholecystectomy (~1979) Past Anesthesia History No Hx of Anesthesia Complications History of PONV No Hx of PONV and No Hx of Motion Sickness Social History Smoking Status: Current every day smoker tobacco type: cigarettes Smoking cigarettes per day: 1 PPD Do You Dip or Chew Tobacco: No Hx Alcohol Use: Yes Alcohol type: hard liquor alcohol intake frequency: holidays/special occasions only Hx Substance Use: No substance use type: does not use Review of Systems ROS Unobtainable: All systems reviewed & are unremarkable except as noted in HPI & below Physical Exam Vital Signs Last Vital Signs Temp 36.7 C 08/22/24 11:10 Pulse 81 08/22/24 11:10 Resp 18 08/22/24 11:10 BP 112/59 L 08/22/24 11:10 Pulse Ox 93 08/22/24 11:10 O2 Del Method Nasal Cannula 08/22/24 11:10 O2 Flow Rate 2 08/22/24 11:10 FiO2 3 08/21/24 07:21 Constitutional Frail appearing ENMT Mouth: + edentulous Mallampati Class: II Neck normal visual inspection Respiratory normal respiratory effort Auscultation: + diminished lung sounds Cardiovascular Rate/Rhythm: regular rate Testing Laboratory Results 08/22/24 06:34 08/22/24 06:34 PT 11.6 Seconds (9.0-12.0) 08/20/24 21:47 INR 1.1 (0.9-1.1) 08/20/24 21:47 APTT 29 Seconds (21-31) 08/20/24 21:47 Hemoglobin A1c 6.3 % (4.5-5.6) H 08/21/24 02:07 Urine Color Dark Yellow 08/21/24 00:10 Urine Appearance Turbid (Clear) A 08/21/24 00:10 Urine pH 5.5 (4.5-7.5) 08/21/24 00:10 Ur Specific [place] 1.018 (1.000-1.030) 08/21/24 00:10 Urine Protein 3+ (Negative) H 08/21/24 00:10 Urine Glucose (UA) Negative (Negative) 08/21/24 00:10 Urine Ketones Trace (Negative) H 08/21/24 00:10 Urine Nitrite Positive (Negative) A 08/21/24 00:10 Ur Leukocyte Esterase 3+ (Negative) H 08/21/24 00:10 Urine WBC (Auto) >50 /hpf (0-5) H 08/21/24 00:10 Urine RBC (Auto) 3-5 /hpf (0-2) H 08/21/24 00:10 U Hyaline Cast (Auto) >20 /lpf (0-2) H 08/21/24 00:10 U Epithel Cells (Auto) 0-2 /hpf (0-2) 08/21/24 00:10 Urine Bacteria (Auto) 4+ (None Seen) H 08/21/24 00:10 08/21/24 00:10 Urine Culture - Preliminary Urine,Straight Cath Klebsiella pneumoniae 08/20/24 21:55 Aerobic Blood Culture - Final Blood Klebsiella pneumoniae Anaerobic Blood Culture - Final Klebsiella pneumoniae 08/20/24 21:50 Aerobic Blood Culture - Preliminary Blood Klebsiella pneumoniae Anaerobic Blood Culture - Preliminary Klebsiella pneumoniae Electrocardiogram Sinus tachycardia with occasional Premature ventricular complexes Left axis deviation Anterior infarct (cited on or before 05-May-2023) Abnormal ECG When compared with ECG of 10-Jun-2024 10:31, Vent. rate has increased by 88 bpm QRS axis Shifted left Nonspecific T wave abnormality now evident in Lateral leads Confirmed by Terrance Aguilera ([id number]) on 08/21/2024 12:50:27 PM Other Testing 74-year-old female with history of neuroendocrine tumor and right hydronephrosis from retroperitoneal mass admitted for severe sepsis, acute UTI, HERLINDA, and small bowel obstruction. Patient remains afebrile, low BPs overnight, BP this morning 127/66 Labs reviewedcreatinine 1.49, WBC 20.22, hemoglobin [address]9 [address] reviewed and discussedright hydronephrosis from retroperitoneal mass Urine culture prelim with pinpoint growth Blood cultures growing Klebsiella Continue broad-spectrum antibiotics and narrow per sensitivity data when available Discussed consideration of right ureteral stent placement in the setting of hydronephrosis, possible UTI/sepsis, bacteremia Patient reviewed surgical intervention with her family and she wishes to proceed with stent placement today Discussed intervention with attending hospitalist Proceed to the OR for cystoscopy and right ureteral stent placement Risks and benefits of procedure to be reviewed with patient by Dr. Peter Johnson NPO for procedure Continue supportive care medical management per hospital medicine service
--- NOTE | 2024-08-22 12:52 | Radiation OncologyConsultation ---
Date of Consultation August 22, 2024 Assessment & Plan (1) Neuroendocrine cancer: Plan Assessment: Ms. Villafana is a 74-year-old female who presents with metastatic neuroendocrine carcinoma. The patient was initially treated with surgical resection and octreotide however she developed metastatic disease. The patient has been under the care of Dr. Forrester. The patient has been recommended to consider further systemic therapy however she has declined. More recently, she has developed metastatic disease in the retroperitoneum which is starting to obstruct her right ureter and cause hydronephrosis. The patient may also have other masses which could be contributing to her small bowel obstruction. The patient has been admitted to the hospital for workup and evaluation and treatment for sepsis and small bowel obstruction in addition to other medical issues. The patient has been seen by palliative care to discuss potential options as well as goals of care. During their conversation, the patient inquired about the role of radiation therapy. We are now seeing the patient in consultation to discuss the role of radiation therapy. Treatment Options: 1. Systemic therapy. 2. Palliative radiation therapy. 3. Best supportive care. Recommendation: Overall, I have recommended that the patient work with palliative care to understand her overall goals of care. If the patient is still interested in therapy, she should revisit treatment options with medical oncology in the outpatient setting. If the patient declines all other options of therapy and still wants to consider treatment, palliative radiation therapy can be considered. Additionally, if the patient is unable to be discharged from the hospital due to her symptoms, palliative radiation therapy can also be considered. Plan: 1. No plan for radiation therapy at this time. Plan will be to continue to follow the patient in the hospital to monitor her overall hospital status. Will address role of radiation therapy again next week with patient. 2. Continue all other care as per primary medical team including palliative care. 3. Continue follow-up with urology and medical oncology in the outpatient setting. 4. Patient and family encouraged to call us with any further questions or concerns. History of Present Illness Attending Physician: Ben De La Paz MD History of Present Illness 2015. 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 2016 to 2019. Octreotide therapy. Dr. Forrester. 12/12/2018. SOFT TISSUE, ABDOMINAL WALL, BIOPSY: METASTATIC WELL-DIFFERENTIATED NEUROENDOCRINE TUMOR. SEE MICROSCOPIC DESCRIPTION. 06/02/2020. A. Breast, right 9:30 lateral, ultrasound-guided core biopsies: - Metastatic well-differentiated neuroendocrine tumor (see comment) B. Breast, right 2:30, ultrasound-guided core biopsies: - Metastatic well-differentiated neuroendocrine tumor (see comment). 06/07/2024. CT Abdomen/Pelvis IMPRESSION: Interval enlargement of retroperitoneal and mesenteric masses although evaluation is limited by noncontrast technique. There is resulting right hydronephrosis. There are also dilated loops of small bowel which may represent partial small bowel obstruction due to tethering from these masses. 06/11/2024. Medical Oncology consultation. Inpatient setting. Dr. Camarillo. Patient declined recommendations. Plans to follow up with Dr. Forrester in outpatient setting. 08/21/2024. CT Abdomen/Pelvis. IMPRESSION: Interval increase in size of a right periaortic retroperitoneal soft tissue mass, likely because of the increased right hydronephrosis and proximal hydroureter. Mild dilatation of distal small bowel with air-fluid levels the level of. Postoperative changes in the right lower quadrant with mesenteric nodularity, suggesting partial small bowel obstruction due to scarring versus mesenteric masses/neoplasm. Interval increase in size of a right lower lobe noncalcified probable pleural- based nodule. Interval development of a new left basilar pleural-based nodule with small amount of pleural fluid and associated atelectasis. Recommend correlation to patient's prior clinical history. Otherwise no change. 08/21/2024. Patient admitted to hospital due to sepsis and hypoxemic respiratory failure in addition to other medical problems. 08/22/2024. Cystoscopy and right stent placement by urology. Dr. Green. Allergies Allergy/AdvReac Type Severity Reaction Status Date / Time Iodinated Contrast Media Allergy PT STATES Verified 06/07/24 16:17 [Iodinated Contrast- Oral SHE HAD A and IV Dye] CARDIAC ARREST FOLLOWING IV FORM sulfamethoxazole Allergy Neuro Verified 06/07/24 16:17 [From Bactrim] complications trimethoprim [From Bactrim] Allergy Neuro Verified 06/07/24 16:17 complications codeine AdvReac Unknown Headache Verified 06/07/24 16:17 morphine AdvReac Unknown PT SAID IT Verified 06/07/24 16:17 SHUTS HER SYSTEM DOWN naproxen AdvReac Diarrhea Verified 06/07/24 16:17 Home Medications Medication Instructions Recorded Confirmed Type albuterol sulfate 90 mcg/actuation 2 puff inhalation Q4 PRN asthma 08/21/24 08/21/24 History aerosol inhaler (Ventolin HFA) fluticasone propionate 230 2 puff inhalation BID 08/21/24 08/21/24 History mcg-salmeterol 21 mcg/actuation HFA inhaler (Advair HFA) Patient History Surgical History Status post tubal ligation (~1973) H/O colonoscopy (~2018) History of hand surgery RIGHT 2nd FINGER RE-ATTACHEMENT 2/2 TRAUMA 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 History of hysterectomy DUSTIN/BSO History of cholecystectomy (~1979) Family History Mother , age 84 Heart disease Diabetes Father , age 84 Dementia Aunt Breast cancer Daughter Diabetes Grandmother Heart disease Other Family history non-contributory Social History Smoking Status: Current every day smoker Tobacco Type: Cigarettes Cigarettes Per Day: 1 PPD; Second Hand Exposure: No; Do You Dip or Chew Tobacco: No; Hx Alcohol Use: Yes Alcohol type: hard liquor Alcohol Intake Frequency: Monthly or Less Hx Substance Use: No Preferred Language: Maori Communication Ability: Effective Visual Impairment: No Limitations Hearing Ability: Normal Career Center Advisor Required: No Beliefs That Will Affect Care: None marital status: Current Living Situation: Spouse Current Living Situation Comment: lives with in [place] 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 status: retired 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 I spent 30 minutes with direct face to face interaction with the patient and/or family including performing a physical exam and answering all questions. I spent 20 minutes documenting this patient's visit. I spent 5 minutes discussing case with Dr. Forrester. PG Care Time/CCT Total # of Minutes Spent Total Time Spent with Patient: Total time spent is greater than 50% in coordination of care (as documented) at patient's floor/unit and/or counseling patient: Coding Level of Care Code 21582 IN/OBS CONSULT LVL 4,60M Diagnoses Neuroendocrine cancer C7A.8
--- NOTE | 2024-08-22 13:17 | Operative Report ---
PG Post Operative Report Pre & Post Diagnosis Operation Date: 08/22/24 12:50 Pre: Right hydronephrosis Post: Right hydronephrosis I identified the patient and participated in the time-out.: Yes Procedure Operation Date: 08/22/24 12:50 Procedure: cystoscopy, right ureteral stent placement (7Fr x 24cm) Surgeon Kane Green MD Glassworker none Estimated Blood Loss 0 Findings Consistent with Post-Op Diagnosis Specimens none Description of Procedure The patient was identified in the preoperative holding area, appropriate informed consents were reviewed and completed and the patient was transferred to the operative suite. Upon arrival, appropriate antibiotics and anesthesia were administered and the patient was placed in dorsal lithotomy position and prepped and draped in sterile fashion. To be in the case I passed a 21 Telugu cystoscope with 30 degree lens. Full inspection of the bladder was conducted with 30 and 70 degree lens. Her bladder is healthy. Ureteral orifices are in orthotopic position. I cannulated the right UO with a sensor wire which advanced the kidney without difficulty. I then proceeded to place a Coloplast 7 Telugu by 24 cm double-J stent with a good curl in the kidney as well as the bladder. There was urine draining through and around the stent after deployment. I emptied the bladder and concluded the case. There were no complications. I attest to the content of the Intraoperative Record and any orders documented therein. Any exceptions are noted below.
--- NOTE | 2024-08-22 13:44 | Anesthesiology Progress Note ---
Date of Service August 22, 2024 Anesthesia Post Procedure Vital Signs Vital Signs: Temp Pulse Pulse Pulse Resp BP Pulse Ox 08/22/24 13:35 36.6 C 80 20 107/59 L 94 08/22/24 13:25 78 22 103/63 98 08/22/24 13:18 36.8 C 84 19 109/64 97 08/22/24 11:10 36.7 C 81 18 112/59 L 93 08/22/24 10:26 76 18 98 08/22/24 08:01 36.5 C 65 16 127/66 98 08/22/24 08:00 08/22/24 07:59 64 18 95 08/22/24 07:00 74 08/22/24 03:36 37.1 C 78 18 94/60 L 96 08/21/24 23:41 90 08/21/24 23:04 36.6 C 74 18 95/57 L 95 08/21/24 23:00 08/21/24 20:17 36.5 C 78 20 105/55 L 94 08/21/24 19:45 77 17 95 08/21/24 16:23 36.7 C 59 L 18 97/60 L 92 08/21/24 14:23 82 18 93 08/21/24 14:08 36.6 C 77 22 98/58 L 93 O2 Del Method O2 Flow Rate 08/22/24 13:35 Nasal Cannula 2 08/22/24 13:25 Nasal Cannula 2 08/22/24 13:18 Oxymask 10 08/22/24 11:10 Nasal Cannula 2 08/22/24 10:26 Nasal Cannula 2 08/22/24 08:01 Nasal Cannula 2 08/22/24 08:00 Nasal Cannula 08/22/24 07:59 Nasal Cannula 2 08/22/24 07:00 08/22/24 03:36 Nasal Cannula 2 08/21/24 23:41 08/21/24 23:04 Nasal Cannula 2 08/21/24 23:00 Nasal Cannula 4 08/21/24 20:17 Nasal Cannula 2 08/21/24 19:45 Nasal Cannula 2 08/21/24 16:23 Nasal Cannula 2 08/21/24 14:23 Nasal Cannula 2 08/21/24 14:08 Nasal Cannula 2 Transfer of Care Handoff Completed per policy Notes Mental Status: alert / awake / arousable Patient Amnestic to Procedure: Yes Nausea / Vomiting: adequately controlled Pain: adequately controlled Airway Patency, RR, SpO2: stable & adequate BP & HR: stable & adequate Hydration State: stable & adequate Anesthetic Complications: no major complications apparent and Pt Satisfied with anesthetic care
--- NOTE | 2024-08-22 16:47 | Oncology Consultation ---
Date of Consultation August 22, 2024 Assessment & Plan (1) Neuroendocrine cancer: Had a lengthy discussion with the patient, options include palliative systemic therapy versus best supportive care. The patient can get chemotherapy. However that can be done on an outpatient basis. The patient already had right stent placement by urology, which should help with the hydronephrosis and renal failure. (2) Hydronephrosis, right: secondary to progressive disease, status post right stent placement. This should alleviate some of the symptomatic tumor burden Plan . Medical oncology will continue to follow the patient make appropriate recommendations. Thank you for this interesting oncological consult. History of Present Illness Reason for Consultation: Low grade Neuroendocrine cancer Attending Physician: Ben De La Paz MD History of Present Illness Patient with prior history of neuroendocrine tumor who has declined systemic therapy in the past, was evaluated by my colleague Dr. Camarillo Declines palliative systemic therapy. Recently she has metastatic disease in the retroperitoneum, hydronephrosis. She has been seen by our palliative medicine colleagues we have consulted medical oncology to discuss treatment options going forward. Allergies Allergy/AdvReac Type Severity Reaction Status Date / Time Iodinated Contrast Media Allergy PT STATES Verified 06/07/24 16:17 [Iodinated Contrast- Oral SHE HAD A and IV Dye] CARDIAC ARREST FOLLOWING IV FORM sulfamethoxazole Allergy Neuro Verified 06/07/24 16:17 [From Bactrim] complications trimethoprim [From Bactrim] Allergy Neuro Verified 06/07/24 16:17 complications codeine AdvReac Unknown Headache Verified 06/07/24 16:17 morphine AdvReac Unknown PT SAID IT Verified 06/07/24 16:17 SHUTS HER SYSTEM DOWN naproxen AdvReac Diarrhea Verified 06/07/24 16:17 Home Medications Medication Instructions Recorded Confirmed Type albuterol sulfate 90 mcg/actuation 2 puff inhalation Q4 PRN asthma 08/21/24 08/21/24 History aerosol inhaler (Ventolin HFA) fluticasone propionate 230 2 puff inhalation BID 08/21/24 08/21/24 History mcg-salmeterol 21 mcg/actuation HFA inhaler (Advair HFA) Patient History Surgical History Status post tubal ligation (~1973) H/O colonoscopy (~2017) History of hand surgery RIGHT 2nd FINGER RE-ATTACHEMENT 2/2 TRAUMA 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 History of hysterectomy DUSTIN/BSO History of cholecystectomy (~1979) Family History Mother , age 84 Heart disease Diabetes Father , age 84 Dementia Aunt Breast cancer Daughter Diabetes Grandmother Heart disease Other Family history non-contributory Social History Smoking Status: Current every day smoker Tobacco Type: Cigarettes Cigarettes Per Day: 1 PPD; Second Hand Exposure: No; Do You Dip or Chew Tobacco: No; Hx Alcohol Use: Yes Alcohol type: hard liquor Alcohol Intake Frequency: Monthly or Less Hx Substance Use: No Preferred Language: Anguillan Communication Ability: Effective Visual Impairment: No Limitations Hearing Ability: Normal Assistant Corporate Secretary Required: No Beliefs That Will Affect Care: None marital status: Current Living Situation: Spouse Current Living Situation Comment: lives with in [place] 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 status: retired 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 How many Children do You have: 3 How many Children do You have Comment: daughters Feels Safe at Home: Yes Diet: regular during the past year weight has: remained stable Assistive Devices: Denture - Upper and Glasses Review of Systems Review of Systems: All systems reviewed & are unremarkable except as noted in HPI & below Constitutional: as per Subjective / HPI Eyes: as per Subjective / HPI Ear, Nose, Mouth, Throat: as per Subjective / HPI Respiratory: as per Subjective / HPI Cardiovascular: as per Subjective / HPI Gastrointestinal: as per Subjective / HPI Genitourinary: as per Subjective / HPI Musculoskeletal: as per Subjective / HPI Integumentary: as per Subjective / HPI Neurologic: as per Subjective / HPI Psychiatric: as per Subjective / HPI Endocrine: as per Subjective / HPI Hematologic / Lymphatic: as per Subjective / HPI Allergy / Immunological: as per Subjective / HPI Physical Exam Constitutional: WD/WN, vitals as above Eyes: PERRL, conjunctivae normal, anicteric sclerae ENMT: external ear and nose normal, oropharynx normal Neck: trachea midline, no thyromegaly Respiratory: normal respiratory effort, lungs clear to auscultation Cardiovascular: RRR, no murmur, no edema Gastrointestinal (Abdomen): normal bowel sounds, soft, nontender, no hepatosplenomegaly Musculoskeletal: no cyanosis or clubbing, extremities motor strength 5/5 Skin: no rashes, warm and dry Neurologic: patellar DTR's 2+ bilat, sensation intact Psychiatric: A+Ox3, euthymic affect Genitourinary: no vaginal lesions, no adnexal mass Results & Data Vital Signs (Past 12 Hours) Vital Signs Temp Pulse Pulse Pulse Resp BP Pulse Ox 08/22/24 15:42 36.7 C 82 18 120/71 93 08/22/24 13:55 75 16 105/56 L 94 08/22/24 13:45 76 19 104/66 95 08/22/24 13:35 36.6 C 80 20 107/59 L 94 08/22/24 13:25 78 22 103/63 98 08/22/24 13:18 36.8 C 84 19 109/64 97 08/22/24 11:10 36.7 C 81 18 112/59 L 93 08/22/24 10:26 76 18 98 08/22/24 08:01 36.5 C 65 16 127/66 98 08/22/24 08:00 08/22/24 07:59 64 18 95 08/22/24 07:00 74 O2 Del Method O2 Flow Rate 08/22/24 15:42 Nasal Cannula 2 08/22/24 13:55 Nasal Cannula 2 08/22/24 13:45 Nasal Cannula 2 08/22/24 13:35 Nasal Cannula 2 08/22/24 13:25 Nasal Cannula 2 08/22/24 13:18 Oxymask 10 08/22/24 11:10 Nasal Cannula 2 08/22/24 10:26 Nasal Cannula 2 08/22/24 08:01 Nasal Cannula 2 08/22/24 08:00 Nasal Cannula 08/22/24 07:59 Nasal Cannula 2 08/22/24 07:00
--- NOTE | 2024-08-22 17:49 | Palliative Family Discussion ---
Date of Service August 22, 2024 Patient Directed Conference Time of Meetin:30-11:15 Participants: Fidelina Dwyer [facility] Patient participation: yes Patient Support System: no visitors present Other Healthcare Provider Participation: None Meeting Location: BEDSIDE Advanced Directive available: completed during meeting If yes, descriptors: The patient's surrogate medical decision maker participated: no Legally authorized health care proxy: as listed below Other surrogate: n/a A family meeting was held for MAXIMO BENOIT. This meeting was necessary for determining the appropriate course of treatment. Topics of Discussion Topics of Discussion: 1. goals of care 2 Advanced directive 3. polst Other Content of Meetin. Opportunity given for patient to speak and ask questions. 2. Reassurance provided. 3. Support was provided for informed, good-marc decisions. 5. Emotions expressed by patient were acknowledged and addressed. 6. Follow-up Outpatient: [ 7. Plan of Care: DNR/DNI, Pt request second opinion from Med/Rad onc re: palliative treatmemt options Pt more alert today. Lengthy conversation at bedside. Patient exhibits current decisional capacity based on the ability to convey understanding of personal PMHx, current medical condition, treatment options and the risks / benefits of those options, as well as ability to make decisions based on such knowledge. Patient does not have written documentation of her wishes concerning chosen proxy for medical decisions. Per PA [id number], in absence of written documentation of patient wishes, pt's proxy for medical decisions would be her spouse.. Discussed goals of care and pt reinforced her wishes for DNR/DNI and no TF. She expressed concern that her spouse would not honor these wishes in event she lacks decisional capacity and requests assistance with documenting her wishes. We discussed AD/LW and importance of selecting HCPOA as well as secondary proxy who are aware of and will honor her wishes in event she lacks decisional capacity. Helped her understand that HCPOA only takes effect in event that she lacks decisional capacity. We reviewed AD paperwork in detail prior to completing form. Pt emphasized that she does not want want her spouse involved in hermedical care and identified the following as her chosen MDM proxy: 1. Malou Gongora (dtr) [phone] 2. Francis Velázquez (gson) [phone] Completed both POLST and Advanced directive with pt. Pt documented wishes for DNR/DNI, no TF, limited additional treatments. Pt shared that she had initially refused any cancer directed palliative treatments and was considering hospice care at home, but now that her pain and symptoms have begun to limit her activities she is reconsidering possible palliative radiation. On pt request, rad onc consulted to discuss potential cancer directed therapies. I spent 70 minutes overall addressing this case: 10 in medical data review/discussion with referring provider(s) and/or preparation for the visit 40 in direct interaction with the patient 40 dvance Care Planning/Goals of Care discussions as detailed above in note (must be >16min) 10 in subsequent review and synthesis of assessment and plan 10 in communicating with other providers regarding the patient's case: Dr De La Paz, BSRN, Rad onc
--- NOTE | 2024-08-22 19:32 | Fluoroscopy Report ---
FL retrograde includes kub CLINICAL HISTORY: RT CYSTO/STENT TECHNIQUE: 1 views were obtained with the C-arm in the OR with the above procedure. Total fluoroscopy time was 5.1 seconds. Radiation dose was 0.85 mGy. Comparison: Comparison is made to CT abdomen pelvis 08/20/2024 FINDINGS/IMPRESSION: Intraoperative images were obtained of right cystogram and stent placement. In t he final images, the stent is in satisfactory position. Please correlate with intraoperative fluoroscopy and operative report. ACT 112: Negative or not required by law. Electronically signed by: Uriel Escudero M.D. 08/22/2024 7:31 PM
[2024-08-23 06:42] LABS: Hemoglobin 10.4 g/dl (12.0-16.0); Mean Corpuscular Hemoglobin 29.8 pg (25.0-34.0); Mean Corpuscular Hgb Conc 33.5 g/dL (32.0-36.0); Mean Corpuscular Volume 88.8 fL (80.0-100.0); Mean Platelet Volume 11.1 fL (9.4-12.4); Platelet Count 182 K/uL (130-400); RDW Coefficient of Variation 16.9 % (11.5-14.5); RDW Standard Deviation 54.6 fL (36.4-46.3); Red Blood Count 3.49 M/uL (4.20-5.40); White Blood Count 13.87 K/ul (4.8-10.8)
[2024-08-23 07:05] LABS: BUN Creatinine Ratio 21.3 (10-20); Calcium 8.1 mg/dl (8.6-10.3); Magnesium 2.2 mg/dl (1.7-2.4); Phosphorus 2.4 mg/dl (2.5-4.9); Potassium 4.3 mmol/L (3.5-5.1)
--- NOTE | 2024-08-23 07:59 | Hospitalist Progress Note ---
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 for Klebsiella urine cultx - Klebsiella repeat blood cultx pending Continue Cefepime Urology consult re: obstructive uropathy/hydronephrosis resulting in sepsis/kidney dysfunction (ED provider already in touch with Dr. Chirinos.) Per urology - s/p ureteral stent placement on 08/22/2023 Hahn catheter - draining cloudy urine now WBC down from 23K to 13.8 K Cr down from 1.7 to 1.36 Hypoxemic respiratory failure secondary to COPD exacerbation Steroid course, nebs RTC for COPD exacerbation Troponin elevation secondary to illness, demand ischemia hx PAD Hyperglycemia, current hemoglobin A1c 6.3% ongoing tobacco abuse, nicotine patch applied DVT prophylaxis with heparin subcu DNR Admission and Anticipated Discharge Date Admission Date: August 21, 2024 Subjective Pt seen in follow up of sepsis, bacteremia, UTI urology consulted, s/p ureteral stent Palliative also consulted Today, laying in bed in NAD, more awake. RN also present at the bedside. Pt aware of bacteremia Having loose stools - unchanged from baseline, will advance diet and will cont. to monitor + cough - says since having procedure - will encourage incentive ashu repeat blood cultx ordered Review of Systems Review of Systems: All systems reviewed & are unremarkable except as noted in Subjective Physical Exam Physical Exam: GENERAL: slim elderly F in NAD, chronically ill appearing SKIN: Normal color, warm HEENT: NC/AT. [place] palpebral conjunctivae, nasal cannula in place NECK : Supple, no tenderness CHEST : Decreased breath sounds, no wheezes, no rhonchi HEART : rrr, no obvious murmurs ABDOMEN: Some distention, nontender EXTREMITIES : No LE swelling, moves extremities NEUROLOGIC : Coherent, no facial asymmetry, gait and stance not assessed SKIN: Normal color, warm Results & Data Results & Data Vital Signs (Past 12 Hours) Vital Signs Temp Pulse Pulse Pulse Resp BP Pulse Ox 08/23/24 07:57 36.7 C 80 18 106/62 95 08/23/24 07:52 88 18 93 08/23/24 07:44 78 08/23/24 04:06 36.8 C 80 20 124/72 95 08/23/24 00:00 36.8 C 79 20 102/62 94 08/22/24 23:40 85 08/22/24 22:01 08/22/24 20:42 99 H 18 93 08/22/24 19:59 36.5 C 76 20 111/54 L 96 O2 Del Method O2 Flow Rate 08/23/24 07:57 Room Air 2 08/23/24 07:52 Nasal Cannula 2 08/23/24 07:44 08/23/24 04:06 Nasal Cannula 2 08/23/24 00:00 Nasal Cannula 2 08/22/24 23:40 08/22/24 22:01 Nasal Cannula 3 08/22/24 20:42 Nasal Cannula 2 08/22/24 19:59 Nasal Cannula 2 Laboratory Results 08/23/24 Range/Units 06:15 WBC 13.87 H (4.8-10.8) K/ul RBC 3.49 L (4.20-5.40) M/uL Hgb 10.4 L (12.0-16.0) g/dl Hct 31.0 L (37.0-47.0) % MCV 88.8 (80.0-100.0) fL MCH 29.8 (25.0-34.0) pg MCHC 33.5 (32.0-36.0) g/dL RDW Std Deviation 54.6 H (36.4-46.3) fL RDW Coeff of Noris 16.9 H (11.5-14.5) % Plt Count 182 (130-400) K/uL MPV 11.1 (9.4-12.4) fL Sodium 136 (136-145) mmol/L Potassium 4.3 (3.5-5.1) mmol/L Chloride 114 H (98-107) mmol/L Carbon Dioxide 17 L (21-32) mmol/L Anion Gap 5 (3-11) BUN 29 H (6-23) mg/dl Creatinine 1.36 H (0.6-1.2) mg/dl Est Cr Clr Drug Dosing 30.0 ml/min eGFR 40.88 BUN/Creatinine Ratio 21.3 H (10-20) Glucose 79 (70-99(Fasting)) mg/dl Calcium 8.1 L (8.6-10.3) mg/dl Phosphorus 2.4 L (2.5-4.9) mg/dl Magnesium 2.2 (1.7-2.4) mg/dl Medications Administered Current Inpatient Medications Acetaminophen (Acetaminophen 325 Mg Tab) 650 mg PO QID PRN PRN Reason: pain/fever Stop: 09/20/24 01:46 Last Admin: 08/21/24 23:53 Dose: 650 mg Heparin Sodium (Porcine) (Heparin Sod 5,000 Unit/0.5 Ml Vial) 5,000 units SQ Q8 [facility] Stop: 09/20/24 05:59 Last Admin: 08/23/24 05:35 Dose: Not Given Promethazine HCl (Phenergan) 6.25 mg in 50.25 mls @ 201 mls/hr IV Q6H PRN PRN Reason: Nausea And Vomiting Stop: 09/20/24 01:46 Cefepime HCl (Maxipime 2000mg) 1,000 mg in 10 mls @ 5 mls/min IV Q12H [facility]; Protocol Stop: 08/31/24 09:59 Last Admin: 08/22/24 20:34 Dose: 5 mls/min Ipratropium [place] (Ipratropium [place] Neb Soln 0.02% 0.5mg/2.5ml Vial) 0.5 mg INH QIDR [facility] Stop: 09/20/24 06:59 Last Admin: 08/23/24 07:50 Dose: 0.5 mg Levalbuterol HCl (Levalbuterol 1.25 Mg/3 Ml Neb) 1.25 mg NEB QIDR [facility] Stop: 09/20/24 06:59 Last Admin: 08/23/24 07:50 Dose: 1.25 mg Miscellaneous (Remove Nicoderm Patch) 1 each N/A DAILY@0859 [facility] Stop: 09/21/24 08:58 Last Admin: 08/22/24 08:20 Dose: 1 each Nicotine (Nicotine 21 Mg/24 Hr Tdsy) 1 patch TD QAM [facility] Stop: 09/20/24 01:49 Last Admin: 08/22/24 08:13 Dose: 1 patch Tramadol HCl (Tramadol Hcl 50 Mg Tablet) 25 - 50 mg PO Q4H PRN PRN Reason: Pain Stop: 09/20/24 01:46 Last Admin: 08/22/24 08:26 Dose: 50 mg
[2024-08-23] MEDS ORDERED: SODIUM PHOSPHATE 3 MMOL/1 ML INFUSION IV STA (08:00)
[2024-08-23] MEDS ORDERED: LEVALBUTEROL 1.25 MG/3 ML NEB NEB PRN (08:33)
[2024-08-23] MEDS ORDERED: IPRATROPIUM BROMIDE NEB SOLN 0.02% 0.5MG/2.5ML VIAL INH PRN (08:33)
[2024-08-23] MEDS: SODIUM PHOSPHATE 9 MMOL in SODIUM CHLORIDE 0.9% 250 ML IV ONE (08:34)
--- NOTE | 2024-08-23 10:39 | Urology Progress Note ---
Date of Service August 23, 2024 Assessment & Plan (1) Severe sepsis: (2) Hydroureteronephrosis: Plan Status post right ureteral stent placement yesterday Tolerating the stent well Clinically improving We will still be awaiting cultures and complete stabilizations I do not think she is quite ready for discharge home yet, however she is at least asking about discharge For the time being we will plan to leave the stent in place and can determine long-term management at a later date Please call if other issues arise during this hospitalization Admission and Anticipated Discharge Date Admission Date: August 21, 2024 Subjective Subjectively improved today She feels a bit more energetic but she does have some pressure on her flank and in the pelvis No hematuria or dysuria Discussed going home and she is somewhat anxious to go home Physical Exam Constitutional: well developed and well nourished Respiratory: no respiratory distress Cardiovascular: Extremities: no pedal edema Gastrointestinal (Abdomen): Inspection/Auscultation: abdomen normal to inspection Results & Data Vital Signs (Past 12 Hours) Vital Signs Temp Pulse Pulse Resp BP Pulse Ox O2 Del Method 08/23/24 07:57 36.7 C 80 18 106/62 95 Room Air 08/23/24 07:52 88 18 93 Nasal Cannula 08/23/24 07:44 78 08/23/24 04:06 36.8 C 80 20 124/72 95 Nasal Cannula 08/23/24 00:00 36.8 C 79 20 102/62 94 Nasal Cannula 08/22/24 23:40 85 O2 Flow Rate 08/23/24 07:57 2 08/23/24 07:52 2 08/23/24 07:44 08/23/24 04:06 2 08/23/24 00:00 2 08/22/24 23:40 PG Care Time/CCT Total # of Minutes Spent Total Time Spent with Patient: Total time spent is greater than 50% in coordination of care (as documented) at patient's floor/unit and/or counseling patient: Coding Level of Care Code 65503 SUB INP/OBS CARE 2/35MIN Diagnoses Severe sepsis A41.9; R65.20 Hydroureteronephrosis N13.30
[2024-08-23] MEDS: guaiFENesin 600 MG TABCR PO SCH (10:40)
[2024-08-24 07:29] LABS: Hemoglobin 10.5 g/dl (12.0-16.0); Mean Corpuscular Hgb Conc 32.8 g/dL (32.0-36.0); Mean Corpuscular Volume 88.4 fL (80.0-100.0); Platelet Count 180 K/uL (130-400); RDW Coefficient of Variation 16.7 % (11.5-14.5); RDW Standard Deviation 54.4 fL (36.4-46.3); Red Blood Count 3.62 M/uL (4.20-5.40); White Blood Count 9.76 K/ul (4.8-10.8)
[2024-08-24 07:47] LABS: Calcium 8.1 mg/dl (8.6-10.3); Creatinine Clr Calc Pharmacy 33.7 ml/min; Magnesium 1.9 mg/dl (1.7-2.4); Phosphorus 2.1 mg/dl (2.5-4.9); Potassium 4.1 mmol/L (3.5-5.1)
[2024-08-24] MEDS: PHENAZOPYRIDINE HCL 200 MG TAB PO PRN (09:32)
--- NOTE | 2024-08-24 09:47 | Hospitalist Progress Note ---
Date of Service August 24, 2024 Assessment & Plan (1) Severe sepsis: Plan: Klebsiella bacteremia SIRS plus ARF on CKD Secondary to complicated UTI History of right hydronephrosis Metastatic carcinoid tumor status post surgery status post stem cell transplant (Patient refused recommendations by local oncologist.) Plan Medical telemetry Blood cult - posit. for Klebsiella urine cultx - Klebsiella Urine and blood cutx posit. for Klebsiella, pansensitive - switch cefepime to ceftriaxone repeat blood cultx - negat. for 24 hrs ID consulted Urology consult re: obstructive uropathy/hydronephrosis resulting in sepsis/kidney dysfunction (ED provider already in touch with Dr. Chirinos.) Per urology - s/p ureteral stent placement on 08/22/2023 Hahn catheter - draining cloudy urine yesterday, now removed and pt is voiding WBC down from 23K to 13.8 K -> normalized now Cr down from 1.7 to 1.36 -> 1.2 Hypoxemic respiratory failure secondary to COPD exacerbation Steroid course, nebs RTC for COPD exacerbation Troponin elevation secondary to illness, demand ischemia hx PAD Hyperglycemia, current hemoglobin A1c 6.3% ongoing tobacco abuse, nicotine patch applied DVT prophylaxis with heparin subcu DNR Admission and Anticipated Discharge Date Admission Date: August 21, 2024 Subjective Pt seen in follow up of sepsis, bacteremia, UTI urology consulted, s/p ureteral stent Palliative also consulted Today, laying in bed in NAD, more awake. feeling well. Hahn removed and pt is voiding. Tolerating diet. Urine and blood cutx posit. for Klebsiella, pansensitive - switch cefepime to ceftriaxone Review of Systems Review of Systems: All systems reviewed & are unremarkable except as noted in Subjective Physical Exam Physical Exam: GENERAL: slim elderly F in NAD, chronically ill appearing SKIN: Normal color, warm HEENT: NC/AT. [place] palpebral conjunctivae, nasal cannula in place NECK : Supple, no tenderness CHEST : Decreased breath sounds, no wheezes, no rhonchi HEART : rrr, no obvious murmurs ABDOMEN: Some distention, nontender EXTREMITIES : No LE swelling, moves extremities NEUROLOGIC : Coherent, no facial asymmetry, gait and stance not assessed SKIN: Normal color, warm Results & Data Results & Data Vital Signs (Past 12 Hours) Vital Signs Temp Pulse Pulse Resp BP Pulse Ox O2 Del Method 08/24/24 07:47 36.8 C 70 18 112/62 94 Nasal Cannula 08/24/24 07:38 Nasal Cannula 08/24/24 07:05 71 08/24/24 04:16 36.7 C 68 20 106/68 94 Nasal Cannula 08/23/24 23:44 36.5 C 70 20 114/69 93 Nasal Cannula 08/23/24 22:08 Nasal Cannula O2 Flow Rate 08/24/24 07:47 2 08/24/24 07:38 2 08/24/24 07:05 08/24/24 04:16 2 08/23/24 23:44 2 08/23/24 22:08 2 Laboratory Results 08/24/24 Range/Units 07:05 WBC 9.76 (4.8-10.8) K/ul RBC 3.62 L (4.20-5.40) M/uL Hgb 10.5 L (12.0-16.0) g/dl Hct 32.0 L (37.0-47.0) % MCV 88.4 (80.0-100.0) fL MCH 29.0 (25.0-34.0) pg MCHC 32.8 (32.0-36.0) g/dL RDW Std Deviation 54.4 H (36.4-46.3) fL RDW Coeff of Noris 16.7 H (11.5-14.5) % Plt Count 180 (130-400) K/uL MPV 11.0 (9.4-12.4) fL Sodium 135 L (136-145) mmol/L Potassium 4.1 (3.5-5.1) mmol/L Chloride 110 H (98-107) mmol/L Carbon Dioxide 19 L (21-32) mmol/L Anion Gap 6 (3-11) BUN 23 (6-23) mg/dl Creatinine 1.21 H (0.6-1.2) mg/dl Est Cr Clr Drug Dosing 33.7 ml/min eGFR 47.03 BUN/Creatinine Ratio 19.0 (10-20) Glucose 83 (70-99(Fasting)) mg/dl Calcium 8.1 L (8.6-10.3) mg/dl Phosphorus 2.1 L (2.5-4.9) mg/dl Magnesium 1.9 (1.7-2.4) mg/dl Medications Administered Current Inpatient Medications Acetaminophen (Acetaminophen 325 Mg Tab) 650 mg PO QID PRN PRN Reason: pain/fever Stop: 09/20/24 01:46 Last Admin: 08/21/24 23:53 Dose: 650 mg Guaifenesin (Guaifenesin 600 Mg Tabcr) 600 mg PO Q12 [facility] Stop: 09/22/24 09:04 Last Admin: 08/24/24 09:32 Dose: 600 mg Heparin Sodium (Porcine) (Heparin Sod 5,000 Unit/0.5 Ml Vial) 5,000 units SQ Q8 [facility] Stop: 09/20/24 05:59 Last Admin: 08/24/24 04:04 Dose: Not Given Promethazine HCl (Phenergan) 6.25 mg in 50.25 mls @ 201 mls/hr IV Q6H PRN PRN Reason: Nausea And Vomiting Stop: 09/20/24 01:46 Cefepime HCl (Maxipime 2000mg) 1,000 mg in 10 mls @ 5 mls/min IV Q12H [facility]; Protocol Stop: 08/31/24 09:59 Last Admin: 08/24/24 09:32 Dose: 5 mls/min Ipratropium [place] (Ipratropium [place] Neb Soln 0.02% 0.5mg/2.5ml Vial) 0.5 mg INH QIDR PRN PRN Reason: Shortness Of Breath Or Wheezing Stop: 09/20/24 06:59 Levalbuterol HCl (Levalbuterol 1.25 Mg/3 Ml Neb) 1.25 mg NEB QIDR PRN PRN Reason: Shortness Of Breath Or Wheezing Stop: 09/20/24 06:59 Miscellaneous (Remove Nicoderm Patch) 1 each N/A DAILY@0859 [facility] Stop: 09/21/24 08:58 Last Admin: 08/24/24 09:46 Dose: 1 each Nicotine (Nicotine 21 Mg/24 Hr Tdsy) 1 patch TD QAM [facility] Stop: 09/20/24 01:49 Last Admin: 08/24/24 09:32 Dose: 1 patch Phenazopyridine HCl (Phenazopyridine Hcl 200 Mg Tab) 200 mg PO TID PRN PRN Reason: Dysuria Stop: 09/23/24 02:05 Last Admin: 08/24/24 09:32 Dose: 200 mg Tramadol HCl (Tramadol Hcl 50 Mg Tablet) 25 - 50 mg PO Q4H PRN PRN Reason: Pain Stop: 09/20/24 01:46 Last Admin: 08/24/24 01:17 Dose: 50 mg
[2024-08-24] MEDS: cefTRIAXone SODIUM 2,000 MG/50 ML BAG IV SCH (15:55)
[2024-08-25 06:32] LABS: Hematocrit (blood only) 30.8 % (37.0-47.0); Hemoglobin 10.7 g/dl (12.0-16.0); Mean Corpuscular Hgb Conc 34.7 g/dL (32.0-36.0); Mean Corpuscular Volume 86.3 fL (80.0-100.0); Mean Platelet Volume 10.4 fL (9.4-12.4); Platelet Count 221 K/uL (130-400); RDW Coefficient of Variation 16.1 % (11.5-14.5); Red Blood Count 3.57 M/uL (4.20-5.40); White Blood Count 10.22 K/ul (4.8-10.8)
[2024-08-25 06:51] LABS: BUN Creatinine Ratio 15.6 (10-20); Calcium 8.5 mg/dl (8.6-10.3); Creatinine Clr Calc Pharmacy 33.5 ml/min; Magnesium 1.8 mg/dl (1.7-2.4); Phosphorus 1.9 mg/dl (2.5-4.9); Potassium 3.8 mmol/L (3.5-5.1)
[2024-08-25] MEDS ORDERED: SODIUM PHOSPHATE 3 MMOL/1 ML INFUSION IV STA (08:37)
[2024-08-25] MEDS: POT PHOSPHATE MONOBASIC W/ SOD TAB PO SCH (10:03)
--- NOTE | 2024-08-25 15:41 | Discharge Summary ---
Date of Service August 25, 2024 Admission HPI Per Admitting Provider History obtained from patient, family, and records. 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 Recent confinement May 2024 for SBO, ARF in the setting of metastatic carcinoid tumor. CT abd/pelvis with interval enlargement of retroperitoneal and mesenteric masses and resulting right hydronephrosis. intervention not warranted as per urology during confinement. Patient started feeling sick the last few days. Denies abdominal pain or flank pain. Watery diarrhea. Dry cough symptoms a little bit SOB than usual. Denies chest pain. Not sure about sick contacts. Lowest O2 sats of 80s documented at the ER. 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 Admission Exam Per Admitting Provider GENERAL: uncomfortable, ill-appearing, chronically ill, respiratory distress SKIN: Normal color, warm HEENT: [place] palpebral conjunctivae, no ptosis, dry buccal mucosa, nasal cannula in place NECK : Supple, no tenderness CHEST : Decreased breath sounds, diffuse expiratory wheezes HEART : Tachycardic, no obvious murmurs ABDOMEN: Some distention, nontender EXTREMITIES : No LE swelling/tenderness, no other conspicuous deformities noted NEUROLOGIC : Coherent, no facial asymmetry, gait and stance not assessed Principal Diagnosis Sepsis Klebsiella UTI, bacteremia Hydronephrosis s/p ureteral stent placement Discharge Exam GENERAL: slim elderly F in NAD, chronically ill appearing SKIN: Normal color, warm HEENT: NC/AT. [place] palpebral conjunctivae, nasal cannula in place NECK : Supple, no tenderness CHEST : Decreased breath sounds, no wheezes, no rhonchi HEART : rrr, no obvious murmurs ABDOMEN: Some distention, nontender EXTREMITIES : No LE swelling, moves extremities NEUROLOGIC : Coherent, no facial asymmetry, gait and stance not assessed SKIN: Normal color, warm Discharge Data Allergies Allergy/AdvReac Type Severity Reaction Status Date / Time Iodinated Contrast Media Allergy PT STATES Verified 06/07/24 16:17 [Iodinated Contrast- Oral SHE HAD A and IV Dye] CARDIAC ARREST FOLLOWING IV FORM sulfamethoxazole Allergy Neuro Verified 06/07/24 16:17 [From Bactrim] complications trimethoprim [From Bactrim] Allergy Neuro Verified 06/07/24 16:17 complications codeine AdvReac Unknown Headache Verified 06/07/24 16:17 morphine AdvReac Unknown PT SAID IT Verified 06/07/24 16:17 SHUTS HER SYSTEM DOWN naproxen AdvReac Diarrhea Verified 06/07/24 16:17 Consultations 08/21/24 00:34 ED Decision to Admit Stat 08/21/24 01:21 Consult Urology Routine 08/21/24 08:46 Consult Palliative Care Routine 08/22/24 10:40 Consult Oncology Routine 08/22/24 10:43 Consult Radiation Oncology Routine Procedures Performed Operation Date: 08/22/24 12:50 Actual Procedures p Cystoscopy, Right Stent Placement(Right) - Kane Green MD Ordered Studies 08/20/24 23:04 CT Abdomen and Pelvis [CT abd pelvis wo con] Stat FINDINGS: Limited by lack of oral and IV contrast material. Lung bases: Interval increase in size of a 1.3 cm soft tissue nodule in the right lung base overlying the inferior medial aspect of the right hemidiaphragm. Interval development of a pleural-based 1.4 x 2.9 cm partially visualized noncalcified mass at the inferior medial right lung base. Small amount of right pleural fluid. Mild bibasilar atelectasis. ABDOMEN: Liver: 16.8 cm length. No focal intrahepatic lesion identified. Gallbladder and bile ducts: Post cholecystectomy. No ductal dilation. Pancreas: Unremarkable. No ductal dilation. Spleen: Unremarkable. No splenomegaly. Adrenals: Unremarkable. No mass. Kidneys and ureters: Kidneys are poorly characterized without IV contrast material. Interval increase in right hydronephrosis and hydroureter to level of the retroperitoneal mass the right lateral aspect of the aorta likely effacing obstructing the proximal right ureter. Stomach and bowel: Mildly dilated distal small bowel with air-fluid levels with runny infiltration centered in the right lower quadrant and upper pelvis aside of possible mesenteric nodularity. Fluid-filled colon. The right colon is not well visualized with right lower quadrant surgical clips. No evidence for diverticulitis. PELVIS: Appendix: No findings to suggest acute appendicitis. Bladder: Partially contracted. No stones. Reproductive: Unremarkable as visualized. ABDOMEN and PELVIS: Intraperitoneal space: No free air. No free fluid. Bones/joints: No acute fracture. Soft tissues: Interval increase in size of a right periaortic retroperitoneal soft tissue mass at the level of right kidney 2.5 cm in diameter. Poorly characterized mesenteric masses including a right lower quadrant mass medial to the level of the cecum with calcification measuring up to 2 cm. Vasculature: Diffuse atherosclerotic vascular calcifications. Unchanged infrarenal aortic fusiform aneurysm of 2 3.2 cm diameter. Abdominal aortic aneurysm. Lymph nodes: Unremarkable. No enlarged lymph nodes. IMPRESSION: Interval increase in size of a right periaortic retroperitoneal soft tissue mass, likely because of the increased right hydronephrosis and proximal hydroureter. Mild dilatation of distal small bowel with air-fluid levels the level of. Postoperative changes in the right lower quadrant with mesenteric nodularity, suggesting partial small bowel obstruction due to scarring versus mesenteric masses/neoplasm. Interval increase in size of a right lower lobe noncalcified probable pleural-based nodule. Interval development of a new left basilar pleural- based nodule with small amount of pleural fluid and associated atelectasis. Recommend correlation to patient's prior clinical history. Otherwise no change. 08/22/24 [place] retrograde includes kub Routine Hospital Course (1) Severe sepsis: Klebsiella bacteremia SIRS plus ARF on CKD Secondary to complicated UTI History of right hydronephrosis Metastatic carcinoid tumor status post surgery status post stem cell transplant (Patient refused recommendations by local oncologist.) Plan Medical telemetry Blood cult - posit. for Klebsiella urine cultx - Klebsiella Urine and blood cutx posit. for Klebsiella, pansensitive - switched cefepime to ceftriaxone repeat blood cultx - negat. for 48 hrs ID consulted and discussed with - ok to discharge on Augmentin 875 bid for next 7 days. Urology consult re: obstructive uropathy/hydronephrosis resulting in sepsis/kidney dysfunction (ED provider already in touch with Dr. Chirinos.) Per urology - s/p ureteral stent placement on 08/22/2023 Hahn catheter - draining cloudy urine yesterday, now removed and pt is voiding WBC down from 23K to 13.8 K -> normalized now Cr down from 1.7 to 1.36 -> 1.2 Hypoxemic respiratory failure secondary to COPD exacerbation Steroid course, nebs RTC for COPD exacerbation - resolved, pt is on RA Troponin elevation secondary to illness, demand ischemia hx PAD Hyperglycemia, current hemoglobin A1c 6.3% ongoing tobacco abuse, nicotine patch applied Total Time Total Time Spent Total Time Spent (In Minutes): 40 Discharge Plan Discharge Items Patient Disposition: Home - Self-Care Reason For Visit: SEPSIS Discharge Diagnosis: Sepsis Klebsiella UTI, bacteremia Hydronephrosis s/p ureteral stent placement Activity: Per Instructions section Non-emergency contact: Primary Care Provider, Specialist, Oncologist and Urologist Call non-emergency contact if: you have any medication questions and your symptoms worsen Follow-up/Referrals: Alvarado Guido MD [Outside Practitioners] - (09/01/2024 3:20 PM Provider: Alvarado Guido MD Department: [facility] ) Diet: Regular Addtl Attending Provider Instructions: Follow up with primary care doctor, urologist and oncologist. Also, follow up with palliative medicine. Take Augmentin twice a day for next 7 days, as prescribed, to finish the antibiotic treatment. Pending Studies at Discharge: Yes Studies:: repeat blood cultx results Stand-Alone Forms: My Zoom, Smoking Cessation Medications and DC Order Prescriptions: New amoxicillin-pot clavulanate 875-125 mg tablet 1 tab PO BID 7 Days Qty: 14 0RF guaifenesin [Mucinex] 600 mg Tablet Extended Release 12hr 600 mg PO Q12 Qty: 10 0RF phenazopyridine [Pyridium] 200 mg Tablet 200 mg PO TID PRN (Reason: pain) 3 Days Qty: 10 0RF Phospha 250 Neutral 250 mg Tablet 1 tab PO Q8H Qty: 10 0RF Continued fluticasone propion-salmeterol [Advair HFA] 230-21 mcg/actuation Hfa Aerosol Inhaler 2 puff INHALATION BID albuterol sulfate [Ventolin HFA] 90 mcg/actuation HFA aerosol inhaler 2 puff INHALATION Q4 PRN (Reason: asthma) Discharge Orders: Discharge Order (Routine); Ordered 08/25/24 Ordered By: Ben Rendon/Other Patient Handouts: A1C Admission Data Admit Date/Time: 08/21/24 01:24 Attending Provider: Ben De La Paz Admit Provider: Alvarado Ortiz Primary Care Provider: Gin Guerra Other Providers: Alvarado Ortiz; Ricky Chirinos; Lindsay Hugo; Chiqui Sanders; Lita Serrano; Keny Coyne; Nupur Flores; Gab Ayala; Pierce Patel; Chepe Jimenez; Rona [place]; [facility],No Attending; Lauren Mcmahon; Deidra Gregory; Azar Geller; Verna Shukla; [facility]; [facility]
[2024-08-25 16:35] VITALS: BP 123/72; PULSE 77; RESP 15; TEMP 99.3; O2SAT 92
== END 2024-08-25 17:48 | disposition home or self-care (01) | DRG 853 ==
LOC: ED 21:38 → 2N 08-21 01:24

== ENCOUNTER 2024-12-19 11:24 | Inpatient (IN) ==
[2024-12-19 12:40] LABS: Hematocrit (blood only) 32.8 % (37.0-47.0); Hemoglobin 10.6 g/dl (12.0-16.0); Mean Corpuscular Hemoglobin 26.6 pg (25.0-34.0); Mean Corpuscular Hgb Conc 32.3 g/dL (32.0-36.0); Mean Corpuscular Volume 82.4 fL (80.0-100.0); Mean Platelet Volume 9.9 fL (9.4-12.4); Platelet Count 396 K/uL (130-400); RDW Coefficient of Variation 15.9 % (11.5-14.5); Red Blood Count 3.98 M/uL (4.20-5.40); White Blood Count 10.13 K/ul (4.8-10.8)
--- NOTE | 2024-12-19 12:43 | Emergency Department Note ---
Impression & Plan DVT (deep venous thrombosis) Admission ED Provider Note HPI: History obtained from patient. The patient is a 74-year-old female with history of peripheral vascular disease, still actively smoking, history of neuroendocrine cancer, presents emergency department chief complaint of right lower extremity pain. Patient has a DVT in the right lower extremity that extends up to the inferior vena cava that was diagnosed 2 nights ago when she was here in the ED. Patient signed out AGAINST MEDICAL ADVICE at that time. Patient states that she followed up with her PCP today who advised her to go immediately back to the emergency room for admission given the extent of her DVT and need to discuss anticoagulation strategy. On arrival here to the ED the patient complains of pain in her right lower extremity where she does have some mild swelling, there is no discoloration, patient is otherwise hemodynamically stable on arrival, she denies any chest pain or shortness of breath. ROS: - Per HPI Differential Diagnosis: DVT, ischemic right lower extremity, amongst other potential pathologies. *Outpatient medications and allergy history reviewed. PE: General: Alert HEENT: Normocephalic, trachea midline Eyes: Extraocular eye movement is intact, no scleral erythema Pulmonary: Clear to auscultation bilaterally, no wheezing Cardio: Regular rate and rhythm GI: Abdomen is soft to palpation : No suprapubic tenderness MSK: No evidence of trauma or malformation of the extremities, mild asymmetrical edema of the right lower extremity in comparison to the left, the right lower extremity is warm to the touch with a palpable dorsalis pedis pulse, there is no cyanosis Skin: No evidence of rash Neuro: Alert, no focal deficits Psychiatric: Cooperative INDEPENDENT INTERPRETATIONS: school lunch monitor: (As interpreted by myself): - An order was placed for continuous cardiac monitoring - Patient was noted to be in sinus rhythm with a rate of 79 EKG: (As interpreted by myself): Rate: 84 Rhythm: Normal sinus rhythm Intervals: Within normal limits ST changes: No ST elevation Time: 1204 Interventions provided in ED: - IV Tylenol Medical Decision Making: Upon review of the patient's imaging from yesterday, she did have extensive DVT in the right lower extremity with extension into the inferior vena cava. Patient was given IV Tylenol by request here in the ED for pain, she declined any opioid pain medications. She has some mild asymmetrical edema in the right lower extremity in comparison to the left on exam but has motor and sensory function intact and otherwise this does not appear to be consistent with an ischemic limb. I discussed the patient's ultrasound imaging from yesterday with on-call vascular surgery, Dr. Oro, and he did review the images. He states the abdominal aortic aneurysm would not be a contraindication to initiating anticoagulation for the patient's extensive clot burden. I discussed admission with the patient, at this time she is agreeable. Patient was initiated on a heparin drip. I discussed the patient's presentation with the on-call [facility] hospitalist, Dr. Wright, and the patient was placed for admission in stable condition. Consultants/Discussions held with other healthcare providers: - Vascular surgery, Dr. Oro - Hospitalist, Dr. Wright Disposition discussion held by myself with: - Patient Diagnosis: 1. Right lower extremity DVT with extension of clot burden into the inferior vena cava, acute 2. Right lower extremity pain, acute Disposition: Admission Heriberto Castillo DO Emergency Medicine Past Med/Surg History Problem List (Updated 12/19/24 @ 15:26 by Heriberto Castillo DO) DVT (deep venous thrombosis) (Acute) Hyperkalemia (Acute) Acute deep vein thrombosis (DVT) of inferior vena cava (Acute) DVT, lower extremity (Acute) Counseling regarding advanced directives and goals of care Counseling regarding goals of care Severe sepsis Elevated procalcitonin (Acute) Elevated brain natriuretic peptide (BNP) level (Acute) Non-ST elevation ID (NSTEMI) (Acute) Leukocytosis (Acute) HERLINDA (acute kidney injury) (Acute) Acute hypoxemic respiratory failure (Acute) Hydroureteronephrosis (Acute) Partial small bowel obstruction (Acute) Generalized weakness (Acute) Sepsis (Acute) Palliative care by specialist Advanced care planning/counseling discussion Weakness generalized Abdominal pain, generalized Bradycardia Small bowel obstruction Hydronephrosis, right Partial small bowel obstruction HERLINDA (acute kidney injury) (Acute) Watery diarrhea Dyspnea Breast mass, right Chronic rhinitis PAD (peripheral artery disease) Tobacco dependence 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) Medical History (Updated 12/19/24 @ 15:26 by Heriberto Castillo DO) CKD (chronic kidney disease) COPD (chronic obstructive pulmonary disease) per hx, pt. denies any lung problems or seeing a clark driver Hx of hydronephrosis (08/20/24) had cysto/stent on right by dr. rice Medical non-compliance per hhx PAD (peripheral artery disease) Chronic rhinitis Hx SBO History of bradycardia Palliative care by specialist pt states follows with dr. hawkins, having a pet scan later in sep and will possibly undergo xrt Hx of non-ST elevation myocardial infarction (NSTEMI) (08/21/24) per chart, pt denies Poor historian pt. denies documented medical problems when questioned Dysphagia pt reports food getting stuck and difficulty breathing, reason for egd Neuroendocrine cancer follows with dr. hawkins Carcinoid tumor (2005) follows with dr. hawkins Hx of sepsis (08/20/24) admit to [facility], pt. unable to provide details Seasonal allergies prn inhaler Acute UTI admit to [facility] 08/20/24, mike on abx Surgical History Hx of stem cell transplant per hx, non compliant S/P cystoscopy with ureteral stent placement (08/22/24) inpatient at [facility], right stent Status post tubal ligation (~1973) H/O colonoscopy (~2017) History of hand surgery RIGHT 2nd FINGER RE-ATTACHEMENT 2/2 TRAUMA 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 History of hysterectomy DUSTIN/BSO History of cholecystectomy (~1979) Family History Mother , age 84 Heart disease Diabetes Father , age 84 Dementia Aunt Breast cancer Daughter Diabetes Grandmother Heart disease Other Family history non-contributory Social History Smoking Status: Current every day smoker Tobacco Type: Cigarettes Cigarettes Per Day: 1 ppd (advised); Second Hand Exposure: No; Do You Dip or Chew Tobacco: No; Hx Alcohol Use: Yes Alcohol type: hard liquor Alcohol Intake Frequency: Monthly or Less Hx Substance Use: No Preferred Language: Malawian Communication Ability: Effective Visual Impairment: No Limitations Hearing Ability: Normal Motion Picture Projectionist Apprentice Required: No Beliefs That Will Affect Care: None marital status: Current Living Situation: Spouse and Family Current Living Situation Comment: lives with in [place] 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 status: retired 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 How many Children do You have: 3 How many Children do You have Comment: daughters Feels Safe at Home: Yes Diet: regular during the past year weight has: remained stable Assistive Devices: Denture - Upper, Denture - Lower, Walker and Other Allergies Allergies Allergy/AdvReac Type Severity Reaction Status Date / Time Fish Containing Products Allergy Severe Gastrointestinal Unverified 12/19/24 13:59 Upset Iodinated Contrast Media Allergy Severe PT STATES Verified 12/19/24 13:59 [Iodinated Contrast- Oral SHE HAD A and IV Dye] CARDIAC ARREST FOLLOWING IV FORM sulfamethoxazole Allergy Mild Neuro Verified 12/19/24 13:59 [From Bactrim] complications trimethoprim [From Bactrim] Allergy Mild Neuro Verified 12/19/24 13:59 complications codeine AdvReac Mild Headache Verified 12/19/24 13:59 morphine AdvReac Mild PT SAID IT Verified 12/19/24 13:59 SHUTS HER SYSTEM DOWN naproxen AdvReac Mild Diarrhea Verified 12/19/24 13:59 Home Meds Home Medications Medication Instructions Recorded Confirmed pantoprazole 40 mg tablet,delayed 40 mg PO DAILYBB 12/18/24 12/19/24 release acetaminophen 500 mg tablet 500 mg PO Q6H PRN Pain 12/19/24 12/19/24 fentanyl 12 mcg/hr transdermal 1 patch transdermal Q3D 12/19/24 12/19/24 patch simethicone 80 mg chewable tablet 80 mg PO BID PRN Gastrointestinal 12/19/24 12/19/24 Spasms Or Cramping Results & Data (ED) Vital Signs Vital Signs - 24 hr 12/19/24 11:39 12/19/24 13:29 12/19/24 13:29 Temperature 36.5 C Temperature Source Skin Pulse Rate 104 H Pulse Rate [Apical] 78 Pulse Rate from SpO2 Sensor Pulse Rhythm Regular Pulse Strength Normal Respiratory Rate 20 18 Respiratory Effort / Characteristics Non-Labored Spontaneous Respiratory Depth Normal Respiratory Pattern Regular Blood Pressure 109/70 114/75 Blood Pressure [Left Arm] 114/75 Blood Pressure Mean 83 87 Blood Pressure Mean [Left Arm] 88 Pulse Oximetry 98 98 Oxygen Delivery Method Room Air Room Air Sepsis Recent Fever Within 48 Hours No Sepsis New/Unexplained Change in Mental Status N/A Sepsis Action Taken by Nursing No Action Required 12/19/24 13:30 12/19/24 13:31 12/19/24 14:00 Temperature Temperature Source Pulse Rate 86 87 76 Pulse Rate [Apical] Pulse Rate from SpO2 Sensor 69 75 Pulse Rhythm Pulse Strength Respiratory Rate 25 H 20 Respiratory Effort / Characteristics Respiratory Depth Respiratory Pattern Blood Pressure 122/72 Blood Pressure [Left Arm] Blood Pressure Mean 88 Blood Pressure Mean [Left Arm] Pulse Oximetry 98 95 Oxygen Delivery Method Sepsis Recent Fever Within 48 Hours Sepsis New/Unexplained Change in Mental Status Sepsis Action Taken by Nursing 12/19/24 14:00 12/19/24 14:00 12/19/24 14:33 Temperature Temperature Source Pulse Rate 71 67 Pulse Rate [Apical] Pulse Rate from SpO2 Sensor 65 Pulse Rhythm Pulse Strength Respiratory Rate 20 16 Respiratory Effort / Characteristics Respiratory Depth Respiratory Pattern Blood Pressure 116/72 116/72 119/68 Blood Pressure [Left Arm] Blood Pressure Mean 82 82 85 Blood Pressure Mean [Left Arm] Pulse Oximetry 96 95 Oxygen Delivery Method Sepsis Recent Fever Within 48 Hours Sepsis New/Unexplained Change in Mental Status Sepsis Action Taken by Nursing 12/19/24 15:00 12/19/24 15:09 12/19/24 15:09 Temperature Temperature Source Pulse Rate 67 Pulse Rate [Apical] 68 Pulse Rate from SpO2 Sensor 67 Pulse Rhythm Pulse Strength Respiratory Rate 23 16 Respiratory Effort / Characteristics Respiratory Depth Respiratory Pattern Blood Pressure 125/74 Blood Pressure [Left Arm] 125/74 Blood Pressure Mean 83 Blood Pressure Mean [Left Arm] 91 Pulse Oximetry 93 94 94 Oxygen Delivery Method Room Air Room Air Sepsis Recent Fever Within 48 Hours Sepsis New/Unexplained Change in Mental Status Sepsis Action Taken by Nursing Laboratory Data 12/19/24 12:15 12/19/24 12:15 Lab Results 12/19/24 12/19/24 Range/Units 12:15 13:48 WBC 10.13 (4.8-10.8) K/ul RBC 3.98 L (4.20-5.40) M/uL Hgb 10.6 L (12.0-16.0) g/dl Hct 32.8 L (37.0-47.0) % MCV 82.4 (80.0-100.0) fL MCH 26.6 (25.0-34.0) pg MCHC 32.3 (32.0-36.0) g/dL RDW Std Deviation 48.0 H (36.4-46.3) fL RDW Coeff of Noris 15.9 H (11.5-14.5) % Plt Count 396 (130-400) K/uL MPV 9.9 (9.4-12.4) fL Immature Gran % (Auto) 0.6 % Neut % (Auto) 76.8 % Lymph % (Auto) 16.4 % Cooper % (Auto) 5.0 % Eos % (Auto) 0.8 % Baso % (Auto) 0.4 % Neut # (Auto) 7.78 H (1.40-6.50) K/uL Lymph # (Auto) 1.66 (1.20-3.40) K/uL Cooper # (Auto) 0.51 (0.11-0.59) K/uL Eos # (Auto) 0.08 (0.00-0.50) K/uL Baso # (Auto) 0.04 (0.00-0.20) K/uL Immature Gran # (Auto) 0.06 (0.01-0.20) K/uL PT Cancelled 10.4 INR Cancelled 1.0 APTT Cancelled 27 PTT Ratio Cancelled 1.0 Sodium 134 L (136-145) mmol/L Potassium 4.3 D (3.5-5.1) mmol/L Chloride 101 (98-107) mmol/L Carbon Dioxide 25 (21-32) mmol/L Anion Gap 8 (3-11) BUN 15 (6-23) mg/dl Creatinine 1.28 H (0.6-1.2) mg/dl Est Cr Clr Drug Dosing 30.4 ml/min eGFR 43.96 BUN/Creatinine Ratio 11.7 (10-20) Glucose 145 H (70-99(Fasting)) mg/dl Calcium 8.9 (8.6-10.3) mg/dl Total Bilirubin 0.6 (0.2-1.0) mg/dl AST 14 (13-39) U/L ALT 4 L (7-52) U/L Alkaline Phosphatase 86 (34-104) U/L Total Protein 8.1 (6.0-8.3) gm/dl Albumin 3.4 (3.4-5.0) gm/dl Globulin 4.7 H (2.5-4.0) gm/dl Albumin/Globulin Ratio 0.7 L (0.9-2) Administered Medications Heparin Sodium/Dextrose (Heparin 25064 Unit/500 Ml D5w) 25,000 units in 500 mls @ 18 mls/hr IV .Q24H ALVARO; Protocol Stop: 01/18/25 13:44 Last Admin: 12/19/24 14:18 Dose: 900 units/hr, 18 mls/hr Documented By: MARYANN Co-signed By: ROZINA Discontinued Medications Heparin Sodium (Porcine) (Heparin Sod (Porcine) 1000 Unit/Ml) 1 units IV NOW ONE Stop: 12/19/24 13:40 Last Admin: 12/19/24 14:17 Dose: 4,000 units Documented By: MARYANN Co-signed By: ROZINA Heparin Sodium/Dextrose (Heparin Iv Adult Wt-Based Standard W/ Initial Bolus Protocol) 1 each IV NOW STA; Protocol Stop: 12/19/24 13:24 Last Admin: 12/19/24 14:21 Dose: Not Given Documented By: MARYANN Acetaminophen (Ofirmev) 1,000 mg in 100 mls @ 400 mls/hr IV NOW STA Stop: 12/19/24 13:49 Last Infusion: 12/19/24 14:20 Dose: Infused Documented By: Admin: 12/19/24 13:47 Dose: 400 mls/hr Documented By: MARYANN Morphine Sulfate (Morphine Sulfate 4 Mg/Ml 1 Ml Carp\Vial) 4 mg IV NOW STA Stop: 12/19/24 12:42 Last Admin: 12/19/24 13:26 Dose: Not Given Documented By: MARYANN Discharge Plan Visit Data Chief Complaint: Leg Injury/Pain Stated Complaint: BLOOD CLOT, RT LEG PAIN ED Provider: Heriberto Castillo Discharge Problem: DVT (deep venous thrombosis) Patient Disposition: Admitted As Inpatient Condition: Fair Forms Stand Alone Forms: [facility] Prescriptions Prescriptions: No Action pantoprazole 40 mg tablet,delayed release (DR/EC) 40 mg PO DAILYBB acetaminophen [Tylenol Ex Str Rapid Release] 500 mg Tablet 500 mg PO Q6H PRN (Reason: Pain) simethicone [Gas-X] 80 mg Tablet,Chewable 80 mg PO BID PRN (Reason: Gastrointestinal Spasms Or Cramping) fentanyl 12 mcg/hr patch 72 hour 1 patch transdermal Q3D Rx Instructions: Pt removed patch on 12/18/24, hasn't been replaced as of 12/19/24 Referrals Referrals: Gin Guerra DO [Primary Care Provider] -
[2024-12-19 12:51] LABS: Basophils # (auto) 0.04 K/uL (0.00-0.20); Basophils % (auto) 0.4 %; Eosinophils # (auto) 0.08 K/uL (0.00-0.50); Eosinophils % (auto) 0.8 %; Immature Granulocytes # (auto) 0.06 K/uL (0.01-0.20); Immature Granulocytes % (auto) 0.6 %; Lymphocytes # (auto) 1.66 K/uL (1.20-3.40); Lymphocytes % (auto) 16.4 %; Monocytes # (auto) 0.51 K/uL (0.11-0.59); Neutrophils # (auto) 7.78 K/uL (1.40-6.50); Neutrophils % (auto) 76.8 %
[2024-12-19 12:57] LABS: Albumin Globulin Ratio 0.7 (0.9-2); Albumin Level 3.4 gm/dl (3.4-5.0); BUN Creatinine Ratio 11.7 (10-20); Bilirubin,Total 0.6 mg/dl (0.2-1.0); Calcium 8.9 mg/dl (8.6-10.3); Creatinine Clr Calc Pharmacy 30.4 ml/min; Globulin 4.7 gm/dl (2.5-4.0); Potassium 4.3 mmol/L (3.5-5.1); Total Protein 8.1 gm/dl (6.0-8.3)
[2024-12-19] MEDS: MoRPHine SULFATE 4 MG/ML 1 ML CARP\\VIAL IV STA (13:26)
[2024-12-19] MEDS: ACETAMINOPHEN 1,000 MG/100 ML VIAL IV STA (13:47)
[2024-12-19] MEDS: HEPARIN SOD (PORCINE) 1000 UNIT/ML IV ONE (14:17)
[2024-12-19] MEDS: HEPARIN 25000 UNIT/500 ML D5W 25,000 UNITS/500 ML BAG IV SCH (14:18)
[2024-12-19] MEDS: Heparin IV Adult Wt-Based Standard w/ INITIAL Bolus Protocol IV STA (14:21)
[2024-12-19 14:30] LABS: Partial Thromboplastin Time 27 Seconds (21-31); Prothrombin Time 10.4 Seconds (9.0-12.0)
[2024-12-19] MEDS ORDERED: POLYETHYLENE (MIRALAX) 17 GM PACK PO PRN (14:30)
[2024-12-19] MEDS ORDERED: oxyCODONE HCL IR 5 MG TAB (IMMEDIATE RELEASE) PO PRN (14:30)
[2024-12-19] MEDS ORDERED: ALUMINUM/MAGNESIUM SUSP 30 ML UDC PO PRN (14:30)
--- NOTE | 2024-12-19 14:43 | History & Physical Report ---
Date of Service December 19, 2024 Assessment & Plan (1) Acute deep vein thrombosis (DVT) of inferior vena cava: Plan Assessment/plan Acute DVT of right lower extremity Abdominal aortic aneurysm with possible partial thrombosis Patient presents to the hospital with right leg pain. Found to have DVT on 12/18/2024; left AMA; came back after her primary care recommended her to come to the ED. Venous duplex shows evidence of extensive DVT within right common femoral, superficial, right popliteal and posterior tibial and mid inferior vena cava. Aortic aneurysm dilation of 3.5 into 3.3 cm showing eccentric hyperechoic material within it Continue heparin drip; will switch over to DOAC's in next few days. Vascular surgery consulted by ED; appreciate recommendation Due to the unprovoked nature of her DVT and carcinoid cancer; patient will likely need lifelong anticoagulation. She to follow up with her oncologist after discharge. Right-sided hydronephrosis secondary to carcinoid tumor status post stent placement- Had a hospitalization in August 2024 with hydronephrosis; Follow- up with urology as scheduled Metastatic neuroendocrine carcinoma- Follows up with Dr. Santana from [facility]; reports that she is restarted on octreotide every 3 to 4 weeks. Reports that she is on fentanyl patch;ordered History of COPD, active tobacco usecurrently not on inhaler; nicotine patch ordered DNR/DNI as per goals of care discussion at bedside. D VT prophylaxis heparin Time spent evaluating patient, direct bedside care, chart review, placing orders, interpretation of diagnostic studies, discussion with consultants, patient, and family members, as well as other required patient management activities is 75 minutes Please note the above document was generated using voice recognition software. It may contain grammatical, syntax or spelling errors. Any formal questions or concerns about the content, text or information contained within the body of this dictation should be directly addressed to the provider for clarification History of Present Illness Chief Complaint: Right leg swelling for 2 weeks Primary Care Provider: Gin Guerra DO History obtained from interview with the patient, chart review and discussion with the ED provider. Past medical history of carcinoid tumor chronic pain related to carcinoid tumor on fentanyl patch. Patient had presented to the ED department on 12/18/2024 with right leg cramping over the last 10 days. She was found to have right leg DVT from mid inferior vena cava to right calf as well as evidence of abdominal aortic aneurysm which is partially thrombosed. Patient decided to leave the hospital AGAINST MEDICAL ADVICE. Patient went to her primary care doctor on 12/19/2024 for the same pain. After discussion; she decided to come to the emergency department. On presentation to the ED, she was afebrile, normotensive and saturating well in room air. She was started on heparin drip after discussion with vascular surgery on-call by the ED provider. Patient denies chest pain, shortness of breath, abdominal pain, melena. Allergies Allergy/AdvReac Type Severity Reaction Status Date / Time Fish Containing Products Allergy Severe Gastrointestinal Unverified 12/19/24 13:59 Upset Iodinated Contrast Media Allergy Severe PT STATES Verified 12/19/24 13:59 [Iodinated Contrast- Oral SHE HAD A and IV Dye] CARDIAC ARREST FOLLOWING IV FORM sulfamethoxazole Allergy Mild Neuro Verified 12/19/24 13:59 [From Bactrim] complications trimethoprim [From Bactrim] Allergy Mild Neuro Verified 12/19/24 13:59 complications codeine AdvReac Mild Headache Verified 12/19/24 13:59 morphine AdvReac Mild PT SAID IT Verified 12/19/24 13:59 SHUTS HER SYSTEM DOWN naproxen AdvReac Mild Diarrhea Verified 12/19/24 13:59 Home Medications Medication Instructions Recorded Confirmed Type pantoprazole 40 mg tablet,delayed 40 mg PO DAILYBB 12/18/24 12/19/24 History release acetaminophen 500 mg tablet 500 mg PO Q6H PRN Pain 12/19/24 12/19/24 History fentanyl 12 mcg/hr transdermal 1 patch transdermal Q3D 12/19/24 12/19/24 History patch simethicone 80 mg chewable tablet 80 mg PO BID PRN Gastrointestinal 12/19/24 12/19/24 History Spasms Or Cramping Past Med/Surg History Problem List (Updated 12/18/24 @ 04:09 by Deb Sebastian DO) Hyperkalemia (Acute) Acute deep vein thrombosis (DVT) of inferior vena cava (Acute) DVT, lower extremity (Acute) Counseling regarding advanced directives and goals of care Counseling regarding goals of care Severe sepsis Elevated procalcitonin (Acute) Elevated brain natriuretic peptide (BNP) level (Acute) Non-ST elevation ND (NSTEMI) (Acute) Leukocytosis (Acute) HERLINDA (acute kidney injury) (Acute) Acute hypoxemic respiratory failure (Acute) Hydroureteronephrosis (Acute) Partial small bowel obstruction (Acute) Generalized weakness (Acute) Sepsis (Acute) Palliative care by specialist Advanced care planning/counseling discussion Weakness generalized Abdominal pain, generalized Bradycardia Small bowel obstruction Hydronephrosis, right Partial small bowel obstruction HERLINDA (acute kidney injury) (Acute) Watery diarrhea Dyspnea Breast mass, right Chronic rhinitis PAD (peripheral artery disease) Tobacco dependence 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) Medical History (Updated 12/18/24 @ 04:09 by Deb Sebastian DO) CKD (chronic kidney disease) COPD (chronic obstructive pulmonary disease) per hx, pt. 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 rice Medical non-compliance per hhx PAD (peripheral artery disease) Chronic rhinitis Hx SBO History of bradycardia Palliative care by specialist pt states follows with dr. hawkins, having a pet scan later in sep and will possibly undergo xrt Hx of non-ST elevation myocardial infarction (NSTEMI) (08/21/24) per chart, pt denies Poor historian pt. denies documented medical problems when questioned Dysphagia pt reports food getting stuck and difficulty breathing, reason for egd Neuroendocrine cancer follows with dr. hawkins Carcinoid tumor (2005) follows with dr. hawkins Hx of sepsis (08/20/24) admit to [facility], pt. unable to provide details Seasonal allergies prn inhaler Acute UTI admit to [facility] 08/20/24, mike on abx Surgical History Hx of stem cell transplant per hx, non compliant S/P cystoscopy with ureteral stent placement (08/22/24) inpatient at [facility], right stent Status post tubal ligation (~1973) H/O colonoscopy (~2017) History of hand surgery RIGHT 2nd FINGER RE-ATTACHEMENT 2/2 TRAUMA 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 History of hysterectomy DUSTIN/BSO History of cholecystectomy (~1979) Family History Mother , age 84 Heart disease Diabetes Father , age 84 Dementia Aunt Breast cancer Daughter Diabetes Grandmother Heart disease Other Family history non-contributory Social History Smoking Status: Current every day smoker Tobacco Type: Cigarettes Cigarettes Per Day: 1 ppd (advised); Second Hand Exposure: No; Do You Dip or Chew Tobacco: No; Hx Alcohol Use: Yes Alcohol type: hard liquor Alcohol Intake Frequency: Monthly or Less Hx Substance Use: No Preferred Language: Macanese Communication Ability: Effective Visual Impairment: No Limitations Hearing Ability: Normal Nursing Home Admissions Director Required: No Beliefs That Will Affect Care: None marital status: Current Living Situation: Spouse and Family Current Living Situation Comment: lives with in [place] 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 status: retired 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 Normal insp/exp effort, no accessory muscle use Cardiovascular: RRR, no murmur, no edema Vessels: no JVD or carotid bruit Chest: normal inspection of chest Abdomen: normal bowel sounds, soft, nontender, no hepatosplenomegaly Musculoskeletal: Right leg larger than left leg from thigh upto foot. Dorsalis pedis palpable. Neurologic: PERRL, EOMI, accommodation nl, no face palsy, no dysarthria CN's II- XI intact bilaterally and moves all extremities Psychiatric: A+Ox3, euthymic affect Results & Data Results & Data Vital Signs (Past 12 Hours) Vital Signs Temp Pulse Pulse Resp BP BP Pulse Ox 12/19/24 13:31 87 12/19/24 13:29 78 18 114/75 98 12/19/24 11:39 36.5 C 104 H 20 109/70 98 O2 Del Method 12/19/24 13:31 12/19/24 13:29 Room Air 12/19/24 11:39 Room Air Code Status & VTE Plan VTE Prophylaxis Plan VTE Prophylaxis will be ordered: No
[2024-12-19] MEDS ORDERED: SIMETHICONE 80 MG CHEW PO PRN (17:23)
[2024-12-19] MEDS: CHECK fentaNYL PATCH PLACEMENT SCH (17:46)
[2024-12-19] MEDS: fentaNYL 12 MCG/HR TDSY TD SCH (17:52)
[2024-12-19] MEDS: NICOTINE 21 MG/24 HR TDSY TD ONE (17:52)
[2024-12-19 20:57] LABS: ANTI-Xa, UFH(UnfractionatedHep 0.54 IU/ml (0.3-0.7)
--- NOTE | 2024-12-19 23:16 | Electrocardiogram Report ---
Test Reason : Blood Pressure : */* mmHG Vent. Rate : 84 BPM Atrial Rate : 84 BPM P-R Int : 136 ms QRS Dur : 70 ms QT Int : 364 ms P-R-T Axes : 77 -43 63 degrees QTcB Int : 430 ms Normal sinus rhythm Left axis deviation Anteroseptal infarct (cited on or before 05-May-2023) Abnormal ECG When compared with ECG of 18-Dec-2024 02:29, (unconfirmed) Premature ventricular complexes are no longer Present Confirmed by Kane Alegria ([id number]) on 12/19/2024 11:16:28 PM Referred By: Confirmed By: Kane Alegria
[2024-12-20 02:27] LABS: ANTI-Xa, UFH(UnfractionatedHep 0.38 IU/ml (0.3-0.7)
[2024-12-20 04:56] VITALS: RESP 18; TEMP 98.8; O2SAT 95
[2024-12-20] MEDS: PANTOprazole 40 MG TAB PO SCH (06:04)
[2024-12-20 07:24] LABS: Basophils # (auto) 0.05 K/uL (0.00-0.20); Basophils % (auto) 0.7 %; Eosinophils # (auto) 0.16 K/uL (0.00-0.50); Eosinophils % (auto) 2.2 %; Hematocrit (blood only) 28.5 % (37.0-47.0); Hemoglobin 9.4 g/dl (12.0-16.0); Immature Granulocytes # (auto) 0.02 K/uL (0.01-0.20); Immature Granulocytes % (auto) 0.3 %; Lymphocytes # (auto) 2.63 K/uL (1.20-3.40); Mean Corpuscular Hemoglobin 27.4 pg (25.0-34.0); Mean Corpuscular Volume 83.1 fL (80.0-100.0); Monocytes # (auto) 0.47 K/uL (0.11-0.59); Monocytes % (auto) 6.4 %; Neutrophils # (auto) 3.98 K/uL (1.40-6.50); Neutrophils % (auto) 54.4 %; Platelet Count 328 K/uL (130-400); RDW Coefficient of Variation 15.9 % (11.5-14.5); RDW Standard Deviation 48.6 fL (36.4-46.3); Red Blood Count 3.43 M/uL (4.20-5.40); White Blood Count 7.31 K/ul (4.8-10.8)
[2024-12-20 07:33] VITALS: PULSE 99
[2024-12-20 07:41] LABS: BUN Creatinine Ratio 11.4 (10-20); Calcium 8.4 mg/dl (8.6-10.3); Potassium 3.9 mmol/L (3.5-5.1)
[2024-12-20] MEDS: APIXABAN 5 MG TABLET PO SCH (08:26)
[2024-12-20] MEDS: ACETAMINOPHEN 325 MG TAB PO PRN (08:27)
[2024-12-20] MEDS: NICOTINE 21 MG/24 HR TDSY TD SCH (09:00)
--- NOTE | 2024-12-20 09:47 | Communication Note ---
Date of Service: December 20, 2024 By CMS guidelines, a determination that the admission or continued stay is not medically necessary has been made by a member of the UR committee and a physici an for this hospital stay, therefore a Code 44 will be completed and the Inpatient admission will be changed to outpatient.
--- NOTE | 2024-12-20 09:54 | Discharge Summary ---
Discharge Summary Date of Service December 20, 2024 Principal Dx & Hospital Course #1 = Principal Diagnosis (1) Deep vein thrombosis (DVT) of right lower extremity: (2) Neuroendocrine cancer: (3) COPD (chronic obstructive pulmonary disease): (4) CKD (chronic kidney disease): (5) Abdominal aortic aneurysm 30 to 34 mm in diameter: Plan Patient is a 74-year-old female who had initially presented to the ED with leg swelling. Ultrasound showed DVT. Patient initially left AGAINST MEDICAL ADVICE. At the urging of her PCP patient return to the ED and was admitted. Patient was initially admitted and started on IV heparin. Vital signs were stable. Swelling in the leg improved. She had no significant pain in the leg. She was transition to oral Eliquis. Case management involved in coordinating a coupon to get her started and evaluating cost of the Eliquis. Explained to the patient that she will need to be on lifelong anticoagulation. Etiology of the patient's DVT is most likely her metastatic carcinoid cancer. Incidentally on the imaging showed that she did have a abdominal aortic aneurysm. This was reviewed with vascular surgery. They recommended treating with anticoagulation and no other further intervention was required at this time. She will be discharged home to be treated with Eliquis. She will continue her other medications and continue her outpatient follow-up with her providers. Notes For Next Care Provider Medication Changes From Visit Eliquis loading dose and then continue 5 mg 2 times daily Admission HPI Per Admitting Provider History obtained from interview with the patient, chart review and discussion with the ED provider. Past medical history of carcinoid tumor chronic pain related to carcinoid tumor on fentanyl patch. Patient had presented to the ED department on 12/18/2024 with right leg cramping over the last 10 days. She was found to have right leg DVT from mid inferior vena cava to right calf as well as evidence of abdominal aortic aneurysm which is partially thrombosed. Patient decided to leave the hospital AGAINST MEDICAL ADVICE. Patient went to her primary care doctor on 12/19/2024 for the same pain. After discussion; she decided to come to the emergency department. On presentation to the ED, she was afebrile, normotensive and saturating well in room air. She was started on heparin drip after discussion with vascular surgery on-call by the ED provider. Patient denies chest pain, shortness of breath, abdominal pain, melena. Admission Exam Per Admitting Provider See H&P Discharge Exam Constitutional: Alert Lungs: Decreased, prolonged, no wheezes or rails CV: S1-S2, regular Abdomen: Soft, nontender, nondistended Extremities: Right lower extremity slightly swollen, no tenderness, no Homans Neuro: No focal deficits Psych: Cooperative, normal mood Updated Medication List Medication Instructions Recorded Confirmed Type pantoprazole 40 mg tablet,delayed 40 mg PO DAILYBB 12/18/24 12/19/24 History release acetaminophen 500 mg tablet 500 mg PO Q6H PRN Pain 12/19/24 12/19/24 History fentanyl 12 mcg/hr transdermal 1 patch transdermal Q3D 12/19/24 12/19/24 History patch simethicone 80 mg chewable tablet 80 mg PO BID PRN Gastrointestinal 12/19/24 12/19/24 History Spasms Or Cramping apixaban 5 mg tablet (Eliquis) See Rx Instructions .Route 12/20/24 Rx .COMPLEX #74 tabs Hospital Stay Data Consultations 12/19/24 13:41 Consult Vascular Surgery Routine 12/19/24 15:12 ED Decision to Admit Stat Diagnostic Imagining Performed Reviewed imaging, laboratory and diagnostic studies. Pertinent findings as below. WBC 7.3 Hemoglobin 9.4 Platelets 328 Electrolytes stable Creatinine 1.49 Pending Results Patient Have Any Pending Studies at Discharge: No Discharge Instructions Given to Patient (Per Discharging Provider) You will need to be on anticoagulation the rest of your life Recommend wearing compression stockings on both legs Total Time Total Time Spent Total Time Spent (In Minutes): 32 By CMS guidelines, a determination that the admission or continued stay is not medically necessary has been made by a member of the Utilization Review committee and a physician for this hospital stay. Therefore, a Code 44 will be completed and the inpatient admission will be changed to outpatient.
[2024-12-20 10:23] VITALS: BP 125/74
[2024-12-27] MEDS ORDERED: APIXABAN 5 MG TABLET PO SCH (09:00)
== END 2024-12-20 12:37 | disposition home or self-care (01) | DRG 300 ==
LOC: ED 11:24 → SUATTDRO 14:32 → 2W 14:32

== ENCOUNTER 2025-04-09 20:46 | Inpatient (IN) ==
[2025-04-09] MEDS: ACETAMINOPHEN 500 MG TAB PO STA (21:12)
[2025-04-09] MEDS: SODIUM CHLORIDE 0.9% 500 ML IV ONE (21:13)
[2025-04-09 21:19] LABS: Hematocrit (blood only) 24.8 % (37.0-47.0); Hemoglobin 8.0 g/dl (12.0-16.0); Mean Corpuscular Hemoglobin 24.5 pg (25.0-34.0); Mean Corpuscular Volume 75.8 fL (80.0-100.0); Platelet Count 360 K/uL (130-400); RDW Standard Deviation 45.4 fL (36.4-46.3); Red Blood Count 3.27 M/uL (4.20-5.40); White Blood Count 19.79 K/ul (4.8-10.8)
[2025-04-09 21:20] LABS: Base Excess VBG 0.1 mEq/L; HCO3 VBG 25 mmol/L; Oxygen Saturation VBG 62.7 %; PCO2 VBG 39 mmHg (38-50); PO2 VBG 35 mmHg; pH VBG 7.41 (7.36-7.41)
--- NOTE | 2025-04-09 21:29 | Emergency Department Note ---
History of Present Illness General Chief Complaint: Illness Stated Complaint: Chills, Cancer Time Seen by Provider: 04/09/25 20:50 History of Present Illness Provider Complaint: + fever and + cough Onset (ago): 1 day(s) Duration: + progressively worsening Associated symptoms: no headache, no chest pain, no nausea, no vomiting, no diarrhea or no rash HPI Narrative: Patient has carcinoid tumor but not on chemotherapy or octreotide therapy Home Medications Medication Instructions Recorded Confirmed Type pantoprazole 40 mg tablet,delayed 40 mg PO DAILYBB 12/18/24 12/19/24 History release acetaminophen 500 mg tablet 500 mg PO Q6H PRN Pain 12/19/24 12/19/24 History fentanyl 12 mcg/hr transdermal 1 patch transdermal Q3D 12/19/24 12/19/24 History patch simethicone 80 mg chewable tablet 80 mg PO BID PRN Gastrointestinal 12/19/24 12/19/24 History Spasms Or Cramping apixaban 5 mg tablet (Eliquis) See Rx Instructions .Route 12/20/24 Rx .COMPLEX #74 tabs simethicone 180 mg capsule (Gas 180 mg PO BID PRN abdominal 12/20/24 Rx Relief (simethicone)) gas/bloat #20 caps Allergies Allergy/AdvReac Type Severity Reaction Status Date / Time Fish Containing Products Allergy Severe Gastrointestinal Unverified 12/19/24 13:59 Upset Iodinated Contrast Media Allergy Severe PT STATES Verified 12/19/24 13:59 [Iodinated Contrast- Oral SHE HAD A and IV Dye] CARDIAC ARREST FOLLOWING IV FORM sulfamethoxazole Allergy Mild Neuro Verified 12/19/24 13:59 [From Bactrim] complications trimethoprim [From Bactrim] Allergy Mild Neuro Verified 12/19/24 13:59 complications codeine AdvReac Mild Headache Verified 12/19/24 13:59 morphine AdvReac Mild PT SAID IT Verified 12/19/24 13:59 SHUTS HER SYSTEM DOWN naproxen AdvReac Mild Diarrhea Verified 12/19/24 13:59 Past Med/Surg History Problem List (Updated 04/09/25 @ 23:48 by Adriel Farrar MD) Hypoxia (Acute) Sepsis (Acute) Pyelonephritis (Acute) Abdominal aortic aneurysm 30 to 34 mm in diameter Deep vein thrombosis (DVT) of right lower extremity DVT (deep venous thrombosis) (Acute) Counseling regarding advanced directives and goals of care Counseling regarding goals of care Severe sepsis Elevated procalcitonin (Acute) Elevated brain natriuretic peptide (BNP) level (Acute) Non-ST elevation DC (NSTEMI) (Acute) Leukocytosis (Acute) HERLINDA (acute kidney injury) (Acute) Acute hypoxemic respiratory failure (Acute) Hydroureteronephrosis (Acute) Partial small bowel obstruction (Acute) Generalized weakness (Acute) Sepsis (Acute) Palliative care by specialist Advanced care planning/counseling discussion Weakness generalized Abdominal pain, generalized Bradycardia Small bowel obstruction Hydronephrosis, right Partial small bowel obstruction HERLINDA (acute kidney injury) (Acute) Watery diarrhea Dyspnea Breast mass, right Chronic rhinitis PAD (peripheral artery disease) Tobacco dependence 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 denies any lung problems or seeing a lab clerk Hx of hydronephrosis (08/20/24) had cysto/stent on right by dr. rice Medical non-compliance per hhx PAD (peripheral artery disease) Chronic rhinitis Hx SBO History of bradycardia Palliative care by specialist pt states follows with dr. hawkins, having a pet scan later in sep and will possibly undergo xrt Hx of non-ST elevation myocardial infarction (NSTEMI) (08/21/24) per chart, pt denies Poor historian pt. denies documented medical problems when questioned Dysphagia pt reports food getting stuck and difficulty breathing, reason for egd Neuroendocrine cancer follows with dr. hawkins Carcinoid tumor (2005) follows with dr. hawkins Hx of sepsis (08/20/24) admit to [facility], pt. unable to provide details Seasonal allergies prn inhaler Acute UTI admit to [facility] 08/20/24, cherriey on abx Surgical History Hx of stem cell transplant per hx, non compliant S/P cystoscopy with ureteral stent placement (08/22/24) inpatient at [facility], right stent Status post tubal ligation (~1973) H/O colonoscopy (~2017) History of hand surgery RIGHT 2nd FINGER RE-ATTACHEMENT 2/2 TRAUMA 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 History of hysterectomy DUSTIN/BSO History of cholecystectomy (~1979) Family History Mother , age 84 Heart disease Diabetes Father , age 84 Dementia Aunt Breast cancer Daughter Diabetes Grandmother Heart disease Other Family history non-contributory Social History Smoking Status: Current every day smoker Tobacco Type: Cigarettes Cigarettes Per Day: 1-2 packs per day; Second Hand Exposure: No; Do You Dip or Chew Tobacco: No; Hx Alcohol Use: Yes Alcohol type: wine and hard liquor Alcohol Intake Frequency: Monthly or Less Hx Substance Use: No Preferred Language: Tamazight Communication Ability: Effective Visual Impairment: No Limitations Hearing Ability: Normal Animal Groomer Required: No Beliefs That Will Affect Care: None marital status: Current Living Situation: Spouse Current Living Situation Comment: lives with in [place] 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 status: retired 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 How many Children do You have: 3 How many Children do You have Comment: daughters Feels Safe at Home: Yes Diet: regular during the past year weight has: remained stable Assistive Devices: Walker Physical Exam 2 Vital Signs: Vital Signs - 24 hr 04/09/25 20:48 04/09/25 20:50 04/09/25 22:13 Temperature 38.8 C H Temperature Source Oral Pulse Rate 114 H 109 H Pulse Rate [Apical ] 85 Pulse Rate from Sp O2 Sensor Pulse Rhythm Regular Pulse Strength Normal Respiratory Rate 32 H 32 H Respiratory Effort / Characteristics Non-Labored Sponta neous Non-Labored Sponta neous Respiratory Depth Normal Normal Respiratory Patter n Regular Regular Blood Pressure 114/71 Blood Pressure [Ri ght Arm] 108/60 Blood Pressure Mercedes n 85 Blood Pressure Mercedes n [Right Arm] 76 Blood Pressure Pos ition Lying Pulse Oximetry 91 94 Oxygen Delivery Me thod Room Air Nasal Cannula Oxygen Flow Rate 2 Sepsis New/Unexpla ined Change in Men ricki Status N/A Sepsis Action Take n by Nursing Physician Notified 04/09/25 23:03 Temperature Temperature Source Pulse Rate 81 Pulse Rate [Apical ] Pulse Rate from Sp O2 Sensor 80 Pulse Rhythm Pulse Strength Respiratory Rate 22 Respiratory Effort / Characteristics Respiratory Depth Respiratory Patter n Blood Pressure 110/62 Blood Pressure [Ri ght Arm] Blood Pressure Mercedes n 78 Blood Pressure Mercedes n [Right Arm] Blood Pressure Pos ition Pulse Oximetry 97 Oxygen Delivery Me thod Oxygen Flow Rate Sepsis New/Unexpla ined Change in Men ricki Status Sepsis Action Take n by Nursing Physical Exam: Physical Exam GENERAL: oriented to person, place, and time. appears well-developed and well- nourished. HENT: Exam performed. - Head: Normocephalic and atraumatic. EYES: Conjunctivae and EOM are normal. Right eye exhibits no discharge. Left eye exhibits no discharge. No scleral icterus. NECK: Normal range of motion. Neck supple. No JVD present. CV: Tachycardic rate, regular rhythm, normal heart sounds and intact distal pulses. There is no peripheral edema. Palpable radial pulses bue. PULM/CHEST: Effort normal and breath sounds normal. No respiratory distress. No stridor. no wheezes. no rales. ABD: The abdomen is soft. There is no tenderness. NEURO: Motor and sensation grossly intact. SKIN: Skin is warm and dry. He is not diaphoretic. PSYCH: normal mood and affect. Behavior is normal. Judgment and thought content normal. Course Course 2049: The patient was evaluated in room A3. A complete history and physical exam was performed Cardiac monitoring: An order was placed for continuous cardiac monitoring. The monitor shows a rate of 110 with sinus tachycardia rhythm interpreted by nh Sepsis protocols initiated 5: Patient became hypoxic on room air, supplemental oxygen applied via nasal cannula to improve the patient's oxygen saturation labs show leukocytosis of 19. Creatinine up to 2.28, patient's baseline creatinine appears to run around 1.3. Lactic acid within normal limits. X-ray is unremarkable. Will obtain CT of the abdomen pelvis. 5: Imaging is concerning for pyelonephritis. Patient was unable to give urine sample. Patient treated with Zosyn empirically. Patient be admitted to the [facility] hospitalist team. Administered Medications Discontinued Medications Acetaminophen (Acetaminophen 500 Mg Tab) 1,000 mg PO NOW STA Stop: 04/09/25 21:05 Last Admin: 04/09/25 21:12 Dose: 1,000 mg Documented By: MINE Sodium Chloride (Nss) 500 mls @ 999 mls/hr IV .Q31M ONE Stop: 04/09/25 21:33 Last Infusion: 04/09/25 21:56 Dose: Infused Documented By: Admin: 04/09/25 21:13 Dose: 999 mls/hr Documented By: MINE Medical Decision Making Laboratory Data Attestation: I reviewed the patient's lab results. 04/09/25 21:02 04/09/25 21:02 Lab Results 04/09/25 04/09/25 04/09/25 Range/Units 20:55 21:02 21:15 WBC 19.79 H (4.8-10.8) K/ul RBC 3.27 L (4.20-5.40) M/uL Hgb 8.0 L (12.0-16.0) g/dl Hct 24.8 L (37.0-47.0) % MCV 75.8 L (80.0-100.0) fL MCH 24.5 L (25.0-34.0) pg MCHC 32.3 (32.0-36.0) g/dL RDW Std Deviation 45.4 (36.4-46.3) fL RDW Coeff of Noris 16.4 H (11.5-14.5) % Plt Count 360 (130-400) K/uL MPV 9.0 L (9.4-12.4) fL Immature Gran % (Auto) 0.7 % Neut % (Auto) 93.6 % Lymph % (Auto) 2.7 % [place] % (Auto) 2.8 % Eos % (Auto) 0.0 % Baso % (Auto) 0.2 % Neut # (Auto) 18.53 H (1.40-6.50) K/uL Lymph # (Auto) 0.54 L (1.20-3.40) K/uL [place] # (Auto) 0.56 (0.11-0.59) K/uL Eos # (Auto) 0.00 (0.00-0.50) K/uL Baso # (Auto) 0.03 (0.00-0.20) K/uL Immature Gran # (Auto) 0.13 (0.01-0.20) K/uL Polychromasia 1+ PT 11.5 (9.0-12.0) Seconds INR 1.1 (0.9-1.1) APTT 31 (21-31) Seconds PTT Ratio 1.2 VBG pH 7.41 (7.36-7.41) VBG pCO2 39 (38-50) mmHg VBG pO2 35 mmHg VBG HCO3 25 mmol/L VBG O2 Saturation 62.7 % VBG Base Excess 0.1 mEq/L Sodium 132 L (136-145) mmol/L Potassium 3.7 (3.5-5.1) mmol/L Chloride 99 (98-107) mmol/L Carbon Dioxide 23 (21-32) mmol/L Anion Gap 10 (3-11) BUN 40 H (6-23) mg/dl Creatinine 2.28 H (0.6-1.2) mg/dl Est Cr Clr Drug Dosing 16.3 ml/min eGFR 21.99 BUN/Creatinine Ratio 17.5 (10-20) Glucose 114 H (70-99(Fasting)) mg/dl Lactate 1.2 (0.4-2.0) mmol/L Calcium 8.1 L (8.6-10.3) mg/dl Magnesium 2.0 (1.7-2.4) mg/dl Total Bilirubin 0.6 (0.2-1.0) mg/dl Direct Bilirubin 0.2 (0-0.2) mg/dl AST 10 L (13-39) U/L ALT 6 L (7-52) U/L Alkaline Phosphatase 79 (34-104) U/L Troponin I High Sens 12.4 (0-14) pg/ml Total Protein 7.2 (6.0-8.3) gm/dl Albumin 2.4 L (3.4-5.0) gm/dl Procalcitonin Cancelled Adenovirus (PCR) Not Detected (NotDetected) B. pertussis DNA (PCR) Not Detected (NotDetected) B.parapertussis DNA PCR Not Detected (NotDetected) C. pneumoniae DNA (PCR) Not Detected (NotDetected) Coronavirus OC43 (PCR) Not Detected (NotDetected) Coronavirus HKU1 (PCR) Not Detected (NotDetected) Coronavirus 229E (PCR) Not Detected (NotDetected) SARS-CoV-2 (PCR) Not Detected (NotDetected) Coronavirus NL63 (PCR) Not Detected (NotDetected) Human Metapneumovir PCR Not Detected (NotDetected) Influenza Type A (PCR) Not Detected (NotDetected) Influenza Type B (PCR) Not Detected (NotDetected) M. pneumoniae (PCR) Not Detected (NotDetected) Parainfluenza 1 (PCR) Not Detected (NotDetected) Parainfluenza 2 (PCR) Not Detected (NotDetected) Parainfluenza 3 (PCR) Not Detected (NotDetected) Parainfluenza 4 (PCR) Not Detected (NotDetected) RSV (PCR) Not Detected (NotDetected) Entero/Rhino (PCR) Not Detected (NotDetected) Imaging Data Attestation: I personally reviewed and interpreted this imaging study as follows: My Impression: Chest x-ray negative. Airway clear. No pneumothorax. No consolidation. No cardiomegaly or cephalization.. No free air under the diaphragm. No fractures of the skeletal structures. Radiologist's Impression: Abdomen/Pelvis CT 04/09/25 21:51 Exam(s): CT ABDOMEN + PELVIS Without Contrast EXAM: CT Abdomen and Pelvis Without Intravenous Contrast CLINICAL HISTORY: Reason for exam: sepsis herlinda. TECHNIQUE: Axial computed tomography images of the abdomen and pelvis without intravenous contrast. CTDI is 7.06 mGy and DLP is 330.54 mGy-cm. Automated exposure control was utilized for the study. A dose lowering technique was utilized adhering to the principles of ALARA. COMPARISON: CT abdomen/pelvis: 08/20/2024 FINDINGS: Lung bases: Again noted bibasilar atelectatic changes LT>RT with associated posterior pleural thickening. Anteriorly along the right hemidiaphragm a 1.7 cm noncalcified solid nodule in the right lower lobe again noted versus 1.6 cm measured previously (series 3 image 19). ABDOMEN: Analysis of abdominal/pelvic viscera and vascular structures is limited in absence of IV contrast. Liver: Grossly unremarkable. Gallbladder and bile ducts: Prior cholecystectomy. No ductal dilation. Pancreas: Diffuse pancreatic atrophy. No ductal dilation. Spleen: No splenomegaly. Adrenals: Mild thickening of the left adrenal gland.. No mass. Kidneys and ureters: Interval placement of a double pigtail catheter in the right renal collecting system. There is interval increase in mild/moderate dilatation of the left renal collecting system with a partially compressed mid/distal left ureter in the midst of the mesenteric fat stranding seen anterior to the left psoas (series 3 image 169). No urinary tract calculi identified.. Stomach and bowel: Unremarkable stomach. There is up to 5 cm gas/fluid- filled dilated small bowel segments seen. Possibly prior partial right hemicolectomy with anastomotic sutures in the right lower quadrant and with mild mucosal thickening (series 301 image 45). Stool/gas present in the rest of the colon, mostly within a somewhat distended rectosigmoid. PELVIS: Appendix: Not seen. Bladder: Interval borderline wall thickening. No stones. Reproductive: Partial hysterectomy. ABDOMEN and PELVIS: Intraperitoneal space: Unremarkable. No free air. No significant fluid collection. Bones/joints: Osteopenia. No acute fracture. No dislocation. At L5- S1 moderate degenerative spondylitic changes seen. Soft tissues: Laterally right flank and right hip new subcutaneous fat stranding. Vasculature: Diffuse atheromatous calcifications of the aortoiliac vasculature and branch vessels. 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 Lymph nodes: Again noted a distal right para-aortic 5.2 x 2.8 x 3.0 cm soft tissue mass likely is coalescent lymphadenopathy (series 301 image 44) which is mildly increase in size since comparison. Additionally multiple small para-aortic/retroperitoneal lymph nodes are seen.. IMPRESSION: Lung bases: Bibasilar atelectatic changes with posterior pleural thickening seen. Anteriorly along the right hemidiaphragm a worrisome 1.7 cm solid pulmonary nodule is seen in the right lower lung lobe mild increase in size since comparison. Histological diagnosis recommended. There is increased dilatation of the left renal collecting system with a partially compressed mid/distal left ureter seen in the midst of inflammatory mesenteric fat stranding at the level of the left psoas muscle. Interval placement of a double pigtail stent in the right renal collecting system. No urinary tract calculi identified. Gas filled dilated small bowel segments are seen. Possibly prior partial right hemicolectomy with anastomotic sutures in the right lower quadrant and with mild mucosal thickening. Recommend clinical correlation. Stool-filled moderately distended rectosigmoid. Distally right para-aortic 5.2 cm soft tissue mass, likely a coalescent lymphadenopathy has increased in size since comparison. Additionally multiple small para-aortic/retroperitoneal lymph nodes are seen. Correlation with PET CT scan recommended. Additional findings as above . Electronically signed by: Alexis Hirsch MD, DABR 08/21/25 23:31 PM ECG Data Attestation: I personally reviewed and interpreted this ECG as follows: Rate (beats per minute): 106 Rhythm: sinus tachycardia Findings: no ST depression, no ST elevation or no prolonged QT Additional Comments: QRS 70 MDM Narrative 2049: The patient was evaluated in room A3. A complete history and physical exam was performed Cardiac monitoring: An order was placed for continuous cardiac monitoring. The monitor shows a rate of 110 with sinus tachycardia rhythm interpreted by nh Sepsis protocols initiated 2214: Patient became hypoxic on room air, supplemental oxygen applied via nasal cannula to improve the patient's oxygen saturation labs show leukocytosis of 19. Creatinine up to 2.28, patient's baseline creatinine appears to run around 1.3. Lactic acid within normal limits. X-ray is unremarkable. Will obtain CT of the abdomen pelvis. 2345: Imaging is concerning for pyelonephritis. Patient was unable to give urine sample. Patient treated with Zosyn empirically. [facility] Impression & Plan Pyelonephritis, Sepsis, Hypoxia Critical Care Time Critical Care Time: Yes Total Critical Care Time: 47 I have personally spent greater than 47 minutes of critical care time in the direct management of this patient. This includes bedside care, interpretation of diagnostic studies, and testing, discussion with consultants, patient, and family members, and other required patient management activities. This 47 minutes is in excess of all separately billable procedures. Discharge Plan Visit Data Chief Complaint: Illness Stated Complaint: Chills, Cancer ED Provider: Adriel Farrar Discharge Problem: Pyelonephritis, Sepsis, Hypoxia Patient Disposition: Admitted As Inpatient Condition: Fair Forms Stand Alone Forms: My [facility] Prescriptions Prescriptions: No Action pantoprazole 40 mg tablet,delayed release (DR/EC) 40 mg PO DAILYBB acetaminophen 500 mg Tablet 500 mg PO Q6H PRN (Reason: Pain) simethicone 80 mg Tablet,Chewable 80 mg PO BID PRN (Reason: Gastrointestinal Spasms Or Cramping) fentanyl 12 mcg/hr patch 72 hour 1 patch transdermal Q3D Rx Instructions: Pt removed patch on 12/18/24, hasn't been replaced as of 12/19/24 Eliquis 5 mg tablet See Rx Instructions .ROUTE .COMPLEX Qty: 74 0RF Rx Instructions: Take 2 tablets 2 times daily for 7 days then 1 tablet 2 times daily simethicone [Gas Relief (simethicone)] 180 mg capsule 180 mg PO BID PRN (Reason: abdominal gas/bloat) Qty: 20 0RF Referrals Referrals: Gin Guerra DO [Primary Care Provider] - Discharge Problem: Sepsis Qualifiers: Sepsis type: sepsis due to unspecified organism Sepsis acute organ dysfunction status: with acute organ dysfunction Severe sepsis acute organ dysfunction type: acute renal failure Acute renal failure type: unspecified Severe sepsis shock status: without septic shock Qualified Code(s): A41.9 - Sepsis, unspecified organism; R65.20 - Severe sepsis without septic shock; N17.9 - Acute kidney failure, unspecified
[2025-04-09 21:36] LABS: Alanine Aminotransferase 6.0 U/L (7-52); Alkaline Phosphatase 79.0 U/L (34-104); Anion Gap 10.0 (3-11); Bilirubin,Total 0.6 mg/dl (0.2-1.0); Blood Urea Nitrogen 40.0 mg/dl (6-23); Calcium 8.1 mg/dl (8.6-10.3); Carbon Dioxide 23.0 mmol/L (21-32); Chloride 99.0 mmol/L (98-107); Creatinine Clr Calc Pharmacy 16.3 ml/min; Glucose 114.0 mg/dl (70-99(Fasting)); Magnesium 2.0 mg/dl (1.7-2.4); Potassium 3.7 mmol/L (3.5-5.1); Sodium 132.0 mmol/L (136-145); Total Protein 7.2 gm/dl (6.0-8.3)
[2025-04-09 21:46] LABS: INR 1.1 (0.9-1.1); Partial Thromboplastin Time 31 Seconds (21-31); Prothrombin Time 11.5 Seconds (9.0-12.0)
[2025-04-09 21:54] LABS: Chlamydia pneumoniae PCR Not Detected (NotDetected); Coronavirus 229E PCR Not Detected (NotDetected); Coronavirus CoV-2 (COVID19)PCR Not Detected (NotDetected); Coronavirus HKU1 PCR Not Detected (NotDetected); Coronavirus NL63 PCR Not Detected (NotDetected); Coronavirus OC43PCR Not Detected (NotDetected); Human Metapneumovirus PCR Not Detected (NotDetected); Parainfluenza Virus 1 PCR Not Detected (NotDetected); Parainfluenza Virus 2 PCR Not Detected (NotDetected); Parainfluenza Virus 3 PCR Not Detected (NotDetected); Parainfluenza Virus 4 PCR Not Detected (NotDetected); Respiratory Syncytial VirusPCR Not Detected (NotDetected); Rhinovirus/Enterovirus PCR Not Detected (NotDetected)
[2025-04-09 22:29] LABS: Immature Granulocytes # (auto) 0.13 K/uL (0.01-0.20); Immature Granulocytes % (auto) 0.7 %; Polychromasia 1+
--- NOTE | 2025-04-09 23:32 | CT Scan Report ---
Exam(s): CT ABDOMEN + PELVIS Without Contrast EXAM: CT Abdomen and Pelvis Without Intravenous Contrast CLINICAL HISTORY: Reason for exam: sepsis natalie. TECHNIQUE: Axial computed tomography images of the abdomen and pelvis without intravenous contrast. CTDI is 7.06 mGy and DLP is 330.54 mGy-cm. Automated exposure control was utilized for the study. A dose lowering technique was utilized adhering to the principles of ALARA. COMPARISON: CT abdomen/pelvis: 08/20/2024 FINDINGS: Lung bases: Again noted bibasilar atelectatic changes LT>RT with associated posterior pleural thickening. Anteriorly along the right hemidiaphragm a 1.7 cm noncalcified solid nodule in the right lower lobe again noted versus 1.6 cm measured previously (series 3 image 19). ABDOMEN: Analysis of abdominal/pelvic viscera and vascular structures is limited in absence of IV contrast. Liver: Grossly unremarkable. Gallbladder and bile ducts: Prior cholecystectomy. No ductal dilation. Pancreas: Diffuse pancreatic atrophy. No ductal dilation. Spleen: No splenomegaly. Adrenals: Mild thickening of the left adrenal gland.. No mass. Kidneys and ureters: Interval placement of a double pigtail catheter in the right renal collecting system. There is interval increase in mild/moderate dilatation of the left renal collecting system with a partially compressed mid/distal left ureter in the midst of the mesenteric fat stranding seen anterior to the left psoas (series 3 image 169). No urinary tract calculi identified.. Stomach and bowel: Unremarkable stomach. There is up to 5 cm gas/fluid- filled dilated small bowel segments seen. Possibly prior partial right hemicolectomy with anastomotic sutures in the right lower quadrant and with mild mucosal thickening (series 301 image 45). Stool/gas present in the rest of the colon, mostly within a somewhat distended rectosigmoid. PELVIS: Appendix: Not seen. Bladder: Interval borderline wall thickening. No stones. Reproductive: Partial hysterectomy. ABDOMEN and PELVIS: Intraperitoneal space: Unremarkable. No free air. No significant fluid collection. Bones/joints: Osteopenia. No acute fracture. No dislocation. At L5- S1 moderate degenerative spondylitic changes seen. Soft tissues: Laterally right flank and right hip new subcutaneous fat stranding. Vasculature: Diffuse atheromatous calcifications of the aortoiliac vasculature and branch vessels. 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 Lymph nodes: Again noted a distal right para-aortic 5.2 x 2.8 x 3.0 cm soft tissue mass likely is coalescent lymphadenopathy (series 301 image 44) which is mildly increase in size since comparison. Additionally multiple small para-aortic/retroperitoneal lymph nodes are seen.. IMPRESSION: Lung bases: Bibasilar atelectatic changes with posterior pleural thickening seen. Anteriorly along the right hemidiaphragm a worrisome 1.7 cm solid pulmonary nodule is seen in the right lower lung lobe mild increase in size since comparison. Histological diagnosis recommended. There is increased dilatation of the left renal collecting system with a partially compressed mid/distal left ureter seen in the midst of inflammatory mesenteric fat stranding at the level of the left psoas muscle. Interval placement of a double pigtail stent in the right renal collecting system. No urinary tract calculi identified. Gas filled dilated small bowel segments are seen. Possibly prior partial right hemicolectomy with anastomotic sutures in the right lower quadrant and with mild mucosal thickening. Recommend clinical correlation. Stool-filled moderately distended rectosigmoid. Distally right para-aortic 5.2 cm soft tissue mass, likely a coalescent lymphadenopathy has increased in size since comparison. Additionally multiple small para-aortic/retroperitoneal lymph nodes are seen. Correlation with PET CT scan recommended. Additional findings as above . Electronically signed by: Alexis Hirsch MD, EDMUNDR 04/09/25 23:31 PM
--- NOTE | 2025-04-09 23:55 | History & Physical Report ---
Date of Service April 09, 2025 Assessment & Plan (1) Sepsis: Plan: Assessment and plan below following discussion of case with ED provider and reviewing patient history/pertinent normal/abnormal diagnostic test results. 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 FOBT done at the ER was negative. AAA, 4 cm on today's measurement hyperglycemia likely secondary to prediabetes, hemoglobin A1c of 6.3 from August 2024 ongoing tobacco abuse Admit to medical telemetry Baseline UA, Hahn catheter placement CS, Zosyn Monitor creatinine response to IVF Urology consult re: obstructive uropathy/hydronephrosis resulting in sepsis/kidney dysfunction Will keep n.p.o. in anticipation of procedure Hold Eliquis for now given progressive anemia and possible procedure. Follow H&H, transfuse PRBC to maintain hemoglobin of at least 8 given history PVD DVT prophylaxis SCDs for now given possible hematuria causing significant hemoglobin drop from baseline DNR Text document was generated using [employer] voice recognition software. It may contain grammatical or spelling errors. Kindly contact undersigned for clarification of any documentation item in question. History of Present Illness Chief Complaint: Chills Primary Care Provider: Gin Guerra DO History obtained from patient and records. Medical history significant for AAA, COPD, metastatic neuroendocrine cancer sp surgery status post stem cell transplant (refused treatment), CRI (baseline creatinine 1.4), chronic right hydronephrosis status post stent placement, chronic anemia (baseline hemoglobin 9-10), RLE DVT on Eliquis, anxiety disorder, medical noncompliance, ongoing tobacco abuse. Last confinement December 2024 for RLE swelling attributed to metastatic carcinoid cancer. Patient discharged on Eliquis course. Last night, patient noted chills. Denies chest pain, SOB, cough symptoms. Denies abdominal or flank pain. Patient unaware of hematuria symptoms. Admits to some constipation symptoms. Zosyn administered at the ER. 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 Allergies Allergy/AdvReac Type Severity Reaction Status Date / Time Fish Containing Products Allergy Severe Gastrointestinal Unverified 12/19/24 13:59 Upset Iodinated Contrast Media Allergy Severe PT STATES Verified 12/19/24 13:59 [Iodinated Contrast- Oral SHE HAD A and IV Dye] CARDIAC ARREST FOLLOWING IV FORM sulfamethoxazole Allergy Mild Neuro Verified 12/19/24 13:59 [From Bactrim] complications trimethoprim [From Bactrim] Allergy Mild Neuro Verified 12/19/24 13:59 complications codeine AdvReac Mild Headache Verified 12/19/24 13:59 morphine AdvReac Mild PT SAID IT Verified 12/19/24 13:59 SHUTS HER SYSTEM DOWN naproxen AdvReac Mild Diarrhea Verified 12/19/24 13:59 Home Medications Medication Instructions Recorded Confirmed Type pantoprazole 40 mg tablet,delayed 40 mg PO DAILYBB 12/18/24 12/19/24 History release acetaminophen 500 mg tablet 500 mg PO Q6H PRN Pain 12/19/24 12/19/24 History simethicone 80 mg chewable tablet 80 mg PO BID PRN Gastrointestinal 12/19/24 12/19/24 History Spasms Or Cramping apixaban 5 mg tablet (Eliquis) See Rx Instructions .Route 12/20/24 Rx .COMPLEX #74 tabs simethicone 180 mg capsule (Gas 180 mg PO BID PRN abdominal 12/20/24 Rx Relief (simethicone)) gas/bloat #20 caps methadone 5 mg tablet 2.5 mg PO DAILY PRN Pain 04/10/25 04/10/25 History Past Med/Surg History Problem List (Updated 04/09/25 @ 23:48 by Adriel Farrar MD) Hypoxia (Acute) Sepsis (Acute) Pyelonephritis (Acute) Abdominal aortic aneurysm 30 to 34 mm in diameter Deep vein thrombosis (DVT) of right lower extremity DVT (deep venous thrombosis) (Acute) Counseling regarding advanced directives and goals of care Counseling regarding goals of care Severe sepsis Elevated procalcitonin (Acute) Elevated brain natriuretic peptide (BNP) level (Acute) Non-ST elevation NV (NSTEMI) (Acute) Leukocytosis (Acute) HERLINDA (acute kidney injury) (Acute) Acute hypoxemic respiratory failure (Acute) Hydroureteronephrosis (Acute) Partial small bowel obstruction (Acute) Generalized weakness (Acute) Sepsis (Acute) Palliative care by specialist Advanced care planning/counseling discussion Weakness generalized Abdominal pain, generalized Bradycardia Small bowel obstruction Hydronephrosis, right Partial small bowel obstruction HERLINDA (acute kidney injury) (Acute) Watery diarrhea Dyspnea Breast mass, right Chronic rhinitis PAD (peripheral artery disease) Tobacco dependence 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 denies any lung problems or seeing a machine greaser Hx of hydronephrosis (08/20/24) had cysto/stent on right by dr. rice Medical non-compliance per hhx PAD (peripheral artery disease) Chronic rhinitis Hx SBO History of bradycardia Palliative care by specialist pt states follows with dr. hawkins, having a pet scan later in sep and will possibly undergo xrt Hx of non-ST elevation myocardial infarction (NSTEMI) (08/21/24) per chart, pt denies Poor historian pt. denies documented medical problems when questioned Dysphagia pt reports food getting stuck and difficulty breathing, reason for egd Neuroendocrine cancer follows with dr. hawkins Carcinoid tumor (2005) follows with dr. hawkins Hx of sepsis (08/20/24) admit to [facility], pt. unable to provide details Seasonal allergies prn inhaler Acute UTI admit to [facility] 08/20/24, currenlty on abx Surgical History Hx of stem cell transplant per hx, non compliant S/P cystoscopy with ureteral stent placement (08/22/24) inpatient at [facility], right stent Status post tubal ligation (~1973) H/O colonoscopy (~2017) History of hand surgery RIGHT 2nd FINGER RE-ATTACHEMENT 2/2 TRAUMA 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 History of hysterectomy DUSTIN/BSO History of cholecystectomy (~1979) Family History Mother , age 84 Heart disease Diabetes Father , age 84 Dementia Aunt Breast cancer Daughter Diabetes Grandmother Heart disease Other Family history non-contributory Social History Smoking Status: Current every day smoker Tobacco Type: Cigarettes Cigarettes Per Day: 1 ppd; Second Hand Exposure: Yes; Do You Dip or Chew Tobacco: No; Tobacco Cessation Education Requested by Patient: No Hx Alcohol Use: Yes Alcohol type: wine and hard liquor Alcohol Intake Frequency: Monthly or Less Hx Substance Use: Yes Last Used Substance: Unknown Substance Use Type Other:: per pt- medication prescribed Preferred Language: Mozambican Communication Ability: Effective Visual Impairment: No Limitations Hearing Ability: Normal Environmental Adviser Required: No Beliefs That Will Affect Care: None marital status: Current Living Situation: Family Current Living Situation Comment: lives with grandson 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 status: retired 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 How many Children do You have: 3 How many Children do You have Comment: daughters Other Information That Helps Us Care for You: No Feels Safe at Home: Yes Safety Concerns: Feels Safe At This Time Diet: regular during the past year weight has: remained stable Assistive Devices: Glasses and Wheelchair Review of Systems Review of Systems: As per HPI, all other systems reviewed and negative Physical Exam Physical Exam: GENERAL: uncomfortable, chronically ill, underweight, respiratory distress SKIN: Pallor, warm HEENT: Pale palpebral conjunctivae, no ptosis, dry buccal mucosa, nasal cannula in place NECK : Supple, no tenderness CHEST : Decreased breath sounds, no tenderness HEART : RRR, no obvious murmurs ABDOMEN: Some distention, nontender RECTAL : Intact sphincter, brown stool (FOBT negative) EXTREMITIES : No LE swelling/tenderness, no other conspicuous deformities noted NEUROLOGIC : Coherent, no facial asymmetry, mild hearing impairment, gait and stance not assessed Results & Data Results & Data Vital Signs (Past 12 Hours) Vital Signs Temp Pulse Pulse Resp BP BP Pulse Ox 04/09/25 23:03 81 22 110/62 97 04/09/25 22:13 85 32 H 108/60 94 04/09/25 20:50 109 H 04/09/25 20:48 38.8 C H 114 H 32 H 114/71 91 O2 Del Method O2 Flow Rate 04/09/25 23:03 04/09/25 22:13 Nasal Cannula 2 04/09/25 20:50 04/09/25 20:48 Room Air Laboratory Results Laboratory Results WBC 19.79 K/ul (4.8-10.8) H 04/09/25 21:02 RBC 3.27 M/uL (4.20-5.40) L 04/09/25 21: Hgb 8.0 g/dl (12.0-16.0) L 04/09/25 21: Hct 24.8 % (37.0-47.0) L 04/09/25 21: MCV 75.8 fL (80.0-100.0) L 04/09/25 21: MCH 24.5 pg (25.0-34.0) L 04/09/25 21: MCHC 32.3 g/dL (32.0-36.0) 04/09/25: RDW Std Deviation 45.4 fL (36.4-46.3) 04/09/25: RDW Coeff of Noris 16.4 % (11.5-14.5) H 04/09/25 21: Plt Count 360 K/uL (130-400) 04/09/25: MPV 9.0 fL (9.4-12.4) L 04/09/25 21: Immature Gran % (Auto) 0.7 % 04/09/25: Neut % (Auto) 93.6 % 04/09/25: Lymph % (Auto) 2.7 % 04/09/25: Orange % (Auto) 2.8 % 04/09/25 21: Eos % (Auto) 0.0 % 04/09/25: Baso % (Auto) 0.2 % 04/09/25: Neut # (Auto) 18.53 K/uL (1.40-6.50) H 04/09/25 21: Lymph # (Auto) 0.54 K/uL (1.20-3.40) L 04/09/25: Orange # (Auto) 0.56 K/uL (0.11-0.59) 04/09/25 21: Eos # (Auto) 0.00 K/uL (0.00-0.50) 04/09/25: Baso # (Auto) 0.03 K/uL (0.00-0.20) 04/09/25: Immature Gran # (Auto) 0.13 K/uL (0.01-0.20) 04/09/25 21:02 Polychromasia 1+ 04/09/25 21: PT 11.5 Seconds (9.0-12.0) 04/09/25 21: INR 1.1 (0.9-1.1) 04/09/25 21:02 APTT 31 Seconds (21-31) 04/09/25 21: PTT Ratio 1.2 04/09/25 21: VBG pH 7.41 (7.36-7.41) 04/09/25: VBG pCO2 39 mmHg (38-50) 04/09/25: VBG pO2 35 mmHg 04/09/25: VBG HCO3 25 mmol/L 04/09/25: VBG O2 Saturation 62.7 % 04/09/25: VBG Base Excess 0.1 mEq/L 04/09/25: Sodium 132 mmol/L (136-145) L 04/09/25 21: Potassium 3.7 mmol/L (3.5-5.1) 04/09/25 21: Chloride 99 mmol/L (98-107) 04/09/25 21: Carbon Dioxide 23 mmol/L (21-32) 04/09/25 21: Anion Gap 10 (3-11) 04/09/25 21:02 BUN 40 mg/dl (6-23) H 04/09/25 21:02 Creatinine 2.28 mg/dl (0.6-1.2) H 04/09/25 21: Est Cr Clr Drug Dosing 16.3 ml/min 04/09/25 21:02 eGFR 21.99 04/09/25 21:02 BUN/Creatinine Ratio 17.5 (10-20) 04/09/25 21: Glucose 114 mg/dl (70-99(Fasting)) H 04/09/25 21:02 Lactate 1.2 mmol/L (0.4-2.0) 04/09/25 21:02 Calcium 8.1 mg/dl (8.6-10.3) L 04/09/25 21: Magnesium 2.0 mg/dl (1.7-2.4) 04/09/25 21: Total Bilirubin 0.6 mg/dl (0.2-1.0) 04/09/25 21:02 Direct Bilirubin 0.2 mg/dl (0-0.2) 04/09/25 21:02 AST 10 U/L (13-39) L 04/09/25 21:02 ALT 6 U/L (7-52) L 04/09/25 21:02 Alkaline Phosphatase 79 U/L (34-104) 04/09/25 21: Troponin I High Sens 12.4 pg/ml (0-14) 04/09/25 21: Total Protein 7.2 gm/dl (6.0-8.3) 04/09/25 21: Albumin 2.4 gm/dl (3.4-5.0) L 04/09/25 21:02 Procalcitonin Cancelled 04/09/25 21:02 Adenovirus (PCR) Not Detected (NotDetected) 04/09/25 20:55 B. pertussis DNA (PCR) Not Detected (NotDetected) 04/09/25 20:55 B.parapertussis DNA PCR Not Detected (NotDetected) 04/09/25 20:55 C. pneumoniae DNA (PCR) Not Detected (NotDetected) 04/09/25 20:55 Coronavirus OC43 (PCR) Not Detected (NotDetected) 04/09/25 20:55 Coronavirus HKU1 (PCR) Not Detected (NotDetected) 04/09/25 20:55 Coronavirus 229E (PCR) Not Detected (NotDetected) 04/09/25 20:55 SARS-CoV-2 (PCR) Not Detected (NotDetected) 04/09/25 20:55 Coronavirus NL63 (PCR) Not Detected (NotDetected) 04/09/25 20:55 Human Metapneumovir PCR Not Detected (NotDetected) 04/09/25 20:55 Influenza Type A (PCR) Not Detected (NotDetected) 04/09/25 20:55 Influenza Type B (PCR) Not Detected (NotDetected) 04/09/25 20:55 M. pneumoniae (PCR) Not Detected (NotDetected) 04/09/25 20:55 Parainfluenza 1 (PCR) Not Detected (NotDetected) 04/09/25 20:55 Parainfluenza 2 (PCR) Not Detected (NotDetected) 04/09/25 20:55 Parainfluenza 3 (PCR) Not Detected (NotDetected) 04/09/25 20:55 Parainfluenza 4 (PCR) Not Detected (NotDetected) 04/09/25 20:55 RSV (PCR) Not Detected (NotDetected) 04/09/25 20:55 Entero/Rhino (PCR) Not Detected (NotDetected) 04/09/25 20:55 Impressions Abdomen/Pelvis CT 04/09/25 21:51 Exam(s): CT ABDOMEN + PELVIS Without Contrast EXAM: CT Abdomen and Pelvis Without Intravenous Contrast CLINICAL HISTORY: Reason for exam: sepsis herlinda. TECHNIQUE: Axial computed tomography images of the abdomen and pelvis without intravenous contrast. CTDI is 7.06 mGy and DLP is 330.54 mGy-cm. Automated exposure control was utilized for the study. A dose lowering technique was utilized adhering to the principles of ALARA. COMPARISON: CT abdomen/pelvis: 08/20/2024 FINDINGS: Lung bases: Again noted bibasilar atelectatic changes LT>RT with associated posterior pleural thickening. Anteriorly along the right hemidiaphragm a 1.7 cm noncalcified solid nodule in the right lower lobe again noted versus 1.6 cm measured previously (series 3 image 19). ABDOMEN: Analysis of abdominal/pelvic viscera and vascular structures is limited in absence of IV contrast. Liver: Grossly unremarkable. Gallbladder and bile ducts: Prior cholecystectomy. No ductal dilation. Pancreas: Diffuse pancreatic atrophy. No ductal dilation. Spleen: No splenomegaly. Adrenals: Mild thickening of the left adrenal gland.. No mass. Kidneys and ureters: Interval placement of a double pigtail catheter in the right renal collecting system. There is interval increase in mild/moderate dilatation of the left renal collecting system with a partially compressed mid/distal left ureter in the midst of the mesenteric fat stranding seen anterior to the left psoas (series 3 image 169). No urinary tract calculi identified.. Stomach and bowel: Unremarkable stomach. There is up to 5 cm gas/fluid- filled dilated small bowel segments seen. Possibly prior partial right hemicolectomy with anastomotic sutures in the right lower quadrant and with mild mucosal thickening (series 301 image 45). Stool/gas present in the rest of the colon, mostly within a somewhat distended rectosigmoid. PELVIS: Appendix: Not seen. Bladder: Interval borderline wall thickening. No stones. Reproductive: Partial hysterectomy. ABDOMEN and PELVIS: Intraperitoneal space: Unremarkable. No free air. No significant fluid collection. Bones/joints: Osteopenia. No acute fracture. No dislocation. At L5- S1 moderate degenerative spondylitic changes seen. Soft tissues: Laterally right flank and right hip new subcutaneous fat stranding. Vasculature: Diffuse atheromatous calcifications of the aortoiliac vasculature and branch vessels. 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 Lymph nodes: Again noted a distal right para-aortic 5.2 x 2.8 x 3.0 cm soft tissue mass likely is coalescent lymphadenopathy (series 301 image 44) which is mildly increase in size since comparison. Additionally multiple small para-aortic/retroperitoneal lymph nodes are seen.. IMPRESSION: Lung bases: Bibasilar atelectatic changes with posterior pleural thickening seen. Anteriorly along the right hemidiaphragm a worrisome 1.7 cm solid pulmonary nodule is seen in the right lower lung lobe mild increase in size since comparison. Histological diagnosis recommended. There is increased dilatation of the left renal collecting system with a partially compressed mid/distal left ureter seen in the midst of inflammatory mesenteric fat stranding at the level of the left psoas muscle. Interval placement of a double pigtail stent in the right renal collecting system. No urinary tract calculi identified. Gas filled dilated small bowel segments are seen. Possibly prior partial right hemicolectomy with anastomotic sutures in the right lower quadrant and with mild mucosal thickening. Recommend clinical correlation. Stool-filled moderately distended rectosigmoid. Distally right para-aortic 5.2 cm soft tissue mass, likely a coalescent lymphadenopathy has increased in size since comparison. Additionally multiple small para-aortic/retroperitoneal lymph nodes are seen. Correlation with PET CT scan recommended. Additional findings as above . Electronically signed by: Alexis Hirsch MD, DABR 04/09/25 23:31 PM Diagnostic Findings EKG as per my interpretation :Rate 105, sinus tachycardia, LAD, LAFB, septal infarct, T wave flattening lateral leads, low voltage (1) Sepsis Acute renal failure type: unspecified Sepsis acute organ dysfunction status: with acute organ dysfunction Sepsis type: sepsis due to unspecified organism Severe sepsis acute organ dysfunction type: acute renal failure Severe sepsis s hock status: without septic shock Qualified Code(s): A41.9 - Sepsis, unspecified organism; R65.20 - Severe sepsis without septic shock; N17.9 - Acute kidney failure, unspecified
[2025-04-10] MEDS: PIPERACILLIN/TAZOBACTAM 4.5 GM/120 ML BAG IV ONE (00:29)
[2025-04-10 01:09] LABS: Hematocrit (blood only) 22.6 % (37.0-47.0); Hemoglobin 7.3 g/dl (12.0-16.0); Mean Corpuscular Hemoglobin 24.7 pg (25.0-34.0); Mean Corpuscular Volume 76.4 fL (80.0-100.0); Platelet Count 314 K/uL (130-400); RDW Standard Deviation 46.2 fL (36.4-46.3); Red Blood Count 2.96 M/uL (4.20-5.40); White Blood Count 15.51 K/ul (4.8-10.8)
[2025-04-10 01:23] LABS: Anion Gap 7.0 (3-11); Blood Urea Nitrogen 40.0 mg/dl (6-23); Calcium 7.7 mg/dl (8.6-10.3); Carbon Dioxide 24.0 mmol/L (21-32); Chloride 100.0 mmol/L (98-107); Creatinine Clr Calc Pharmacy 16.3 ml/min; Glucose 145.0 mg/dl (70-99(Fasting)); Potassium 3.5 mmol/L (3.5-5.1); Sodium 131.0 mmol/L (136-145)
[2025-04-10 01:29] LABS: Immature Granulocytes # (auto) 0.12 K/uL (0.01-0.20); Immature Granulocytes % (auto) 0.8 %
[2025-04-10] MEDS: NSS + 20MEQ KCL 20 MEQ/1,000 ML BAG IV STA (01:31)
--- NOTE | 2025-04-10 01:53 | XRay Report ---
Exam(s): XR CXR 1 VIEW EXAM: XR Chest, 1 View CLINICAL HISTORY: Reason for exam: Sepsis. TECHNIQUE: Frontal view of the chest. COMPARISON: Prior chest x-ray from August 20, 2024. FINDINGS: Lungs: Mild to moderate peribronchial thickening of the central bronchi. No consolidation. Pleural space: Unremarkable. No pneumothorax. Heart: Unremarkable. No cardiomegaly. Mediastinum: Unremarkable. Normal mediastinal contour. Bones/joints: Mild levoscoliosis of the proximal thoracic spine. No acute fracture. Diffuse osteopenia throughout the visualized bones. IMPRESSION: Findings concerning for bronchitis, which may be of infectious or inflammatory etiologies. No consolidation or pleural effusion. Electronically signed by: Silva Wright MD 04/10/25 01:52 AM
[2025-04-10] MEDS ORDERED: POLYETHYLENE (MIRALAX) 17 GM PACK PO PRN (02:09)
[2025-04-10] MEDS ORDERED: ACETAMINOPHEN 325 MG TAB PO PRN (02:10)
[2025-04-10] MEDS ORDERED: SODIUM CHLORIDE 0.9% 100 ML IV PRN (04:07)
[2025-04-10 05:55] LABS: Appearance Urine Turbid (Clear); Bacteria Urine Automated 4+ (None Seen); Epithelial Cell Urine Auto 0-2 /hpf (0-2); Glucose Urine UA Negative (Negative); WBC Urine Automated >50 /hpf (0-5)
[2025-04-10] MEDS: PIPERACILLIN/TAZOBACTAM 4.5 GM/100 ML BAG IV SCH ×2 (06:26→21:24)
[2025-04-10] MEDS: DOCUSATE SODIUM/SENNA 50/8.6MG TAB PO SCH (10:07)
[2025-04-10 10:49] LABS: Hematocrit (blood only) 27.1 % (37.0-47.0); Hemoglobin 8.7 g/dl (12.0-16.0)
[2025-04-10 11:02] LABS: Anion Gap 6.0 (3-11); Blood Urea Nitrogen 39.0 mg/dl (6-23); Calcium 7.7 mg/dl (8.6-10.3); Carbon Dioxide 24.0 mmol/L (21-32); Chloride 103.0 mmol/L (98-107); Creatinine Clr Calc Pharmacy 15.6 ml/min; Glucose 89.0 mg/dl (70-99(Fasting)); Potassium 3.7 mmol/L (3.5-5.1); Sodium 133.0 mmol/L (136-145)
[2025-04-10 11:13] LABS: A calco-baum cmplx NotReported Not Detected (NotDetected); Bact fragilis Not Reported Not Detected (NotDetected); Blood Culture Id Panel See PCR Comment (NotDetected); C auris Not Reported Not Detected (NotDetected); CTX-M Resistant Gene Not Detected (NotDetected); Calbicans Not Reported Not Detected (NotDetected); Candida glabrata Not Reported Not Detected (NotDetected); Candida krusei Not Reported Not Detected (NotDetected); Cneoformans/gatti Not Reported Not Detected (NotDetected); Cparapsilosis Not Reported Not Detected (NotDetected); Ctropicalis Not Reported Not Detected (NotDetected); E cloacae compx Not Reported Not Detected (NotDetected); Efaecalis Not Reported Not Detected (NotDetected); Efaecium Not Reported Not Detected (NotDetected); Enterobacterales DETECTED (NotDetected); Enterobacterales Not Reported DETECTED (NotDetected); Escherichia coli Not Reported Not Detected (NotDetected); H influenzae Not Reported Not Detected (NotDetected); IMP Resistant Gene Not Detected (NotDetected); K aerogenes Not Reported Not Detected (NotDetected); KPC Resistant Gene Not Detected (NotDetected); Koxytoca Not Reported Not Detected (NotDetected); Kpneumoniae grp Not Reported DETECTED (NotDetected); Lmonocyt Not Reported Not Detected (NotDetected); N meningitidis Not Reported Not Detected (NotDetected); NDM Resistant Gene Not Detected (NotDetected); OXA 48 Like Resistant Gene Not Detected (NotDetected); P aeruginosa Not Reported Not Detected (NotDetected); Proteus spp Not Reported Not Detected (NotDetected); Salmonella spp Not Reported Not Detected (NotDetected); Staph lugdunensis Not Reported Not Detected (NotDetected); Staph spp. Not Reported Not Detected (NotDetected); Staphaureus Not Reported Not Detected (NotDetected); Staphepi Not Reported Not Detected (NotDetected); Stenmaltophilia Not Reported Not Detected (NotDetected); Strep agal(GrpB) Not Reported Not Detected (NotDetected); Strep pneum Not Reported Not Detected (NotDetected); Strep pyog (GrpA) Not Reported Not Detected (NotDetected); Strep spp Not Reported Not Detected (NotDetected); VIM Resistant Gene Not Detected (NotDetected); mcr-1 Colistin Resistant Gene Not Detected (NotDetected)
[2025-04-10 11:29] LABS: Klebsiella pneumoniae group DETECTED (NotDetected)
--- NOTE | 2025-04-10 12:57 | Hospitalist Progress Note ---
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 This is resulting from obstruction of left ureter due to metastatic neuroendocrine tumor. Continue piperacillin Communication with urological team, anticipate going to the OR today to exchange right stent and placed a left stent. Monitor renal function Monitor cultures adjust antibiotics per sensitivities Therapies Case management Attempted to contact son and , no answer Admission and Anticipated Discharge Date Admission Date: April 09, 2025 Subjective Patient feeling wiped out and fatigued. Denies any pain. Understands the plan is for her to go to the operating room today. Physical Exam Physical Exam: Constitutional: Alert frail, weak, cachectic HEENT: Mucous membranes moist. Lungs: Clear to auscultation, decreased, no wheezes rales or rhonchi CV: S1-S2, regular, systolic murmur Abdomen: Soft, nontender, nondistended, no guarding, no rigidity Extremities: No significant edema Neuro: No focal deficits, generalized weakness Psych: Cooperative, depressed mood, flat affect Results & Data Results & Data Vital Signs (Past 12 Hours) Vital Signs Temp Pulse Pulse Pulse Resp BP BP 04/10/25 08:06 36.4 C L 56 L 18 105/63 04/10/25 07:06 36.4 C L 55 L 18 112/68 04/10/25 06:06 36.4 C L 51 L 18 104/61 04/10/25 05:36 36.4 C L 57 L 18 91/55 L 04/10/25 05:21 36.4 C L 56 L 18 96/59 L 04/10/25 05:04 36.4 C L 56 L 20 101/60 04/10/25 04:36 04/10/25 02:33 36.6 C 69 20 102/60 04/10/25 01:59 04/10/25 01:00 65 20 BP Pulse Ox O2 Del Method O2 Flow Rate 04/10/25 08:06 100 2 04/10/25 07:06 97 2 04/10/25 06:06 100 2 08/22/25 05:36 98 04/10/25 05:21 97 2 04/10/25 05:04 98 2 04/10/25 04:36 Nasal Cannula 2 04/10/25 02:33 96 Nasal Cannula 2 04/10/25 01:59 Nasal Cannula 2 04/10/25 01:00 85/48 L 98 Nasal Cannula 2 Diagnostic Findings Reviewed imaging, laboratory and diagnostic studies. Pertinent findings as below. Blood culture growing suspected Klebsiella WBCs 15.5 Hemoglobin 8.7, improved Platelets 314 Sodium 133 Potassium 3.7 Creatinine 2.27, stable, slightly increased from baseline
--- NOTE | 2025-04-10 14:15 | Anesthesiology Consultation ---
Date of Service April 10, 2025 Assessment & Plan Chart Review Chart Review: Acceptable Risk for Surgery and Patient NOT seen in Pre Admission Testing Consults Requested none ASA ASA4 History Surgery Operation Date: 04/10/25 16:10 Proposed Procedures p Cystoscopy, Bilateral Retrograde Pyelogram, Right Stent Exchange, Left Ureteral Stent Insertion - Kane Green MD Height/Weight Height: 5 ft 3 in Weight: 45.4 kg Allergies Allergy/AdvReac Type Severity Reaction Status Date / Time Fish Containing Products Allergy Severe Gastrointestinal Unverified 12/19/24 13:59 Upset Iodinated Contrast Media Allergy Severe PT STATES Verified 12/19/24 13:59 [Iodinated Contrast- Oral SHE HAD A and IV Dye] CARDIAC ARREST FOLLOWING IV FORM sulfamethoxazole Allergy Mild Neuro Verified 12/19/24 13:59 [From Bactrim] complications trimethoprim [From Bactrim] Allergy Mild Neuro Verified 12/19/24 13:59 complications codeine AdvReac Mild Headache Verified 12/19/24 13:59 morphine AdvReac Mild PT SAID IT Verified 12/19/24 13:59 SHUTS HER SYSTEM DOWN naproxen AdvReac Mild Diarrhea Verified 12/19/24 13:59 Medications Home Medications Medication Instructions Recorded Confirmed Last Taken pantoprazole 40 mg tablet,delayed 40 mg PO DAILYBB 12/18/24 12/19/24 12/19/24 release acetaminophen 500 mg tablet 500 mg PO Q6H PRN Pain 12/19/24 12/19/24 12/19/24 simethicone 80 mg chewable tablet 80 mg PO BID PRN Gastrointestinal 12/19/24 12/19/24 12/19/24 Spasms Or Cramping apixaban 5 mg tablet (Eliquis) See Rx Instructions .Route 12/20/24 Unknown .COMPLEX #74 tabs simethicone 180 mg capsule (Gas 180 mg PO BID PRN abdominal 12/20/24 Unknown Relief (simethicone)) gas/bloat #20 caps methadone 5 mg tablet 2.5 mg PO DAILY PRN Pain 04/10/25 04/10/25 Unknown Active Medications Generic Name Dose Route Start Last Admin Trade Name Freq PRN Reason Stop Dose Admin Pantoprazole Sodium 40 mg 04/10/25 09:00 04/10/25 10:08 Pantoprazole 40 Mg Tab PO 05/10/25 08:59 40 mg QAM ALVARO Administration Senna/Docusate Sodium 1 tab 04/10/25 09:00 04/10/25 10:07 Docusate Sodium/Senna 50/8.6mg Tab PO 05/10/25 08:59 1 tab QAM ALVARO Administration Past Medical History Medical History CKD (chronic kidney disease) COPD (chronic obstructive pulmonary disease) per hx, pt. denies any lung problems or seeing a belt back operator Hx of hydronephrosis (08/20/24) had cysto/stent on right by dr. rice Medical non-compliance per hhx PAD (peripheral artery disease) Chronic rhinitis Hx SBO History of bradycardia Palliative care by specialist pt states follows with dr. hawkins, having a pet scan later in sep and will possibly undergo xrt Hx of non-ST elevation myocardial infarction (NSTEMI) (08/21/24) per chart, pt denies Poor historian pt. denies documented medical problems when questioned Dysphagia pt reports food getting stuck and difficulty breathing, reason for egd Neuroendocrine cancer follows with dr. hawkins Carcinoid tumor (2005) follows with dr. hawkins Hx of sepsis (08/20/24) admit to [facility], pt. unable to provide details Seasonal allergies prn inhaler Acute UTI admit to [facility] 08/20/24, currenlty on abx anemia ARF on CKD SIRS/sepsis 4 cm infra renal/juxtarenal AAA ASCVD Ao + tobacco medical noncompliance Exercise / Class Metabolic Activity III < 4 Walking/Shop/Light housework Past Family History Family History Mother , age 84 Heart disease Diabetes Father , age 84 Dementia Aunt Breast cancer Daughter Diabetes Grandmother Heart disease Other Family history non-contributory Past Surgical History Surgical History Hx of stem cell transplant per hx, non compliant S/P cystoscopy with ureteral stent placement (08/22/24) inpatient at [facility], right stent Status post tubal ligation (~1973) H/O colonoscopy (~2017) History of hand surgery RIGHT 2nd FINGER RE-ATTACHEMENT 2/2 TRAUMA 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 History of hysterectomy DUSTIN/BSO History of cholecystectomy (~1979) Past Anesthesia History No Hx of Anesthesia Complications and No Family Hx of Anesthesia Complications History of PONV No Hx of PONV and No Hx of Motion Sickness Social History Smoking Status: Current every day smoker tobacco type: cigarettes Smoking cigarettes per day: 1 ppd Do You Dip or Chew Tobacco: No Hx Alcohol Use: Yes Alcohol type: wine and hard liquor alcohol intake frequency: holidays/special occasions only Hx Substance Use: Yes substance use type: methamphetamine Substance Use Type Other:: per pt- medication prescribed Last Used Substance: Unknown Physical Exam Vital Signs Last Vital Signs Temp 36.4 C L 04/10/25 08:06 Pulse 56 L 04/10/25 08:06 Resp 18 04/10/25 08:06 BP 105/63 04/10/25 08:06 Pulse Ox 100 04/10/25 08:06 O2 Del Method Nasal Cannula 04/10/25 10:00 O2 Flow Rate 2 04/10/25 10:00 Testing Laboratory Results 04/10/25 10:25 04/10/25 10:25 PT 11.5 Seconds (9.0-12.0) 04/09/25 21:02 INR 1.1 (0.9-1.1) 04/09/25 21:02 APTT 31 Seconds (21-31) 04/09/25 21:02 Urine Color Yellow 04/10/25 05:24 Urine Appearance Turbid (Clear) A 04/10/25 05:24 Urine pH 7.5 (4.5-7.5) 04/10/25 05:24 Ur Specific Mcgraw 1.018 (1.000-1.030) 04/10/25 05:24 Urine Protein 2+ (Negative) H 04/10/25 05:24 Urine Glucose (UA) Negative (Negative) 04/10/25 05:24 Urine Ketones Negative (Negative) 04/10/25 05:24 Urine Nitrite Negative (Negative) 04/10/25 05:24 Ur Leukocyte Esterase 3+ (Negative) H 04/10/25 05:24 Urine WBC (Auto) >50 /hpf (0-5) H 04/10/25 05:24 Urine RBC (Auto) 3-5 /hpf (0-2) H 04/10/25 05:24 U Hyaline Cast (Auto) 11-20 /lpf (0-2) H 04/10/25 05:24 U Epithel Cells (Auto) 0-2 /hpf (0-2) 04/10/25 05:24 Urine Bacteria (Auto) 4+ (None Seen) H 04/10/25 05:24 Blood Type O Negative 04/10/25 00:57 Antibody Screen NEGATIVE 04/10/25 00:57 04/09/25 21:02 Anaerobic Blood Culture - Preliminary Blood Gram negative bacilli Electrocardiogram Date: 04/09/25 Findings: + ST @ (@ 106 w/ PAC's;low voltage QRS;? septal infarct,age ?) Chest X-Ray Date: 04/09/25 Findings: + other (C/W bronchitis;peribronchial thickening of central airways) Stress Test Date: 07/25/24 Type: nuclear Findings: + WNL
--- NOTE | 2025-04-10 14:28 | Urology Consultation ---
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 CT abdomen pelvis showed the right ureteral stent in place with interval increase in mild/moderate dilation of the left renal collecting system with a partially compressed mid/distal left ureter in the midst of the mesenteric fat stranding seen anterior to the left psoas. No stones identified. She is afebrile and hemodynamically stable at present Labs today show WBCs down from 1915 today, hemoglobin 8.7, creatinine 2.27 (baseline around 1.4) Urine culture pending Blood cultures 08/23 gram-negative bacilli Hahn draining yellow urine Discussed with patient CT findings of mild/moderate dilation of the left renal collecting system with a partially compressed mid/distal left ureter. Given these findings, our recommendation is for left ureteral stent placement. She is agreeable. Her right sided stent was placed on 09/18/2024 and therefore she is due for stent exchange. We discussed right stent exchange today and she is agreeable. Given her HERLINDA, UTI, finding of left renal collecting system dilation and partial compression of the left ureter, and that she is due for right stent exchange, will plan to proceed to the OR today for cystoscopy, bilateral retrograde pyelogram, right ureteral stent exchange, left ureteral stent insertion. Risks and benefits to be reviewed with patient by Dr. Santos. Keep NPO. She is covered with IV Zosyn. Urology will follow. Attending note: Patient independently assessed, examined, interviewed, and evaluated. Agree with note as above. Patient's vitals and labs were all reviewed. Pertinent values in the HPI and plan section. Imaging was reviewed interpreted by myself. Agree with read. Vitals were reviewed. Discussed findings extensively with patient and family. Reviewed with nurse practitioner as well as consulting physicians/team. Patient's complicated medical and surgical history was reviewed and summarized above. Patient's surgical, medical, social, and family history were all reviewed with pertinent values as above. Discussed patient's current diagnosis as well as concerns and issues. Reviewed different options moving forward. Discussed potential risks and benefits as well as possible options and concerns. Reviewed potential surgical options and interventions. Discussed potential issues and concerns related to intervention. Risk and benefits were discussed extensively with patient and any available family. Discussed potential risks related to anesthesia. Discussed risks of bleeding infection and injury. Patient well-known of Dr. Green with chronic obstructive issues and chronic indwelling stent. Patient had last stent exchange over the winter. Developed significant issues with now worsening obstruction on the contralateral kidney. Was going to be needing the stent exchange on the right in the coming weeks/mo nth. Patient has possible severe infection issues with known history of severe malignancy with significant scarring and obstruction secondary to external compression. Reviewed extensively different options. Discussed risks and benefits of intervention. Patient's the labs and vitals were all thoroughly reviewed. Patient has been having some mild borderline hypotension. Patient is on blood thinner at baseline. Will plan to continue to monitor closely after procedure. Extensive conversation of options. Patient was agreeable to move forward. Will likely need to maintain stent to monitor renal function over time as well as control ongoing issues with infection. Risks and benefits discussed at length for procedure. These include bleeding, infection, injury to surrounding tissues or organs, and risks associated with anesthesia. Patient states understanding and agrees to proceed. Will sign consent and schedule. Plan for cystoscopy with possible bilateral retrograde pyelogram and possible bilateral stent placement/exchange History of Present Illness Attending Physician: Dav Isaac DO History of Present Illness 74-year-old female with a past medical history significant for AAA, COPD, metastatic neuroendocrine cancer sp surgery status post stem cell transplant (refused treatment), CRI (baseline creatinine 1.4), chronic right hydronephrosis status post stent placement, chronic anemia (baseline hemoglobin 9-10), RLE DVT on Eliquis, anxiety disorder, medical noncompliance, ongoing tobacco abuse who presented to the ED on 04/09 with fever and chills. On arrival she was febrile 38.8, normotensive, tachycardic. Labs showed WBC 19.79, hemoglobin 8.0, creatinine 2.28. Urinalysis 2+ blood, 3+ LE, > 50 WBC, 35 RBC, 4+ bacteria. Urine and blood cultures collected and pending. CT abdomen pelvis showed the right ureteral stent in place with interval increase in mild/moderate dilation of the left renal collecting system with a partially compressed mid/distal left ureter in the midst of the mesenteric fat stranding seen anterior to the left psoas. No stones identified. She was started on Zosyn. Admitted to medicine service. Patient is known to the urology service, follows with Dr. Green. Hx Right hydronephrosis secondary to a carcinoid tumor status post right stent placement 09/18/2024 Patient seen at bedside this morning. She is awake and resting in bed on arrival. No acute distress. Has been NPO. Hahn in place and draining yellow urine. Allergies Allergy/AdvReac Type Severity Reaction Status Date / Time Fish Containing Products Allergy Severe Gastrointestinal Unverified 12/19/24 13:59 Upset Iodinated Contrast Media Allergy Severe PT STATES Verified 12/19/24 13:59 [Iodinated Contrast- Oral SHE HAD A and IV Dye] CARDIAC ARREST FOLLOWING IV FORM sulfamethoxazole Allergy Mild Neuro Verified 12/19/24 13:59 [From Bactrim] complications trimethoprim [From Bactrim] Allergy Mild Neuro Verified 12/19/24 13:59 complications codeine AdvReac Mild Headache Verified 12/19/24 13:59 morphine AdvReac Mild PT SAID IT Verified 12/19/24 13:59 SHUTS HER SYSTEM DOWN naproxen AdvReac Mild Diarrhea Verified 12/19/24 13:59 Home Medications Medication Instructions Recorded Confirmed Type pantoprazole 40 mg tablet,delayed 40 mg PO DAILYBB 12/18/24 12/19/24 History release acetaminophen 500 mg tablet 500 mg PO Q6H PRN Pain 12/19/24 12/19/24 History simethicone 80 mg chewable tablet 80 mg PO BID PRN Gastrointestinal 12/19/24 12/19/24 History Spasms Or Cramping apixaban 5 mg tablet (Eliquis) See Rx Instructions .Route 12/20/24 Rx .COMPLEX #74 tabs simethicone 180 mg capsule (Gas 180 mg PO BID PRN abdominal 12/20/24 Rx Relief (simethicone)) gas/bloat #20 caps methadone 5 mg tablet 2.5 mg PO DAILY PRN Pain 04/10/25 04/10/25 History Patient History Medical History CKD (chronic kidney disease) COPD (chronic obstructive pulmonary disease) per hx, pt. denies any lung problems or seeing a special needs teacher Hx of hydronephrosis (08/20/24) had cysto/stent on right by dr. rice Medical non-compliance per hhx PAD (peripheral artery disease) Chronic rhinitis Hx SBO History of bradycardia Palliative care by specialist pt states follows with dr. hawkins, having a pet scan later in sep and will possibly undergo xrt Hx of non-ST elevation myocardial infarction (NSTEMI) (08/21/24) per chart, pt denies Poor historian pt. denies documented medical problems when questioned Dysphagia pt reports food getting stuck and difficulty breathing, reason for egd Neuroendocrine cancer follows with dr. hawkins Carcinoid tumor (2005) follows with dr. hawkins Hx of sepsis (08/20/24) admit to [facility], pt. unable to provide details Seasonal allergies prn inhaler Acute UTI admit to [facility] 08/20/24, fridaeny on abx Surgical History Hx of stem cell transplant per hx, non compliant S/P cystoscopy with ureteral stent placement (08/22/24) inpatient at [facility], right stent Status post tubal ligation (~1973) H/O colonoscopy (~2017) History of hand surgery RIGHT 2nd FINGER RE-ATTACHEMENT 2/2 TRAUMA 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 History of hysterectomy DUSTIN/BSO History of cholecystectomy (~1979) Family History Mother , age 84 Heart disease Diabetes Father , age 84 Dementia Aunt Breast cancer Daughter Diabetes Grandmother Heart disease Other Family history non-contributory Social History Smoking Status: Current every day smoker Tobacco Type: Cigarettes Cigarettes Per Day: 1 ppd; Second Hand Exposure: Yes; Do You Dip or Chew Tobacco: No; Tobacco Cessation Education Requested by Patient: No Hx Alcohol Use: Yes Alcohol type: wine and hard liquor Alcohol Intake Frequency: Monthly or Less Hx Substance Use: Yes Last Used Substance: Unknown Substance Use Type Other:: per pt- medication prescribed Preferred Language: Maldivian Communication Ability: Effective Visual Impairment: No Limitations Hearing Ability: Normal Oil Expert Required: No Beliefs That Will Affect Care: None marital status: Current Living Situation: Family Current Living Situation Comment: lives with grandson 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 status: retired 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 Patient is well nourished and well kept. Cachectic HEENT: Normocephalic Atraumatic. Inspection normal. Cranial Nerves 2-12 Grossly intact. Nares are clear. Neck is supple. Normal inspection of face. Normal inspection of neck. Neurologic: No deficits on inspection. Baseline for motor function and sensory. Psychologic: Normal affect. Respiratory: Nonlabored. No use of accessory muscles. No tachypnea or dyspnea. Cardiovascular: No tachycardia Skin: [place] and Dry. No rashes or visible lesions. Extremities: Moving without issues. No motor deficits on inspection Lymphatics: No edema Abdomen: Soft Non-distended. No rebound or guarding. Constitutional: + thin and + frail appearing; no acute d istress Respiratory: normal respiratory effort; no respiratory distress and no labored breathing Musculoskeletal: Head/Neck/Chest: normocephalic Neurologic: moves all extremities and awake Psychiatric: Orientation: alert and oriented x 3 Genitourinary: Hahn patent and draining clear yellow urine Results & Data Vital Signs (Past 12 Hours) Vital Signs Temp Pulse Pulse Resp BP BP Pulse Ox 04/10/25 10:00 04/10/25 08:06 36.4 C L 56 L 18 105/63 100 04/10/25 07:06 36.4 C L 55 L 18 112/68 97 04/10/25 06:06 36.4 C L 51 L 18 104/61 100 04/10/25 05:36 36.4 C L 57 L 18 91/55 L 98 04/10/25 05:21 36.4 C L 56 L 18 96/59 L 97 04/10/25 05:04 36.4 C L 56 L 20 101/60 98 04/10/25 04:36 04/10/25 02:33 36.6 C 69 20 102/60 96 O2 Del Method O2 Flow Rate 04/10/25 10:00 Nasal Cannula 2 04/10/25 08:06 2 04/10/25 07:06 2 04/10/25 06:06 2 04/10/25 05:36 04/10/25 05:21 2 04/10/25 05:04 2 04/10/25 04:36 Nasal Cannula 2 04/10/25 02:33 Nasal Cannula 2 PG Care Time/CCT Total # of Minutes Spent Total Time Spent with Patient: Total time spent is greater than 50% in coordination of care (as documented) at patient's floor/unit and/or counseling patient: Coding Level of Care Code 29110 INT INP/OBS CARE 375MIN Diagnoses Gram-negative bacteremia R78.81 HERLINDA (acute kidney injury) N17.9 Obstruction of left ureter N13.5 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
[2025-04-10] MEDS ORDERED: LIDOCAINE 2% 2 ML VIAL/AMP(20MG/ML) INFIL ONE ×2 (15:04)
[2025-04-10] MEDS ORDERED: PROPOFOL IV EMULSION 10 MG/ML 20 ML VIAL IV ONE (15:04)
[2025-04-10] MEDS ORDERED: MIDAZOLAM HCL 1 MG/ML 2ML VIAL ONE (15:07)
[2025-04-10] MEDS: DIATRIZOATE MEGLUMINE 30% 100ML VIAL INSTIL ONE (16:24)
--- NOTE | 2025-04-10 16:29 | Operative Report ---
PG Post Operative Report Pre & Post Diagnosis Operation Date: 04/10/25 16:10 Pre-Op Diagnosis: sepsis Post-Op Diagnosis: sepsis I identified the patient and participated in the time-out.: Yes Procedure Operation Date: 04/10/25 16:10 Actual Procedures Cystoscopy with Bilateral Retrograde Pyelogram, Right Stent Exchange and Right urine aspiration. Left Ureteral Stent Insertion - Guillermo Santos DO Surgeon Guillermo Santos, II, DO Assistant [employer] None Estimated Blood Loss 1 Findings Consistent with Post-Op Diagnosis Severely purulent urine from right kidney. Urine from left kidney severely thickened and appearance of retrograde pyelogram with a irregular appearance likely from large amount of debris on the left side. Stents placed in good position. Specimens Urine right kidney Drains 7 Ecuadorean by 24 silicone double-J ureteral stents bilaterally. 18 Ecuadorean Hahn catheter Anesthesia Type MAC Complications none Disposition Disposition: Recovery Room Indications Patient with obstruction with chronic stent changes on the right. Patient presented with sepsis and obstruction on the left and worsening hydro on the right with stent in position. Risks and benefits discussed at length. Description of Procedure Patient was consented and brought back to the operating room. Patient was placed under anesthesia in the supine position and moved to the dorsal lithotomy position. Patient was prepped and draped in the regular sterile fashion. A time out was completed. A 30degree Cystoscope was placed into the bladder and the entire bladder was examined. The UO's were identified. The right stent was grasped and partially removed. A wire was then placed and the stent fully removed. The UO was cannulized over the wire with a dual lumen catheter and immediately a large amount of what appeared to be purulent urine was noted to be draining from the right renal pelvis. A aspiration was completed to aspirate urine from this kidney. The urine was found to be severely purulent with a thickened appearance and irregular coloration. This urine was sent for culture. After aspirating approximately 20 cc of urine, a retrograde pyelogram was completed. The wire was maintained and the catheter removed. With the wire in place, a 7 Fr silicone double J stent was placed. It was confirmed with fluoroscopy. Attention was then taken to the left side. A 5 Ecuadorean open-ended catheter was placed and cannulated into the left UO. The 5 Ecuadorean open-ended catheter was able to advance however the ureter was found to be significantly tortuous and significant manipulation and utilization of wire in order to enter the area of the renal pelvis. An attempt to aspirate the left renal pelvis did not yield any fluid. A retrograde pyelogram was then completed utilizing contrast. The retrograde pyelogram on the left had an appearance of significant debris within the left renal pelvis. Urine/drainage was then noted which appeared to be cloudy. A wire was then placed and the catheter removed. A 7 Ecuadorean silicone double-J ureteral stent was then placed under direct visualization confirmed with fluoroscopy. With the stents in place, the bladder was emptied. The scope was removed. A 18 Ecuadorean Hahn catheter was then placed. The patient was cleaned, aroused from anesthesia, and transferred to the pacu in stable condition having tolerated the procedure well with no complications. I was present and participated in all aspects of the procedure. The patient will be monitored in the PACU until transferred. Will plan to monitor in the hospital during admission. Patient has previously followed with Dr. Green and recommend continued follow-up with him for stent management. I attest to the content of the Intraoperative Record and any orders documented therein. Any exceptions are noted below.
[2025-04-10] MEDS: MEPERIDINE HCL 25 MG/ML CARP/VIAL IV PRN (17:00)
--- NOTE | 2025-04-10 19:36 | Anesthesiology Progress Note ---
Date of Service April 10, 2025 Anesthesia Post Procedure Vital Signs Vital Signs: Temp Pulse Pulse Pulse Resp BP BP 04/10/25 17:10 36.6 C 96 H 24 122/85 04/10/25 17:00 102 H 28 H 149/102 H 04/10/25 16:50 120 H 30 H 125/103 H 04/10/25 16:41 36 C L 89 28 H 134/86 04/10/25 15:39 30 H 117/64 04/10/25 15:34 36.7 C 61 30 H 117/64 04/10/25 10:00 04/10/25 08:06 36.4 C L 56 L 18 105/63 04/10/25 07:06 36.4 C L 55 L 18 112/68 04/10/25 06:06 36.4 C L 51 L 18 104/61 04/10/25 05:36 36.4 C L 57 L 18 91/55 L 04/10/25 05:21 36.4 C L 56 L 18 96/59 L 04/10/25 05:04 36.4 C L 56 L 20 101/60 04/10/25 04:36 04/10/25 02:33 36.6 C 69 20 102/60 04/10/25 01:59 04/10/25 01:00 65 20 04/09/25 23:03 81 22 110/62 04/09/25 22:13 85 32 H 04/09/25 20:50 109 H 04/09/25 20:48 38.8 C H 114 H 32 H 114/71 BP Pulse Ox O2 Del Method O2 Flow Rate 04/10/25 17:10 95 Room Air 04/10/25 17:00 96 Oxymask 4 04/10/25 16:50 97 Oxymask 8 04/10/25 16:41 95 Oxymask 8 04/10/25 15:39 93 Room Air 04/10/25 15:34 93 Room Air 04/10/25 10:00 Nasal Cannula 2 04/10/25 08:06 100 2 04/10/25 07:06 97 2 04/10/25 06:06 100 2 04/10/25 05:36 98 04/10/25 05:21 97 2 04/10/25 05:04 98 2 04/10/25 04:36 Nasal Cannula 2 04/10/25 02:33 96 Nasal Cannula 2 04/10/25 01:59 Nasal Cannula 2 04/10/25 01:00 85/48 L 98 Nasal Cannula 2 04/09/25 23:03 97 04/09/25 22:13 108/60 94 Nasal Cannula 2 04/09/25 20:50 04/09/25 20:48 91 Room Air Transfer of Care Handoff Completed per policy Notes Mental Status: alert / awake / arousable Patient Amnestic to Procedure: Yes Nausea / Vomiting: adequately controlled Pain: adequately controlled Airway Patency, RR, SpO2: stable & adequate BP & HR: stable & adequate Hydration State: stable & adequate Anesthetic Complications: no major complications apparent
--- NOTE | 2025-04-10 19:38 | Communication Note ---
Date of Service: April 10, 2025 Overnight developments 04/10, 730 PM Patient noted to be tachycardic by RN, heart rate 150s, SBP 80s. Patient complaining of SOB. Unable to verbalize chest pain or cough concerns. EKG as per my interpretation rate 160, SVT, LAD, LAFB, no ischemia AP Hypotension SVT PCU transfer IVF Vagal maneuvers digoxin 1 dose Amiodarone infusion later initiated with persistent tachycardia and hypotension. Cardiology consult re: SVT, patient known to [facility] [place] [facility] okay with IV heparin initiation (in place of patient's Eliquis for his tory of DVT) Lactic acid noted to be 7.7 04/11 0000 AM Patient complained of abdominal pain on turning as per RN. Watery loose stools. Bloody urine from Hahn catheter drainage AP CT abdomen pelvis Stool C. difficile CT AP result 1. Right ureteric stent - Stable. 2. Interval placement of left ureteric stent with persistent mild left hydroureteronephrosis. 3. Small 2 mm vesical calculus seen in prior study could not be evaluated due to empty bladder and contrast filling. 4. Stable mild hepatomegaly. 5. Dilated infrarenal abdominal aorta in its entire length till bifurcation, extending for a length of about 11.1 cm and maximum diameter 3.2 cm - Stable. 6. Diffuse atherosclerotic wall calcification of the abdominal aorta and bilateral iliac arteries - Stable. 7. Bulky bilateral adrenal glands are seen - Stable. 8. Trace bilateral pleural effusion with basal atelectatic bands - Stable. 9. A pleural-based nodule measuring 2.5 x 1.8 cm is seen in the right posterior costal pleura - Not seen in prior study due to limited sections. 1:30 AM SBP 60s to 70s. Spoke patient daughter/POA (Ms. Cheryle Gongora, contact #[phone]) over the phone. She refused pressor Rx recommendation for persistent hypotension from septic shock despite ongoing IVF and antibiotic Rx. Patient/family might consider comfort measures as per discussion. DNR status from admission re-affirmed. Midodrine if patient able to take p.o. meds safely. 4:40 AM SBP later noted to be 90s. 615 AM SBP 60 to 70s as per RN. Flagyl 1 dose for presumptive C. difficile until stool C. difficile collected/resulted given sepsis Patient daughter given update over the phone. She agrees to ICU transfer to facilitate pressor Rx. Initiate Levophed. Discussed with ICU provider, Dr. White.
[2025-04-10] MEDS: PROMETHAZINE 6.25 MG/50.25 ML BAG IV PRN (19:40)
[2025-04-10] MEDS: ALBUMIN 25% 25 GM/100 ML VIAL IV ONE (19:55)
[2025-04-10] MEDS: DIGOXIN 250 MCG in SYRINGE 9 ML IV STA (20:02)
[2025-04-10] MEDS: NSS + 20MEQ KCL 20 MEQ/1,000 ML BAG IV ONE (20:23)
[2025-04-10] MEDS: ACETAMINOPHEN 1,000 MG/100 ML VIAL IV STA (20:23)
[2025-04-10] MEDS ORDERED: 0.2 MICRON FILTER SET 1 EACH IV STA (20:43)
[2025-04-10] MEDS ORDERED: AMIODARONE IV BOLUS & DRIP IV STA (20:43)
[2025-04-10] MEDS ORDERED: STAT IV Infusion **Titration per Protocol STA (20:43)
[2025-04-10] MEDS: AMIODARONE / D5W 150 MG/100 ML BAG IV STA (20:48)
[2025-04-10 20:57] LABS: Hematocrit (blood only) 34.3 % (37.0-47.0); Hemoglobin 11.0 g/dl (12.0-16.0)
[2025-04-10] MEDS: POTASSIUM CHLORIDE PWD 20 MEQ PACK PO STA (20:58)
[2025-04-10] MEDS: POTASSIUM CHLORIDE CRTAB 20 MEQ TABCR PO STA (20:59)
[2025-04-10] MEDS: AMIODARONE / D5W 360 MG/200 ML BAG IV ONE (21:03)
--- NOTE | 2025-04-10 21:10 | XRay Report ---
Chest radiograph, one view History: Shortness of breath Comparison: None Findings: Single AP view of the chest performed. No focal consolidation or pleural effusion. No pneumothorax. The cardiomediastinal silhouette is within normal limits. Normal pulmonary vascularity. No evidence for lymphadenopathy. No visualized bony or soft tissue abnormality. Impression: Normal chest radiograph Electronically signed by Kane Amador 04-10-2025 9:10 PM
[2025-04-10 21:23] LABS: Partial Thromboplastin Time 32 Seconds (21-31)
[2025-04-10] MEDS: MAGNESIUM SULFATE / D5W 1 GM/100 ML BAG IV ONE (21:44)
[2025-04-10] MEDS: HEPARIN 25000 UNIT/500 ML D5W 25,000 UNITS/500 ML BAG IV SCH (21:54)
--- NOTE | 2025-04-10 21:59 | Electrocardiogram Report ---
Test Reason : Blood Pressure : */* mmHG Vent. Rate : 106 BPM Atrial Rate : 106 BPM P-R Int : 138 ms QRS Dur : 70 ms QT Int : 328 ms P-R-T Axes : 75 -16 73 degrees QTcB Int : 435 ms Sinus tachycardia with Premature atrial complexes Low voltage QRS Septal infarct (cited on or before 05-May-2023) Abnormal ECG When compared with ECG of 19-Dec-2024 12:04, Premature atrial complexes are now Present Questionable change in initial forces of Anteroseptal leads Confirmed by Keron Miranda ([id number]) on 04/10/2025 9:59:34 PM Referred By: Confirmed By: Keron Miranda
[2025-04-10] MEDS: Heparin IV Adult Wt-Based Standard *NO* INITIAL Bolus Protocol IV STA (22:45)
[2025-04-10] MEDS: POTASSIUM CHLORIDE 20 MEQ in LACTATED RINGER'S 1,000 ML IV ONE (23:07)
[2025-04-11 00:37] LABS: Hematocrit (blood only) 28.1 % (37.0-47.0); Hemoglobin 9.0 g/dl (12.0-16.0)
[2025-04-11 00:53] LABS: Anion Gap 13.0 (3-11); Blood Urea Nitrogen 40.0 mg/dl (6-23); Calcium 7.4 mg/dl (8.6-10.3); Carbon Dioxide 14.0 mmol/L (21-32); Chloride 107.0 mmol/L (98-107); Creatinine Clr Calc Pharmacy 14.2 ml/min; Glucose 90.0 mg/dl (70-99(Fasting)); Potassium 4.0 mmol/L (3.5-5.1); Sodium 134.0 mmol/L (136-145)
[2025-04-11] MEDS ORDERED: HEPARIN 25000 UNIT/500 ML D5W 25,000 UNITS/500 ML BAG IV SCH (01:03)
[2025-04-11 01:09] LABS: Thyroid Stimulating Hormone 2.093 uIu/ml (0.300-4.500)
[2025-04-11] MEDS: LACTATED RINGER'S 1,000 ML IV SCH (02:28)
[2025-04-11] MEDS: AMIODARONE / D5W 360 MG/200 ML BAG IV SCH (02:31)
--- NOTE | 2025-04-11 02:32 | CT Scan Report ---
EXAM: CT abd pelvis wo con CLINICAL HISTORY: abd pain, hematuria TECHNIQUE: Contiguous axial images were obtained from the level of the diaphragm to the pubic symphysis without intravenous or oral contrast. Coronal and sagittal reconstructions were likewise performed and indicated to increase the sensitivity for detecting clinically relevant pathology. CT scan was performed according to ALARA (as low as reasonably achievable). COMPARISON: CT, 04/09/2025 21:03:41 [employer]ARRY [employer] FINDINGS: The visualized lung bases show trace bilateral pleural effusion with basal atelectatic bands. A pleural-based nodule measuring 2.5 x 1.8 cm is seen in the right posterior costal pleura. Evaluation of the abdominal and pelvic visceral organs is limited without intravenous contrast. The liver is enlarged, measuring 16.8 cm in craniocaudal dimension and normal in attenuation. The unenhanced spleen and pancreas are grossly unremarkable. Bulky bilateral adrenal glands are seen. The gallbladder is surgically removed. The kidneys are normal in size and attenuation. Contrast excretion is seen in the bilateral renal collecting systems. Bilateral ureteric stents are seen in place. Mild left hydroureteronephrosis. Bilateral perinephric stranding is seen. The urinary bladder is empty with Hahn's catheter in situ. Post hysterectomy status. No adenopathy or fluid collections are seen. No evidence of focal or diffuse bowel wall thickening or evidence of bowel obstruction is seen. The appendix is not well visualized. Dilated infrarenal abdominal aorta in its entire length till bifurcation, extending for a length of about 11.1 cm and maximum diameter 3.2 cm. Diffuse atherosclerotic wall calcification of the abdominal aorta and bilateral iliac arteries. Mild degenerative changes in the visualized spine. No aggressive appearing osseous lesions are identified. Rest unchanged. IMPRESSION: 1. Right ureteric stent - Stable. 2. Interval placement of left ureteric stent with persistent mild left hydroureteronephrosis. 3. Small 2 mm vesical calculus seen in prior study could not be evaluated due to empty bladder and contrast filling. 4. Stable mild hepatomegaly. 5. Dilated infrarenal abdominal aorta in its entire length till bifurcation, extending for a length of about 11.1 cm and maximum diameter 3.2 cm - Stable. 6. Diffuse atherosclerotic wall calcification of the abdominal aorta and bilateral iliac arteries - Stable. 7. Bulky bilateral adrenal glands are seen - Stable. 8. Trace bilateral pleural effusion with basal atelectatic bands - Stable. 9. A pleural-based nodule measuring 2.5 x 1.8 cm is seen in the right posterior costal pleura - Not seen in prior study due to limited sections. Electronically signed by Matt Peguero 04-11-2025 02:31 AM
[2025-04-11] MEDS ORDERED: LACTATED RINGER'S 1,000 ML IV SCH (04:00)
[2025-04-11] MEDS ORDERED: ACETAMINOPHEN 1,000 MG/100 ML VIAL IV STA (04:09)
[2025-04-11] MEDS: ACETAMINOPHEN 10MG/ML Custom 675 MG in EMPTY BAG 0 ML IV ONE (04:34)
[2025-04-11 04:37] LABS: Base Excess VBG -9.4 mEq/L; HCO3 VBG 16 mmol/L; Oxygen Saturation VBG 68.5 %; PCO2 VBG 35 mmHg (38-50); PO2 VBG 39 mmHg; pH VBG 7.28 (7.36-7.41)
[2025-04-11] MEDS: MIDODRINE HCL 2.5 MG TAB PO STA ×2 (04:37→06:08)
[2025-04-11 04:43] VITALS: TEMP 97.9
[2025-04-11 04:50] LABS: Anion Gap 11.0 (3-11); Calcium 7.1 mg/dl (8.6-10.3); Carbon Dioxide 16.0 mmol/L (21-32); Chloride 107.0 mmol/L (98-107); Potassium 4.2 mmol/L (3.5-5.1); Sodium 134.0 mmol/L (136-145)
[2025-04-11 04:55] LABS: Blood Urea Nitrogen 40.0 mg/dl (6-23); Creatinine Clr Calc Pharmacy 14.6 ml/min; Glucose 89.0 mg/dl (70-99(Fasting))
[2025-04-11 05:04] LABS: ANTI-Xa, UFH(UnfractionatedHep 0.43 IU/ml (0.3-0.7)
[2025-04-11 05:10] LABS: Hematocrit (blood only) 26.1 % (37.0-47.0); Hemoglobin 8.5 g/dl (12.0-16.0); Mean Corpuscular Hemoglobin 26.0 pg (25.0-34.0); Mean Corpuscular Volume 79.8 fL (80.0-100.0); Platelet Count 150 K/uL (130-400); RDW Standard Deviation 49.6 fL (36.4-46.3); Red Blood Count 3.27 M/uL (4.20-5.40); White Blood Count 15.47 K/ul (4.8-10.8)
[2025-04-11] MEDS: LACTATED RINGER'S 1,000 ML IV ONE (06:44)
[2025-04-11] MEDS ORDERED: STAT IV Infusion **Titration per Protocol STA (07:05)
[2025-04-11] MEDS: NOREPINEPHRINE/D5W 4 MG/250 ML PLCT IV SCH (07:23)
--- NOTE | 2025-04-11 07:28 | Fluoroscopy Report ---
INTRAOPERATIVE RADIOGRAPHS CLINICAL HISTORY: Bilateral retrograde pyelogram and left ureteral stent placement. Fluoro time: 33 seconds Ka,r: 4.19 mGy FINDINGS: 7 spot fluoroscopic views the abdomen are correlated with abdominal CT dated 04/09/2025. The re is mild right-sided hydronephrosis. Debris is suggested within the right renal pelvis. Contrast in the left renal collecting system shows moderate hydronephrosis. Bilateral ureteral stents are placed and appear appropriately positioned. There are surgical clips in the pelvis. IMPRESSION: Intraoperative images from a bilateral retrograde pyelogram and ureteral stent placements procedure as above. Electronically signed by: Pedro White M.D. 04/11/2025 7:25 AM
[2025-04-11] MEDS: metroNIDAZOLE 500 MG/100 ML BAG IV STA (07:54)
[2025-04-11 08:10] LABS: Base Excess VBG -8.8 mEq/L; HCO3 VBG 16 mmol/L; Oxygen Saturation VBG 89.9 %; PCO2 VBG 29 mmHg (38-50); PO2 VBG 57 mmHg; pH VBG 7.34 (7.36-7.41)
--- NOTE | 2025-04-11 08:14 | Critical Care Consultation ---
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 The patient was at home with hospice. She presented to the hospital on 04/09/2022 with worsening chills. She was found to have severe sepsis and CT of the abdomen showed increased dilation of the left renal cortical collecting system with compressed ureter and mesenteric fat stranding. Urology was consulted. The patient was treated with IV fluids and antibiotics. She underwent cystoscopy with stent exchange/placement. After the procedure overnight the patient developed tachycardia and hypotension that was unresponsive to volume resuscitation and was transferred to the ICU. Diagnosis: Septic shock Gram-negative bacteremia Urinary tract infection Acute kidney injury Lactic acidosis Underlying untreated malignancy Home hospice care Plan: Patient came to the ICU due to septic shock and need for vasopressor support. Family meeting was held at bedside with the patient and her daughter. The patient was alert and expressed a comprehensive understanding of her current diagnosis and clinical condition. The patient stated that she would want to be made comfortable and to not undergo any further invasive procedures or therapy. Family is in agreement with this. I discussed the case with the hospitalist as well as the urologic surgeon. We will respect the wishes of the patient and her family and proceed with comfort care measures only. Patient is a DNR DNI. Comfort care orders have been placed. I have personally spent 45 minutes of critical care time in the direct management of this patient. This is a life/limb threatening event. This includes time spent evaluating patient, direct bedside care, chart review, placing orders, interpretation of diagnostic studies, discussion with consultants, patient, and family members, as well as other required patient management activities. This time is exclusive of all separately billable procedures, and teaching time and separate from and in addition to any other critical care service time. Please note the above document was generated using voice recognition software. It may contain grammatical, syntax or spelling errors. 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 The patient presented to the hospital on 04/09/2025 with chills. Found to have significant leukocytosis at 19.8, hemoglobin 8.0, platelets 360, sodium 132, potassium 3.7, creatinine 2.28, BUN 40. UA was positive for leukocyte esterase, numerous WBCs, and 4+ bacteria. Blood cultures showed gram- negative bacilli. CT of the abdomen and pelvis shows some like changes with pleural thickening. 1.7 cm solid pulmonary nodule in the right lower lobe. Increased dilation of the left renal collecting system with compressed mid/distal left ureter, inflammation and mesenteric fat stranding at the level of the psoas muscle. Some mild bowel mucosal thickening. Soft tissue mass 5.2 cm para-aortic. The patient was in sepsis with complicated UTI in setting of right hydronephrosis. Urology was consulted. The patient underwent cystoscopy with bilateral retrograde pyelogram, right stent exchange and right urine aspiration and left ureteral stent insertion on 04/10/2025. Overnight the patient developed tachycardia and hypotension that was unresponsive to fluid resuscitation and therefore is being transferred back to the ICU. She did undergo repeat imaging of her abdomen and pelvis that showed she was developing some pleural effusions, otherwise postoperative and stable changes seen. When I examined the patient this morning in the medical ICU she was requiring Levophed to maintain her blood pressure. It is still low however even with increasing doses of norepinephrine. The patient is little bit sleepy but she woke up and was alert and oriented to the place, year, month, was able to tell me why she was in the hospital and what her underlying diagnoses are. She states that she was at home with hospice. She says that she is in pain mostly in her lower abdomen. She said that she did not want to continue suffering and wanted to be made comfortable. Her family came to bedside soon thereafter, she expressed the same feelings to them. They have decided to pursue with comfort care measures only at this time I do not want her to undergo any further testing or procedures. Allergies Allergy/AdvReac Type Severity Reaction Status Date / Time Fish Containing Products Allergy Severe Gastrointestinal Unverified 12/19/24 13:59 Upset Iodinated Contrast Media Allergy Severe PT STATES Verified 12/19/24 13:59 [Iodinated Contrast- Oral SHE HAD A and IV Dye] CARDIAC ARREST FOLLOWING IV FORM sulfamethoxazole Allergy Mild Neuro Verified 12/19/24 13:59 [From Bactrim] complications trimethoprim [From Bactrim] Allergy Mild Neuro Verified 12/19/24 13:59 complications codeine AdvReac Mild Headache Verified 12/19/24 13:59 morphine AdvReac Mild PT SAID IT Verified 12/19/24 13:59 SHUTS HER SYSTEM DOWN naproxen AdvReac Mild Diarrhea Verified 12/19/24 13:59 Home Medications Medication Instructions Recorded Confirmed Type pantoprazole 40 mg tablet,delayed 40 mg PO DAILYBB 12/18/24 12/19/24 History release acetaminophen 500 mg tablet 500 mg PO Q6H PRN Pain 12/19/24 12/19/24 History simethicone 80 mg chewable tablet 80 mg PO BID PRN Gastrointestinal 12/19/2410/14 History Spasms Or Cramping apixaban 5 mg tablet (Eliquis) See Rx Instructions .Route 12/20/24 Rx .COMPLEX #74 tabs simethicone 180 mg capsule (Gas 180 mg PO BID PRN abdominal 12/20/24 Rx Relief (simethicone)) gas/bloat #20 caps methadone 5 mg tablet 2.5 mg PO DAILY PRN Pain 04/10/25 04/10/25 History Patient History Medical History CKD (chronic kidney disease) COPD (chronic obstructive pulmonary disease) per hx, pt. denies any lung problems or seeing a student accounts coordinator Hx of hydronephrosis (08/20/24) had cysto/stent on right by dr. rice Medical non-compliance per hhx PAD (peripheral artery disease) Chronic rhinitis Hx SBO History of bradycardia Palliative care by specialist pt states follows with dr. hawkins, having a pet scan later in sep and will possibly undergo xrt Hx of non-ST elevation myocardial infarction (NSTEMI) (08/21/24) per chart, pt denies Poor historian pt. denies documented medical problems when questioned Dysphagia pt reports food getting stuck and difficulty breathing, reason for egd Neuroendocrine cancer follows with dr. hawkins Carcinoid tumor (2005) follows with dr. hawkins Hx of sepsis (08/20/24) admit to [facility], pt. unable to provide details Seasonal allergies prn inhaler Acute UTI admit to [facility] 08/20/24, cherriey on abx Surgical History Hx of stem cell transplant per hx, non compliant S/P cystoscopy with ureteral stent placement (08/22/24) inpatient at [facility], right stent Status post tubal ligation (~1973) H/O colonoscopy (~2017) History of hand surgery RIGHT 2nd FINGER RE-ATTACHEMENT 2/2 TRAUMA 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 History of hysterectomy DUSTIN/BSO History of cholecystectomy (~1979) Family History Mother , age 84 Heart disease Diabetes Father , age 84 Dementia Aunt Breast cancer Daughter Diabetes Grandmother Heart disease Other Family history non-contributory Social History Smoking Status: Current every day smoker Tobacco Type: Cigarettes Cigarettes Per Day: 1 ppd; Second Hand Exposure: Yes; Do You Dip or Chew Tobacco: No; Hx Alcohol Use: Yes Alcohol type: wine and hard liquor Alcohol Intake Frequency: Monthly or Less Hx Substance Use: Yes Last Used Substance: Unknown Substance Use Type Other:: per pt- medication prescribed Preferred Language: Irish Communication Ability: Effective Visual Impairment: No Limitations Hearing Ability: Normal Acute Care Nurse Required: No Beliefs That Will Affect Care: None marital status: Current Living Situation: Family Current Living Situation Comment: lives with grandson 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 status: retired 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 Denies chest pain. Endorses some tenderness when you palpate her chest due to a small breast mass on the right. Endorses abdominal pain most significant in the lower abdomen. Denies active nausea. Endorses weakness. Physical Exam Physical Exam: Physical examination: General: Chronically ill-appearing, frail, lying in bed, in moderate amount of pain. HEENT: Normocephalic, atraumatic. Sclera nonicteric. Moist oral mucosa. Skin: Warm and dry. No rashes appreciated. Cardiovascular: Mildly tachycardic, no murmurs appreciated. No significant edema. Lungs: Diminished at bases bilaterally. No wheezing. On room air. Nontachypneic. Abdomen: Mildly distended, tender to palpation throughout, more significant in the lower quadrants and suprapubic area. Surgical scars appreciated. Musculoskeletal: Diffuse muscle wasting with loss of subcutaneous fat. Neurologic: Awake and alert, oriented. CN II through XII are grossly intact. Speech is fluent. Nonfocal exam. Psychiatric: Appropriate cooperative during my exam. Results & Data Results & Data Vital Signs (Past 12 Hours) Vital Signs Temp Pulse Pulse Pulse Resp BP BP 04/11/25 05:59 77/36 L 04/11/25 04:43 36.6 C 96 H 20 97/54 L 04/11/25 03:54 36.4 C L 95 H 20 74/50 L 04/11/25 03:39 95 H 04/11/25 03:05 76/48 L 04/11/25 02:16 85/47 L 04/11/25 01:42 67/33 L 04/11/25 01:27 79/48 L 04/11/25 00:55 84/48 L 04/11/25 00:53 84/48 L 04/11/25 00:17 89/51 L 04/10/25 23:47 90/51 L 04/10/25 23:29 87/49 L 04/10/25 23:00 04/10/25 22:05 36.7 C 114 H 18 91/56 L 04/10/25 21:38 125 H 04/10/25 21:27 86/55 L 04/10/25 20:56 37.5 C 149 H 103/68 Pulse Ox O2 Del Method 04/11/25 05:59 04/11/25 04:43 91 Room Air 04/11/25 03:54 91 Room Air 04/11/25 03:39 04/11/25 03:05 04/11/25 02:16 04/11/25 01:42 04/11/25 01:27 04/11/25 00:55 04/11/25 00:53 04/11/25 00:17 04/10/25 23:47 04/10/25 23:29 04/10/25 23:00 Room Air 04/10/25 22:05 92 Room Air 04/10/25 21:38 04/10/25 21:27 04/10/25 20:56 94 Room Air Coding Level of Care Code 06604 CRITICAL CARE 1ST 30-74M Diagnoses Septic shock A41.9; R65.21 UTI due to Klebsiella species N39.0; B96.89 Obstruction of left ureter N13.5 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
[2025-04-11] MEDS: MEPERIDINE HCL 25 MG/ML CARP/VIAL ONE (08:53)
[2025-04-11] MEDS ORDERED: CEFEPIME 1000MG 1,000 MG/10 ML SYR IV SCH (09:00)
[2025-04-11] MEDS ORDERED: GLYCOPYRROLATE 0.2 MG/ML VIAL IV PRN (09:01)
[2025-04-11] MEDS ORDERED: ONDANSETRON INJ 2 MG/ML 2 ML VIAL IV PRN (09:01)
[2025-04-11] MEDS ORDERED: HALOPERIDOL ORAL SOLN 2 MG/ML PO PRN (09:01)
[2025-04-11] MEDS ORDERED: HYDROmorphone INJ 0.5 MG/0.5 ML SYR IV PRN (09:01)
[2025-04-11] MEDS: HYDROCORTISONE SOD 100 MG in SYRINGE 0 ML IV STA (09:30)
[2025-04-11] MEDS ORDERED: LORazepam 1 MG TAB SL PRN (11:35)
[2025-04-11] MEDS ORDERED: MoRPHine SULFATE 10 MG/0.5 ML UDP SL PRN (11:35)
[2025-04-11] MEDS ORDERED: ONDANSETRON 4 MG OD TAB PO PRN (11:35)
[2025-04-11] MEDS ORDERED: ACETAMINOPHEN 325 MG TAB PO PRN (11:37)
--- NOTE | 2025-04-11 11:57 | Electrocardiogram Report ---
Test Reason : Blood Pressure : */* mmHG Vent. Rate : 160 BPM Atrial Rate : 160 BPM P-R Int : * ms QRS Dur : 62 ms QT Int : 232 ms P-R-T Axes : * -38 77 degrees QTcB Int : 378 ms Poor data quality, interpretation may be adversely affected Supraventricular tachycardia Left axis deviation Low voltage QRS Septal infarct (cited on or before 05-May-2023) Abnormal ECG When compared with ECG of 09-Apr-2025 20:54, Premature atrial complexes are no longer Present Vent. rate has increased by 54 bpm Confirmed by Terrance Aguilera ([id number]) on 04/11/2025 11:57:36 AM Referred By: REFERRED SELF Confirmed By: Terrance Aguilera
[2025-04-11] MEDS ORDERED: MIDODRINE HCL 2.5 MG TAB PO SCH (12:00)
[2025-04-11] MEDS: SCOPOLAMINE 1 MG/72 HR TDSY PATCH TD SCH (12:09)
[2025-04-11] MEDS: HYDROmorphone INJ 0.5 MG/0.5 ML SYR IV PRN (12:09)
[2025-04-11 13:05] VITALS: BP 78/46; PULSE 95; RESP 23; O2SAT 91
[2025-04-11] MEDS ORDERED: HYDROCORTISONE SOD 50 MG in SYRINGE 0 ML IV SCH (14:00)
--- NOTE | 2025-04-11 14:08 | Urology Progress Note ---
Date of Service April 11, 2025 Assessment & Plan (1) Obstruction of left ureter: (2) Severe sepsis with acute organ dysfunction: (3) Pyelonephritis: (4) Neuroendocrine cancer: (5) Chronic rhinitis: (6) Watery diarrhea: (7) Hydronephrosis, right: (8) Small bowel obstruction: (9) Partial small bowel obstruction: (10) Septic shock: (11) Lactic acid acidosis: (12) COPD (chronic obstructive pulmonary disease): (13) Palliative care by specialist: Plan Patient evaluated today in the ICU or is being transferred to the floor to initiate full comfort measures. Patient with severe sepsis with obstruction. Had undergone stent placement yesterday had minimal urine output over the night. Patient's stents are in position and confirmed by imaging this morning. Did appear to have minimal drainage with no development of severe hydronephrosis. Concern for acute renal failure with an urea. Patient has been on pressors. Has had broad-spectrum antibiotics. Patient has a known severe malignancy also has severe comorbidities at baseline. Patient and family present today discussed with them current plans. They are electing to move forward with comfort measures and monitoring. At this point stents are in position. Patient's urine output has picked up over the last 2 to 3 hours. Will plan to maintain catheter for urine monitoring. Postop day 1 status post bilateral stent placement with right stent exchange. Severely purulent urine was appreciated bilaterally. Will plan to monitor and observe and assist with comfort measures as per patient and family's wish. Admission and Anticipated Discharge Date Admission Date: April 09, 2025 Subjective Postop from stent placement for obstruction issues. Patient history of chronic obstructive issues on the right side has a known neuroendocrine tumor/carcinoid tumor with obstruction. Patient had been utilizing silicone stents. Was last changed by Dr. Green in August 2024. Patient developed worsening issues with obstruction sepsis and ill feelings. Patient has severe metastatic disease. Had undergone bilateral stent placement yesterday secondary to worsening obstruction on the left side with signs of failure of the stent on the right. Patient had severely purulent urine within the renal collecting system. Both stents were able to be placed and set to drainage. Patient had minimal urine output throughout the night developed significant fever and hypotension. Additionally had severe elected back his doses. Patient had been transferred to the ICU where she was undergoing resuscitation and close monitoring however patient and family elected to exchange clerk to comfort care this morning. Patient has been tolerating well. Has noticed some frequency and urgency. Has not had severe pain in the back and flank. Does have occasional burning and irritation. No severe episodes or major changes. No new nausea or vomiting. Had tolerated anesthesia without major problems Review of Systems Review of Systems: All systems reviewed & are unremarkable except as noted in HPI & below Physical Exam Physical Exam: General: Alert in no acute distress. Cachectic, altered mental status HEENT: Normocephalic Atraumatic. Inspection normal. Cranial Nerves 2-12 Grossly intact. Normal inspection of face. Normal inspection of neck. Psychologic: Acutely ill. Does answer questions. Respiratory: Nonlabored. No use of accessory muscles. No tachypnea or dyspnea. Cardiovascular: No tachycardia Skin: [place] and Dry. No rashes or visible lesions. Extremities/Lymphatics: No edema Abdomen: Soft Non-distended. No rebound or guarding. : Hahn catheter in place draining cloudy light pink urine. Significant increase in urine output over the last 2 to 3 hours Results & Data Vital Signs (Past 12 Hours) Vital Signs Temp Pulse Pulse Pulse Resp BP BP 04/11/25 10:15 95 H 23 78/46 L 04/11/25 09:45 74/48 L 04/11/25 09:30 77/47 L 04/11/25 09:15 78/48 L 04/11/25 09:00 97 H 21 83/50 L 04/11/25 08:26 92 H 28 H 76/45 L 04/11/25 08:14 91 H 33 H 85/56 L 04/11/25 08:00 91 H 29 H 87/49 L 04/11/25 07:55 86 26 H 72/45 L 04/11/25 07:45 93 H 28 H 70/48 L 04/11/25 07:39 96 H 24 75/51 L 04/11/25 07:22 04/11/25 05:59 77/36 L 04/11/25 04:43 36.6 C 96 H 20 97/54 L 04/11/25 03:54 36.4 C L 95 H 20 04/11/25 03:39 95 H 04/11/25 03:05 76/48 L 04/11/25 02:16 85/47 L BP Pulse Ox O2 Del Method 04/11/25 10:15 04/11/25 09:45 04/11/25 09:30 04/11/25 09:15 04/11/25 09:00 91 Room Air 04/11/25 08:26 92 Room Air 04/11/25 08:14 93 Room Air 04/11/25 08:00 92 Room Air 04/11/25 07:55 93 Room Air 04/11/25 07:45 94 Room Air 04/11/25 07:39 92 Room Air 04/11/25 07:22 Room Air 04/11/25 05:59 04/11/25 04:43 91 Room Air 04/11/25 03:54 74/50 L 91 Room Air 04/11/25 03:39 04/11/25 03:05 04/11/25 02:16 PG Care Time/CCT Total # of Minutes Spent Total Time Spent with Patient: Total time spent is greater than 50% in coordination of care (as documented) at patient's floor/unit and/or counseling patient: Coding Level of Care Code 96161 SUB INP/OBS CARE 3/50MIN Diagnoses Obstruction of left ureter N13.5 Severe sepsis with acute organ dysfunction A41.9; R65.20 Pyelonephritis N12 Neuroendocrine cancer C7A.8 Chronic rhinitis J31.0 Watery diarrhea R19.7 Hydronephrosis, right N13.30 Small bowel obstruction K56.609 Partial small bowel obstruction K56.600 Septic shock A41.9; R65.21 Lactic acid acidosis E87.20 COPD (chronic obstructive pulmonary disease) J44.9 Palliative care by specialist Z51.5
--- NOTE | 2025-04-11 15:52 | Hospitalist Progress Note ---
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 This is due to altered urinary flow from the left kidney with obstructive ureter most likely to from metastatic cancer. Patient underwent exchange of right ureteral stent and placement of left ureteral stent on 04/10/2025. Postoperatively patient went up septic shock requiring pressors for maintaining blood pressure despite adequate fluid resuscitation and appropriate antibiotics. Extensive conversations occurred with the family with multiple medical providers. Ultimately family decided to pursue comfort measures only. Communication with the sales and marketing specialist they also spoke with family and confirms comfort measures only status. Patient was transferred out of the ICU, medications ordered for maintaining comfort Frequent updates to the family, extensive family at bedside Case management involved Pursue possible home hospice Patient currently is not stable for transport home requiring IV medications and blood pressure significantly decreased that would be highly concerned patient would not be able to tolerate trip home. Continue with comfort care, family aware that life expectancy is measured in hours 55 minutes spent on evaluation of patient, review of data, updates with medical team, updates to family, documentation Admission and Anticipated Discharge Date Admission Date: April 09, 2025 Subjective Events of overnight noted, patient septic shock following her procedure in the setting of known gram-negative bacteremia. Physical Exam Physical Exam: Constitutional: Lethargic, minimally responsive, thin, frail HEENT: Mucous membranes dry Lungs: Decreased breath sounds, prolonged expiratory phase CV: S1-S2, regular Abdomen: Soft, nontender, nondistended Extremities: No significant edema Neuro: Globally weak Psych: Minimally responsive Results & Data Results & Data Vital Signs (Past 12 Hours) Vital Signs Temp Pulse Pulse Resp BP BP BP 04/11/25 10:15 95 H 23 78/46 L 04/11/25 09:45 74/48 L 04/11/25 09:30 77/47 L 04/11/25 09:15 78/48 L 04/11/25 09:00 97 H 21 83/50 L 04/11/25 08:26 92 H 28 H 76/45 L 04/11/25 08:14 91 H 33 H 85/56 L 04/11/25 08:00 91 H 29 H 87/49 L 04/11/25 07:55 86 26 H 72/45 L 04/11/25 07:45 93 H 28 H 70/48 L 04/11/25 07:39 96 H 24 75/51 L 04/11/25 07:22 04/11/25 05:59 77/36 L 04/11/25 04:43 36.6 C 96 H 20 97/54 L 04/11/25 03:54 36.4 C L 95 H 20 74/50 L Pulse Ox O2 Del Method 04/11/25 10:15 04/11/25 09:45 04/11/25 09:30 04/11/25 09:15 04/11/25 09:00 91 Room Air 04/11/25 08:26 92 Room Air 04/11/25 08:14 93 Room Air 04/11/25 08:00 92 Room Air 04/11/25 07:55 93 Room Air 04/11/25 07:45 94 Room Air 04/11/25 07:39 92 Room Air 04/11/25 07:22 Room Air 04/11/25 05:59 04/11/25 04:43 91 Room Air 04/11/25 03:54 91 Room Air Diagnostic Findings Reviewed imaging, laboratory and diagnostic studies. Pertinent findings as below. WBCs 15.4 Hemoglobin 8.5 pH 7.3 pCO2 29 Sodium 134 Carbon dioxide 16 Creatinine 2.43, slightly improved Lactic acid 4.[address] report, no new acute findings
[2025-04-11] MEDS: CHECK SCOPOLAMINE PATCH PLACEMENT SCH (17:07)
--- NOTE | 2025-04-12 12:50 | Discharge Summary ---
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 In the emergency room urinalysis was concerning for infection and imaging revealed partial obstruction of the left ureter. Other laboratory studies were concerning for severe sepsis and organ dysfunction with some acute kidney injury. Patient was admitted to the hospital. She was placed on IV antibiotics. She was given IV fluids. Urology consultation was obtained. Patient did end up growing Klebsiella in the blood and urine. Was evaluated by urology and underwent cystoscopy with exchange of her right stent and placement of left ureteral stent. Immediately postoperatively patient seemed to be doing well however, later on the evening after her procedure patient's blood pressure rapidly decreased. She had evidence of slight shock that did not respond to IV fluid resuscitation. Patient need to be transferred to the ICU for pressors. During all of this the patient was kept up-to-date. Family was kept up-to-date. Patient has been struggling with her cancer for a long period of time and family felt that the chance of a meaningful recovery was not of realistic expectation. Knowing the patient's wishes and her desire to be home at home and be kept comfortable patient was transition to comfort care. Due to the patient's critical condition is concerned that we could eat not transport the patient home immediately to hospice. Pressors were discontinued. She was kept comfortable with IV medications and oral medications. Family was at her bedside. Patient did remain on comfort care for 24 hours. Seems to be rallying stop what. Family now feels that they would be willing to take the chance of getting her home. They have been in contact with hospice. Patient had been on hospice previously. They are willing to give her morphine to keep her comfortable now. Will continue to work on getting the patient home with hospice in the meantime continue comfort measures here. Did spend time on the phone with the pharmacist from [facility]. They report they do have 30 mL of Roxanol to be able to dispense. This will be adeq uate to get them through until hospice can warp picker their care tomorrow. Anticipating transportation to be arranged and patient being discharged home to care of family tonight with hospice to evaluate the patient tomorrow. Notes For Next Care Provider Coordinate all care through hospice Medication Changes From Visit All medications prior to admission discontinued Roxanol, lorazepam, Zofran used for comfort Admission HPI Per Admitting Provider History obtained from patient and records. Medical history significant for AAA, COPD, metastatic neuroendocrine cancer sp surgery status post stem cell transplant (refused treatment), CRI (baseline creatinine 1.4), chronic right hydronephrosis status post stent placement, chronic anemia (baseline hemoglobin 9-10), RLE DVT on Eliquis, anxiety disorder, medical noncompliance, ongoing tobacco abuse. Last confinement December 2024 for RLE swelling attributed to metastatic carcinoid cancer. Patient discharged on Eliquis course. Last night, patient noted chills. Denies chest pain, SOB, cough symptoms. Denies abdominal or flank pain. Patient unaware of hematuria symptoms. Admits to some constipation symptoms. Zosyn administered at the ER. 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 Admission Exam Per Admitting Provider See H&P Discharge Exam Constitutional: Responsive only to pain, frail, weak, cachectic HEENT: Mucous membranes dry Lungs: Decreased CV: S1-S2, regular Abdomen: Soft, nontender, nondistended Extremities: No significant edema Neuro: Lethargic, weak Psych: Withdraws to pain only Updated Medication List Medication Instructions Recorded Confirmed Type pantoprazole 40 mg tablet,delayed 40 mg PO DAILYBB 12/18/24 12/19/24 History release acetaminophen 500 mg tablet 500 mg PO Q6H PRN Pain 12/19/24 12/19/24 History simethicone 80 mg chewable tablet 80 mg PO BID PRN Gastrointestinal 12/19/24 12/19/24 History Spasms Or Cramping apixaban 5 mg tablet (Eliquis) See Rx Instructions .Route 12/20/24 Rx .COMPLEX #74 tabs simethicone 180 mg capsule (Gas 180 mg PO BID PRN abdominal 12/20/24 Rx Relief (simethicone)) gas/bloat #20 caps methadone 5 mg tablet 2.5 mg PO DAILY PRN Pain 04/10/25 04/10/25 History lorazepam 1 mg tablet 1 mg sublingual Q6H PRN 04/12/25 Rx discomfort/short of breath/anxiety #8 tabs morphine 20 mg/5 mL (4 mg/mL) oral 7.5 mg (1.875 mL) PO Q1H PRN 04/12/25 Rx solution Discomfort, shortness of breath #100 mL ondansetron 4 mg disintegrating 4 mg PO Q4H PRN nausea and 04/12/25 Rx tablet vomiting #10 tabs scopolamine base 1 mg over 3 days 1 patch transdermal Q72H #3 ea 04/12/25 Rx transdermal patch (Transderm-Scop) Hospital Stay Data Consultations 04/09/25 23:36 ED Decision to Admit Stat 04/10/25 00:43 Consult Urology Routine 04/11/25 07:22 Consult Block Chopper Hand Routine Procedures Performed Operation Date: 04/10/25 16:10 Actual Procedures p Cystoscopy, Bilateral Retrograde Pyelogram, Right Stent Exchange, Left Ureteral Stent Insertion(Bilateral) - Guillermo Santos, Diagnostic Imagining Performed 04/09/25 21:51 CT abd pelvis wo con Stat 04/10/25 FL retrograde includes kub Routine 04/11/25 00:06 CT Abd and Pelvis [CT abd pelvis wo con] Stat Reviewed imaging, laboratory and diagnostic studies. Pertinent findings as below. Urine culture growing out Klebsiella sensitive to all antibiotics except Macrodantin blood culture also growing Klebsiella, sensitive to all antibiotics tested All other laboratory studies discontinued when patient transition to comfort care Pending Results Patient Have Any Pending Studies at Discharge: No Discharge Instructions Given to Patient (Per Discharging Provider) Call hospice first with any questions or concerns Total Time Total Time Spent Total Time Spent (In Minutes): 46
[2025-04-14] MEDS ORDERED: REMOVE TRANSDERM-SCOP PATCH SCH (11:45)
== END 2025-04-12 15:52 | disposition hospice, home (50) | DRG 853 ==
LOC: ED 20:46 → 2N 04-10 01:59 → 2S 04-10 20:19 → 1E 04-11 07:08 → 3E 04-11 14:15